=== PATIENT | female | born 1960 | race African-American/Black ===

== ENCOUNTER 2018-05-29 14:15 | Emergency (ER) | payer BC, OTHER ==
[2018-05-29 14:21] VITALS: BP 129/84; PULSE 80; TEMP 98.9; BMI 25.7
--- NOTE | 2018-05-29 20:14 | PDOC ---
History of Present Illness - General Chief Complaint: Alcohol intoxication Stated Complaint: Alcohol intoxication Time Seen by Provider: 05/29/18 20:07 History Source: Patient Exam Limitations: No Limitations Past History - Past Medical History Allergies/Adverse Reactions: Allergies Allergy/AdvReac Type Severity Reaction Status Date / Time No Known Allergies Allergy Verified 05/29/18 14:21 Cardiac Disorders: Yes (CHF) COPD: No Diabetes: Yes HTN: Yes - Surgical History Abdominal Surgery: (GASTRIC BYPASS,HYSTERECTOMY) - Suicide/Smoking/Psychosocial Hx Smoking History: Never smoked Information on smoking cessation initiated: Yes Hx Alcohol Use: Yes (vodka daily) Drug/Substance Use Hx: No Substance Use Type: Alcohol *Physical Exam - Vital Signs Last Vital Signs Temp Pulse Resp BP Pulse Ox 98.9 F 80 19 129/84 98 05/29/18 14:17 05/29/18 14:17 05/29/18 14:17 05/29/18 14:17 05/29/18 14:17 *DC/Admit/Observation/Transfer Diagnosis at time of Disposition: Alcohol intoxication Qualifiers: Complication of substance-induced condition: with unspecified complication Qualified Code(s): F10.929 - Alcohol use, unspecified with intoxication, unspecified - Discharge Dispostion Disposition: HOME Condition at time of disposition: Improved Decision to Admit order: No - Referrals Referrals: Daniel Gerardo MD [Staff Physician] - - Patient Instructions Printed Discharge Instructions: DI for Alcohol Abuse Additional Instructions: You have been diagnosed with alcohol intoxication. You are medically cleared for admission into [facility] alcohol detox facility. Please proceed to [place] at the following address: [address] [place] [address]. Phone number: [phone]. Please follow with your primary care physician to let them know of your emergency department discharge within 1-2 days. If your symptoms worsen, persist, or new concerning symptoms arise, please return to the emergency department. - Post Discharge Activity Forms/Work/School Notes: Back to Work
--- NOTE | 2018-05-29 20:21 | PDOC ---
Attending Attestation - Resident Resident Name: Jesus Bullard - ED Attending Attestation I have performed the following: I have examined & evaluated the patient, The case was reviewed & discussed with the resident, I agree w/resident's findings & plan, Exceptions are as noted - Medical Decision Making 05/29/18 20:42 Pt is medically stable to go to [address] [place] [address] in the moving. Currently accompanied by family. <Hadley Mejias - Last Filed: 05/29/18 20:42> - HPI HPI: 05/29/18 20:26 The patient is a 58 year old female, with significant past medical history of CHF, HTN, DM, and alcohol abuse, who presents to the emergency department with, alcohol abuse. As per patient, she drinks vodka everyday. Her last drink was 10: 30 AM. She would like detox. She denies recent fevers, chills, headache or dizziness. She denies recent nausea, vomit, diarrhea or constipation. She denies recent dysuria, frequency, urgency or hematuria. She denies recent chest pain or shortness of breath. Allergies: NKA Past surgical history: Gastric bypass and Hysterectomy. Social history: Alcohol abuse (daily vodka use). Nonsmoker. Denies recreational drug use. - Physicial Exam PE: 05/29/18 20:26 GENERAL: Well-appearing, well-nourished. No apparent distress. HEENT: Normocephalic, atraumatic. PERRL, EOM intact. CARDIOVASCULAR: Normal S1, S2. Regular rate and rhythm. PULMONARY: Clear to auscultation bilaterally. ABDOMEN: Soft, non-distended, non-tender. EXTREMITIES: Normal ROM in all four extremities. No gross deformities. SKIN: Warm, dry. No rash NEUROLOGICAL: No focal neurological deficits. <Brayden Gomez - Last Filed: 05/29/18 21:17> Attestations - Attestations 05/29/18 20:27 Documentation prepared by Brayden Gomez, acting as medical pathologist for Hadley Mejias DO. 05/29/18 21:17 <Brayden Gomez - Last Filed: 05/29/18 21:17>
== END 2018-05-29 21:05 | disposition home or self-care (01) ==
LOC: JER 14:15
DX: F10.129 Alcohol abuse with intoxication, unspecified (principal); I10 Essential (primary) hypertension; I50.9 Heart failure, unspecified; E11.9 Type 2 diabetes mellitus without complications; E78.5 Hyperlipidemia, unspecified; J44.9 Chronic obstructive pulmonary disease, unspecified; Z98.84 Bariatric surgery status; Z90.710 Acquired absence of both cervix and uterus
CPT/HCPCS: 99281-25

== ENCOUNTER 2019-08-16 10:14 | Emergency (ER) | payer BC ==
[2019-08-16 10:33] VITALS: BMI 26.6
--- NOTE | 2019-08-16 10:56 | PDOC ---
History of Present Illness - General Chief Complaint: Alcohol intoxication Stated Complaint: PALPITATIONS - History of Present Illness Initial Comments: 59 year old female with PMH of alcoholism (last detox 1 year prior), CHF, DM, HLD, and COPD presenting to the emergency department acutely intoxicated with alcohol. States that she last drank 45 mins -1 hour prior and was in her home at which point she called EMS because she wanted rehab. When EMS measured her HR , they noted that she was in sinus tachycardia and then she admitted that she had palpitations. She originally denied any chest pain but then later stated to the attending that she did have some mild central chest pain, SOB, nausea, vomiting, or other symptoms. 08/16/19 10:58 Past History - Past Medical History Allergies/Adverse Reactions: Allergies Allergy/AdvReac Type Severity Reaction Status Date / Time No Known Allergies Allergy Verified 06/03/18 10:51 Home Medications: Ambulatory Orders Metoprolol Succinate [Toprol Xl] 25 mg PO DAILY #30 tab.er.24h 06/06/18 Simvastatin [Zocor -] 10 mg PO HS #30 tablet 06/06/18 Anemia: Yes (not on meds) Asthma: No Cancer: No Cardiac Disorders: Yes (CHF - on Toprol) CVA: No COPD: Yes (COPD, states not on meds) CHF: Yes (On Toprol) Dementia: No Diabetes: Yes (diet controlled) GI Disorders: No Disorders: No HTN: No (Denies, Bp high at admission) Hypercholesterolemia: Yes (On Lipitor) Liver Disease: No Seizures: Yes (Alcohol induced - 2008) Thyroid Disease: No - Surgical History Abdominal Surgery: (GASTRIC BYPASS,HYSTERECTOMY) - Psycho Social/Smoking Cessation Hx Smoking History: Never smoked Have you smoked in the past 12 months: No 'Breaking Loose' booklet given: 06/03/18 Hx Alcohol Use: Yes Drug/Substance Use Hx: No Substance Use Type: Alcohol Hx Substance Use Treatment: Yes Review of Systems - Review of Systems Constitutional: No: See HPI, Chills, Diaphoresis HEENTM: No: Blurred Vision, Tearing Respiratory: No: Cough, Shortness of Breath Cardiac (ROS): No: Chest Pain, Irregular Heart Rate ABD/GI: No: Diarrhea, Nausea, Vomiting : No: Dysuria, Discharge Musculoskeletal: No: Back Pain, Joint Pain, Muscle Weakness, Neck Pain Integumentary: No: Flushing, Lesions, Lumps Neurological: No: Headache, Numbness, Paresthesia Psychiatric: Yes: Anxiety. No: Depression Hematologic/Lymphatic: No: Anemia, Blood Clots, Easy Bleeding *Physical Exam - Vital Signs Last Vital Signs Temp Pulse Resp BP Pulse Ox 98.0 F 110 H 20 127/88 97 08/16/19 10:15 08/16/19 10:15 08/16/19 10:15 08/16/19 10:15 08/16/19 10:15 - Physical Exam General Appearance: Yes: Nourished, Appropriately Dressed. No: Apparent Distress HEENT: positive: EOMI, RAFY, Normal ENT Inspection, Normal Voice Neck: positive: Trachea midline, Normal Thyroid, Supple. negative: Tender, Rigid Respiratory/Chest: positive: Lungs Clear, Normal Breath Sounds. negative: Chest Tender, Respiratory Distress, Accessory Muscle Use Cardiovascular: positive: Regular Rhythm, Regular Rate Gastrointestinal/Abdominal: positive: Normal Bowel Sounds, Flat, Soft. negative : Tender Musculoskeletal: positive: Normal Inspection. negative: Decreased Range of Motion Extremity: positive: Normal Inspection, Normal Range of Motion. negative: Tender Neurologic: positive: Fully Oriented, Alert, Normal Mood/Affect ED Treatment Course - LABORATORY CBC & Chemistry Diagram: 08/16/19 12:22 08/16/19 12:22 Discharge - Discharge Information Problems reviewed: Yes Clinical Impression/Diagnosis: Alcohol intoxication Qualifiers: Complication of substance-induced condition: uncomplicated Qualified Code(s): F10.920 - Alcohol use, unspecified with intoxication, uncomplicated Condition: Improved Disposition: HOME - Admission No - Follow up/Referral Referrals: Tara Plummer [Primary Care Provider] - - Patient Discharge Instructions Patient Printed Discharge Instructions: DI for Alcohol Abuse Additional Instructions: Please go to [facility] to help you stop drinking and detox. Please stop drinking alcohol when you leave [facility]. Please make a follow up appointment with your PCP or you can use our clinic if you wish. Please return to the Ed if you have new or worsening symptoms. - Post Discharge Activity
[2019-08-16 12:36] LABS: EOS % 0.7 % (0-4.5); HEMOGLOBIN 12.9 GM/dL (10.7-15.3); LYMPH % 35.7 % (8-40); MCH 33.3 pg (25.7-33.7); MEAN CELL VOLUME 97.8 fl (80-96); MEAN PLT VOLUME 7.1 fl (7.5-11.1); MONO % 8.4 % (3.8-10.2); NEUT % 54.2 % (42.8-82.8); PLATELET COUNT 265 K/MM3 (134-434); RBC 3.88 M/mm3 (3.60-5.2); RDW 15.4 % (11.6-15.6); WHITE BLOOD COUNT 6.4 K/mm3 (4.0-10.0)
[2019-08-16 13:08] LABS: ALBUMIN 3.3 g/dl (3.4-5.0); ALK PHOS 80 U/L (45-117); ANION GAP 13 MMOL/L (8-16); BILIRUBIN,TOTAL 0.2 mg/dL (0.2-1); BLOOD UREA NITROGEN 10.8 mg/dL (7-18); CALCIUM 7.5 mg/dL (8.5-10.1); CHLORIDE 102 mmol/L (98-107); CO2 23 mmol/L (21-32); CREATININE 0.8 mg/dL (0.55-1.3); GLUCOSE,RANDOM 323 mg/dL (74-106); POTASSIUM 4.1 mmol/L (3.5-5.1); SGOT/AST 56 U/L (15-37); SGPT/ALT 75 U/L (13-61); SODIUM 139 mmol/L (136-145); TOT PROT 6.6 g/dl (6.4-8.2)
--- NOTE | 2019-08-16 13:19 | EKG ---
Test Reason : Blood Pressure : / mmHG Vent. Rate : 098 BPM Atrial Rate : 098 BPM P-R Int : 180 ms QRS Dur : 088 ms QT Int : 370 ms P-R-T Axes : 055 065 060 degrees QTc Int : 472 ms NORMAL SINUS RHYTHM WHEN COMPARED WITH ECG OF 03-JUN-2018 14:13, NO SIGNIFICANT CHANGE WAS FOUND Confirmed by HOMAR ANTONY MD ([id number]) on 08/16/2019 1:19:27 PM Referred By: Confirmed By:HOMAR ANTONY MD
[2019-08-16 13:45] VITALS: BP 108/70; PULSE 102; TEMP 98.4
--- NOTE | 2019-08-16 14:05 | PDOC ---
Attending Attestation - Resident Resident Name: Tati Miranda - ED Attending Attestation I have performed the following: I have examined & evaluated the patient, The case was reviewed & discussed with the resident, I agree w/resident's findings & plan, Exceptions are as noted - HPI HPI: 08/16/19 13:33 59 year old female with PMH of alcoholism (last detox 1 year prior), CHF, DM, HLD, and COPD presenting to the emergency department acutely intoxicated with alcohol complaining of palpitations and chest discomfort - Physicial Exam PE: 08/16/19 15:52 Vitals: Triage Vital signs reviewed General Appearance: No acute distress, well nourished well developed, Head: Atraumatic, Chest Wall: Nontender Cardiac: Tachycardic Lungs: Clear to auscultation bilateral, good air movement bilaterally, Abdomen: Soft, non distended, normal bowel sounds, non tender to palpation Extremities: Full range of motion to all extremities, no cyanosis, clubbing, or edema Skin: Warm and dry, no rashes or lesions, no rash, no petechiaeTachycardic Psych: Normal mood, normal affect - Medical Decision Making 08/16/19 15:53 Well-appearing no apparent distress presents with alcohol intoxication slight withdrawal CIWA score 8 and palpitations and chest pressure Nonischemic EKG troponin negative patient stable for transfer to [facility] for detox Findings, need for follow-up and strict return instructions discussed with patient. Heart Score/ECG Review - ECG Impressions Comment:: 08/16/19 15:52 EKG performed at 1027 demonstrates normal sinus rhythm no ST elevations or T wave inversions. Interpreted by me.
== END 2019-08-16 14:17 | disposition home or self-care (01) ==
LOC: JER 10:14
DX: F10.120 Alcohol abuse with intoxication, uncomplicated (principal); Y90.9 Presence of alcohol in blood, level not specified; I25.10 Atherosclerotic heart disease of native coronary artery without angina pectoris; I11.0 Hypertensive heart disease with heart failure; I50.9 Heart failure, unspecified; E11.9 Type 2 diabetes mellitus without complications; E78.00 Pure hypercholesterolemia, unspecified; Z86.69 Personal history of other diseases of the nervous system and sense organs; J44.9 Chronic obstructive pulmonary disease, unspecified; D64.9 Anemia, unspecified; Z98.84 Bariatric surgery status; Z90.710 Acquired absence of both cervix and uterus
CPT/HCPCS: 36415; 80053; 84484; 85025; 93005; 93010; 99283-25

== ENCOUNTER 2019-08-16 15:21 | Inpatient (IN) | payer BC, OTHER ==
[2019-08-16 19:52] VITALS: BMI 25.9
--- NOTE | 2019-08-16 21:58 | HP ---
CIWA Score Nausea/Vomitin-Mild Nausea/No Vomiting Muscle Tremors: 4-Moderate,w/Arms Extend Anxiety: 3 Agitation: 3 Paroxysmal Sweats: 2 Orientation: 0-Oriented Tacttile Disturbances: 0-None Auditory Disturbances: 0-None Visual Disturbances: 0-None Headache: 2-Mild CIWA-Ar Total Score: 15 - Admission Criteria OASAS Guidelines: Admission for Medically Managed Detox: Requires at least one of the followin. CIWA greater than 12 2. Seizures within the past 24 hours 3. Delirium tremens within the past 24 hours 4. Hallucinations within the past 24 hours 5. Acute intervention needed for co occurring medical disorder 6. Acute intervention needed for co occurring psychiatric disorder 7. Severe withdrawal that cannot be handled at a lower level of care (continued vomiting, continued diarrhea, abnormal vital signs) requiring intravenous medication and/or fluids 8. Admitting History and Physical - Smoking History Smoking history: Never smoked Have you smoked in the past 12 months: No - Alcohol/Substance Use Hx Alcohol Use: Yes Admission ROS [facility] Chief Complaint: Seeking admission to detox from alcohol Allergies/Adverse Reactions: Allergies Allergy/AdvReac Type Severity Reaction Status Date / Time No Known Allergies Allergy Verified 08/16/19 19:42 History of Present Illness: 59 years old female with a long history of alcohol dependence is seeking admission to detox. Patient has been in previous multiple detox and reports insignificant period of sobriety. She mas medical history of Hypertension, Anemia, CHF, Diabetes Type 2, Seizures, Hyperlipidemia, and COPD. She denies suicidal ideation at this time Exam Limitations: Intoxication - Ebola screening Have you traveled outside of the country in the last 21 days: No (N) Have you had contact with anyone from an Ebola affected area: No Do you have a fever: No - Review of Systems Constitutional: Chills, Malaise, Changes in sleep EENT: reports: No Symptoms Reported Respiratory: reports: No Symptoms reported Cardiac: reports: No Symptoms Reported GI: reports: No Symptoms Reported : reports: No Symptoms Reported Musculoskeletal: reports: Back Pain, Muscle Pain Integumentary: reports: Dryness, Flushing Neuro: reports: Tremors Endocrine: reports: No Symptoms Reported Hematology: reports: No Symptoms Reported, Anemia Psychiatric: reports: Mood/Affect Appropiate, Anxious, Depressed Other Systems: Reviewed and Negative Patient History - Patient Medical History Hx Anemia: Yes (not on meds) Hx Asthma: No Hx Chronic Obstructive Pulmonary Disease (COPD): Yes (COPD, states not on meds) Hx Cancer: No Hx Cardiac Disorders: Yes (CHF - on Toprol) Hx Congestive Heart Failure: Yes (On Toprol) Hx Hypertension: No (Denies, Bp high at admission) Hx Hypercholesterolemia: Yes (On Lipitor) Hx Pacemaker: No HX Cerebrovascular Accident: No Hx Seizures: Yes (Alcohol induced - 2008) Hx Dementia: No Hx Diabetes: Yes (diet controlled) Hx Gastrointestinal Disorders: No Hx Liver Disease: No Hx Genitourinary Disorders: No Hx Sexually Transmitted Disorders: No (Chlamydia - 15 years ago) Hx Renal Disease (ESRD): No Hx Thyroid Disease: No Hx Human Immunodeficiency Virus (HIV): No (Negative) Hx Hepatitis C: No Hx Depression: No Hx Suicide Attempt: No (Denies suicidal ideation at this time) Hx Bipolar Disorder: No Hx Schizophrenia: No - Patient Surgical History Past Surgical History: Yes Hx Neurologic Surgery: No Hx Cataract Extraction: No Hx Cardiac Surgery: No Hx Lung Surgery: No Hx Breast Surgery: No Hx Breast Biopsy: No Hx Abdominal Surgery: Yes (GASTRIC BYPASS,HYSTERECTOMY) Hx Appendectomy: No Hx Hysterectomy: Yes - PPD History Previous Implant?: No (PPD POSITIVE. ) Implanted On Prior R Admission?: No PPD to be Administered?: No - Reproductive History Patient is a Female of Child Bearing Age (11 -55 yrs old): Yes LMP comment: S/P HYSTRECTOMY 2011 Patient : No - Smoking Cessation Smoking history: Never smoked Have you smoked in the past 12 months: No Hx Chewing Tobacco Use: No - Substance & Tx. History Hx Alcohol Use: Yes Hx Substance Use: No Substance Use Type: Alcohol Hx Substance Use Treatment: Yes (UNKNOWN) - Substances abused Alcohol Substance route: Oral Frequency: Daily Amount used: 2pints of vodka/day Age of first use: 8 Date of last use: 08/16/19 Admission Physical Exam BHS - Vital Signs Vital Signs: Vital Signs - 24 hr 08/16/19 19:44 Temperature 100.4 F H Pulse Rate 94 H Respiratory 18 Rate Blood Pressure 179/110 H - Physical General Appearance: Yes: Moderate Distress, Tremorous, Irritable, Sweating, Anxious HEENTM: Yes: EOMI, Normal ENT Inspection, Normocephalic, Normal Voice, RAFY Respiratory: Yes: Lungs Clear, Normal Breath Sounds, No Respiratory Distress Neck: Yes: Supple Breast: Yes: Breast Exam Deferred Cardiology: Yes: Tachycardia Abdominal: Yes: Normal Bowel Sounds Genitourinary: Yes: Within Normal Limits Back: Yes: Normal Inspection, CVA Tenderness (L) Musculoskeletal: Yes: Back pain, Muscle Pain Extremities: Yes: Tremors Neurological: Yes: Within Normal Limits Integumentary: Yes: Warm Lymphatic: Yes: Within Normal Limits - Diagnostic (1) Hyperlipidemia Current Visit: Yes Status: Acute (2) Anemia Current Visit: Yes Status: Chronic Qualifiers: Anemia type: iron deficiency (3) Seizures Current Visit: Yes Status: Chronic (4) Hypertension Current Visit: Yes Status: Chronic (5) Alcohol dependence with uncomplicated intoxication Current Visit: Yes Status: Acute (6) CHF (congestive heart failure) Current Visit: Yes Status: Chronic (7) COPD (chronic obstructive pulmonary disease) Current Visit: Yes Status: Chronic (8) DM2 (diabetes mellitus, type 2) Current Visit: Yes Status: Chronic Cleared for Admission S - Detox or Rehab [facility] Level of Care: Medically Managed Detox Regimen/Protocol: Librium Breathalyzer - Breathalyzer Breathalyzer: 0.094 Urine Drug Screen - Test Device Lot number: [id number] Expiration date: 03/22/21 - Control Is test valid?: Yes - Results Drug screen NEGATIVE: No Urine drug screen results: BZO-Benzodiazepines Inpatient Rehab Admission - Rehab Decision to Admit Inpatient rehab admission?: No
[2019-08-16] MEDS ORDERED: METHOCARBAMOL 500 MG TABLET PO PRN (22:12)
[2019-08-16] MEDS ORDERED: IBUPROFEN 400 MG TABLET (FP) PO PRN (22:12)
[2019-08-16] MEDS ORDERED: BISMUTH SUBSALICYLATE 524 MG/30 ML UD PO PRN (22:12)
[2019-08-16] MEDS ORDERED: MENTHOL/PHENOL 1 EACH UD MM PRN (22:12)
[2019-08-16] MEDS ORDERED: MAG HYDROX/AL HYDROX/SIMETH 30 ML UNIT-DOSE CUP PO PRN (22:12)
[2019-08-16] MEDS ORDERED: chlordiazePOXIDE HCL 25 MG CAPSULE PO PRN (22:12)
[2019-08-16] MEDS ORDERED: MAGNESIUM HYDROX 2400MG/30ML ORAL SUSPENSION 30 ML CUP PO PRN (22:12)
[2019-08-16] MEDS ORDERED: ACETAMINOPHEN 325 MG TABLET (FP) PO PRN ×2 (22:12)
[2019-08-16] MEDS ORDERED: MAGNESIUM CITRATE 300 ML BOTTLE PO PRN (22:12)
[2019-08-16] MEDS ORDERED: hydrOXYzine PAMOATE 25 MG CAPSULE (FP) PO PRN (22:12)
[2019-08-16] MEDS: chlordiazePOXIDE HCL 25 MG CAPSULE PO SCH (23:40)
[2019-08-17] MEDS: chlordiazePOXIDE HCL 25 MG CAPSULE PO SCH ×4 (06:20→22:29)
[2019-08-17] MEDS: metoPROLOL SUCCINATE 25 MG TAB.SR.24H (FP) PO SCH (10:42)
[2019-08-17] MEDS: PRENATAL VITAMINS W/ FOLIC ACID TABLET (FP) PO SCH (10:42)
[2019-08-17 12:34] LABS: ALBUMIN 3.7 g/dl (3.4-5.0); BLOOD UREA NITROGEN 7.6 mg/dL (7-18); CALCIUM 8.7 mg/dL (8.5-10.1); CREATININE 0.6 mg/dL (0.55-1.3); POTASSIUM 3.6 mmol/L (3.5-5.1); TOT PROT 6.8 g/dl (6.4-8.2)
[2019-08-17 12:35] LABS: HEMATOCRIT 38.3 % (32.4-45.2); HEMOGLOBIN 12.9 GM/dL (10.7-15.3); MCH 32.9 pg (25.7-33.7); MCHC 33.7 g/dl (32.0-36.0); MEAN CELL VOLUME 97.6 fl (80-96); MEAN PLT VOLUME 7.8 fl (7.5-11.1); PLATELET COUNT 242 K/MM3 (134-434); RBC 3.92 M/mm3 (3.60-5.2); RDW 15.2 % (11.6-15.6); WHITE BLOOD COUNT 5.5 K/mm3 (4.0-10.0)
--- NOTE | 2019-08-17 13:28 | PN ---
S CIWA - CIWA Score Nausea/Vomitin-No Nausea/No Vomiting Muscle Tremors: 2 Anxiety: 3 Agitation: 1-Slight > Activity Paroxysmal Sweats: 3 Orientation: 0-Oriented Tacttile Disturbances: 0-None Auditory Disturbances: 0-None Visual Disturbances: 0-None Headache: 2-Mild CIWA-Ar Total Score: 11 S Progress Note (SOAP) Subjective: c/o sweats, anxiety, headache, and shakes. Objective: 08/17/19 13:27 Vital Signs 08/17/19 08/17/19 06:47 08:00 Temperature 99 F 98.1 F Pulse Rate 72 89 Respiratory 18 18 Rate Blood Pressure 138/86 139/87 Lab Results WBC 5.5 K/mm3 (4.0-10.0) 08/17/19 07:55 RBC 3.92 M/mm3 (3.60-5.2) 08/17/19 07:55 Hgb 12.9 GM/dL (10.7-15.3) 08/17/19 07:55 Hct 38.3 % (32.4-45.2) 08/17/19 07:55 MCV 97.6 fl (80-96) H 08/17/19 07:55 MCHC 33.7 g/dl (32.0-36.0) 08/17/19 07:55 RDW 15.2 % (11.6-15.6) 08/17/19 07:55 Plt Count 242 K/MM3 (134-434) 08/17/19 07:55 Sodium 139 mmol/L (136-145) 08/17/19 07:55 Potassium 3.6 mmol/L (3.5-5.1) 08/17/19 07:55 Chloride 99 mmol/L (98-107) 08/17/19 07:55 Carbon Dioxide 31 mmol/L (21-32) 08/17/19 07:55 Anion Gap 9 MMOL/L (8-16) 08/17/19 07:55 BUN 7.6 mg/dL (7-18) 08/17/19 07:55 Creatinine 0.6 mg/dL (0.55-1.3) 08/17/19 07:55 Random Glucose 77 mg/dL (74-106) 08/17/19 07:55 Calcium 8.7 mg/dL (8.5-10.1) 08/17/19 07:55 Labs noted. Assessment: 08/17/19 13:27 AOX3, in no acute respiratory distress. Full ROM, ambulating in the unit. withdrawal symptoms. Plan: continue detox.
--- NOTE | 2019-08-17 14:09 | EKG ---
Test Reason : Blood Pressure : / mmHG Vent. Rate : 087 BPM Atrial Rate : 087 BPM P-R Int : 162 ms QRS Dur : 090 ms QT Int : 398 ms P-R-T Axes : 060 066 060 degrees QTc Int : 478 ms NORMAL SINUS RHYTHM NORMAL ECG WHEN COMPARED WITH ECG OF 16-AUG-2019 10:27, NO SIGNIFICANT CHANGE WAS FOUND Confirmed by ESTEBAN SINGH MD ([id number]) on 08/17/2019 2:08:47 PM Referred By: Confirmed By:ESTEBAN SINGH MD
[2019-08-17] MEDS: NYSTATIN POWDER 100,000 UNITS/GM - 15 GM TOPICAL POWDER TP SCH ×2 (15:31→22:33)
[2019-08-17] MEDS: THIAMINE HCL 100 MG TABLET (FP) PO SCH (22:29)
[2019-08-17] MEDS: ATORVASTATIN CA 10 MG TABLET (FP) PO SCH (22:29)
[2019-08-18] MEDS: chlordiazePOXIDE HCL 25 MG CAPSULE PO SCH ×4 (05:18→23:04)
[2019-08-18] MEDS: metoPROLOL SUCCINATE 25 MG TAB.SR.24H (FP) PO SCH (10:49)
[2019-08-18] MEDS: PRENATAL VITAMINS W/ FOLIC ACID TABLET (FP) PO SCH (10:49)
[2019-08-18] MEDS: NYSTATIN POWDER 100,000 UNITS/GM - 15 GM TOPICAL POWDER TP SCH ×2 (10:49→23:03)
--- NOTE | 2019-08-18 16:28 | PN ---
S CIWA - CIWA Score Nausea/Vomitin-Mild Nausea/No Vomiting Muscle Tremors: 2 Anxiety: 3 Agitation: 1-Slight > Activity Paroxysmal Sweats: 3 Orientation: 0-Oriented Tacttile Disturbances: 0-None Auditory Disturbances: 0-None Visual Disturbances: 0-None Headache: 0-None Present CIWA-Ar Total Score: 10 BHS Progress Note (SOAP) Subjective: Anxious, tremor. Patient c/o rash and showed it to marketing writer which is under her left breast. As per patient, she didn't receive anything for it since Monday. As per chart review, patient ordered for nystatin powder which might not have been available until today. Objective: 08/18/19 16:25 Last Vital Signs Temp Pulse Resp BP Pulse Ox 99.7 F H 83 16 138/97 08/18/19 14:00 08/18/19 14:00 08/18/19 14:00 08/18/19 14:00 Elevated b/p: has htn (on med) PE: Skin: moderate erythemic macular rash under left breast (itchy as per patient) Laboratory Tests 08/17/19 08/17/19 08/17/19 07:55 07:55 07:55 WBC 5.5 RBC 3.92 Hgb 12.9 Hct 38.3 MCV 97.6 H MCH 32.9 MCHC 33.7 RDW 15.2 Plt Count 242 MPV 7.8 Sodium 139 Potassium 3.6 Chloride 99 Carbon Dioxide 31 Anion Gap 9 BUN 7.6 Creatinine 0.6 Est GFR (CKD-EPI)AfAm 114.82 Est GFR (CKD-EPI)NonAf 99.07 Random Glucose 77 Calcium 8.7 Total Bilirubin 1.0 AST 59 H ALT 69 H Alkaline Phosphatase 76 Total Protein 6.8 Albumin 3.7 RPR Titer Nonreactive Labs reviewed Assessment: 08/18/19 16:26 Withdrawal sxs Plan: Continue detox Encouraged PO water intake Cutaneous candidiasis under left breast: already ordered for nystatin powder, continue as ordered
[2019-08-18] MEDS: THIAMINE HCL 100 MG TABLET (FP) PO SCH (23:04)
[2019-08-18] MEDS: ATORVASTATIN CA 10 MG TABLET (FP) PO SCH (23:04)
[2019-08-19] MEDS ORDERED: chlordiazePOXIDE HCL 10 MG CAPSULE PO PRN
[2019-08-19] MEDS: chlordiazePOXIDE HCL 10 MG CAPSULE PO SCH ×4 (05:50→22:32)
[2019-08-19] MEDS: PRENATAL VITAMINS W/ FOLIC ACID TABLET (FP) PO SCH (11:10)
[2019-08-19] MEDS: metoPROLOL SUCCINATE 25 MG TAB.SR.24H (FP) PO SCH (11:10)
[2019-08-19] MEDS: NYSTATIN POWDER 100,000 UNITS/GM - 15 GM TOPICAL POWDER TP SCH ×2 (11:10→22:32)
--- NOTE | 2019-08-19 12:50 | PN ---
S CIWA - CIWA Score Nausea/Vomitin-No Nausea/No Vomiting Muscle Tremors: 4-Moderate,w/Arms Extend Anxiety: 3 Agitation: 0-Normal Activity Paroxysmal Sweats: No Perspiration Orientation: 0-Oriented Tacttile Disturbances: 0-None Auditory Disturbances: 0-None Visual Disturbances: 0-None Headache: 0-None Present CIWA-Ar Total Score: 7 BHS Progress Note (SOAP) Subjective: PATIENT RECEIVING ETOH DETOX. PATIENT C/O SHAKES, ANXIETY AND FEELING WEAK WHICH SHE REPORTS HAPPENS WHEN SHE STOPS DRINKING. Objective: 08/19/19 12:48 Vital Signs Temperature 98.2 F 08/19/19 09:53 Pulse Rate 96 H 08/19/19 09:53 Respiratory Rate 16 08/19/19 09:53 Blood Pressure 117/69 08/19/19 09:53 O2 Sat by Pulse Oximetry (%) Laboratory Tests 08/17/19 08/17/19 08/17/19 07:55 07:55 07:55 WBC 5.5 RBC 3.92 Hgb 12.9 Hct 38.3 MCV 97.6 H MCH 32.9 MCHC 33.7 RDW 15.2 Plt Count 242 MPV 7.8 Sodium 139 Potassium 3.6 Chloride 99 Carbon Dioxide 31 Anion Gap 9 BUN 7.6 Creatinine 0.6 Est GFR (CKD-EPI)AfAm 114.82 Est GFR (CKD-EPI)NonAf 99.07 POC Glucometer Random Glucose 77 Calcium 8.7 Total Bilirubin 1.0 AST 59 H ALT 69 H Alkaline Phosphatase 76 Total Protein 6.8 Albumin 3.7 RPR Titer Nonreactive 08/18/19 16:27 WBC RBC Hgb Hct MCV MCH MCHC RDW Plt Count MPV Sodium Potassium Chloride Carbon Dioxide Anion Gap BUN Creatinine Est GFR (CKD-EPI)AfAm Est GFR (CKD-EPI)NonAf POC Glucometer 182 Random Glucose Calcium Total Bilirubin AST ALT Alkaline Phosphatase Total Protein Albumin RPR Titer PE ALERT AND ORIENTED X 3 SKIN WARM AND DRY +PERRLA, EOMS INTACT BL CAR S1S2, RRR RESP CTA BL EXT NO VISIBLE EDEMA, +TREMORS WEAK Assessment: 08/19/19 12:50 ETOH WITHDRAWAL SX Plan: CONTINUE DETOX ENCOURAGE ORAL FLUIDS MONITOR CLINICALLY
[2019-08-19] MEDS: ATORVASTATIN CA 10 MG TABLET (FP) PO SCH (22:32)
[2019-08-19] MEDS: THIAMINE HCL 100 MG TABLET (FP) PO SCH (22:32)
[2019-08-19] MEDS: MELATONIN 5 MG TABLETS PO PRN (22:32)
[2019-08-20] MEDS: chlordiazePOXIDE HCL 10 MG CAPSULE PO SCH ×2 (06:06→17:21)
[2019-08-20] MEDS: PRENATAL VITAMINS W/ FOLIC ACID TABLET (FP) PO SCH (10:56)
[2019-08-20] MEDS: metoPROLOL SUCCINATE 25 MG TAB.SR.24H (FP) PO SCH (10:56)
[2019-08-20] MEDS: NYSTATIN POWDER 100,000 UNITS/GM - 15 GM TOPICAL POWDER TP SCH (10:57)
--- NOTE | 2019-08-20 11:53 | PN ---
S CIWA - CIWA Score Nausea/Vomitin-No Nausea/No Vomiting Muscle Tremors: None Anxiety: 1-Mildly Anxious Agitation: 1-Slight > Activity Paroxysmal Sweats: No Perspiration Orientation: 0-Oriented Tacttile Disturbances: 0-None Auditory Disturbances: 0-None Visual Disturbances: 0-None Headache: 0-None Present CIWA-Ar Total Score: 2 BHS Progress Note (SOAP) Subjective: little sweats Objective: 08/20/19 11:52 Vital Signs Temperature 98.1 F 08/20/19 09:49 Pulse Rate 103 H 08/20/19 09:49 Respiratory Rate 18 08/20/19 09:49 Blood Pressure 135/73 08/20/19 09:49 O2 Sat by Pulse Oximetry (%) aaox3 ambulating no acute distress Assessment: 08/20/19 11:53 mild withdrawals Plan: continue detox increase fluids d/c in am
[2019-08-20] MEDS: ATORVASTATIN CA 10 MG TABLET (FP) PO SCH (22:26)
[2019-08-20] MEDS: THIAMINE HCL 100 MG TABLET (FP) PO SCH (22:26)
[2019-08-20] MEDS: MELATONIN 5 MG TABLETS PO PRN (22:27)
[2019-08-21] MEDS ORDERED: chlordiazePOXIDE HCL 10 MG CAPSULE PO ONE (05:00)
--- NOTE | 2019-08-21 09:05 | DS ---
[facility] Detox Discharge Summary Admission Date: 08/16/19 Discharge Date: 08/21/19 - History Present History: Alcohol Dependence - Physical Exam Results Vital Signs: Vital Signs Temperature 97.5 F L 08/21/19 05:56 Pulse Rate 64 08/21/19 05:56 Respiratory Rate 16 08/21/19 05:56 Blood Pressure 122/76 08/21/19 05:56 O2 Sat by Pulse Oximetry (%) Pertinent Admission Physical Exam Findings: pt arrived in withdrawals Vital Signs Temperature 97.5 F L 08/21/19 05:56 Pulse Rate 64 08/21/19 05:56 Respiratory Rate 16 08/21/19 05:56 Blood Pressure 122/76 08/21/19 05:56 O2 Sat by Pulse Oximetry (%) Laboratory Tests 08/17/19 08/17/19 08/17/19 07:55 07:55 07:55 WBC 5.5 RBC 3.92 Hgb 12.9 Hct 38.3 MCV 97.6 H MCH 32.9 MCHC 33.7 RDW 15.2 Plt Count 242 MPV 7.8 Sodium 139 Potassium 3.6 Chloride 99 Carbon Dioxide 31 Anion Gap 9 BUN 7.6 Creatinine 0.6 Est GFR (CKD-EPI)AfAm 114.82 Est GFR (CKD-EPI)NonAf 99.07 POC Glucometer Random Glucose 77 Calcium 8.7 Total Bilirubin 1.0 AST 59 H ALT 69 H Alkaline Phosphatase 76 Total Protein 6.8 Albumin 3.7 RPR Titer Nonreactive 08/18/19 08/20/19 08/21/19 16:27 06:04 05:40 WBC RBC Hgb Hct MCV MCH MCHC RDW Plt Count MPV Sodium Potassium Chloride Carbon Dioxide Anion Gap BUN Creatinine Est GFR (CKD-EPI)AfAm Est GFR (CKD-EPI)NonAf POC Glucometer 182 93 90 Random Glucose Calcium Total Bilirubin AST ALT Alkaline Phosphatase Total Protein Albumin RPR Titer today pt is aaox3 ambulating no acute distress no s/s of withdrawals - Treatment Hospital Course: Detox Protocol Followed, Detoxed Safely, Responded well, Discharged Condition Good, Rehab Referral Accepted Patient has Accepted a Rehab Referral to: pt referred to inpatient rehab [facility] - Medication Discharge Medications: Ambulatory Orders Metoprolol Succinate [Toprol Xl] 25 mg PO DAILY #30 tab.er.24h 06/06/18 Simvastatin [Zocor -] 10 mg PO HS #30 tablet 06/06/18 - Diagnosis (1) Alcohol dependence with uncomplicated intoxication Current Visit: Yes Status: Chronic (2) Hyperlipidemia Current Visit: Yes Status: Chronic Qualifiers: Hyperlipidemia type: unspecified Qualified Code(s): E78.5 - Hyperlipidemia , unspecified (3) CHF (congestive heart failure) Current Visit: Yes Status: Chronic (4) COPD (chronic obstructive pulmonary disease) Current Visit: Yes Status: Chronic (5) DM2 (diabetes mellitus, type 2) Current Visit: Yes Status: Chronic (6) Hypertension Current Visit: Yes Status: Chronic (7) Seizures Current Visit: No Status: Suspected (8) Diabetes Current Visit: No Status: Chronic Qualifiers: Diabetes mellitus type: type 2 (9) H/O: hysterectomy Current Visit: No Status: Chronic - AMA Did Patient Leave Against Medical Advice: No
[2019-08-21] MEDS: NYSTATIN POWDER 100,000 UNITS/GM - 15 GM TOPICAL POWDER TP SCH (10:22)
[2019-08-21] MEDS: metoPROLOL SUCCINATE 25 MG TAB.SR.24H (FP) PO SCH (10:22)
[2019-08-21] MEDS: PRENATAL VITAMINS W/ FOLIC ACID TABLET (FP) PO SCH (10:22)
[2019-08-21 13:09] VITALS: BP 130/82; PULSE 70; TEMP 99.9
== END 2019-08-21 13:08 | disposition other institution (70) | DRG 897 ==
LOC: YASAS 15:21 → Y6N 22:25
PROVIDERS: ADMIT Allergy & Immunology; ATTEND Allergy & Immunology
PROC: HZ2ZZZZ Detoxification Services for Substance Abuse Treatment (ICD-10-PCS; principal; 2019-08-16)
DX: F10.230 Alcohol dependence with withdrawal, uncomplicated (principal); I11.0 Hypertensive heart disease with heart failure; E78.5 Hyperlipidemia, unspecified; I50.9 Heart failure, unspecified; J44.9 Chronic obstructive pulmonary disease, unspecified; E11.9 Type 2 diabetes mellitus without complications; R00.0 Tachycardia, unspecified; Z87.42 Personal history of other diseases of the female genital tract; Z90.710 Acquired absence of both cervix and uterus; Z86.69 Personal history of other diseases of the nervous system and sense organs
CPT/HCPCS: 36415; 71046-TC-FY; 80053; 82962; 85027; 86593; 93005; 93010

== ENCOUNTER 2019-08-21 13:13 | Inpatient (IN) | payer OTHER ==
[2019-08-21] MEDS ORDERED: guaiFENesin 200 MG/10 ML 10 ML UNIT-DOSE CUPS PO PRN (14:13)
[2019-08-21] MEDS ORDERED: LOPERAMIDE HCL 2 MG CAPSULE PO PRN (14:13)
[2019-08-21] MEDS ORDERED: hydrOXYzine PAMOATE 50 MG CAPSULE (FP) PO PRN (14:13)
[2019-08-21] MEDS ORDERED: MENTHOL/PHENOL 1 EACH UD MM PRN (14:13)
[2019-08-21] MEDS ORDERED: MAGNESIUM CITRATE 300 ML BOTTLE PO PRN (14:13)
[2019-08-21] MEDS ORDERED: ACETAMINOPHEN 325 MG TABLET (FP) PO PRN (14:13)
[2019-08-21] MEDS ORDERED: MAGNESIUM HYDROX 2400MG/30ML ORAL SUSPENSION 30 ML CUP PO PRN (14:13)
[2019-08-21] MEDS ORDERED: MAG HYDROX/AL HYDROX/SIMETH 30 ML UNIT-DOSE CUP PO PRN (14:13)
[2019-08-21] MEDS ORDERED: IBUPROFEN 400 MG TABLET (FP) PO PRN (14:13)
[2019-08-21] MEDS ORDERED: P-EPHED 60MG/TRIPROLIDI 2.5MG TABLET PO PRN (14:13)
[2019-08-21] MEDS ORDERED: NICOTINE POLACRILEX 4 MG GUM BUC PRN (14:13)
--- NOTE | 2019-08-21 14:13 | HP ---
KAROL PLATA Rehab Assess/Revision - Admission History Admitted to Rehab from: [address] - Vital signs Vital Signs: Vital Signs Period Temp Pulse Resp BP Sys/Grossman Pulse Ox Last 24 Hr 98.8 F 83 18 112/72 - Findings Detox History & Physical reviewed: Yes Concur with findings: Yes Inpatient Rehab Admission - Rehab Decision to Admit Inpatient rehab admission?: Yes - Initial Determination Are CD services needed?: Yes Free of communicable disease: Yes Not in need of hospitalization: Yes - Rehab Admission Criteria Previous failed treatment: Yes Poor recovery environment: Yes Comorbidities: Yes Lacks judgement: Yes Patient is meeting Inpatient Rehab admission criteria:: Yes
[2019-08-21] MEDS: NYSTATIN 100,000 UNIT/GM TOPICAL CREAM 15 GM TUBE TP SCH (18:30)
[2019-08-21] MEDS: THIAMINE HCL 100 MG TABLET (FP) PO SCH (22:10)
[2019-08-21] MEDS: ATORVASTATIN CA 10 MG TABLET (FP) PO SCH (22:10)
[2019-08-21] MEDS: MELATONIN 5 MG TABLETS PO PRN (22:11)
[2019-08-22] MEDS: NYSTATIN 100,000 UNIT/GM TOPICAL CREAM 15 GM TUBE TP SCH ×5 (00:46→23:15)
[2019-08-22] MEDS: metoPROLOL SUCCINATE 25 MG TAB.SR.24H (FP) PO SCH (10:12)
[2019-08-22] MEDS: PRENATAL VITAMINS W/ FOLIC ACID TABLET (FP) PO SCH (10:12)
[2019-08-22] MEDS: NICOTINE 21 MG/24 HOURS TOPICAL PATCH TD SCH (10:13)
[2019-08-22] MEDS ORDERED: PT OWN MED DRAWER 7, Y5N ONE ×2 (12:02→16:09)
[2019-08-22] MEDS: ATORVASTATIN CA 10 MG TABLET (FP) PO SCH (21:24)
[2019-08-22] MEDS: THIAMINE HCL 100 MG TABLET (FP) PO SCH (21:24)
[2019-08-23] MEDS: NYSTATIN 100,000 UNIT/GM TOPICAL CREAM 15 GM TUBE TP SCH ×3 (06:12→19:27)
[2019-08-23] MEDS ORDERED: PT OWN MED DRAWER 7, Y5N ONE ×2 (06:12→12:51)
[2019-08-23] MEDS: PRENATAL VITAMINS W/ FOLIC ACID TABLET (FP) PO SCH (10:15)
[2019-08-23] MEDS: metoPROLOL SUCCINATE 25 MG TAB.SR.24H (FP) PO SCH (10:15)
[2019-08-23] MEDS: NICOTINE 21 MG/24 HOURS TOPICAL PATCH TD SCH (10:15)
[2019-08-23] MEDS: ATORVASTATIN CA 10 MG TABLET (FP) PO SCH (21:45)
[2019-08-23] MEDS: THIAMINE HCL 100 MG TABLET (FP) PO SCH (21:45)
[2019-08-24] MEDS: NYSTATIN 100,000 UNIT/GM TOPICAL CREAM 15 GM TUBE TP SCH ×4 (00:37→18:36)
[2019-08-24] MEDS: PRENATAL VITAMINS W/ FOLIC ACID TABLET (FP) PO SCH (09:59)
[2019-08-24] MEDS: NICOTINE 21 MG/24 HOURS TOPICAL PATCH TD SCH (09:59)
[2019-08-24] MEDS: metoPROLOL SUCCINATE 25 MG TAB.SR.24H (FP) PO SCH (09:59)
[2019-08-24] MEDS: MELATONIN 5 MG TABLETS PO PRN (21:12)
[2019-08-24] MEDS: ATORVASTATIN CA 10 MG TABLET (FP) PO SCH (21:12)
[2019-08-24] MEDS: THIAMINE HCL 100 MG TABLET (FP) PO SCH (21:12)
[2019-08-25] MEDS: NYSTATIN 100,000 UNIT/GM TOPICAL CREAM 15 GM TUBE TP SCH ×4 (00:14→18:53)
[2019-08-25] MEDS: PRENATAL VITAMINS W/ FOLIC ACID TABLET (FP) PO SCH (09:47)
[2019-08-25] MEDS: NICOTINE 21 MG/24 HOURS TOPICAL PATCH TD SCH (09:47)
[2019-08-25] MEDS: metoPROLOL SUCCINATE 25 MG TAB.SR.24H (FP) PO SCH (09:47)
[2019-08-25] MEDS: ATORVASTATIN CA 10 MG TABLET (FP) PO SCH (21:47)
[2019-08-25] MEDS: THIAMINE HCL 100 MG TABLET (FP) PO SCH (21:47)
[2019-08-26] MEDS: NYSTATIN 100,000 UNIT/GM TOPICAL CREAM 15 GM TUBE TP SCH ×3 (00:29→12:10)
[2019-08-26] MEDS: PRENATAL VITAMINS W/ FOLIC ACID TABLET (FP) PO SCH (09:59)
[2019-08-26] MEDS: metoPROLOL SUCCINATE 25 MG TAB.SR.24H (FP) PO SCH (10:00)
--- NOTE | 2019-08-26 12:45 | PN ---
S Progress Note Note: PATIENT PRESENTS WITH ONGOING RASH TO LEFT BREAST AND SWELLING OF B/L LEGS. PATIENT STATES CREAM FOR RASH IS NOT WORKING TO RELIEVE SYMPTOMS OF ITCHING AND REDNESS. SWELLING TO LEGS WORSENS ONCE SHE AMBULATES AND IS A NEW OCCURRENCE FOR PATIENT. SHE HAS PMH DM, HTN. PATIENT DENIES PAIN/INJURY TO LEGS/FEET. Vital Signs Temperature 98.1 F 08/26/19 07:13 Pulse Rate 85 08/26/19 09:43 Respiratory Rate 18 08/26/19 07:13 Blood Pressure 90/64 08/26/19 09:43 O2 Sat by Pulse Oximetry (%) Laboratory Tests 08/23/19 08/23/19 08/24/19 07:40 16:49 06:13 POC Glucometer 95 138 HIV 1&2 Ag/Ab, 4th Gen Non reactive 08/24/19 08/25/19 08/25/19 17:03 06:00 16:50 POC Glucometer 117 123 105 HIV 1&2 Ag/Ab, 4th Gen 08/26/19 06:35 POC Glucometer 94 HIV 1&2 Ag/Ab, 4th Gen PE: ALERT AND ORIENTED X 3 SKIN WARM AND DRY +MACULAR REDDISH BROWN RASH UNDERNEATH LEFT BREAST, NO OPEN AREAS CAR S1S2, RRR RESP CTA BL EXT FULL ROM, +1 BLE EDEMA, NON-PITTING AMB AD RACHAEL A/P: EDEMA FUNGAL RASH WILL D/C NYSTATIN CREAM START NYSTATIN POWDER BID MONITOR CLINICALLY FOR EDEMA, SELF LIMITING WILL TREAT WITH ELVIN STOCKINGS
[2019-08-26] MEDS: THIAMINE HCL 100 MG TABLET (FP) PO SCH (21:07)
[2019-08-26] MEDS: ATORVASTATIN CA 10 MG TABLET (FP) PO SCH (21:08)
[2019-08-26] MEDS ORDERED: PT OWN MED DRAWER 7, Y5N ONE (21:09)
[2019-08-26] MEDS: NYSTATIN POWDER 100,000 UNITS/GM - 15 GM TOPICAL POWDER TP SCH (21:09)
[2019-08-27] MEDS ORDERED: PT OWN MED DRAWER 7, Y5N ONE (08:53)
[2019-08-27] MEDS: NYSTATIN POWDER 100,000 UNITS/GM - 15 GM TOPICAL POWDER TP SCH ×2 (10:07→22:04)
[2019-08-27] MEDS: metoPROLOL SUCCINATE 25 MG TAB.SR.24H (FP) PO SCH (10:08)
[2019-08-27] MEDS: PRENATAL VITAMINS W/ FOLIC ACID TABLET (FP) PO SCH (10:08)
[2019-08-27] MEDS: ATORVASTATIN CA 10 MG TABLET (FP) PO SCH (21:54)
[2019-08-27] MEDS: THIAMINE HCL 100 MG TABLET (FP) PO SCH (21:54)
[2019-08-28] MEDS: PRENATAL VITAMINS W/ FOLIC ACID TABLET (FP) PO SCH (09:55)
[2019-08-28] MEDS: metoPROLOL SUCCINATE 25 MG TAB.SR.24H (FP) PO SCH (09:55)
[2019-08-28] MEDS: NYSTATIN POWDER 100,000 UNITS/GM - 15 GM TOPICAL POWDER TP SCH ×2 (09:56→21:20)
[2019-08-28] MEDS: THIAMINE HCL 100 MG TABLET (FP) PO SCH (21:19)
[2019-08-28] MEDS: ATORVASTATIN CA 10 MG TABLET (FP) PO SCH (21:19)
[2019-08-29] MEDS ORDERED: PT OWN MED DRAWER 7, Y5N ONE (08:46)
[2019-08-29] MEDS: PRENATAL VITAMINS W/ FOLIC ACID TABLET (FP) PO SCH (09:56)
[2019-08-29] MEDS: NYSTATIN POWDER 100,000 UNITS/GM - 15 GM TOPICAL POWDER TP SCH ×2 (09:56→21:29)
[2019-08-29] MEDS: metoPROLOL SUCCINATE 25 MG TAB.SR.24H (FP) PO SCH (09:57)
[2019-08-29] MEDS: MELATONIN 5 MG TABLETS PO PRN (21:28)
[2019-08-29] MEDS: THIAMINE HCL 100 MG TABLET (FP) PO SCH (21:28)
[2019-08-29] MEDS: ATORVASTATIN CA 10 MG TABLET (FP) PO SCH (21:28)
[2019-08-30] MEDS: PRENATAL VITAMINS W/ FOLIC ACID TABLET (FP) PO SCH (09:00)
[2019-08-30] MEDS: metoPROLOL SUCCINATE 25 MG TAB.SR.24H (FP) PO SCH (09:00)
[2019-08-30] MEDS: NYSTATIN POWDER 100,000 UNITS/GM - 15 GM TOPICAL POWDER TP SCH ×2 (09:01→21:42)
[2019-08-30] MEDS ORDERED: PT OWN MED DRAWER 7, Y5N ONE (20:29)
[2019-08-30] MEDS: THIAMINE HCL 100 MG TABLET (FP) PO SCH (21:42)
[2019-08-30] MEDS: MELATONIN 5 MG TABLETS PO PRN (21:42)
[2019-08-30] MEDS: ATORVASTATIN CA 10 MG TABLET (FP) PO SCH (21:42)
[2019-08-31] MEDS: NYSTATIN POWDER 100,000 UNITS/GM - 15 GM TOPICAL POWDER TP SCH ×2 (09:49→21:48)
[2019-08-31] MEDS: metoPROLOL SUCCINATE 25 MG TAB.SR.24H (FP) PO SCH (09:49)
[2019-08-31] MEDS: PRENATAL VITAMINS W/ FOLIC ACID TABLET (FP) PO SCH (09:49)
[2019-08-31] MEDS: ATORVASTATIN CA 10 MG TABLET (FP) PO SCH (21:47)
[2019-08-31] MEDS: THIAMINE HCL 100 MG TABLET (FP) PO SCH (21:47)
[2019-08-31] MEDS: MELATONIN 5 MG TABLETS PO PRN (21:47)
[2019-09-01] MEDS ORDERED: PT OWN MED DRAWER 7, Y5N ONE (08:49)
[2019-09-01] MEDS: metoPROLOL SUCCINATE 25 MG TAB.SR.24H (FP) PO SCH (09:53)
[2019-09-01] MEDS: PRENATAL VITAMINS W/ FOLIC ACID TABLET (FP) PO SCH (09:53)
[2019-09-01] MEDS: NYSTATIN POWDER 100,000 UNITS/GM - 15 GM TOPICAL POWDER TP SCH ×2 (09:54→21:34)
[2019-09-01] MEDS: MELATONIN 5 MG TABLETS PO PRN (21:33)
[2019-09-01] MEDS: ATORVASTATIN CA 10 MG TABLET (FP) PO SCH (21:33)
[2019-09-01] MEDS: THIAMINE HCL 100 MG TABLET (FP) PO SCH (21:33)
[2019-09-02] MEDS: PRENATAL VITAMINS W/ FOLIC ACID TABLET (FP) PO SCH (09:47)
[2019-09-02] MEDS: metoPROLOL SUCCINATE 25 MG TAB.SR.24H (FP) PO SCH (09:47)
[2019-09-02] MEDS: NYSTATIN POWDER 100,000 UNITS/GM - 15 GM TOPICAL POWDER TP SCH ×2 (09:47→21:30)
--- NOTE | 2019-09-02 14:08 | PN ---
[facility] Progress Note Note: PATIENT C/O DISCOLORATION TO LOWER ABDOMINAL FOLD. PATIENT DENIES ITCHING, REDNESS AND DRYNESS TO AREA. Vital Signs Temperature 98.6 F 09/02/19 07:18 Pulse Rate 72 09/02/19 09:32 Respiratory Rate 18 09/02/19 07:18 Blood Pressure 113/75 09/02/19 09:32 O2 Sat by Pulse Oximetry (%) PE: ALERT AND ORIENTED X 3 SKIN WARM AND DRY +PERRLA, EOMS INTACT BL GI SOFT, NT, ND +HYPERPIGMENTED, BROWN RASH TO ABDOMINAL FOLD NO OPEN AREAS A/P: FUNGAL RASH (CUTANEOUS) WILL ORDER NYSTATIN POWDER BID TO AREA X 2 WEEKS MONITOR CLINICALLY
[2019-09-02] MEDS: THIAMINE HCL 100 MG TABLET (FP) PO SCH (21:29)
[2019-09-02] MEDS: MELATONIN 5 MG TABLETS PO PRN (21:29)
[2019-09-02] MEDS: ATORVASTATIN CA 10 MG TABLET (FP) PO SCH (21:30)
[2019-09-03] MEDS: PRENATAL VITAMINS W/ FOLIC ACID TABLET (FP) PO SCH (09:50)
[2019-09-03] MEDS: metoPROLOL SUCCINATE 25 MG TAB.SR.24H (FP) PO SCH (09:50)
[2019-09-03] MEDS: NYSTATIN POWDER 100,000 UNITS/GM - 15 GM TOPICAL POWDER TP SCH ×2 (09:50→21:31)
[2019-09-03] MEDS: THIAMINE HCL 100 MG TABLET (FP) PO SCH (21:31)
[2019-09-03] MEDS: ATORVASTATIN CA 10 MG TABLET (FP) PO SCH (21:31)
[2019-09-03] MEDS ORDERED: PT OWN MED DRAWER 7, Y5N ONE (21:32)
[2019-09-04 07:13] VITALS: TEMP 98.4
--- NOTE | 2019-09-04 08:28 | DS ---
[facility] Rehab Discharge Summary - [facility] Rehab Discharge Summary Admission Date: 08/21/19 Discharge Date: 09/04/19 - History Present History: Alcohol dependence Pertinent Past History: 59 years old female with a long history of alcohol dependence . Patient has been in previous multiple detox and reports insignificant period of sobriety. She has medical history of Hypertension, Anemia, CHF, Diabetes Type 2, Seizures , Hyperlipidemia, and COPD. - Discharge Physical Exam Vital Signs: Vital Signs Temperature 98.4 F 09/04/19 07:12 Pulse Rate 79 09/04/19 07:12 Respiratory Rate 18 09/04/19 07:12 Blood Pressure 107/72 09/04/19 07:12 O2 Sat by Pulse Oximetry (%) Pertinent Admission Physical Exam Findings: Physical General Appearance: no apparent distress HEENTM: Normocephalic, RAFY Respiratory: Lungs Clear, Neck: Supple Cardiology: S1 S2 Abdominal: +Bowel Sounds Musculoskeletal: full weight bearing Neurological: no neurological deficits. CN 2-12 intact - Treatment Discharge Condition: Outpatient referral accepted (Will go to [facility] for aftercare. Medically stable for discharge.) - Medication Discharge Medications: Ambulatory Orders Metoprolol Succinate [Toprol Xl] 25 mg PO DAILY #30 tab.er.24h 06/06/18 Simvastatin [Zocor -] 10 mg PO HS #30 tablet 06/06/18 - Medication-Assisted Treatment (MAT) Medication-Assisted Treatment (MAT): No - Discharge Instructions Diet, activity, other medical instructions: Diet: as tolerated Activity: as tolerated Other medical instructions: Please follow up with aftercare - Diagnosis (1) Alcohol dependence with uncomplicated intoxication Status: Chronic - AMA Did Patient Leave Against Medical Advice: No
[2019-09-04] MEDS ORDERED: PT OWN MED DRAWER 7, Y5N ONE (08:48)
[2019-09-04] MEDS: NYSTATIN POWDER 100,000 UNITS/GM - 15 GM TOPICAL POWDER TP SCH (09:34)
[2019-09-04] MEDS: PRENATAL VITAMINS W/ FOLIC ACID TABLET (FP) PO SCH (09:34)
[2019-09-04] MEDS: metoPROLOL SUCCINATE 25 MG TAB.SR.24H (FP) PO SCH (09:34)
[2019-09-04 09:39] VITALS: BP 111/73; PULSE 80
== END 2019-09-04 10:02 | disposition home or self-care (01) | DRG 895 ==
LOC: YASAS 13:13 → Y3E 13:14
PROVIDERS: ADMIT Neuromusculoskeletal Medicine & OMM; ATTEND Neuromusculoskeletal Medicine & OMM
PROC: HZ42ZZZ Group Counseling for Substance Abuse Treatment, Cognitive-Behavioral (ICD-10-PCS; principal; 2019-08-21)
DX: F10.20 Alcohol dependence, uncomplicated (principal); I50.9 Heart failure, unspecified; E78.5 Hyperlipidemia, unspecified; D50.9 Iron deficiency anemia, unspecified; J44.9 Chronic obstructive pulmonary disease, unspecified; E11.9 Type 2 diabetes mellitus without complications; B36.8 Other specified superficial mycoses; R60.0 Localized edema; Z87.42 Personal history of other diseases of the female genital tract; Z86.69 Personal history of other diseases of the nervous system and sense organs
CPT/HCPCS: 36415; 82962; 87389

== ENCOUNTER 2019-10-01 14:49 | Emergency (ER) | payer BC, OTHER ==
[2019-10-01 15:21] VITALS: BP 118/71; PULSE 90; TEMP 98.9; BMI 23.3
--- NOTE | 2019-10-01 16:04 | PDOC ---
History of Present Illness - General Chief Complaint: Pain Stated Complaint: abd pain Time Seen by Provider: 10/01/19 15:24 - History of Present Illness Initial Comments: Nely eBll is a 59yo woman with a PMH of alcoholism (last detox 1 year prior), CHF, DM, HLD, and COPD who presents reporting chest discomfort yesterday as well as diffuse abdominal pain yesterday and today. She says that the chest pain felt like palpitations yesterday and resolved without any intervention. She had no associated shortness of breath, nausea, vomiting, lightheadedness, or sweating. She does note diffuse, constant, non-radiating 8/ 10 abdominal pain that started around the same time as the chest pain. She endorses associated watery diarrhea but is unable to clarify how many episodes she has had over the past day. Ms Bell does endorse drinking 1pt of alcohol today, most recently right before her arrival to the ED. She reports that she has a history of CHF but no other medical conditions and does not take any medications at home. Past History - Past Medical History Allergies/Adverse Reactions: Allergies Allergy/AdvReac Type Severity Reaction Status Date / Time No Known Allergies Allergy Verified 08/16/19 19:42 Home Medications: Ambulatory Orders Metoprolol Succinate [Toprol Xl] 25 mg PO DAILY #30 tab.er.24h 06/06/18 Simvastatin [Zocor -] 10 mg PO HS #30 tablet 06/06/18 Anemia: Yes (not on meds) Asthma: No Cancer: No Cardiac Disorders: No CVA: No COPD: Yes CHF: Yes (On Toprol) Dementia: No Diabetes: Yes GI Disorders: No Disorders: No HTN: Yes Hypercholesterolemia: Yes (On Lipitor) Kidney Stones: Yes (in 2013) Liver Disease: No Seizures: Yes (alcohol induced in 2008) Thyroid Disease: No - Surgical History Abdominal Surgery: Yes (GASTRIC BYPASS in 2004,HYSTERECTOMY in 2010) Appendectomy: No Cardiac Surgery: No Cholecystectomy: No Lung Surgery: No Neurologic Surgery: No Orthopedic Surgery: No - Reproductive History PID: No - Psycho Social/Smoking Cessation Hx Smoking History: Never smoked Have you smoked in the past 12 months: No Information on smoking cessation initiated: No 'Breaking Loose' booklet given: 06/03/18 Hx Alcohol Use: Yes Drug/Substance Use Hx: No Substance Use Type: Alcohol Hx Substance Use Treatment: Yes Review of Systems - Review of Systems Comments:: General: No fevers, no chills, no weight or appetite change, no malaise HEENT: No changes in vision, no changes in hearing, no congestion, no sore throat CV: + chest pain, no palpitations, no LE edema Pulm: No SOB, no cough, no wheezing GI: See HPI : No frequency, no urgency, no dysuria Musc: No back pain, no joint swelling, no recent injury Skin: No rash, no lesions, no erythema Endo: No excessive thirst, no heat/cold intolerance Heme: No unusual bruising or bleeding, no swollen glands Neuro: No syncope, no numbness/tingling, no focal weakness Vasc: No claudication Psych: No recent change in mood, no SI or HI *Physical Exam - Vital Signs Last Vital Signs Temp Pulse Resp BP Pulse Ox 98.9 F 90 18 118/71 94 L 10/01/19 15:16 10/01/19 15:16 10/01/19 15:16 10/01/19 15:16 10/01/19 15:16 - Physical Exam General: Comfortable, no acute distress HEENT: PERRL, EOMI, MMM, voice normal, normal neck ROM, no LAD Cards: RRR, no murmur appreciated Pulm: Comfortable on room air, clear to auscultation bilaterally Abd: Soft, nondistended. Diffuse Ext: Atraumatic. No LE edema. Moves all extremities. WWP Skin: Normal color, no rashes or lesions Neuro: A&Ox3, CN grossly intact, normal speech, motor/sensory grossly intact and symmetric Psych: Mood appropriate to situation Medical Decision Making - Medical Decision Making 10/01/19 16:03 Nely Bell is a 59yo woman with a PMH of alcoholism (last detox 1 year prior), CHF, DM, HLD, and COPD who presents reporting chest discomfort yesterday , diffuse abdominal pain yesterday and today, and frequent watery diarrhea. She denies any associated symptoms and currently denies any chest pain. - Broad differential as pt has multiple chronic medical conditions that may be untreated. Includes ACS, GERD, alcoholic gastritis, pancreatitis, cholecystitis , gastroenteritis, mesenteric ischemia, undisclosed substance use - CBC, CMP, EKG, CXR, trop, lipase, lactate 10/01/19 16:36 - Informed by nursing staff that pt was no longer in her room. She had taken out her own IV, which was on her bed. - Pt could not be located in the ED. Assumed to have eloped prior to completing her medical evaluation. Discussed with Dr Pricila Celestin PGY2 Discharge - Discharge Information Problems reviewed: Yes Clinical Impression/Diagnosis: Abdominal pain Qualifiers: Abdominal location: generalized Qualified Code(s): R10.84 - Generalized abdominal pain Chest pain Qualifiers: Chest pain type: unspecified Qualified Code(s): R07.9 - Chest pain, unspecified Condition: Unchanged/Unknown Disposition: ELOPED - Follow up/Referral Referrals: Tara Plummer [Primary Care Provider] - - Patient Discharge Instructions - Post Discharge Activity
--- NOTE | 2019-10-01 16:32 | PDOC ---
Documentation entered by Irene Reddy SCRIBE, acting as scribe for Dean Mcnulty MD. Dean Mcnulty MD: This documentation has been prepared by the Maureen ordoñze Adrianna, SCRIBE, under my direction and personally reviewed by me in its entirety. I confirm that the documentation accurately reflects all work, treatment, procedures, and medical decision making performed by me. Attending Attestation - Resident Resident Name: FawadGianna - ED Attending Attestation I have performed the following: I have examined & evaluated the patient, The case was reviewed & discussed with the resident, I agree w/resident's findings & plan, Exceptions are as noted - HPI HPI: 10/01/19 16:32 59 F with h/o ETOH abuse presenting to ED with abdominal and chest pain. Pt admits to drinking a pint of vodka prior to arrival to ED. However, upon my evaluation, pt is awake, alert, clinically sober. Endorses diffuse abdominal pain and diarrhea. No N/V. No F/C. - Physicial Exam PE: 10/01/19 16:33 GENERAL: Awake, alert, and fully oriented, in no acute distress. HEAD: No signs of trauma EYES: PERRLA, EOMI, sclera anicteric, conjunctiva clear ENT: Auricles normal inspection, hearing grossly normal, nares patent, oropharynx clear without exudates. Moist mucosa NECK: Nontender, no stepoffs, Normal ROM, supple, no lymphadenopathy, JVD, or masses LUNGS: Breath sounds equal, clear to auscultation bilaterally. No wheezes, and no crackles HEART: Regular rate and rhythm, normal S1 and S2, no murmurs, rubs or gallops ABDOMEN: + diffuse mild TTP, nondistended EXTREMITIES: Normal range of motion, no edema. No clubbing or cyanosis. No cords, erythema, or tenderness NEUROLOGICAL: Cranial nerves II through XII intact. 5/5 strength and sensation in all extremities, Normal speech, normal gait, normal cerebellar function SKIN: Warm, Dry, normal turgor, no rashes or lesions noted. - Medical Decision Making 10/01/19 16:33 59 F with abdominal pain and chest pain. Shortly after initial evaluation, pt eloped from ED. Pt was awake, alert, clinically sober. Did not endorse SI/HI/AVH. Pt was witnessed ambulating with steady gait.
--- NOTE | 2019-10-02 10:12 | EKG ---
Test Reason : Blood Pressure : / mmHG Vent. Rate : 093 BPM Atrial Rate : 093 BPM P-R Int : 174 ms QRS Dur : 092 ms QT Int : 380 ms P-R-T Axes : 053 060 039 degrees QTc Int : 472 ms NORMAL SINUS RHYTHM POSSIBLE LEFT ATRIAL ENLARGEMENT BORDERLINE ECG WHEN COMPARED WITH ECG OF 16-AUG-2019 22:23, NO SIGNIFICANT CHANGE WAS FOUND Confirmed by FRANCISCO PLATA, ESTEBAN ([id number]) on 10/02/2019 10:11:41 AM Referred By: Confirmed By:ESTEBAN SINGH MD
== END 2019-10-02 16:30 | disposition left against medical advice (07) ==
LOC: JER 14:49
DX: R10.84 Generalized abdominal pain (principal); R07.9 Chest pain, unspecified; I11.0 Hypertensive heart disease with heart failure; I50.9 Heart failure, unspecified; J44.9 Chronic obstructive pulmonary disease, unspecified; F10.10 Alcohol abuse, uncomplicated; E11.9 Type 2 diabetes mellitus without complications; Z86.69 Personal history of other diseases of the nervous system and sense organs; Z98.84 Bariatric surgery status; Z90.710 Acquired absence of both cervix and uterus
CPT/HCPCS: 82962; 93005; 93010; 99281-25

== ENCOUNTER 2019-10-02 05:35 | Emergency (ER) | payer BC ==
[2019-10-02 06:33] VITALS: BP 141/99; PULSE 96; TEMP 98.7; BMI 27.0
[2019-10-02 07:07] LABS: BASO % 1.1 % (0-2.0); HEMATOCRIT 39.7 % (32.4-45.2); HEMOGLOBIN 13.9 GM/dL (10.7-15.3); LYMPH % 40.5 % (8-40); MCH 33.6 pg (25.7-33.7); MEAN CELL VOLUME 96.1 fl (80-96); MEAN PLT VOLUME 6.9 fl (7.5-11.1); MONO % 4.9 % (3.8-10.2); NEUT % 52.5 % (42.8-82.8); PLATELET COUNT 236 K/MM3 (134-434); RBC 4.13 M/mm3 (3.60-5.2); RDW 13.7 % (11.6-15.6); WHITE BLOOD COUNT 5.8 K/mm3 (4.0-10.0)
[2019-10-02 07:33] LABS: ALBUMIN 3.6 g/dl (3.4-5.0); BILIRUBIN,TOTAL 0.6 mg/dL (0.2-1); CALCIUM 7.9 mg/dL (8.5-10.1); CREATININE 0.5 mg/dL (0.55-1.3); POTASSIUM 3.5 mmol/L (3.5-5.1); TOT PROT 6.8 g/dl (6.4-8.2)
--- NOTE | 2019-10-02 07:52 | PDOC ---
*Physical Exam - Vital Signs Last Vital Signs Temp Pulse Resp BP Pulse Ox 98.7 F 96 H 18 141/99 97 10/02/19 05:50 10/02/19 05:50 10/02/19 05:50 10/02/19 05:50 10/02/19 05:50 - Physical Exam 10/02/19 07:51 The patient was examined by [SHAYY Dong] under my direct supervision. I personally evaluated the patient. I concur with the above findings and the plan of care. ED Treatment Course - LABORATORY CBC & Chemistry Diagram: 10/02/19 06:54 10/02/19 06:26 - ADDITIONAL ORDERS Additional order review: Laboratory Results 10/02/19 10/02/19 06:54 06:26 Sodium 145 Potassium 3.5 Chloride 108 H Carbon Dioxide 28 Anion Gap 8 BUN 13.0 Creatinine 0.5 L Est GFR (CKD-EPI)AfAm 121.92 Est GFR (CKD-EPI)NonAf 105.20 Random Glucose 120 H Calcium 7.9 L Total Bilirubin 0.6 AST 28 ALT 28 Alkaline Phosphatase 78 Creatine Kinase 213 H Troponin I < 0.02 Total Protein 6.8 Albumin 3.6 10/02/19 06:54 RBC 4.13 MCV 96.1 H MCHC 35.0 RDW 13.7 MPV 6.9 L D Neutrophils % 52.5 Lymphocytes % 40.5 H Monocytes % 4.9 Eosinophils % 1.0 Basophils % 1.1 Discharge - Discharge Information Problems reviewed: Yes Clinical Impression/Diagnosis: Alcohol intoxication Qualifiers: Complication of substance-induced condition: uncomplicated Qualified Code(s): F10.920 - Alcohol use, unspecified with intoxication, uncomplicated Condition: Stable Disposition: ELOPED - Follow up/Referral Referrals: Darien Plummer MD [Primary Care Provider] - - Patient Discharge Instructions - Post Discharge Activity
--- NOTE | 2019-10-02 08:31 | PDOC ---
History of Present Illness - General Chief Complaint: Alcohol intoxication Stated Complaint: INTOXICATION Time Seen by Provider: 10/02/19 07:15 History Source: Patient Exam Limitations: No Limitations - History of Present Illness Initial Comments: 10/02/19 08:26 59-year-old female with history of alcohol abuse presents complaining of chest pain and midepigastric pain which lasted about 30 minutes and resolved prior to arrival. Admits to drinking 1 L of vodka approximately 3 hours ago. Evaluated at this ED yesterday afternoon and eloped before work-up was completed. Denies nausea, fever, chills, vomiting, diarrhea, injury, headache, urinary symptoms or any other complaints. Denies taking any medications. Interested in alcohol detox ROS: GENERAL/CONSTITUTIONAL: No fever, chills, weakness HEAD, EYES, EARS, NOSE AND THROAT: No changes in vision, No ear pain or discharge, No sore throat CARDIOVASCULAR: chest pain prior to ED arrival no chest pain at this time RESPIRATORY: No shortness of breath or cough GASTROINTESTINAL: Abdominal pain prior to ED arrival, denies nausea, vomiting, diarrhea or constipation GENITOURINARY: No dysuria MUSCULOSKELETAL: No neck or back pain SKIN: No rash NEUROLOGIC: No headache, vertigo, loss of consciousness, or loss of sensation PE: GENERAL: Alcohol on breath, NAD HEAD: NCAT EYES: Pupils equal, round and reactive to light, sclera anicteric, conjunctiva clear ENT: pharynx: no erythema, no exudate, uvula midline, no tongue fasciculations NECK: supple CHEST: nontender RESP: clear, no w/r/r CARDIO: rrr, no m/g/r ABD: +BS, soft, nontender, non distended BACK: no midline spinal ttp, no CVAT EXTREMITIES: Normal range of motion, no edema NEUROLOGICAL: No tremors, no asterixis, normal gait SKIN: Warm, Dry Past History - Past Medical History Allergies/Adverse Reactions: Allergies Allergy/AdvReac Type Severity Reaction Status Date / Time No Known Allergies Allergy Verified 08/16/19 19:42 Home Medications: Ambulatory Orders Metoprolol Succinate [Toprol Xl] 25 mg PO DAILY #30 tab.er.24h 06/06/18 Simvastatin [Zocor -] 10 mg PO HS #30 tablet 06/06/18 Anemia: Yes (not on meds) Asthma: No Cancer: No Cardiac Disorders: No CVA: No COPD: Yes CHF: Yes (On Toprol) Dementia: No Diabetes: Yes GI Disorders: No Disorders: No HTN: Yes Hypercholesterolemia: Yes (On Lipitor) Kidney Stones: Yes (in 2013) Liver Disease: No Seizures: Yes (alcohol induced in 2008) Thyroid Disease: No - Surgical History Abdominal Surgery: Yes (GASTRIC BYPASS in 2004,HYSTERECTOMY in 2010) Appendectomy: No Cardiac Surgery: No Cholecystectomy: No Lung Surgery: No Neurologic Surgery: No Orthopedic Surgery: No - Reproductive History PID: No - Psycho Social/Smoking Cessation Hx Smoking History: Never smoked Have you smoked in the past 12 months: No 'Breaking Loose' booklet given: 06/03/18 Hx Alcohol Use: Yes Drug/Substance Use Hx: No Substance Use Type: Alcohol Hx Substance Use Treatment: Yes *Physical Exam - Vital Signs Last Vital Signs Temp Pulse Resp BP Pulse Ox 98.7 F 96 H 18 141/99 97 10/02/19 05:50 10/02/19 05:50 10/02/19 05:50 10/02/19 05:50 10/02/19 05:50 ED Treatment Course - LABORATORY CBC & Chemistry Diagram: 10/02/19 06:54 10/02/19 06:26 - ADDITIONAL ORDERS Additional order review: Laboratory Results 10/02/19 10/02/19 10/02/19 06:54 06:54 06:26 Sodium 145 Potassium 3.5 Chloride 108 H Carbon Dioxide 28 Anion Gap 8 BUN 13.0 Creatinine 0.5 L Est GFR (CKD-EPI)AfAm 121.92 Est GFR (CKD-EPI)NonAf 105.20 Random Glucose 120 H Calcium 7.9 L Total Bilirubin 0.6 AST 28 ALT 28 Alkaline Phosphatase 78 Creatine Kinase 213 H Creatine Kinase Index No Result Required. CK-MB (CK-2) < 1.0 Troponin I < 0.02 Total Protein 6.8 Albumin 3.6 Alcohol, Quantitative 384.4 H 10/02/19 06:54 RBC 4.13 MCV 96.1 H MCHC 35.0 RDW 13.7 MPV 6.9 L D Neutrophils % 52.5 Lymphocytes % 40.5 H Monocytes % 4.9 Eosinophils % 1.0 Basophils % 1.1 Medical Decision Making - Medical Decision Making 10/02/19 10:04 59-year-old female history of alcohol abuse presents for chest pain and abdominal pain 30 minutes prior to arrival which resolved on its own. Admits to drinking a liter of vodka approximately 2 hours prior to ED arrival. Reports called EMS to bring her in for alcohol detox. Reviewed labs ECG: nsr, hr 86bpm, no st or tw changed cxr neg Nursing and I have been trying to locate patients over the past 60 minutes Patient likely eloped after PA eval Discharge - Discharge Information Problems reviewed: Yes Clinical Impression/Diagnosis: Alcohol intoxication Qualifiers: Complication of substance-induced condition: uncomplicated Qualified Code(s): F10.920 - Alcohol use, unspecified with intoxication, uncomplicated Disposition: ELOPED - Follow up/Referral Referrals: Darien Plummer MD [Primary Care Provider] - - Patient Discharge Instructions - Post Discharge Activity
--- NOTE | 2019-10-02 14:25 | EKG ---
Test Reason : Blood Pressure : / mmHG Vent. Rate : 086 BPM Atrial Rate : 086 BPM P-R Int : 178 ms QRS Dur : 096 ms QT Int : 396 ms P-R-T Axes : 062 067 042 degrees QTc Int : 473 ms NORMAL SINUS RHYTHM NORMAL ECG WHEN COMPARED WITH ECG OF 01-OCT-2019 15:31, NO SIGNIFICANT CHANGE WAS FOUND Confirmed by ESTEBAN SINGH MD ([id number]) on 10/02/2019 2:25:06 PM Referred By: Confirmed By:ESTEBAN SINGH MD
== END 2019-10-02 10:00 | disposition left against medical advice (07) ==
LOC: JER 05:35
DX: F10.920 Alcohol use, unspecified with intoxication, uncomplicated (principal)
CPT/HCPCS: 36415; 71046-TC-FY; 80053; 80307; 82550; 82553; 84484; 85025; 93005; 93010; 99283-25

== ENCOUNTER 2019-10-03 01:22 | Emergency (ER) | payer BC ==
--- NOTE | 2019-10-03 02:29 | PDOC ---
Attending Attestation - Resident Resident Name: Ami Núñez - ED Attending Attestation I have performed the following: I have examined & evaluated the patient, The case was reviewed & discussed with the resident, I agree w/resident's findings & plan - HPI HPI: 10/03/19 05:40 see resident hpi - Physicial Exam PE: 10/03/19 05:40 agree with resident exam - Medical Decision Making 10/03/19 05:40 59-year-old female requesting detox for alcohol She has had intermittent abdominal pain for "months ". CT scans were obtained of the head secondary to recent fall which showed no acute abnormality CT scans of the chest abdomen and pelvis showed no significant acute abnormality Patient does have a significantly elevated blood alcohol level Plan for discharge/transfer to detox facility for further evaluation
[2019-10-03 03:02] VITALS: TEMP 97.7; BMI 28.3
[2019-10-03 03:27] LABS: BASO % 0.7 % (0-2.0); EOS % 0.6 % (0-4.5); HEMATOCRIT 40.7 % (32.4-45.2); HEMOGLOBIN 14.2 GM/dL (10.7-15.3); LYMPH % 32.4 % (8-40); MCHC 34.8 g/dl (32.0-36.0); MEAN CELL VOLUME 97.6 fl (80-96); MONO % 3.5 % (3.8-10.2); NEUT % 62.8 % (42.8-82.8); PLATELET COUNT 226 K/MM3 (134-434); RBC 4.18 M/mm3 (3.60-5.2); RDW 13.9 % (11.6-15.6); WHITE BLOOD COUNT 8.9 K/mm3 (4.0-10.0)
[2019-10-03 04:00] LABS: ALBUMIN 3.6 g/dl (3.4-5.0); BILIRUBIN,TOTAL 0.7 mg/dL (0.2-1); BLOOD UREA NITROGEN 13.5 mg/dL (7-18); CALCIUM 8.1 mg/dL (8.5-10.1); CREATININE 0.6 mg/dL (0.55-1.3); POTASSIUM 3.6 mmol/L (3.5-5.1); TOT PROT 7.2 g/dl (6.4-8.2)
[2019-10-03] MEDS ORDERED: THIAMINE HCL 200 MG/2 ML VIAL IVPB ONE (04:03)
[2019-10-03] MEDS ORDERED: SODIUM CHLORIDE 1,000 ML IV STA (04:03)
--- NOTE | 2019-10-03 04:05 | PDOC ---
History of Present Illness - General Chief Complaint: Alcohol intoxication Stated Complaint: DETOX Time Seen by Provider: 10/03/19 01:47 History Source: Patient Exam Limitations: Intoxication (unreliable historian) - History of Present Illness Initial Comments: Pt is a 59 yo F, with PMH of chronic alcohol abuse, CHF, DM, HLD, and COPD, who is presenting with complaints of "I am drunk," chronic abdominal pain and chest pressure xmonths. Pt states she drinks 1-2 pints vodka/day, and her last drink was during the evening before she came to the ER. Pt states the abdominal pain is crampy, and the chest pain is pressure-like, and has no exacerbating or alleviating factors. Pt states these pains have been unchanged over the past few months, but she has not followed with her doctors or Pt states "I don't eat at all when I've been drinking" and does not provide a reliable ROS, as her story consistently changes. Pt does endorse recent falls in her home after drinking alcohol, but cannot tell the mechanism of what occurred. Allergies: NKDA PCP: Dr. Charlie Plummer Social: Pt smokes 1/2 ppd. Pt drinks alcohol as above. Pt denies any drug use. Pt denies any recent travel or sick contacts. Surgical: gastric bypass, hysterectomy Family: no relevant history. 10/03/19 06:11 10/03/19 06:31 Past History - Travel Traveled outside of the country in the last 30 days: No Close contact w/someone who was outside of country & ill: No - Past Medical History Allergies/Adverse Reactions: Allergies Allergy/AdvReac Type Severity Reaction Status Date / Time No Known Allergies Allergy Verified 08/16/19 19:42 Home Medications: Ambulatory Orders Metoprolol Succinate [Toprol Xl] 25 mg PO DAILY #30 tab.er.24h 06/06/18 Simvastatin [Zocor -] 10 mg PO HS #30 tablet 06/06/18 Anemia: Yes (not on meds) Asthma: No Cancer: No Cardiac Disorders: No CVA: No COPD: Yes CHF: Yes (On Toprol) Dementia: No Diabetes: Yes GI Disorders: No Disorders: No HTN: Yes Hypercholesterolemia: Yes (On Lipitor) Kidney Stones: Yes (in 2013) Liver Disease: No Seizures: Yes (alcohol induced in 2008) Thyroid Disease: No - Surgical History Abdominal Surgery: Yes (GASTRIC BYPASS in 2005,HYSTERECTOMY in 2011) Appendectomy: No Cardiac Surgery: No Cholecystectomy: No Lung Surgery: No Neurologic Surgery: No Orthopedic Surgery: No - Reproductive History PID: No - Immunization History Td Vaccination: Yes TDAP Vaccination: Yes Immunization Up to Date: Yes - Psycho Social/Smoking Cessation Hx Smoking History: Never smoked Have you smoked in the past 12 months: No Information on smoking cessation initiated: No 'Breaking Loose' booklet given: 06/03/18 Hx Alcohol Use: Yes Drug/Substance Use Hx: No Substance Use Type: Alcohol Hx Substance Use Treatment: Yes Review of Systems - Review of Systems Able to Perform ROS?: No (unreliable, see HPI) *Physical Exam - Vital Signs Last Vital Signs Temp Pulse Resp BP Pulse Ox 97.7 F 89 18 106/65 99 10/03/19 01:55 10/03/19 01:55 10/03/19 01:55 10/03/19 01:55 10/03/19 01:55 - Physical Exam Vitals stable, pt afebrile. Pt in NAD, normal body habitus. Pt alert and oriented to person only. Visibly intoxicated with slurring of speech and conjunctival redness. No tongue fasciculation or b/l hand tremors noted. certified paralegal generally intact, muscular strength and sensation intact. No midline spinal tenderness, step-offs, or crepitus. Head normocephalic, atraumatic. Eyes PERRLA, EOMI. No nystagmus noted. Oropharynx without erythema or exudates, no LAD b/l. No nasal congestion. Hearing intact. Clear heart sounds, S1/S2, no JVD, b/l pedal edema, or heart murmur. Clear lung sounds, no respiratory distress, wheezes, crackles, or accessory muscle use. No abdominal or CVA tenderness to palpation, no rebound, no guarding. Abdomen soft, non-distended, and with normoactive bowel sounds. Skin without jaundice or rash. 10/03/19 06:21 10/03/19 06:30 ED Treatment Course - LABORATORY CBC & Chemistry Diagram: 10/03/19 03:17 10/03/19 03:17 - ADDITIONAL ORDERS Additional order review: Laboratory Results 10/03/19 10/03/19 03:17 03:17 Sodium 146 H Potassium 3.6 Chloride 107 Carbon Dioxide 30 Anion Gap 8 BUN 13.5 Creatinine 0.6 Est GFR (CKD-EPI)AfAm 114.82 Est GFR (CKD-EPI)NonAf 99.07 Random Glucose 100 Calcium 8.1 L Total Bilirubin 0.7 AST 36 ALT 30 Alkaline Phosphatase 82 Creatine Kinase 518 H Troponin I < 0.02 Total Protein 7.2 Albumin 3.6 Lipase 167 10/03/19 03:17 RBC 4.18 MCV 97.6 H MCHC 34.8 RDW 13.9 MPV 7.0 L Neutrophils % 62.8 Lymphocytes % 32.4 Monocytes % 3.5 L Eosinophils % 0.6 Basophils % 0.7 - RADIOLOGY Radiology Studies Ordered: Category Date Time Status ABDOMEN & PELVIS CT WITH CONTR [CT] Stat CT Scan 10/03/19 02:[address] WITH CONTRAST [CT] Stat CT Scan 10/03/19 02:[address] WITHOUT CONTRAST [CT] Stat CT Scan 10/03/19 02:07 Ordered Medical Decision Making - Medical Decision Making Pt was seen at bedside, also will be seen by attending Dr. Whitley. Pt presenting with chronic alcohol abuse, current intoxication, recent falls, and chronic chest and abdominal pain. Pt was seen at [facility] yesterday with similar complaints, but eloped and removed her own IV before the work-up was completed. Pt wishes to go to [facility] detox today. Will evaluate for ACS, fracture/ bleeds from falls, pancreatitis and other abdominal pathology. Chest x-ray performed yesterday showed no acute pathology. Provided 1 L IV NS and IVPB thiamine for improvement of hydration and alcohol abuse (possible thiamine deficiency with elevated MCV). Will continue to reassess pt and monitor for symptomatic improvement. ECG: NSR, prolonged QT (Hr 90, Pr 174, QRS 90, QTc 501). No TWIs or significant ST segment changes. No significant changes from prior ECG (10/01/2019). 10/03/19 06:31 CBC and CMP generally WNL; elevated MCV, providing thiamine Elevated CK -- providing IV NS Pt actively intoxicated and not in withdrawal Alcohol level 360s. Pt signed out to day team for discharge to [facility] detox in the AM. Pt stable and comfortable. 10/03/19 06:36 Discharge - Discharge Information Problems reviewed: Yes Clinical Impression/Diagnosis: Alcohol intoxication Qualifiers: Complication of substance-induced condition: uncomplicated Qualified Code(s): F10.920 - Alcohol use, unspecified with intoxication, uncomplicated Condition: Improved Disposition: HOME - Admission No - Follow up/Referral - Patient Discharge Instructions Patient Printed Discharge Instructions: DI for Alcohol Abuse Additional Instructions: You were seen in the ER today for alcohol intoxication. The results of your labs and imaging today were normal. Please PRESENT TO [facility] DETOX IMMEDIATELY FOR TREATMENT. Please return to the ER if you have any worsening pain, development of fevers or chills, loss of consciousness, inability to tolerate food or fluids, or any other concerns. - Post Discharge Activity
[2019-10-03 06:43] VITALS: BP 138/67; PULSE 70
--- NOTE | 2019-10-03 07:18 | PDOC ---
*Physical Exam - Vital Signs Last Vital Signs Temp Pulse Resp BP Pulse Ox 97.7 F 70 18 138/67 98 10/03/19 01:55 10/03/19 06:30 10/03/19 06:30 10/03/19 06:30 10/03/19 06:30 - Physical Exam 10/03/19 07:27 received patient from sign out this morning, patient is stable for discharge to [facility] today. ED Treatment Course - LABORATORY CBC & Chemistry Diagram: 10/03/19 03:17 10/03/19 03:17 - ADDITIONAL ORDERS Additional order review: Laboratory Results 10/03/19 10/03/19 03:17 03:17 Sodium 146 H Potassium 3.6 Chloride 107 Carbon Dioxide 30 Anion Gap 8 BUN 13.5 Creatinine 0.6 Est GFR (CKD-EPI)AfAm 114.82 Est GFR (CKD-EPI)NonAf 99.07 Random Glucose 100 Calcium 8.1 L Total Bilirubin 0.7 AST 36 ALT 30 Alkaline Phosphatase 82 Creatine Kinase 518 H Creatine Kinase Index 0.5 CK-MB (CK-2) 2.7 Troponin I < 0.02 Total Protein 7.2 Albumin 3.6 Lipase 167 Alcohol, Quantitative 368.9 H 10/03/19 03:17 RBC 4.18 MCV 97.6 H MCHC 34.8 RDW 13.9 MPV 7.0 L Neutrophils % 62.8 Lymphocytes % 32.4 Monocytes % 3.5 L Eosinophils % 0.6 Basophils % 0.7 - Medications Given in the ED: ED Medications Discontinued Medications Generic Name Dose Route Start Last Admin Trade Name Freq PRN Reason Stop Dose Admin Sodium Chloride 1,000 mls @ 1,000 mls/hr 10/03/19 04:03 10/03/19 04:04 Normal Saline - IV 10/03/19 05:02 1,000 mls/hr ASDIR STA Administration Thiamine HCl 200 mg 10/03/19 04:03 10/03/19 05:11 Vitamin B1 Injection - IVPB 10/03/19 04:04 200 mg ONCE ONE Administration Discharge - Discharge Information Clinical Impression/Diagnosis: Alcohol intoxication Qualifiers: Complication of substance-induced condition: uncomplicated Qualified Code(s): F10.920 - Alcohol use, unspecified with intoxication, uncomplicated Condition: Improved Disposition: HOME - Admission No - Follow up/Referral - Patient Discharge Instructions Patient Printed Discharge Instructions: DI for Alcohol Abuse Additional Instructions: You were seen in the ER today for alcohol intoxication. The results of your labs and imaging today were normal. Please PRESENT TO [facility] DETOX IMMEDIATELY FOR TREATMENT. Please return to the ER if you have any worsening pain, development of fevers or chills, loss of consciousness, inability to tolerate food or fluids, or any other concerns. - Post Discharge Activity
--- NOTE | 2019-10-03 14:42 | EKG ---
Test Reason : Blood Pressure : / mmHG Vent. Rate : 090 BPM Atrial Rate : 090 BPM P-R Int : 174 ms QRS Dur : 090 ms QT Int : 410 ms P-R-T Axes : 059 057 061 degrees QTc Int : 501 ms NORMAL SINUS RHYTHM POSSIBLE LEFT ATRIAL ENLARGEMENT PROLONGED QT ABNORMAL ECG WHEN COMPARED WITH ECG OF 02-OCT-2019 06:50, NO SIGNIFICANT CHANGE WAS FOUND Confirmed by BENJAMIN PLATA, NELIA ([id number]) on 10/03/2019 2:42:03 PM Referred By: Confirmed By:NELIA ALEXANDER MD
== END 2019-10-03 08:10 | disposition home or self-care (01) ==
LOC: JER 01:22
PROC: 3E033GC Introduction of Other Therapeutic Substance into Peripheral Vein, Percutaneous Approach (ICD-10-PCS; principal; 2019-10-03)
PROC: 3E0337Z Introduction of Electrolytic and Water Balance Substance into Peripheral Vein, Percutaneous Approach (ICD-10-PCS; 2019-10-03)
DX: F10.920 Alcohol use, unspecified with intoxication, uncomplicated (principal); Z91.81 History of falling; G89.29 Other chronic pain
CPT/HCPCS: 36415; 70450-TC; 71260-TC; 74177-TC; 80053; 80307; 82550; 82553; 83690; 84484; 85025; 93005; 93010; 99283-25; J7030; Q9967

== ENCOUNTER 2019-10-03 08:50 | Inpatient (IN) | payer BC, OTHER ==
[2019-10-03 09:16] VITALS: BMI 28.3
--- NOTE | 2019-10-03 09:48 | HP ---
"CIWA Score Nausea/Vomitin-No Nausea/No Vomiting Muscle Tremors: 5 Anxiety: 0-No Anxiety, at Ease Agitation: 1-Slight > Activity Paroxysmal Sweats: No Perspiration Orientation: 0-Oriented Tacttile Disturbances: 0-None Auditory Disturbances: 0-None Visual Disturbances: 0-None Headache: 0-None Present CIWA-Ar Total Score: 6 - Admission Criteria [facility]ASAS Guidelines: Admission for Medically Managed Detox: Requires at least one of the followin. CIWA greater than 12 2. Seizures within the past 24 hours 3. Delirium tremens within the past 24 hours 4. Hallucinations within the past 24 hours 5. Acute intervention needed for co occurring medical disorder 6. Acute intervention needed for co occurring psychiatric disorder 7. Severe withdrawal that cannot be handled at a lower level of care (continued vomiting, continued diarrhea, abnormal vital signs) requiring intravenous medication and/or fluids 8. Admitting History and Physical - Smoking History Smoking history: Never smoked Have you smoked in the past 12 months: No - Alcohol/Substance Use Hx Alcohol Use: Yes Admission [facility] Allergies/Adverse Reactions: Allergies Allergy/AdvReac Type Severity Reaction Status Date / Time No Known Allergies Allergy Verified 10/03/19 11:34 History of Present Illness: ptr here for etoh use , reports 3 pints /day since several years ago , seizure 2008 , latest use yesterday , s/p ER visit 2/2 intoxication , studies done : CT HEAD , CXR , CT ABD / pelvis , EKG , CBC , CMP , UA . Pt reports fall down stairs yesterday with injury to the right ankle which is now painful and pt reports difficulty walking 2/2 pain . No XR done in ER - d/w Dr Owusu, pt will be sent for XR of the right ankle. PMHX : DM , HTN , COPD CHF, HLD Surgical: gastric bypass, hysterectomy Search Terms: radha grier, 1960 Search Date: 10/03/2019 09:48:57 AM The Drug Utilization Report below displays all of the controlled substance prescriptions, if any, that your patient has filled in the last twelve months. The information displayed on this report is compiled from pharmacy submissions to the Department, and accurately reflects the information as submitted by the pharmacies. This report was requested by: Charlee Amador | Reference #: [id number] There are no results for the search terms that you entered - Ebola screening Have you traveled outside of the country in the last 21 days: No Have you had contact with anyone from an Ebola affected area: No Do you have a fever: No Patient History - Patient Medical History Hx Anemia: Yes (not on meds) Hx Asthma: No Hx Chronic Obstructive Pulmonary Disease (COPD): Yes Hx Cancer: No Hx Cardiac Disorders: No Hx Congestive Heart Failure: Yes (On Toprol) Hx Hypertension: Yes Hx Hypercholesterolemia: Yes (On Lipitor) Hx Pacemaker: No HX Cerebrovascular Accident: No Hx Seizures: Yes (alcohol induced in 2008) Hx Dementia: No Hx Diabetes: Yes Hx Gastrointestinal Disorders: No Hx Liver Disease: No Hx Genitourinary Disorders: No Hx Sexually Transmitted Disorders: Yes (Gonorrhea in 1998) Hx Renal Disease (ESRD): No Hx Thyroid Disease: No Hx Human Immunodeficiency Virus (HIV): No (Negative) Hx Hepatitis C: No Hx Depression: No Hx Suicide Attempt: No Hx Bipolar Disorder: No Hx Schizophrenia: No - Patient Surgical History Past Surgical History: Yes Hx Neurologic Surgery: No Hx Cataract Extraction: No Hx Cardiac Surgery: No Hx Lung Surgery: No Hx Breast Surgery: No Hx Breast Biopsy: No Hx Abdominal Surgery: Yes (GASTRIC BYPASS in 2004,HYSTERECTOMY in 2010) Hx Appendectomy: No Hx Cholecystectomy: No Hx Genitourinary Surgery: No Hx Section: No Hx Orthopedic Surgery: No Hx Hysterectomy: Yes Anesthesia Reaction: No - Smoking Cessation Smoking history: Never smoked Have you smoked in the past 12 months: No Hx Chewing Tobacco Use: No - Substances abused Alcohol Substance route: Oral Frequency: Daily Amount used: 1-2 pints of vodka/day Age of first use: 8 Date of last use: 10/02/19 Admission Physical Exam [facility] - Vital Signs Vital Signs: Vital Signs - 24 hr 10/03/19 09:07 Temperature 98.8 F Pulse Rate 101 H Respiratory 18 Rate Blood Pressure 151/90 - Physical General Appearance: Yes: Moderate Distress, Intoxicated, Tremorous HEENTM: Yes: EOMI, Hearing grossly Normal, Normocephalic, Normal Voice Respiratory: Yes: Lungs Clear, Normal Breath Sounds, No Respiratory Distress, No Accessory Muscle Use Neck: Yes: No masses,lesions,Nodules, Trachea in good position Cardiology: Yes: Regular Rhythm, Regular Rate, S1, S2, Tachycardia Abdominal: Yes: Non Tender, Soft, Protuberent Back: Yes: Normal Inspection Musculoskeletal: Yes: Joint swelling (right ankle and foot w/ right lateral malleolus tenderness to palpation, antalgic gait and increased pain w/ weight - bearing .) Extremities: Yes: Tremors, Pedal Edema (bilateral RIGHT >> left), Swelling ( right foot and ankle , tendere right LATERAL malleolus to palpation) Neurological: Yes: Fully Oriented, Alert, Motor Strength 5/5, Depressed Affect Integumentary: Yes: Warm - Addiitonal Findings: sent to [facility] ED for RIGHT ankle XR pt returned from ER XR right ankle old healed frx R distal fibula - Diagnostic (1) Alcohol dependence with uncomplicated intoxication Current Visit: Yes Status: Acute Breathalyzer - Breathalyzer Breathalyzer: 0.133 Urine Drug Screen - Test Device Lot number: [id number] Expiration date: 05/22/21 - Control Is test valid?: Yes - Results Drug screen NEGATIVE: Yes Urine drug screen results: BZO-Benzodiazepines Inpatient Rehab Admission - Rehab Decision to Admit Inpatient rehab admission?: No"
[2019-10-03] MEDS ORDERED: BISMUTH SUBSALICYLATE 262 MG/15 ML BTL PO PRN (13:45)
[2019-10-03] MEDS ORDERED: MAGNESIUM HYDROX 2400MG/30ML ORAL SUSPENSION 30 ML CUP PO PRN (13:45)
[2019-10-03] MEDS ORDERED: MAGNESIUM CITRATE 300 ML BOTTLE PO PRN (13:45)
[2019-10-03] MEDS ORDERED: MAG HYDROX/AL HYDROX/SIMETH 30 ML UNIT-DOSE CUP PO PRN (13:45)
[2019-10-03] MEDS ORDERED: MENTHOL/PHENOL 1 EACH UD MM PRN (13:45)
[2019-10-03] MEDS ORDERED: ACETAMINOPHEN 325 MG TABLET (FP) PO PRN ×2 (13:45)
[2019-10-03] MEDS ORDERED: MELATONIN 5 MG TABLETS PO PRN (13:45)
[2019-10-03] MEDS ORDERED: IBUPROFEN 400 MG TABLET (FP) PO PRN (13:45)
[2019-10-03] MEDS ORDERED: hydrOXYzine PAMOATE 25 MG CAPSULE (FP) PO PRN (13:45)
[2019-10-03] MEDS ORDERED: diazePAM 5 MG TABLET PO PRN (13:46)
[2019-10-03] MEDS: diazePAM 5 MG TABLET PO SCH ×2 (15:03→22:15)
[2019-10-03] MEDS: INSULIN SLIDING SCALE (NOVOLOG) 1 VIAL SQ SCH (17:36)
[2019-10-03] MEDS: THIAMINE HCL 100 MG TABLET (FP) PO SCH (22:15)
[2019-10-04] MEDS: diazePAM 5 MG TABLET PO SCH ×3 (05:43→22:26)
[2019-10-04] MEDS: INSULIN SLIDING SCALE (NOVOLOG) 1 VIAL SQ SCH ×2 (08:22→16:37)
[2019-10-04] MEDS: PRENATAL VITAMINS W/ FOLIC ACID TABLET (FP) PO SCH (10:15)
[2019-10-04 12:40] LABS: BASO % 0.6 % (0-2.0); EOS % 1.5 % (0-4.5); HEMATOCRIT 42.1 % (32.4-45.2); HEMOGLOBIN 14.3 GM/dL (10.7-15.3); LYMPH % 31.5 % (8-40); MCH 33.7 pg (25.7-33.7); MEAN PLT VOLUME 8.4 fl (7.5-11.1); NEUT % 61.4 % (42.8-82.8); PLATELET COUNT 219 K/MM3 (134-434); RBC 4.25 M/mm3 (3.60-5.2); RDW 13.7 % (11.6-15.6); WHITE BLOOD COUNT 8.1 K/mm3 (4.0-10.0)
[2019-10-04 12:42] LABS: ALBUMIN 3.8 g/dl (3.4-5.0); BILIRUBIN,TOTAL 1.7 mg/dL (0.2-1); BLOOD UREA NITROGEN 6.1 mg/dL (7-18); CREATININE 0.8 mg/dL (0.55-1.3); POTASSIUM 3.2 mmol/L (3.5-5.1); TOT PROT 7.6 g/dl (6.4-8.2)
--- NOTE | 2019-10-04 13:33 | PN ---
S CIWA - CIWA Score Nausea/Vomitin-No Nausea/No Vomiting Muscle Tremors: 2 Anxiety: 1-Mildly Anxious Agitation: 1-Slight > Activity Paroxysmal Sweats: 1-Minimal Palms Moist Orientation: 0-Oriented Tacttile Disturbances: 0-None Auditory Disturbances: 0-None Visual Disturbances: 0-None Headache: 0-None Present CIWA-Ar Total Score: 5 BHS Progress Note (SOAP) Subjective: sweats mild shakes interrupted sleep Objective: 10/04/19 13:32 Vital Signs Temperature 98.8 F 10/04/19 13:13 Pulse Rate 110 H 10/04/19 13:13 Respiratory Rate 16 10/04/19 13:13 Blood Pressure 146/68 10/04/19 13:13 O2 Sat by Pulse Oximetry (%) Laboratory Tests 10/03/19 10/03/19 10/04/19 09:53 16:36 08:15 WBC RBC Hgb Hct MCV MCH MCHC RDW Plt Count MPV Absolute Neuts (auto) Neutrophils % Lymphocytes % Monocytes % Eosinophils % Basophils % Nucleated RBC % Sodium Potassium Chloride Carbon Dioxide Anion Gap BUN Creatinine Est GFR (CKD-EPI)AfAm Est GFR (CKD-EPI)NonAf POC Glucometer 157 243 Random Glucose Calcium Total Bilirubin AST ALT Alkaline Phosphatase Total Protein Albumin RPR Titer HIV 1&2 Antibody Screen Negative HIV P24 Antigen Negative 10/04/19 10/04/19 10/04/19 08:15 08:15 08:15 WBC 8.1 RBC 4.25 Hgb 14.3 Hct 42.1 MCV 99.0 H MCH 33.7 MCHC 34.0 RDW 13.7 Plt Count 219 MPV 8.4 D Absolute Neuts (auto) 5.0 Neutrophils % 61.4 Lymphocytes % 31.5 Monocytes % 5.0 Eosinophils % 1.5 D Basophils % 0.6 Nucleated RBC % 0 Sodium 138 Potassium 3.2 L Chloride 98 Carbon Dioxide 32 Anion Gap 9 BUN 6.1 L Creatinine 0.8 Est GFR (CKD-EPI)AfAm 92.87 Est GFR (CKD-EPI)NonAf 80.13 POC Glucometer Random Glucose 207 H Calcium 9.0 Total Bilirubin 1.7 H AST 40 H ALT 30 Alkaline Phosphatase 87 Total Protein 7.6 Albumin 3.8 RPR Titer Nonreactive HIV 1&2 Antibody Screen HIV P24 Antigen labs noted low potassium 3.2 aaox3 ambulating no acute distress Assessment: 10/04/19 13:33 withdrawals Plan: continue detox [id number] x 2 days ordered repeat potassium lab
[2019-10-04] MEDS: POTASSIUM CHLORIDE TABS 20 MEQ TABLET.ER (FP) PO SCH (14:30)
[2019-10-04] MEDS: THIAMINE HCL 100 MG TABLET (FP) PO SCH (22:27)
[2019-10-05] MEDS: diazePAM 5 MG TABLET PO SCH ×2 (05:40→17:29)
[2019-10-05] MEDS: INSULIN SLIDING SCALE (NOVOLOG) 1 VIAL SQ SCH ×2 (06:30→17:26)
[2019-10-05] MEDS: POTASSIUM CHLORIDE TABS 20 MEQ TABLET.ER (FP) PO SCH (10:45)
[2019-10-05] MEDS: PRENATAL VITAMINS W/ FOLIC ACID TABLET (FP) PO SCH (10:45)
--- NOTE | 2019-10-05 11:49 | PN ---
S CIWA - CIWA Score Nausea/Vomitin-No Nausea/No Vomiting Muscle Tremors: 1-None Visible, but [place] Anxiety: 1-Mildly Anxious Agitation: 1-Slight > Activity Paroxysmal Sweats: No Perspiration Orientation: 3-Disoriented Date>2 days Tacttile Disturbances: 0-None Auditory Disturbances: 0-None Visual Disturbances: 0-None Headache: 1-Very Mild CIWA-Ar Total Score: 7 [facility] Progress Note (SOAP) Subjective: pt states she is feeling fine. Going home tomorrow- will f/u with new focus as outpt. O: Vital Signs - 24 hr 10/04/19 10/04/19 10/04/19 13:13 17:29 22:00 Temperature 98.8 F 99.1 F 97.0 F L Pulse Rate 110 H 85 79 Respiratory 16 18 17 Rate Blood Pressure 146/68 152/85 145/88 10/05/19 10/05/19 10/05/19 01:25 03:30 06:00 Temperature 98.6 F Pulse Rate 92 H Respiratory 16 18 18 Rate Blood Pressure 143/99 10/05/19 10/05/19 06:05 09:43 Temperature 97.7 F Pulse Rate 88 97 H Respiratory 18 18 Rate Blood Pressure 149/106 H 155/88 Laboratory Tests 10/03/19 10/03/19 10/04/19 09:53 16:36 05:41 WBC RBC Hgb Hct MCV MCH MCHC RDW Plt Count MPV Absolute Neuts (auto) Neutrophils % Lymphocytes % Monocytes % Eosinophils % Basophils % Nucleated RBC % Sodium Potassium Chloride Carbon Dioxide Anion Gap BUN Creatinine Est GFR (CKD-EPI)AfAm Est GFR (CKD-EPI)NonAf POC Glucometer 157 243 130 Random Glucose Calcium Total Bilirubin AST ALT Alkaline Phosphatase Total Protein Albumin RPR Titer HIV 1&2 Antibody Screen HIV P24 Antigen 10/04/19 10/04/19 10/04/19 08:15 08:15 08:15 WBC 8.1 RBC 4.25 Hgb 14.3 Hct 42.1 MCV 99.0 H MCH 33.7 MCHC 34.0 RDW 13.7 Plt Count 219 MPV 8.4 D Absolute Neuts (auto) 5.0 Neutrophils % 61.4 Lymphocytes % 31.5 Monocytes % 5.0 Eosinophils % 1.5 D Basophils % 0.6 Nucleated RBC % 0 Sodium 138 Potassium 3.2 L Chloride 98 Carbon Dioxide 32 Anion Gap 9 BUN 6.1 L Creatinine 0.8 Est GFR (CKD-EPI)AfAm 92.87 Est GFR (CKD-EPI)NonAf 80.13 POC Glucometer Random Glucose 207 H Calcium 9.0 Total Bilirubin 1.7 H AST 40 H ALT 30 Alkaline Phosphatase 87 Total Protein 7.6 Albumin 3.8 RPR Titer HIV 1&2 Antibody Screen Negative HIV P24 Antigen Negative 10/04/19 10/04/19 10/05/19 08:15 16:30 05:39 WBC RBC Hgb Hct MCV MCH MCHC RDW Plt Count MPV Absolute Neuts (auto) Neutrophils % Lymphocytes % Monocytes % Eosinophils % Basophils % Nucleated RBC % Sodium Potassium Chloride Carbon Dioxide Anion Gap BUN Creatinine Est GFR (CKD-EPI)AfAm Est GFR (CKD-EPI)NonAf POC Glucometer 138 146 Random Glucose Calcium Total Bilirubin AST ALT Alkaline Phosphatase Total Protein Albumin RPR Titer Nonreactive HIV 1&2 Antibody Screen HIV P24 Antigen 10/05/19 08:10 WBC RBC Hgb Hct MCV MCH MCHC RDW Plt Count MPV Absolute Neuts (auto) Neutrophils % Lymphocytes % Monocytes % Eosinophils % Basophils % Nucleated RBC % Sodium Potassium 3.5 Chloride Carbon Dioxide Anion Gap BUN Creatinine Est GFR (CKD-EPI)AfAm Est GFR (CKD-EPI)NonAf POC Glucometer Random Glucose Calcium Total Bilirubin AST ALT Alkaline Phosphatase Total Protein Albumin RPR Titer HIV 1&2 Antibody Screen HIV P24 Antigen a.p: continue alcohol detox protocol- d/c tomorrow, has PCP and outpt alcohol Rx program
[2019-10-05] MEDS: THIAMINE HCL 100 MG TABLET (FP) PO SCH (22:34)
[2019-10-06] MEDS ORDERED: diazePAM 5 MG TABLET PO ONE (06:00)
[2019-10-06] MEDS: INSULIN SLIDING SCALE (NOVOLOG) 1 VIAL SQ SCH (06:32)
[2019-10-06 06:43] VITALS: TEMP 98.4
[2019-10-06 09:29] VITALS: BP 142/95; PULSE 97
--- NOTE | 2019-10-06 17:42 | DS ---
[facility] Detox Discharge Summary Admission Date: 10/03/19 Discharge Date: 10/06/19 - History Present History: Alcohol Dependence Additional Comments: Patient completed detox successfully and discharged safely in stable condition. Patient stated that she doesn't need rehab and that she will go home. Patient instructed to follow up with her PCP within one week for management of all medical problems and all abnormal lab results. Pertinent Past History: Alcohol dependence DM HTN COPD CHF HLD Anemia (takes iron supplement at home as per patient) Alcohol r/t seizure disorder - Physical Exam Results Vital Signs: Vital Signs Temperature 98.4 F 10/06/19 09:28 Pulse Rate 97 H 10/06/19 09:28 Respiratory Rate 18 10/06/19 09:28 Blood Pressure 142/95 10/06/19 09:28 O2 Sat by Pulse Oximetry (%) Pertinent Admission Physical Exam Findings: Withdrawal sxs Laboratory Tests 10/03/19 10/03/19 10/04/19 09:53 16:36 05:41 WBC RBC Hgb Hct MCV MCH MCHC RDW Plt Count MPV Absolute Neuts (auto) Neutrophils % Lymphocytes % Monocytes % Eosinophils % Basophils % Nucleated RBC % Sodium Potassium Chloride Carbon Dioxide Anion Gap BUN Creatinine Est GFR (CKD-EPI)AfAm Est GFR (CKD-EPI)NonAf POC Glucometer 157 243 130 Random Glucose Calcium Total Bilirubin AST ALT Alkaline Phosphatase Total Protein Albumin RPR Titer HIV 1&2 Antibody Screen HIV P24 Antigen 10/04/19 10/04/19 10/04/19 08:15 08:15 08:15 WBC 8.1 RBC 4.25 Hgb 14.3 Hct 42.1 MCV 99.0 H MCH 33.7 MCHC 34.0 RDW 13.7 Plt Count 219 MPV 8.4 D Absolute Neuts (auto) 5.0 Neutrophils % 61.4 Lymphocytes % 31.5 Monocytes % 5.0 Eosinophils % 1.5 D Basophils % 0.6 Nucleated RBC % 0 Sodium 138 Potassium 3.2 L Chloride 98 Carbon Dioxide 32 Anion Gap 9 BUN 6.1 L Creatinine 0.8 Est GFR (CKD-EPI)AfAm 92.87 Est GFR (CKD-EPI)NonAf 80.13 POC Glucometer Random Glucose 207 H Calcium 9.0 Total Bilirubin 1.7 H AST 40 H ALT 30 Alkaline Phosphatase 87 Total Protein 7.6 Albumin 3.8 RPR Titer HIV 1&2 Antibody Screen Negative HIV P24 Antigen Negative 10/04/19 10/04/19 10/05/19 08:15 16:30 05:39 WBC RBC Hgb Hct MCV MCH MCHC RDW Plt Count MPV Absolute Neuts (auto) Neutrophils % Lymphocytes % Monocytes % Eosinophils % Basophils % Nucleated RBC % Sodium Potassium Chloride Carbon Dioxide Anion Gap BUN Creatinine Est GFR (CKD-EPI)AfAm Est GFR (CKD-EPI)NonAf POC Glucometer 138 146 Random Glucose Calcium Total Bilirubin AST ALT Alkaline Phosphatase Total Protein Albumin RPR Titer Nonreactive HIV 1&2 Antibody Screen HIV P24 Antigen 10/05/19 10/05/19 10/06/19 08:10 16:51 05:35 WBC RBC Hgb Hct MCV MCH MCHC RDW Plt Count MPV Absolute Neuts (auto) Neutrophils % Lymphocytes % Monocytes % Eosinophils % Basophils % Nucleated RBC % Sodium Potassium 3.5 Chloride Carbon Dioxide Anion Gap BUN Creatinine Est GFR (CKD-EPI)AfAm Est GFR (CKD-EPI)NonAf POC Glucometer 106 155 Random Glucose Calcium Total Bilirubin AST ALT Alkaline Phosphatase Total Protein Albumin RPR Titer HIV 1&2 Antibody Screen HIV P24 Antigen Labs reviewed: hyperglycemia, total bilirubin 1.7 (H) - Treatment Hospital Course: Detox Protocol Followed, Detoxed Safely, Responded well, Discharged Condition Good - Medication Discharge Medications: Ambulatory Orders Ibuprofen 400 mg PO DAILY 10/06/19 Melatonin 5 mg PO DAILY 10/06/19 Naltrexone HCl 50 mg PO DAILY 10/06/19 Propranolol HCl 40 mg PO DAILY 10/06/19 - Diagnosis (1) Total bilirubin, elevated Status: Acute (2) Type 2 diabetes mellitus with hyperglycemia Status: Chronic (3) Alcohol related seizure Status: Chronic (4) Anemia Status: Chronic (5) Alcohol dependence with uncomplicated intoxication Status: Acute (6) CHF (congestive heart failure) Status: Chronic (7) COPD (chronic obstructive pulmonary disease) Status: Chronic (8) Hyperlipidemia Status: Chronic Qualifiers: Hyperlipidemia type: unspecified Qualified Code(s): E78.5 - Hyperlipidemia , unspecified (9) Hypertension Status: Chronic - AMA Did Patient Leave Against Medical Advice: No (Follow up with PCP within one week )
== END 2019-10-06 09:37 | disposition home or self-care (01) | DRG 897 ==
LOC: YASAS 08:50 → Y6N 14:18
PROVIDERS: ADMIT Allergy & Immunology; ATTEND Allergy & Immunology
PROC: HZ2ZZZZ Detoxification Services for Substance Abuse Treatment (ICD-10-PCS; principal; 2019-10-03)
DX: F10.230 Alcohol dependence with withdrawal, uncomplicated (principal); F10.220 Alcohol dependence with intoxication, uncomplicated; I11.0 Hypertensive heart disease with heart failure; E11.65 Type 2 diabetes mellitus with hyperglycemia; J44.9 Chronic obstructive pulmonary disease, unspecified; I50.9 Heart failure, unspecified; E78.5 Hyperlipidemia, unspecified; D64.9 Anemia, unspecified; E80.6 Other disorders of bilirubin metabolism; R00.0 Tachycardia, unspecified; Z87.42 Personal history of other diseases of the female genital tract; Z98.84 Bariatric surgery status; Z79.84 Long term (current) use of oral hypoglycemic drugs; Z86.69 Personal history of other diseases of the nervous system and sense organs; Z90.710 Acquired absence of both cervix and uterus
CPT/HCPCS: 36415; 80053; 82962; 84132; 85025; 86593; 87389

== ENCOUNTER 2019-10-03 11:05 | Emergency (ER) | payer BC ==
[2019-10-03 11:33] VITALS: BP 157/76; PULSE 90; TEMP 98; BMI 28.3
--- NOTE | 2019-10-03 13:13 | PDOC ---
History of Present Illness - General Chief Complaint: Pain Stated Complaint: RT FOOT PAIN Time Seen by Provider: 10/03/19 11:39 History Source: Patient Exam Limitations: No Limitations - History of Present Illness Initial Comments: 10/03/19 13:09 59-year-old female with history of alcohol abuse sent from alcohol detox for right ankle and foot pain. Patient reports she fell yesterday unclear of mechanism. Denies head injury, LOC, neck pain, headache, nausea, vomiting, chest pain, abdominal pain or any other symptoms. Patient was seen by me in this ED yesterday for complaint of chest pain. However patient eloped after my evaluation. ROS: GENERAL/CONSTITUTIONAL: No fever, chills, weakness, dizziness HEAD, EYES, EARS, NOSE AND THROAT: No changes in vision, No ear pain or discharge, No sore throat CARDIOVASCULAR: No chest pain RESPIRATORY: No shortness of breath or cough GASTROINTESTINAL: No pain, nausea, vomiting, diarrhea or constipation GENITOURINARY: No dysuria MUSCULOSKELETAL: Right ankle and foot pain, no neck or back pain SKIN: No rash NEUROLOGIC: No headache, vertigo, loss of consciousness, or loss of sensation PE: GENERAL: well-appearing, NAD HEAD: NCAT EYES: Pupils equal, round and reactive to light, sclera anicteric, conjunctiva clear ENT: pharynx: no erythema, no exudate, uvula midline NECK: supple CHEST: nontender RESP: clear, no w/r/r CARDIO: rrr, no m/g/r ABD: +BS, soft, nontender, non distended BACK: no midline spinal ttp, no CVAT EXTREMITIES: Normal right ankle and foot swelling, no ecchymosis, no bony tenderness to palpation, positive pedal pulses, normal range of motion NEUROLOGICAL: Normal speech, normal gait SKIN: Warm, Dry Is this a multiple visit Asthma Patient?: No Past History - Past Medical History Allergies/Adverse Reactions: Allergies Allergy/AdvReac Type Severity Reaction Status Date / Time No Known Allergies Allergy Verified 10/03/19 11:34 Home Medications: Ambulatory Orders NK [No Known Home Medication] 10/03/19 Anemia: Yes (not on meds) Asthma: No Cancer: No Cardiac Disorders: No CVA: No COPD: Yes CHF: Yes (On Toprol) Dementia: No Diabetes: Yes GI Disorders: No Disorders: No HTN: Yes Hypercholesterolemia: Yes (On Lipitor) Kidney Stones: Yes (in 2013) Liver Disease: No Seizures: Yes (alcohol induced in 2008) Thyroid Disease: No - Surgical History Abdominal Surgery: Yes (GASTRIC BYPASS in 2004,HYSTERECTOMY in 2010) Appendectomy: No Cardiac Surgery: No Cholecystectomy: No Lung Surgery: No Neurologic Surgery: No Orthopedic Surgery: No - Reproductive History PID: No - Immunization History Td Vaccination: Yes TDAP Vaccination: Yes Immunization Up to Date: Yes - Psycho Social/Smoking Cessation Hx Smoking History: Never smoked Have you smoked in the past 12 months: No 'Breaking Loose' booklet given: 06/03/18 Hx Alcohol Use: Yes Drug/Substance Use Hx: No Substance Use Type: Alcohol Hx Substance Use Treatment: Yes *Physical Exam - Vital Signs Last Vital Signs Temp Pulse Resp BP Pulse Ox 98 F 90 18 157/76 98 10/03/19 11:30 10/03/19 11:30 10/03/19 11:30 10/03/19 11:30 10/03/19 11:30 ED Treatment Course - RADIOLOGY Radiology Studies Ordered: Category Date Time Status ANKLE-RIGHT [RAD] Stat Radiology 10/03/19 11:55 Completed FOOT-RIGHT [RAD] Stat Radiology 10/03/19 11:55 Completed Medical Decision Making - Medical Decision Making 10/03/19 13:11 59-year-old female sent from alcohol detox unit for complaint of right foot and ankle pain. Right foot and ankle x-rays negative for bony injuries Tito wrap applied Rest, ice Stable for discharge to alcohol detox unit Discharge - Discharge Information Problems reviewed: Yes Clinical Impression/Diagnosis: Pain in right ankle and joints of right foot Condition: Stable Disposition: HOME - Admission No - Follow up/Referral Referrals: Tara Plummer [Primary Care Provider] - - Patient Discharge Instructions Additional Instructions: Alternate between acetaminophen 650 every 6 hours and ibuprofen 600 mg every 6 hours as needed for pain Wear Tito bandage for comfort Return to ED if worsening symptoms - Post Discharge Activity
== END 2019-10-03 13:16 | disposition short-term general hospital (02) ==
LOC: JERFT 11:05
DX: M25.571 Pain in right ankle and joints of right foot (principal); M79.671 Pain in right foot; F10.20 Alcohol dependence, uncomplicated; Z98.84 Bariatric surgery status; I10 Essential (primary) hypertension; E78.00 Pure hypercholesterolemia, unspecified; N20.0 Calculus of kidney; R56.9 Unspecified convulsions; I50.9 Heart failure, unspecified; E11.9 Type 2 diabetes mellitus without complications
CPT/HCPCS: 73610-TC-RT-FY; 73630-TC-RT-FY; 99282-25

== ENCOUNTER 2019-10-06 14:52 | Emergency (ER) | payer BC ==
[2019-10-06 15:15] VITALS: BMI 26.6
--- NOTE | 2019-10-06 15:40 | PDOC ---
History of Present Illness - General Chief Complaint: Chest Pain Stated Complaint: CHEST PAIN Time Seen by Provider: 10/06/19 15:36 History Source: Patient Exam Limitations: No Limitations - History of Present Illness Initial Comments: 10/06/19 15:39 59yF w PMHx of chronic alcohol abuse, CHF, DM, HTN, HLD, and COPD presenting w palpitations, chest pain, and SOB. 2pm sudden onset heart palpitations, midsternal and epigastric pain, SOB while drinking vodka, which self resolved at 330p. Drinks 2L of vodka everyday. DC from rehab yesterday for alcohol tx. Pt does not take any medication d/t prescriptions running out and not contacting Dr for refill. Denies fever, vision change, cough, nausea/vomiting, AB pain. Dr Charlie Plummer, PCP no r d manager Past History - Past Medical History Allergies/Adverse Reactions: Allergies Allergy/AdvReac Type Severity Reaction Status Date / Time No Known Allergies Allergy Verified 10/03/19 11:34 Home Medications: Ambulatory Orders Ibuprofen 400 mg PO DAILY 10/06/19 Melatonin 5 mg PO DAILY 10/06/19 Naltrexone HCl 50 mg PO DAILY 10/06/19 Propranolol HCl 40 mg PO DAILY 10/06/19 Anemia: Yes (not on meds) Asthma: No Cancer: No Cardiac Disorders: No CVA: No COPD: Yes CHF: Yes (On Toprol) Dementia: No Diabetes: Yes GI Disorders: No Disorders: No HTN: Yes Hypercholesterolemia: Yes (On Lipitor) Kidney Stones: No Liver Disease: No Seizures: Yes (alcohol induced in 2008) Thyroid Disease: No - Surgical History Abdominal Surgery: Yes (GASTRIC BYPASS in 2004,HYSTERECTOMY in 2010) Appendectomy: No Cardiac Surgery: No Cholecystectomy: No Lung Surgery: No Neurologic Surgery: No Orthopedic Surgery: No - Reproductive History PID: No - Immunization History Td Vaccination: Yes TDAP Vaccination: Yes Immunization Up to Date: Yes - Psycho Social/Smoking Cessation Hx Smoking History: Never smoked Have you smoked in the past 12 months: No Information on smoking cessation initiated: No 'Breaking Loose' booklet given: 06/03/18 Hx Alcohol Use: Yes Drug/Substance Use Hx: No Substance Use Type: Alcohol Hx Substance Use Treatment: Yes Cardiac Specific PMH - Complaint Specific PMHX Pacemaker: No Review of Systems - Review of Systems Constitutional: No: Chills, Fever HEENTM: No: Eye Pain, Nose Pain, Throat Pain, Mouth Pain Respiratory: Yes: Shortness of Breath. No: Cough, Wheezing Cardiac (ROS): Yes: Chest Pain, Palpitations. No: Syncope ABD/GI: No: Abdominal Distended, Constipated, Diarrhea, Nausea, Vomiting : No: Burning, Dysuria, Discharge, Flank Pain Musculoskeletal: No: Back Pain, Neck Pain Integumentary: No: Bruising, Flushing, Lesions Neurological: No: Headache, Seizure, Tingling, Tremors Psychiatric: No: Anxiety, Depression, Stressors Endocrine: No: Excessive Sweating, Flushing, Intolerance to Cold, Intolerance to Heat Hematologic/Lymphatic: No: Anemia, Blood Clots *Physical Exam - Vital Signs Last Vital Signs Temp Pulse Resp BP Pulse Ox 98.2 F 87 14 108/66 99 10/06/19 17:35 10/06/19 17:35 10/06/19 17:35 10/06/19 17:35 10/06/19 17:49 - Physical Exam General Appearance: Yes: Nourished, Appropriately Dressed. No: Apparent Distress HEENT: positive: EOMI, RAFY, Normal Voice, Hearing Grossly Normal. negative: Scleral Icterus (R), Scleral Icterus (L), Nasal Congestion, Rhinorrhea Respiratory/Chest: positive: Lungs Clear, Normal Breath Sounds. negative: Chest Tender, Respiratory Distress, Accessory Muscle Use, Crackles, Rales, Rhonchi, Stridor, Wheezing Cardiovascular: positive: Regular Rhythm, Regular Rate, S1, S2. negative: Edema , Murmur Gastrointestinal/Abdominal: positive: Normal Bowel Sounds, Flat, Soft. negative : Tender, Organomegaly, Distended, Guarding, Rebound, Tenderness, Hernia, Mass Musculoskeletal: negative: CVA Tenderness (R), CVA Tenderness (L) Extremity: positive: Normal Capillary Refill Integumentary: positive: Normal Color Neurologic: positive: pre parole counseling aide II-XII NML intact, Fully Oriented, Alert, Normal Response, Responsive. negative: Sensory Deficit, Confused, Disoriented ED Treatment Course - LABORATORY CBC & Chemistry Diagram: 10/06/19 15:35 10/06/19 15:35 - ADDITIONAL ORDERS Additional order review: Laboratory Results 12/15/19 12/15/19 12/15/19 17:15 15:35 15:35 WBC RBC Hgb Hct MCV MCH MCHC RDW Plt Count MPV Absolute Neuts (auto) Neutrophils % Lymphocytes % Monocytes % Eosinophils % Basophils % Nucleated RBC % Sodium 142 Potassium 3.7 Chloride 104 Carbon Dioxide 30 Anion Gap 8 BUN 11.9 Creatinine 0.5 L Est GFR (CKD-EPI)AfAm 121.92 Est GFR (CKD-EPI)NonAf 105.20 Random Glucose 115 H Calcium 9.3 Magnesium 2.2 Total Bilirubin 0.3 AST 36 ALT 37 Alkaline Phosphatase 86 Troponin I < 0.02 < 0.02 B-Natriuretic Peptide 63.0 Total Protein 7.3 Albumin 3.9 Lipase 254 10/06/19 15:35 WBC 9.3 RBC 4.18 Hgb 13.8 Hct 40.9 MCV 98.0 H MCH 33.0 MCHC 33.7 RDW 13.3 Plt Count 176 MPV 8.2 Absolute Neuts (auto) 4.9 Neutrophils % 52.3 Lymphocytes % 41.1 H D Monocytes % 5.0 Eosinophils % 1.1 Basophils % 0.5 Nucleated RBC % 0 Sodium Potassium Chloride Carbon Dioxide Anion Gap BUN Creatinine Est GFR (CKD-EPI)AfAm Est GFR (CKD-EPI)NonAf Random Glucose Calcium Magnesium Total Bilirubin AST ALT Alkaline Phosphatase Troponin I B-Natriuretic Peptide Total Protein Albumin Lipase 10/06/19 15:35 RBC 4.18 MCV 98.0 H MCHC 33.7 RDW 13.3 MPV 8.2 Neutrophils % 52.3 Lymphocytes % 41.1 H D Monocytes % 5.0 Eosinophils % 1.1 Basophils % 0.5 - Medications Given in the ED: ED Medications Discontinued Medications Generic Name Dose Route Start Last Admin Trade Name Freq PRN Reason Stop Dose Admin Aspirin 324 mg 10/06/19 16:03 10/06/19 16:38 Asa - PO 10/06/19 16:04 324 mg ONCE ONE Administration Medical Decision Making - Medical Decision Making 10/06/19 16:08 CBC CMP trop BNP CXR showed cheryl infiltrates EKG shows NSR, HR 98, QTc 482, q waves inferior leads, no ST changes aspirin --- 59yF w PMHx of chronic alcohol abuse, CHF, DM, HTN, HLD, and COPD presenting w palpitations, chest pain, and SOB likely d/t alcoholic gastritis. Low concern for ACS (unchanged EKG, 1st trop neg) vs COPD (no wheezing) vs CHF exacerbation (no BLE swelling) vs pancreatitis (normal lipase). Given aspirin. Pt left AMA before 2nd trop. Discharge - Discharge Information Problems reviewed: Yes Clinical Impression/Diagnosis: Palpitations, SOB (shortness of breath) Condition: Good Disposition: AGAINST MEDICAL ADVICE - Follow up/Referral Referrals: ON STAFF,NOT [Primary Care Provider] - - Patient Discharge Instructions - Post Discharge Activity
[2019-10-06 15:50] LABS: BASO % 0.5 % (0-2.0); EOS % 1.1 % (0-4.5); HEMATOCRIT 40.9 % (32.4-45.2); HEMOGLOBIN 13.8 GM/dL (10.7-15.3); LYMPH % 41.1 % (8-40); MCHC 33.7 g/dl (32.0-36.0); MEAN PLT VOLUME 8.2 fl (7.5-11.1); NEUT % 52.3 % (42.8-82.8); PLATELET COUNT 176 K/MM3 (134-434); RBC 4.18 M/mm3 (3.60-5.2); RDW 13.3 % (11.6-15.6); WHITE BLOOD COUNT 9.3 K/mm3 (4.0-10.0)
[2019-10-06] MEDS ORDERED: ASPIRIN 81 MG CHEWABLE TABLETS PO ONE (16:03)
[2019-10-06 16:21] LABS: ALBUMIN 3.9 g/dl (3.4-5.0); ALK PHOS 86 U/L (45-117); ANION GAP 8 MMOL/L (8-16); BILIRUBIN,TOTAL 0.3 mg/dL (0.2-1); BLOOD UREA NITROGEN 11.9 mg/dL (7-18); CALCIUM 9.3 mg/dL (8.5-10.1); CHLORIDE 104 mmol/L (98-107); CO2 30 mmol/L (21-32); CREATININE 0.5 mg/dL (0.55-1.3); GLUCOSE,RANDOM 115 mg/dL (74-106); MAGNESIUM 2.2 mg/dL (1.8-2.4); POTASSIUM 3.7 mmol/L (3.5-5.1); SGOT/AST 36 U/L (15-37); SGPT/ALT 37 U/L (13-61); SODIUM 142 mmol/L (136-145); TOT PROT 7.3 g/dl (6.4-8.2)
[2019-10-06] MEDS ORDERED: ASPIRIN COATED 81 MG TABLET.EC ONE (16:29)
[2019-10-06 17:38] VITALS: BP 108/66; PULSE 87; TEMP 98.2
--- NOTE | 2019-10-06 18:09 | PDOC ---
Documentation entered by Erick Abel SCRIBE, acting as scribe for Hanh Sorensen MD. Hanh Sorensen MD: This documentation has been prepared by the glenneColten Daniel, SCRIBE, under my direction and personally reviewed by me in its entirety. I confirm that the documentation accurately reflects all work, treatment, procedures, and medical decision making performed by me. Attending Attestation - Resident Resident Name: RichSav - ED Attending Attestation I have performed the following: I have examined & evaluated the patient, The case was reviewed & discussed with the resident, I agree w/resident's findings & plan, Exceptions are as noted - HPI HPI: 10/06/19 17:29 The patient is a 59 year old female with a past medical history of chronic alcohol abuse, CHF, diabetes, HTN, HLD, and COPD here today for evaluation of chest pain. The patient reports that she was discharged from [facility] yesterday after begin there for 4 days for alcohol detox and is hoping to start rehab soon. She states that today she had 3 hours of substernal non radiating chest pain with associated shortness of breath. Currently the patient states that she has no pain. Patient denies headache, lightheadedness. Denies fever, chills. Denies nausea, vomiting, diarrhea, abdominal pain. Allergies: NKA Social history: Confirms alcohol use. Denies tobacco use, states quit 16 years ago. PCP: Charlie Plummer - Physicial Exam PE: 10/06/19 17:29 GENERAL: Well developed, well nourished. Awake and alert. No acute distress. HEENT: Normocephalic, atraumatic. PERRLA, EOMI. No conjunctival pallor. Sclera are non- icteric. Moist mucous membranes. Oropharynx is clear. NECK: Supple. Full ROM. No JVD. Carotid pulses 2+ and symmetric, without bruits. No thyromegaly. No lymphadenopathy. CARDIOVASCULAR: Regular rate and rhythm. No murmurs, rubs, or gallops. Distal pulses are 2+ and symmetric. PULMONARY: No evidence of respiratory distress. Lungs clear to auscultation bilaterally. No wheezing, rales or rhonchi. ABDOMINAL: Soft. Non-tender. Non-distended. No rebound or guarding. No organomegaly. Normoactive bowel sounds. MUSCULOSKELETAL Normal range of motion at all joints. No bony deformities or tenderness. No CVA tenderness. EXTREMITIES: +pedal edema No cyanosis. No clubbing. No calf tenderness. SKIN: Warm and dry. Normal capillary refill. No rashes. No jaundice. NEUROLOGICAL: Alert, awake, appropriate. Cranial nerves 2-12 intact. No deficits to light touch and temperature in face, upper extremities and lower extremities. No motor deficits in the in face, upper extremities and lower extremities. Normoreflexic in the upper and lower extremities. Normal speech. Toes are down- going bilaterally. Gait is normal without ataxia. PSYCHIATRIC: Cooperative. Good eye contact. Appropriate mood and affect. - Medical Decision Making 10/06/19 18:07 59-year-old female with past medical history of diabetes, hypertension, hyperlipidemia,COPD, CHF, chronic alcoholism had chest pain substernal chest pain from noon to 3 that resolved She denies associated symptoms of nausea vomiting or diaphoresis but said she felt little short of breath She had 2- troponins but does not want to be admitted to complete her cardiac work-up Risks and consequences of leaving prior to the completion of her work-up were explained and she still wanted to sign AMA and left
--- NOTE | 2019-10-07 14:46 | EKG ---
Test Reason : Blood Pressure : / mmHG Vent. Rate : 093 BPM Atrial Rate : 093 BPM P-R Int : 174 ms QRS Dur : 084 ms QT Int : 380 ms P-R-T Axes : 062 069 064 degrees QTc Int : 472 ms NORMAL SINUS RHYTHM POSSIBLE LEFT ATRIAL ENLARGEMENT BORDERLINE ECG WHEN COMPARED WITH ECG OF 03-OCT-2019 03:28, NO SIGNIFICANT CHANGE WAS FOUND Confirmed by KATIE TORRES MD ([id number]) on 10/07/2019 2:46:28 PM Referred By: Confirmed By:KATIE TORRES MD
== END 2019-10-06 18:09 | disposition left against medical advice (07) ==
LOC: JER 14:52
DX: R00.2 Palpitations (principal); R06.02 Shortness of breath; I25.10 Atherosclerotic heart disease of native coronary artery without angina pectoris; E11.9 Type 2 diabetes mellitus without complications; I10 Essential (primary) hypertension; E78.5 Hyperlipidemia, unspecified; J44.9 Chronic obstructive pulmonary disease, unspecified
CPT/HCPCS: 36415; 71045-TC-FY; 80053; 83690; 83735; 83880; 84484; 85025; 93005; 93010; 99284-25

== ENCOUNTER 2019-10-06 22:08 | Emergency (ER) | payer BC, OTHER ==
--- NOTE | 2019-10-06 23:16 | PDOC ---
History of Present Illness - General Chief Complaint: Chest Pain Stated Complaint: CHEST PAIN Time Seen by Provider: 10/06/19 23:01 History Source: Patient Exam Limitations: No Limitations - History of Present Illness Initial Comments: 10/06/19 23:16 59 yo F w PMHx of chronic alcohol abuse, CHF, DM, HTN, HLD, and COPD presenting w palpitations, chest pain, and SOB that occurred today at 10 pm. The patient presented to our emergency department earlier today with the same chief complaint. Per the patient, she was having chest pain at approximately 2 pm while drinking vodka that resolved at 3:30 pm. At baseline, she drinks 2 L of vodka per day with her last drink earlier in the day (she denies drinking alcohol between her presentations to our emergency department). She was DC'd from alcohol detox yesterday. Per the patient, she does not take her medications because she ran out and does not ask for refills. At 10 pm today, the patient had sudden onset of chest pain while at rest with associative palpitations and SOB. Per the patient, it was located in the left chest wall, without radiation, no worsening or relieving factors, and lasted for 1 hour. Currently, the patient has no chest pain. Denies the following: fever, chills, vision changes, nausea, vomiting, coughs, headaches, ears/nose/throat pain, abdominal pain, dysuria, heamturia, diarrhea, and leg pain/swelling. Allergies: NDKA Past History - Past Medical History Allergies/Adverse Reactions: Allergies Allergy/AdvReac Type Severity Reaction Status Date / Time No Known Allergies Allergy Verified 10/03/19 11:34 Home Medications: Ambulatory Orders Ibuprofen 400 mg PO DAILY 10/06/19 Melatonin 5 mg PO DAILY 10/06/19 Naltrexone HCl 50 mg PO DAILY 10/06/19 Propranolol HCl 40 mg PO DAILY 10/06/19 Anemia: Yes (not on meds) Asthma: No Cancer: No Cardiac Disorders: No CVA: No COPD: Yes CHF: Yes (On Toprol) Dementia: No Diabetes: Yes GI Disorders: No Disorders: No HTN: Yes Hypercholesterolemia: Yes (On Lipitor) Kidney Stones: No Liver Disease: No Seizures: Yes (alcohol induced in 2008) Thyroid Disease: No - Surgical History Abdominal Surgery: Yes (GASTRIC BYPASS in 2004,HYSTERECTOMY in 2010) Appendectomy: No Cardiac Surgery: No Cholecystectomy: No Lung Surgery: No Neurologic Surgery: No Orthopedic Surgery: No - Reproductive History PID: No - Immunization History Td Vaccination: Yes TDAP Vaccination: Yes Immunization Up to Date: Yes - Psycho Social/Smoking Cessation Hx Smoking History: Never smoked Have you smoked in the past 12 months: No 'Breaking Loose' booklet given: 06/03/18 Hx Alcohol Use: Yes Drug/Substance Use Hx: No Substance Use Type: Alcohol Hx Substance Use Treatment: Yes Review of Systems - Review of Systems Able to Perform ROS?: Yes Is the patient limited Malay proficient: No Constitutional: No: Chills, Diaphoresis, Fever HEENTM: No: Eye Pain, Ear Pain, Nose Pain, Throat Pain, Mouth Pain Respiratory: Yes: Shortness of Breath. No: Cough, Hemoptysis Cardiac (ROS): No: Chest Pain, Lightheadedness, Palpitations, Chest Tightness ABD/GI: No: Constipated, Diarrhea, Nausea, Rectal Bleeding, Vomiting, Tarry Stools : No: Burning, Dysuria, Hematuria Musculoskeletal: No: Back Pain, Joint Pain, Neck Pain Integumentary: No: Bruising, Erythema, Lesions Neurological: No: Headache, Tingling Psychiatric: No: Change in Appetite Endocrine: No: Unexplained Weight Loss Hematologic/Lymphatic: No: Anemia *Physical Exam - Physical Exam General Appearance: Yes: Nourished, Appropriately Dressed. No: Apparent Distress, Alcohol on Breath HEENT: positive: EOMI, RAFY, Normal Voice, Symmetrical, Pharynx Normal, Hearing Grossly Normal. negative: Pale Conjunctivae, Scleral Icterus (R), Scleral Icterus (L), Muffled/Hoarse voice, Pharyngeal Erythema, Tonsillar Exudate, Tonsillar Erythema, Nasal Congestion, Excessive drooling Neck: positive: Trachea midline, Supple. negative: Tender, Lymphadenopathy (R) , Lymphadenopathy (L), Tender lateral, Tender midline Respiratory/Chest: positive: Chest Tender (left chest wall tenderness with palpation), Lungs Clear, Normal Breath Sounds. negative: Respiratory Distress, Accessory Muscle Use, Crackles, Rales, Rhonchi, Stridor Cardiovascular: positive: Regular Rhythm, Regular Rate, S1, S2. negative: Systolic Murmur Gastrointestinal/Abdominal: positive: Normal Bowel Sounds, Flat, Soft. negative : Tender Lymphatic: negative: Adenopathy Musculoskeletal: positive: Normal Inspection. negative: CVA Tenderness, Vertebral Tenderness Extremity: positive: Normal Capillary Refill, Normal Inspection, Normal Range of Motion. negative: Tender, Swelling, Calf Tenderness Integumentary: positive: Normal Color, Dry, Warm. negative: Swelling, Ecchymosis Neurologic: positive: speech language specialist II-XII NML intact, Fully Oriented, Alert, Normal Mood/ Affect Heart Score/ECG Review - History History: Moderately suspicious - Electrocardiogram EKG: Non specific repolarization disturbance - Age Age: 45-65 - Risk Factors Risk Factors Heart Score: Yes Hx Hypercholesterolemia, Yes Hx Hypertension, Yes Hx Diabetes Based on the list above the patient has:: >/=3 risk factors or Hx atherosclerotic disease - Troponin Troponin: </= normal limit - Score Heart Score - Total: 5 ED Treatment Course - LABORATORY CBC & Chemistry Diagram: 10/06/19 23:30 Medical Decision Making - Medical Decision Making 59 yo F w PMHx of chronic alcohol abuse, CHF, DM, HTN, HLD, and COPD presenting w palpitations, chest pain, and SOB that occurred today at 10 pm. Initial vitals: Initial Vital Signs Temp Pulse Resp BP Pulse Ox 97.9 F 99 H 18 91/67 100 10/06/19 22:25 10/06/19 22:25 10/06/19 22:25 10/06/19 22:25 10/06/19 22:25 Work up: ddx: ACS rule out The patients EKGs: 10/06/2019 14:57 ventricular rate is 98 bpm. Prolonged QT (QTc is 482 ms). QRS duration is [address] elevation or depression. 10/06/2019 22:56 ventricular rate is 93 bpm. QTc is 472 ms. QRS duration is [address] elevation or depression. New TW change on V2. Biphasic T wave noted. trop negative x2 today. Will obtain a third troponin. Patient pending third trop. Patient signed out to Dr. Celestin Discharge - Discharge Information Problems reviewed: Yes Clinical Impression/Diagnosis: ACS (acute coronary syndrome) - Follow up/Referral Referrals: ON STAFF,NOT [Primary Care Provider] - - Patient Discharge Instructions - Post Discharge Activity
[2019-10-06 23:36] VITALS: TEMP 97.9; BMI 23.3
--- NOTE | 2019-10-06 23:53 | PDOC ---
Attending Attestation - Resident Resident Name: Juan MiguelJesus - ED Attending Attestation I have performed the following: I have examined & evaluated the patient, The case was reviewed & discussed with the resident, I agree w/resident's findings & plan - HPI HPI: 10/06/19 23:51 Pt returns for her chest pain. She states that she had to go home to take care of her kids. When I asked her how old her kids are, she said her grandkids... Pt admits to drinking alcohol when she went home. Pt is back for admission to telemetry unit to eval her CP. Her first 2 sets of labs and cardiac enzmes are normal. - Physicial Exam PE: 10/06/19 23:54 Agree with resident exam Pt is alert and awake. Alcohol on breath Pt is afebrile in NAD Abd soft NT ND Pt is overweight No flank pain. Pt has no edema of her legs. - Medical Decision Making 10/07/19 04:01 labs normal; 3rd troponin is negateve Pt has alcohol level of 200 and she will be discharged in the AM
[2019-10-07 00:17] LABS: ALBUMIN 3.3 g/dl (3.4-5.0); ALK PHOS 70 U/L (45-117); ANION GAP 10 MMOL/L (8-16); BILIRUBIN,TOTAL 0.3 mg/dL (0.2-1); BLOOD UREA NITROGEN 15.1 mg/dL (7-18); CALCIUM 8.5 mg/dL (8.5-10.1); CHLORIDE 108 mmol/L (98-107); CO2 27 mmol/L (21-32); CREATININE 0.7 mg/dL (0.55-1.3); GLUCOSE,RANDOM 127 mg/dL (74-106); POTASSIUM 3.9 mmol/L (3.5-5.1); SGOT/AST 28 U/L (15-37); SGPT/ALT 32 U/L (13-61); SODIUM 145 mmol/L (136-145); TOT PROT 6.6 g/dl (6.4-8.2)
--- NOTE | 2019-10-07 00:42 | PDOC ---
*Physical Exam - Vital Signs Last Vital Signs Temp Pulse Resp BP Pulse Ox 97.9 F 97 H 19 130/86 100 10/06/19 22:25 10/07/19 04:17 10/07/19 04:17 10/07/19 04:17 10/07/19 04:17 <Genet Rivas - Last Filed: 10/07/19 04:31> - Vital Signs Last Vital Signs Temp Pulse Resp BP Pulse Ox 97.9 F 99 H 18 91/67 100 10/06/19 22:25 10/06/19 22:25 10/06/19 22:25 10/06/19 22:25 10/06/19 22:25 <Gianna Celestin - Last Filed: 10/07/19 06:25> ED Treatment Course - LABORATORY CBC & Chemistry Diagram: 10/06/19 23:30 - ADDITIONAL ORDERS Additional order review: Laboratory Results 10/06/19 23:30 Sodium 145 Potassium 3.9 Chloride 108 H Carbon Dioxide 27 Anion Gap 10 BUN 15.1 Creatinine 0.7 Est GFR (CKD-EPI)AfAm 109.15 Est GFR (CKD-EPI)NonAf 94.17 Random Glucose 127 H Calcium 8.5 Total Bilirubin 0.3 AST 28 ALT 32 Alkaline Phosphatase 70 Creatine Kinase 242 H Creatine Kinase Index No Result Required. CK-MB (CK-2) < 1.0 Troponin I < 0.02 Total Protein 6.6 Albumin 3.3 L Alcohol, Quantitative 195.4 H <Genet Rivas - Last Filed: 10/07/19 04:31> - LABORATORY CBC & Chemistry Diagram: 10/06/19 23:30 - ADDITIONAL ORDERS Additional order review: Laboratory Results 10/06/19 23:30 Sodium 145 Potassium 3.9 Chloride 108 H Carbon Dioxide 27 Anion Gap 10 BUN 15.1 Creatinine 0.7 Est GFR (CKD-EPI)AfAm 109.15 Est GFR (CKD-EPI)NonAf 94.17 Random Glucose 127 H Calcium 8.5 Total Bilirubin 0.3 AST 28 ALT 32 Alkaline Phosphatase 70 Creatine Kinase 242 H Troponin I < 0.02 Total Protein 6.6 Albumin 3.3 L <Gianna Celestin - Last Filed: 10/07/19 06:25> Medical Decision Making - Medical Decision Making 10/07/19 00:37 Sign out received from Dr Bullard. Maria G Bell is a 59yo woman with a PMH of chronic alcohol abuse, CHF, DM, HTN, HLD, COPD, chronic chest pain that has been evaluated multiple times this month in the ED who presents reporting chest pain. She was seen in the ED with the same complaint this afternoon but left AMA at that time. ED course so far notable for: - Negative tropx3 today, split between 2 visits, at 15:35, 17:15, 23:30 - EKG w/ possible t-wave change in V2 only but no other acute changes. Admission discussed with med/surg team by Dr Bullard, and the decision was made to not admit given multiple negative trops, numerous workups for the same symptoms. - Alcohol level sent as pt endorses drinking today and is likely to be discharged - D/c to follow up with alcohol treatment program and PMD pending alcohol level 10/07/19 01:02 - Alcohol 200 - Will allow to remain in ED until sober, plan to d/c home in the morning 10/07/19 05:22 - Pt appears clinically sober, will d/c home. - Advised to follow up with her rehab program at [address] [place] [address] Evelyn Celestin PGY2 <Gianna Celestin - Last Filed: 10/07/19 06:25> Discharge - Discharge Information Problems reviewed: Yes - Admission No <Genet Rivas - Last Filed: 10/07/19 04:31> - Discharge Information Problems reviewed: Yes <Gianna Celestin - Last Filed: 10/07/19 06:25> - Discharge Information Clinical Impression/Diagnosis: Alcohol abuse Condition: Stable Disposition: HOME - Follow up/Referral Referrals: ON STAFF,NOT [Primary Care Provider] - - Patient Discharge Instructions Patient Printed Discharge Instructions: DI for Alcohol Abuse Additional Instructions: Discharge Instructions: You were seen in the emergency department for chest pain, and you were also found to be intoxicated. Your EKG and blood tests did not show a cardiac (heart) cause of your chest pain. It may be due to your alcohol use. Please continue to take all of your regular home medications. Consider going back to detox for additional treatment. Go to any scheduled appointments with your alcohol abuse treatment program at [address] [place] [address]. Seek immediate care for any worsening symptoms or for any medical emergency. - Post Discharge Activity
[2019-10-07 04:17] VITALS: PULSE 97
[2019-10-07 04:18] VITALS: BP 130/86
== END 2019-10-07 04:36 | disposition home or self-care (01) ==
LOC: JER 22:08
DX: I24.9 Acute ischemic heart disease, unspecified (principal); I25.10 Atherosclerotic heart disease of native coronary artery without angina pectoris; F10.10 Alcohol abuse, uncomplicated; E11.9 Type 2 diabetes mellitus without complications; I10 Essential (primary) hypertension; E78.5 Hyperlipidemia, unspecified; J44.9 Chronic obstructive pulmonary disease, unspecified
CPT/HCPCS: 36415; 71045-TC-FY; 80053; 80307; 82550; 82553; 84484; 99285-25

== ENCOUNTER 2019-10-09 09:24 | Observation (INO) | payer BC, OTHER ==
--- NOTE | 2019-10-09 10:00 | PDOC ---
Documentation entered by Amada Reddy SCRIBE, acting as scribe for Dean Mcnulty MD. Dean Mcnulty MD: This documentation has been prepared by the Maureen ordoñez Brenda, SCRIBE, under my direction and personally reviewed by me in its entirety. I confirm that the documentation accurately reflects all work, treatment, procedures, and medical decision making performed by me. History of Present Illness - General Chief Complaint: Chest Pain Stated Complaint: CHEST PAIN Time Seen by Provider: 10/09/19 09:40 History Source: Patient Exam Limitations: No Limitations - History of Present Illness Initial Comments: 10/09/19 09:52 The patient is a 59 year old female, with a significant PMH of alcohol abuse, CHF, DM, HTN, HLD, and COPD who presents to the emergency department with progressively worsening chest pain since yesterday. Patient reports last alcoholic drink being yesterday. Since then, pt has had midsternal chest pain that is constant, non-radiating. Denies abdominal pain/N/V. Denies any other drug use. The patient denies shortness of breath, headache and dizziness. Denies fever, chills, nausea, vomiting, diarrhea and constipation. Denies any urinary symptoms. Allergies: NKA Past surgical history: Gastric bypass (2004). Hysterectomy (2010) Social history: chronic alcohol abuse PCP: Not on staff 10/09/19 10:00 Past History - Past Medical History Allergies/Adverse Reactions: Allergies Allergy/AdvReac Type Severity Reaction Status Date / Time No Known Allergies Allergy Verified 10/09/19 09:32 Home Medications: Ambulatory Orders NK [No Known Home Medication] 10/09/19 Anemia: Yes (not on meds) Asthma: No Cancer: No Cardiac Disorders: No CVA: No COPD: Yes CHF: Yes (On Toprol) Dementia: No Diabetes: Yes GI Disorders: No Disorders: No HTN: Yes Hypercholesterolemia: Yes Kidney Stones: No Liver Disease: No Seizures: Yes (alcohol induced in 2008) Thyroid Disease: No - Surgical History Abdominal Surgery: Yes (GASTRIC BYPASS in 2004,HYSTERECTOMY in 2010) Appendectomy: No Cardiac Surgery: No Cholecystectomy: No Lung Surgery: No Neurologic Surgery: No Orthopedic Surgery: No - Reproductive History PID: No - Immunization History Td Vaccination: Yes TDAP Vaccination: Yes Immunization Up to Date: Yes - Psycho Social/Smoking Cessation Hx Smoking History: Never smoked Have you smoked in the past 12 months: No Information on smoking cessation initiated: No 'Breaking Loose' booklet given: 06/03/18 Hx Alcohol Use: Yes Drug/Substance Use Hx: No Substance Use Type: Alcohol Hx Substance Use Treatment: Yes Review of Systems - Review of Systems Able to Perform ROS?: Yes Comments:: 10/09/19 09:52 GENERAL/CONSTITUTIONAL: No fever or chills. No weakness. HEAD, EYES, EARS, NOSE AND THROAT: No change in vision. No ear pain or discharge. No sore throat. CARDIOVASCULAR: (+)Chest pain. No shortness of breath, no loss of consciousness RESPIRATORY: No cough, wheezing, or hemoptysis. GASTROINTESTINAL: No nausea, vomiting, diarrhea or constipation. GENITOURINARY: No dysuria, frequency, or change in urination. MUSCULOSKELETAL: No joint or muscle swelling or pain. No neck or back pain. SKIN: No rash NEUROLOGIC: No vertigo, no change in strength/sensation. ENDOCRINE: No increased thirst. No abnormal weight change. HEMATOLOGIC/LYMPHATIC: No anemia, easy bleeding, or history of blood clots. ALLERGIC/IMMUNOLOGIC: No hives or skin allergy. *Physical Exam - Vital Signs Last Vital Signs Temp Pulse Resp BP Pulse Ox 98.7 F 94 H 18 102/63 100 10/09/19 09:30 10/09/19 09:30 10/09/19 09:30 10/09/19 09:30 10/09/19 09:30 - Physical Exam 10/09/19 09:53 GENERAL: Awake, alert, and fully oriented, in no acute distress. HEAD: No signs of trauma EYES: PERRLA, EOMI, sclera anicteric, conjunctiva clear ENT: Auricles normal inspection, hearing grossly normal, nares patent, oropharynx clear without exudates. Moist mucosa NECK: Nontender, no stepoffs, Normal ROM, supple, no lymphadenopathy, JVD, or masses LUNGS: Breath sounds equal, clear to auscultation bilaterally. No wheezes, and no crackles HEART: Regular rate and rhythm, normal S1 and S2, no murmurs, rubs or gallops ABDOMEN: Soft, nontender, normoactive bowel sounds. No guarding, no rebound. No masses EXTREMITIES: Normal range of motion, no edema. No clubbing or cyanosis. No cords, erythema, or tenderness NEUROLOGICAL: Cranial nerves II through XII intact. 5/5 strength and sensation in all extremities, Normal speech, normal gait, normal cerebellar function SKIN: Warm, Dry, normal turgor, no rashes or lesions noted. Heart Score/ECG Review - History History: Slightly suspicious - Electrocardiogram EKG: Non specific repolarization disturbance - Age Age: 45-65 - Risk Factors Risk Factors Heart Score: Yes Hx Hypercholesterolemia, Yes Hx Hypertension, Yes Hx Diabetes Based on the list above the patient has:: >/=3 risk factors or Hx atherosclerotic disease - Troponin Troponin: </= normal limit - Score Heart Score - Total: 4 - ECG Impressions Comment:: 10/09/19 10:01 NSR, no MARGAUX/STDs, TWI in lead III, intervals wnl, rate 93 ED Treatment Course - LABORATORY CBC & Chemistry Diagram: 10/09/19 10:40 10/09/19 10:40 Medical Decision Making - Medical Decision Making 10/09/19 10:02 59 F with chest pain. Has had multiple ED visits for same, with negative troponins. - Labs, lipase, trop - CXR Discharge - Discharge Information Problems reviewed: Yes Clinical Impression/Diagnosis: Chest pain Qualifiers: Chest pain type: unspecified Qualified Code(s): R07.9 - Chest pain, unspecified - Admission Yes - Follow up/Referral - Patient Discharge Instructions - Post Discharge Activity
[2019-10-09 10:54] LABS: BASO % 0.7 % (0-2.0); EOS % 1.2 % (0-4.5); HEMATOCRIT 42.1 % (32.4-45.2); HEMOGLOBIN 14.2 GM/dL (10.7-15.3); MCH 33.1 pg (25.7-33.7); MCHC 33.6 g/dl (32.0-36.0); MEAN CELL VOLUME 98.3 fl (80-96); MEAN PLT VOLUME 7.8 fl (7.5-11.1); MONO % 5.1 % (3.8-10.2); PLATELET COUNT 190 K/MM3 (134-434); RBC 4.28 M/mm3 (3.60-5.2); RDW 13.6 % (11.6-15.6); WHITE BLOOD COUNT 6.5 K/mm3 (4.0-10.0)
[2019-10-09 12:15] LABS: ALBUMIN 3.4 g/dl (3.4-5.0); ALK PHOS 66 U/L (45-117); ANION GAP 7 MMOL/L (8-16); BILIRUBIN,TOTAL 0.1 mg/dL (0.2-1); BLOOD UREA NITROGEN 16.6 mg/dL (7-18); CALCIUM 7.7 mg/dL (8.5-10.1); CHLORIDE 107 mmol/L (98-107); CO2 31 mmol/L (21-32); CREATININE 0.7 mg/dL (0.55-1.3); GLUCOSE,RANDOM 145 mg/dL (74-106); LIPASE 119 U/L (73-393); POTASSIUM 3.8 mmol/L (3.5-5.1); SGOT/AST 26 U/L (15-37); SGPT/ALT 28 U/L (13-61); SODIUM 145 mmol/L (136-145); TOT PROT 6.6 g/dl (6.4-8.2)
--- NOTE | 2019-10-09 12:42 | HP ---
CHIEF COMPLAINT: chest pain PCP: Currently not followed by primary care physician HISTORY OF PRESENT ILLNESS: Patient is a 59 year old female with history of alcohol use disorder (drinks approx. three pints Vodka daily, last drink endorses yesterday), diabetes mellitus (currently not taking any oral hypoglycemics or insulin), hypertension , hyperlipidemia, COPD (not on home oxygen), ?CHF presents with complaint of chest pain. She has had several prior presentations to the ED for similar complaint. Endorses chest pain as mid-sternal radiating up her sternum in throbbing sensation. she endorses the symptoms are fairly constant, daily, and have been ongoing for the past several months. Patient endorses vomiting with streak of blood that has also been ongoing for past several months; last episode was this morning. Denies relation of pain with meals, or the vomiting episodes. She is not able to describe palliative or provocative features. Patient does endorse a stress test approx 5 years ago; she does not recall the [employer] Merch[employer]ise [employer], or the result. Denies subjective fevers, chills, shortness of breath, palpitations. ER course was notable for: (1) EKG: normal sinus rhythm. 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 Lives in apartment with boyfriend and son. Smoking: Endorses 15 pack year history, quit smoking 16 years ago Alcohol: drinks 1-3 pints of vodka daily. Numerous visits for alcohol rehab, and detox (last detox earlier this month at [facility]). Drugs: Denies illicit drug use Allergies No Known Allergies Allergy (Verified 10/09/19 09:32) HOME MEDICATIONS: Home Medications Medication Instructions Recorded NK [No Known Home Medication] 10/09/19 REVIEW OF SYSTEMS CONSTITUTIONAL: Absent: fever, chills, diaphoresis, generalized weakness, malaise, loss of appetite, weight change HEENT: Absent: rhinorrhea, nasal congestion, throat pain, throat swelling, difficulty swallowing, mouth swelling, ear pain, eye pain, visual changes CARDIOVASCULAR: Admits: chest pain. Absent: syncope, palpitations, irregular heart rate, lightheadedness, peripheral edema RESPIRATORY: Absent: cough, shortness of breath, dyspnea with exertion, orthopnea, wheezing, stridor, hemoptysis GASTROINTESTINAL: Admits: vomiting, hematemesis. Absent: abdominal pain, abdominal distension, diarrhea, constipation, melena, hematochezia GENITOURINARY: Absent: dysuria, frequency, urgency, hesitancy, hematuria, flank pain, genital pain MUSCULOSKELETAL: Absent: myalgia, arthralgia, joint swelling, back pain, neck pain SKIN: Absent: rash, itching, pallor HEMATOLOGIC/IMMUNOLOGIC: Absent: easy bleeding, easy bruising, lymphadenopathy, frequent infections ENDOCRINE: Absent: unexplained weight gain, unexplained weight loss, heat intolerance, cold intolerance NEUROLOGIC: Absent: headache, focal weakness or paresthesias, dizziness, unsteady gait, seizure, mental status changes, bladder or bowel incontinence PSYCHIATRIC: Absent: anxiety, depression, suicidal or homicidal ideation, hallucinations. PHYSICAL EXAMINATION Vital Signs - 24 hr 10/09/19 09:30 Temperature 98.7 F Pulse Rate 94 H Respiratory 18 Rate Blood Pressure 102/63 O2 Sat by Pulse 100 Oximetry (%) GENERAL: The patient is awake, alert, and fully oriented, in no acute distress. HEAD: Normocephalic, atraumatic. EYES: PERRL, extraocular movements intact, sclera anicteric, conjunctiva clear. ENT: Oropharynx clear, without erythema or exudates. Moist mucous membranes. NECK: Trachea midline, full range of motion. Supple without lymphadenopathy. LUNGS: Breath sounds equal, clear to auscultation bilaterally, no wheezes, no crackles. No accessory muscle use. HEART: Regular rate and rhythm, S1, S2 without murmur, rub or gallop. ABDOMEN: Soft, nondistended. Tender to deep palpation at epigastrum. No guarding , no rebound tenderness. Normoactive bowel sounds x4 quadrants. no hepatosplenomegaly appreciated. RECTAL: Good anal sphincter tone. Negative internal, external hemorrhoids appreciated. Light brown stool upon gloved finger without kareem blood. Sample sent for occult testing. EXTREMITIES: 2+ radial, dorsalis pedis pulses bilaterally. Warm, well-perfused. No lower extremity edema bilaterally. NEUROLOGICAL: Cranial nerves II through XII grossly intact. Normal speech. No gross focal deficits. PSYCH: Normal mood, normal affect upon my encounter. SKIN: Warm, dry. Laboratory Results - last 24 hr 10/09/19 10/09/19 10:40 10:40 WBC 6.5 RBC 4.28 Hgb 14.2 Hct 42.1 MCV 98.3 H MCH 33.1 MCHC 33.6 RDW 13.6 Plt Count 190 MPV 7.8 Absolute Neuts (auto) 3.6 Neutrophils % 55.0 Lymphocytes % 38.0 Monocytes % 5.1 Eosinophils % 1.2 Basophils % 0.7 Nucleated RBC % 0 Sodium 145 Potassium 3.8 Chloride 107 Carbon Dioxide 31 Anion Gap 7 L BUN 16.6 Creatinine 0.7 Est GFR (CKD-EPI)AfAm 109.15 Est GFR (CKD-EPI)NonAf 94.17 Random Glucose 145 H Calcium 7.7 L Total Bilirubin 0.1 L AST 26 ALT 28 Alkaline Phosphatase 66 Creatine Kinase 158 Creatine Kinase Index No Result Required. CK-MB (CK-2) < 1.0 Troponin I < 0.02 Total Protein 6.6 Albumin 3.4 Lipase 119 Alcohol, Quantitative 300.69254 H ASSESSMENT/PLAN: Patient is a 59 year old female with history of alcohol use disorder (drinks approx. three pints Vodka daily, last drink endorses yesterday), diabetes mellitus (currently not taking any oral hypoglycemics or insulin), hypertension , hyperlipidemia, COPD (not on home oxygen), ?CHF presents with complaint of chest pain. Atypical chest pain -Likely secondary to gastritis vs. gastric ulcer. Patient does have history of gastric banding surgery in 2004. -EKG reveals normal sinus rhythm with initial troponin 0.02. Will trend troponins -Gastroenterology evaluation for possible endoscopy. -Protonix 40mg IV daily -Reinstate home Pepcid 20mg PO daily -Cardiac monitoring -Cardiac ECHO Alcohol use disorder -Currently CIWA 1 (mild headache) -Follow CIWA. Ativan 2mg IV ordered as one time dose in event patient begins withdrawal. Will initiate Librium protocal if CIWA > 6 -Thiamine, Folate -Fall precautions -Counselled regarding abstinence Diabetes mellitus type II -Patient denies using any oral hypoglycemics, or insulin -Follow HbA1c -Insulin sliding scale ACHS -Fingerstick BGM ACHS Hypertension -Medication reconciled with patient's pharmacy; will reinstate home Inderal 10mg PO BID (patient has not picked up medication in several months). Hyperlipidemia -Reinstate home Atorvastatin 10mg PO HS COPD -Not on home oxygen. Currently stable; not in exacerbation -Maintain O2 saturation greater than 90% FEN -No IV fluids indicated -Follow BMP, replete as necessary -Clear liquid diet Prophylaxis -SCDs bilateral lower extremities. Holding chemical anticoagulation pending GI evaluation Disposition -Telemetry observation Visit type - Emergency Visit Emergency Visit: Yes ED Registration Date: 10/09/19 Care time: The patient presented to the Emergency Department on the above date and was hospitalized for further evaluation of their emergent condition. - New Patient This patient is new to me today: Yes Date on this admission: 10/09/19 - Critical Care Critical Care patient: No ATTENDING PHYSICIAN STATEMENT I saw and evaluated the patient. I reviewed the resident's note and discussed the case with the resident. I agree with the resident's findings and plan as documented. SUBJECTIVE: OBJECTIVE: ASSESSMENT AND PLAN:
--- NOTE | 2019-10-09 12:42 | CONSULT ---
Consultation: REQUESTING PROVIDER: CONSULT REQUEST: We have been asked to medically evaluate this patient for ( specify). HISTORY OF PRESENT ILLNESS: REVIEW OF SYSTEMS: CONSTITUTIONAL: Absent: fever, chills, diaphoresis, generalized weakness, malaise, loss of appetite, weight change HEENT: Absent: rhinorrhea, nasal congestion, throat pain, throat swelling, difficulty swallowing, mouth swelling, ear pain, eye pain, visual changes CARDIOVASCULAR: Absent: chest pain, syncope, palpitations, irregular heart rate, lightheadedness , peripheral edema RESPIRATORY: Absent: cough, shortness of breath, dyspnea with exertion, orthopnea, wheezing, stridor, hemoptysis GASTROINTESTINAL: Absent: abdominal pain, abdominal distension, nausea, vomiting, diarrhea, constipation, melena, hematochezia GENITOURINARY: Absent: dysuria, frequency, urgency, hesitancy, hematuria, flank pain, genital pain MUSCULOSKELETAL: Absent: myalgia, arthralgia, joint swelling, back pain, neck pain SKIN: Absent: rash, itching, pallor HEMATOLOGIC/IMMUNOLOGIC: Absent: easy bleeding, easy bruising, lymphadenopathy, frequent infections ENDOCRINE: Absent: unexplained weight gain, unexplained weight loss, heat intolerance, cold intolerance NEUROLOGIC: Absent: headache, focal weakness or paresthesias, dizziness, unsteady gait, seizure, mental status changes, bladder or bowel incontinence PSYCHIATRIC: Absent: anxiety, depression, suicidal or homicidal ideation, hallucinations. PHYSICAL EXAMINATION Vital Signs - 24 hr 10/09/19 09:30 Temperature 98.7 F Pulse Rate 94 H Respiratory 18 Rate Blood Pressure 102/63 O2 Sat by Pulse 100 Oximetry (%) GENERAL: Awake, alert, and fully oriented, in no acute distress. HEAD: Normal with no signs of trauma. EYES: Pupils equal, round and reactive to light, extraocular movements intact, sclera anicteric, conjunctiva clear. No lid lag. EARS, NOSE, THROAT: Ears normal, nares patent, oropharynx clear without exudates. Moist mucous membranes. NECK: Normal range of motion, supple without lymphadenopathy, JVD, or masses. LUNGS: Breath sounds equal, clear to auscultation bilaterally. No wheezes, and no crackles. No accessory muscle use. HEART: Regular rate and rhythm, normal S1 and S2 without murmur, rub or gallop. ABDOMEN: Soft, nontender, not distended, normoactive bowel sounds, no guarding, no rebound, no masses. No hepatomegaly or splenomegaly. MUSCULOSKELETAL: Normal range of motion at all joints. No bony deformities or tenderness. No CVA tenderness. UPPER EXTREMITIES: 2+ pulses, warm, well-perfused. No cyanosis. No clubbing. Cap refill <2 seconds. No peripheral edema. LOWER EXTREMITIES: 2+ pulses, warm, well-perfused. No calf tenderness. No peripheral edema. NEUROLOGICAL: Cranial nerves II-XII intact. Normal speech. Normal gait. PSYCHIATRIC: Cooperative. Good eye contact. Appropriate mood and affect. SKIN: Warm, dry, normal turgor, no rashes or lesions noted. Laboratory Results - last 24 hr 10/09/19 10/09/19 10:40 10:40 WBC 6.5 RBC 4.28 Hgb 14.2 Hct 42.1 MCV 98.3 H MCH 33.1 MCHC 33.6 RDW 13.6 Plt Count 190 MPV 7.8 Absolute Neuts (auto) 3.6 Neutrophils % 55.0 Lymphocytes % 38.0 Monocytes % 5.1 Eosinophils % 1.2 Basophils % 0.7 Nucleated RBC % 0 Sodium 145 Potassium 3.8 Chloride 107 Carbon Dioxide 31 Anion Gap 7 L BUN 16.6 Creatinine 0.7 Est GFR (CKD-EPI)AfAm 109.15 Est GFR (CKD-EPI)NonAf 94.17 Random Glucose 145 H Calcium 7.7 L Total Bilirubin 0.1 L AST 26 ALT 28 Alkaline Phosphatase 66 Creatine Kinase 158 Creatine Kinase Index No Result Required. CK-MB (CK-2) < 1.0 Troponin I < 0.02 Total Protein 6.6 Albumin 3.4 Lipase 119 Alcohol, Quantitative 300.39301 H ASSESSMENT/PLAN: Dispo: We will continue to follow the patient. Thank you for this consultative opportunity. ATTENDING PHYSICIAN STATEMENT I saw and evaluated the patient. I reviewed the resident's note and discussed the case with the resident. I agree with the resident's findings and plan as documented. SUBJECTIVE: OBJECTIVE: ASSESSMENT AND PLAN:
--- NOTE | 2019-10-09 15:14 | EKG ---
Test Reason : Blood Pressure : / mmHG Vent. Rate : 093 BPM Atrial Rate : 093 BPM P-R Int : 190 ms QRS Dur : 096 ms QT Int : 362 ms P-R-T Axes : 057 079 046 degrees QTc Int : 450 ms NORMAL SINUS RHYTHM NORMAL ECG WHEN COMPARED WITH ECG OF 06-OCT-2019 22:56, NO SIGNIFICANT CHANGE WAS FOUND Confirmed by ESTEBAN SINGH MD ([id number]) on 10/09/2019 3:13:56 PM Referred By: Confirmed By:ESTEBAN SINGH MD
[2019-10-09] MEDS ORDERED: FOLIC ACID INJECTION - 1 MG, THIAMINE HCL 100 MG, MULTIVIT INJECTION ADULT 10 ML in SOD... IVPB ONE (16:41)
[2019-10-09] MEDS ORDERED: LORazepam 2 MG/ML SDV VIAL IVPUSH ONE (17:00)
--- NOTE | 2019-10-09 17:25 | PN ---
Teaching Attending Note Name of Resident: Emilio Minor ATTENDING PHYSICIAN STATEMENT I saw and evaluated the patient. I reviewed the resident's note and discussed the case with the resident. I agree with the resident's findings and plan as documented. SUBJECTIVE: This is a 59 year old woman with a history of alcohol abuse, obesity , gastric bypass, CHF, type 2 DM, HTN, hyperlipidemia, COPD who comes to the ED complaining of chest pain since yesterday. The pain is located in the mid- sternal area, has been constant, does not radiate, is not associated with activity, might be related to meals. She has nausea, vomiting and she denies palpitations. Symptoms have been worsening over the past few months. She has had multiple ED visits for the same complaints. Her last drink was yesterday. OBJECTIVE: Vital Signs Period Temp Pulse Resp BP Sys/Grossman Pulse Ox Last 24 Hr 98.7 F 94 18 102/63 100 HEART: S1S2, RRR LUNGS: Clear ABDOMEN: Soft, non-distended, (+) epigastric tenderness, normal BS EXTREMITIES: No edema Laboratory Tests 10/09/19 10/09/19 10/09/19 10:40 10:40 13:05 WBC 6.5 RBC 4.28 Hgb 14.2 Hct 42.1 MCV 98.3 H MCH 33.1 MCHC 33.6 RDW 13.6 Plt Count 190 MPV 7.8 Absolute Neuts (auto) 3.6 Neutrophils % 55.0 Lymphocytes % 38.0 Monocytes % 5.1 Eosinophils % 1.2 Basophils % 0.7 Nucleated RBC % 0 Sodium 145 Potassium 3.8 Chloride 107 Carbon Dioxide 31 Anion Gap 7 L BUN 16.6 Creatinine 0.7 Est GFR (CKD-EPI)AfAm 109.15 Est GFR (CKD-EPI)NonAf 94.17 Random Glucose 145 H Calcium 7.7 L Total Bilirubin 0.1 L AST 26 ALT 28 Alkaline Phosphatase 66 Creatine Kinase 158 Creatine Kinase Index No Result Required. CK-MB (CK-2) < 1.0 Troponin I < 0.02 Total Protein 6.6 Albumin 3.4 Lipase 119 Stool Occult Blood Negative Alcohol, Quantitative 300.18455 H Home Medications Medication Instructions Recorded NK [No Known Home Medication] 10/09/19 ASSESSMENT AND PLAN: This is a 59 year old woman with a history of alcohol abuse, obesity, gastric bypass, type 2 DM, HTN, hyperlipidemia, COPD who presented to the ED with chest pain. 1. Chest pain/epigastric abdominal pain - Doubt cardiac - Observe on telemetry - Repeat troponin - Abstain from alcohol use - Avoid NSAIDs - Start Protonix - Clear liquid diet - GI consult for possible EGD to evaluate for gastritis, ulcer 2. Continuous alcohol dependence with alcohol intoxication - Thiamine, folic acid, multivitamin - Watch for withdrawal 3. Obesity, history of gastric bypass 4. HTN - Patient is not sure of her medications 5. Hyperlipidemia - Patient is not sure of her medications 6. Type 2 DM - Patient is not sure of her medications - Check HbA1c - Fingersticks with Novolog sliding scale 7. COPD - Stable
[2019-10-09] MEDS ORDERED: THIAMINE HCL 100 MG TABLET (FP) ONE (19:44)
[2019-10-09] MEDS ORDERED: PANTOPRAZOLE SODIUM 40 MG/100 ML BAG IVPB ONE (19:44)
[2019-10-09] MEDS ORDERED: FOLIC ACID 1 MG TABLET (FP) ONE (19:44)
[2019-10-09] MEDS: FOLIC ACID 1 MG TABLET (FP) PO SCH (19:54)
[2019-10-09] MEDS: PANTOPRAZOLE SODIUM 40 MG VIAL IVPUSH SCH (19:55)
[2019-10-09] MEDS: THIAMINE HCL 100 MG TABLET (FP) PO SCH (19:55)
[2019-10-09] MEDS ORDERED: ATORVASTATIN CA 10 MG TABLET (FP) ONE (22:08)
[2019-10-09] MEDS ORDERED: INSULIN (NOVOLOG) ASPART 100 UNITS/ML 10ML VIAL ONE (22:09)
[2019-10-09] MEDS: ATORVASTATIN CA 10 MG TABLET (FP) PO SCH (22:23)
[2019-10-09] MEDS: INSULIN SLIDING SCALE (NOVOLOG) 1 VIAL SQ SCH (22:23)
[2019-10-09] MEDS ORDERED: DEXTROSE 50%-WATER - 25 GM/50 ML VIAL IVPUSH ONE (22:49)
[2019-10-09] MEDS ORDERED: DEXTROSE 50%-WATER 25 GM/50 ML DISP.SYRIN ONE (23:01)
[2019-10-10 03:21] VITALS: BMI 27.6
[2019-10-10] MEDS: INSULIN SLIDING SCALE (NOVOLOG) 1 VIAL SQ SCH ×4 (06:13→21:36)
[2019-10-10 06:59] LABS: HEMATOCRIT 36.4 % (32.4-45.2); HEMOGLOBIN 12.6 GM/dL (10.7-15.3); MCH 33.5 pg (25.7-33.7); MCHC 34.6 g/dl (32.0-36.0); MEAN PLT VOLUME 8.2 fl (7.5-11.1); PLATELET COUNT 173 K/MM3 (134-434); RBC 3.75 M/mm3 (3.60-5.2); RDW 13.1 % (11.6-15.6); WHITE BLOOD COUNT 6.1 K/mm3 (4.0-10.0)
[2019-10-10 07:35] LABS: ALBUMIN 3.3 g/dl (3.4-5.0); BILIRUBIN,TOTAL 0.7 mg/dL (0.2-1); BLOOD UREA NITROGEN 9.2 mg/dL (7-18); CREATININE 0.5 mg/dL (0.55-1.3); MAGNESIUM 1.9 mg/dL (1.8-2.4); PHOSPHOROUS 3.1 mg/dL (2.5-4.9); POTASSIUM 3.6 mmol/L (3.5-5.1); TOT PROT 6.4 g/dl (6.4-8.2)
[2019-10-10] MEDS: FOLIC ACID 1 MG TABLET (FP) PO SCH (09:40)
[2019-10-10] MEDS: PANTOPRAZOLE SODIUM 40 MG VIAL IVPUSH SCH (09:40)
[2019-10-10] MEDS: MULTIVITAMINS THER W-MINERALS COMBO TABLET (FP) PO SCH (09:40)
[2019-10-10] MEDS: THIAMINE HCL 100 MG TABLET (FP) PO SCH (09:41)
[2019-10-10] MEDS ORDERED: FAMOTIDINE 20 MG TABLET PO SCH (10:00)
--- NOTE | 2019-10-10 11:02 | PN ---
Progress Note (short form) - Note Progress Note: Seen and examined; please refer to tesident note for further historical information Echo negative for wmas, no further chest pain. Noted GI input; appreciates expert opinion. Will elucidate need for further followup with GI and advance diet as cleared, continue with protonix. Scope here vs. OP; poor clinical followup. On PO protonix. Han with .3% intraoperative risk 10 sys ROS done and negative aside from HPI Vs, labs, imaging reviewed NAD, AAO, resting in bed NC AT EOMI PERRLA HR wnl, no fnd Lungs CTAB, w/ sym exp Mild vague tenderness, ND, +BS Normal mood, appropriate behavior A/P: Discussing if inpatient vs. outpatient scope with GI; CP not cardiac likely secondary to gastritis. COPD -DC home with FU pulm, PFTs. -Albuterol on DC along with symbicort. Consider spiriva as OP. Suspected CHF -Echo wnl with no wmas, trace TR -Monitor EtOH Abuse -Declined XF to [facility] -DC on thiamine and folate supplementation <Jesus Casper - Last Filed: 10/10/19 14:37> - Note Progress Note: Hospitalist Medicine Pt without complaint this AM. States she is feeling better; no withdrawal sx . Was inebriated on admission, per level. Lives at home with her child and boyfriend in [place]. Ambulates independently. Vitals 10/10/19 03:04 Temperature 98.8 F Pulse Rate 86 Respiratory 18 Rate Blood Pressure 147/86 Physical Exam general: resting comfortably heent: NCAT, +injected conjunctiva in AM neck:supple cardio: S1, S2, RRR. no r/m/g pulm: CTA b/l abdomen: nontender, nondistended LE: 2+ pulses, no edema neuro: Machine Washer 2-12 grossly intact. no tongue fasciculations or tremors Laboratory Tests 10/09/19 10/09/19 10/10/19 10:40 22:26 05:30 WBC 6.1 Hgb 12.6 Hct 36.4 Plt Count 173 Calcium Troponin I < 0.02 < 0.02 Total Protein Albumin Alcohol, Quantitative 300.30132 H 10/10/19 05:30 Hgb Plt Count Sodium 139 Potassium 3.6 Chloride 103 Carbon Dioxide 28 Anion Gap 7 L BUN 9.2 Creatinine 0.5 L Est GFR (CKD-EPI)AfAm 121.92 Calcium 8.0 L Troponin I Total Protein 6.4 Albumin 3.3 L Imaging 10/09/19 CXR: without acute abnormality 10/09/19: EKG: NSR, rate 93bpm, qtc 450ms 10/10 ECHO: EF 60-65%, trace TR Assessment/Plan 59 year old female with history of alcohol use disorder (drinks approx. three pints Vodka daily, last drink endorses yesterday), diabetes mellitus (currently not taking any oral hypoglycemics or insulin), HTN, HLD, COPD (not on home oxygen), ?CHF, who presented with complaint of chest pain. #Atypical chest pain - resolved -likely 2/2 gastritis vs. gastric ulcer. has past hx of gastric banding (2004) -EKG WNL, w trops (-) x 2 -ECHO noted above -c/w protonix PO -Per GI, EGD for tomorrow -tele monitoring -alc level 300 on admission -f/u T+S, PT, PTT, hep serologies -GI consult: Dr. Abbey Carmona #Alcohol use disorder -CIWA is 0. not in withdrawal -c/w thiamine, folate -fall precautions -has had past admissions at [facility] #hx DM2 -a1c 6.1 -not on oral hypoglycemics at home #COPD -not on home 02, w/o increased o2 reqs -not in exacerbation -started on duoneb, nebs PRN -on d/c, will send on symbicort and ventolin, Pulm f/u -maintain 02 sat 88-92% #HTN -c/w inderal #HLD -c/w lipitor #F/E/N no need for IVF at this time continue to follow lytes clear/ full liq diet, NPO after MN for EGD #PPX DVT: SCD's; holding chem a/c in case of procedure ASA also held for above GI: protonix #Dispo tele-obs for EGD tomorrow <Latrice Macias - Last Filed: 10/10/19 16:16>
[2019-10-10 11:26] LABS: INR 1.08 (0.83-1.09); PROTHROMBIN TIME (PATIENT) 12.7 SEC (9.7-13.0)
--- NOTE | 2019-10-10 12:40 | ECHO ---
Name: ROBBINSAMMISHWETA XAVIER Exam:Adult Echocardiogram Study Date: 10/10/2019 09:55 AM Age: 59 yrs Reason For Study: History CHF, Evaluate Cardiac Function Height: 65 in Weight: 170 lb BSA: 1.8 m2 MMode/2D Measurements & Calculations IVSd: 1.0 cm Ao root diam: 2.5 cm LVIDd: 3.6 cm LA dimension: 3.5 cm LVIDs: 2.3 cm ACS: 1.9 cm LVPWd: 1.2 cm EDV(Teich): 55.7 ml LVOT diam: 1.9 cm ESV(Teich): 17.2 ml RV S Arthur: 15.6 cm/sec Doppler Measurements & Calculations MV E max arthur: 70.2 cm/sec Ao V2 max: 152.0 cm/sec MV A max arthur: 94.3 cm/sec Ao max P.2 mmHg MV E/A: 0.74 Ao V2 mean: 110.7 cm/sec MV dec time: 0.18 sec Ao mean P.6 mmHg Ao V2 VTI: 32.4 cm EDILIA(I,D): 1.6 cm2 EDILIA(V,D): 1.5 cm2 LV V1 max P.5 mmHg MR max arthur: 317.3 cm/sec LV V1 mean P.8 mmHg MR max P.3 mmHg LV V1 max: 79.5 cm/sec LV V1 mean: 65.1 cm/sec LV V1 VTI: 19.0 cm SV(LVOT): 53.3 ml TR max arthur: 216.4 cm/sec TR max P.8 mmHg PA V2 max: 96.0 cm/sec Med Peak E' Arthur: 6.0 cm/sec PA max P.7 mmHg Med E/e': 11.7 Lat Peak E' Arthur: 5.7 cm/sec Lat E/e': 12.3 Procedure A complete two-dimensional transthoracic echocardiogram was performed (2D, M-mode, Doppler and color flow Doppler). Left Ventricle The left ventricular size, thickness and function are normal. The left ventricular ejection fraction is normal. Ejection Fraction = 60-65%. No regional wall motion abnormalities noted. Right Ventricle The right ventricle is normal in size and function. Atria Normal left and right atrial size and function. Mitral Valve There is no mitral regurgitation noted. Tricuspid Valve There is trace tricuspid regurgitation. Right ventricular systolic pressure is normal. Aortic Valve The aortic valve is trileaflet. There is mild aortic valve thickening. No hemodynamically significant valvular aortic stenosis. No aortic regurgitation is present. Pulmonic Valve There is no pulmonic valvular regurgitation. Great Vessels The aortic root is normal size. Pericardium/Pleura There is no pericardial effusion. Interpretation Summary The left ventricular size, thickness and function are normal The right ventricle is normal in size and function. There is trace tricuspid regurgitation. MD Arben Carrera 10/10/2019 12:40 PM
--- NOTE | 2019-10-10 13:56 | CON.GI ---
Consult Consult Specialty:: GI Referred by:: Hospitalist Service Reason for Consultation:: alcohol abuse, blood steaked vomitus - History of Present Illness Chief Complaint: Chest pain History of Present Illness: 59F admitted for evaluation of chest pain. She has a history of CHF but does not follow with a mechanical inspector. She is uncertain regarding the extent of her heart disease. She describes drinking alcohol since age 8 and drinks 2 pints of vodka per week. She states that whenever she drinks alcohol, she vomits. After a few episodes of vomiting there can be blood streaks. She denies dysphagia, odynophagia, early satiety. She has attempted alcohol rehab 3 times unsuccessfuly. She believes that she had an EGD/Colonoscopy about 5 years ago in [place] but does not remember much about this. She was noted guaiac negative on specimen sent to lab. There has been no vomiting since admission. Blood alcohol level was 300 and she does state that she "gets the shakes" when she does not drink alcohol. There is no family history of liver disease, colorectal cancer or other GI malignancy. - History Source History Provided By: Patient, Medical Record - Past Medical History Cardio/Vascular: Yes: CHF Pulmonary: Yes: COPD Psych: Yes: Addictions (Alcoholism) Endocrine: Yes: Diabetes Mellitus (DM II) - Past Surgical History Past Surgical History: Yes: Bypass (Gastric bypass), Hysterectomy (BRAIN/BSO) - Alcohol/Substance Use Hx Alcohol Use: Yes - Smoking History Smoking history: Former smoker Have you smoked in the past 12 months: No - Social History Usual Living Arrangement: Alone ADL: Independent Place of : Other ([place]) History of Recent Travel: No Home Medications - Allergies Allergies/Adverse Reactions: Allergies Allergy/AdvReac Type Severity Reaction Status Date / Time No Known Allergies Allergy Verified 10/09/19 09:32 - Home Medications Home Medications: Ambulatory Orders Aspirin [ASA -] 81 mg PO DAILY 10/09/19 Famotidine [Pepcid] 20 mg PO DAILY 10/09/19 Simvastatin 5 mg PO DAILY 10/09/19 propRANOLol HCL [Inderal -] 10 mg PO BID 10/09/19 Family Medical History Other Family History: Mother: : diabetic complications. Father: : MVA in 50's. 2 brothers: 1 : rneal failure 1 : diabetic complications. 1 sister: DM II. 1 son, 2 daughters: healthy. No family history of colorectal cancer or other GI malignancy Review of Systems - Review of Systems Cardiovascular: reports: Chest Pain Respiratory: denies: Cough Gastrointestinal: reports: Vomiting, Vomiting Blood. denies: Abdominal Pain, Constipation, Diarrhea, Melena, Rectal Bleeding Physical Exam-GI Vital Signs: Vital Signs Temperature 98.8 F 10/10/19 03:04 Pulse Rate 86 10/10/19 03:04 Respiratory Rate 18 10/10/19 03:04 Blood Pressure 147/86 10/10/19 03:04 O2 Sat by Pulse Oximetry (%) 98 10/10/19 06:00 Constitutional: Yes: Calm Eyes: No: Sclera Icterus Cardiovascular: Yes: Regular Rate and Rhythm. No: Murmur Respiratory: Yes: CTA Bilaterally Gastrointestinal Inspection: Yes: Scars. No: Distention ...Auscultate: Yes: Normoactive Bowel Sounds ...Palpate: Yes: Soft, Tenderness. No: Hepatomegaly, Splenomegaly ...Percussion: No: Tympanitic Edema: No (No LE edema) Neurological: Yes: Alert Labs: CBC, BMP 10/10/19 05:30 10/10/19 05:30 INR, PTT INR 1.08 (0.83-1.09) 10/10/19 10:57 Problem List - Problems (1) Vomiting Assessment/Plan: Intermittent episodes of vomiting that become blood tinged. Chronic pattern. Normal BUN and Hgb not suggestive of significant UGIB. Normal PT/INR. This occurs whenever she drinks alcohol. I suspect that she likely has reflux esophagitis induced from her alcohol consumption. To exclude alternate etiologies, upper endoscopy can be performed in elective setting once cleared from medical standpoint (given poorly followed cardiac history and admission complaint of chest pain). Will need screening colonoscopy as an outpatient as well. Discuseed with patient. Advised: Alcohol cessation Protonix 40mg once daily Monitor for alcohol withdrawal Detox evaluation Evaluation of chest pain per primary team EGD when cleared from medical standpoint Check Screening hepatitis A/B serologies. HCV antibody Code(s): R11.10 - VOMITING, UNSPECIFIED
[2019-10-10] MEDS: ALBUTEROL SO4 2.5/IPRATROPIUM 0.5 INH SOL 3 ML VIAL.NEB. NEB SCH ×2 (16:05→20:46)
[2019-10-10] MEDS: ALBUTEROL SO4 0.083% IH SOL 2.5 MG/3 ML VIAL.NEB. NEB SCH (20:46)
[2019-10-10] MEDS ORDERED: PT OWN MED DRAWER 7, Y5N ONE (21:19)
[2019-10-10] MEDS: ATORVASTATIN CA 10 MG TABLET (FP) PO SCH (21:38)
[2019-10-11] MEDS: ALBUTEROL SO4 0.083% IH SOL 2.5 MG/3 ML VIAL.NEB. NEB SCH ×3 (00:48→07:49)
[2019-10-11] MEDS: INSULIN SLIDING SCALE (NOVOLOG) 1 VIAL SQ SCH ×2 (06:20→11:37)
[2019-10-11 06:40] LABS: BASO % 0.7 % (0-2.0); EOS % 3.1 % (0-4.5); HEMOGLOBIN 14.8 GM/dL (10.7-15.3); LYMPH % 42.7 % (8-40); MCH 33.1 pg (25.7-33.7); MCHC 34.5 g/dl (32.0-36.0); MEAN CELL VOLUME 95.9 fl (80-96); MEAN PLT VOLUME 8.2 fl (7.5-11.1); MONO % 8.7 % (3.8-10.2); NEUT % 44.8 % (42.8-82.8); PLATELET COUNT 239 K/MM3 (134-434); RBC 4.48 M/mm3 (3.60-5.2); RDW 13.1 % (11.6-15.6); WHITE BLOOD COUNT 5.6 K/mm3 (4.0-10.0)
[2019-10-11 07:09] LABS: BLOOD UREA NITROGEN 4.9 mg/dL (7-18); CALCIUM 9.5 mg/dL (8.5-10.1); CREATININE 0.7 mg/dL (0.55-1.3); MAGNESIUM 2.1 mg/dL (1.8-2.4); POTASSIUM 4.2 mmol/L (3.5-5.1)
[2019-10-11] MEDS: ALBUTEROL SO4 2.5/IPRATROPIUM 0.5 INH SOL 3 ML VIAL.NEB. NEB SCH ×2 (07:48→12:10)
[2019-10-11] MEDS: MULTIVITAMINS THER W-MINERALS COMBO TABLET (FP) PO SCH (09:04)
[2019-10-11] MEDS: THIAMINE HCL 100 MG TABLET (FP) PO SCH (09:04)
[2019-10-11] MEDS: FOLIC ACID 1 MG TABLET (FP) PO SCH (09:04)
[2019-10-11] MEDS ORDERED: PANTOPRAZOLE 40 MG TABLET (FP) PO SCH (10:00)
[2019-10-11 10:10] VITALS: BP 131/98; PULSE 85; TEMP 98.7
--- NOTE | 2019-10-11 19:20 | DS ---
Physical Exam: SUBJECTIVE: Patient seen and examined at bedside. In no acute distress, happy to go home. OBJECTIVE: Vital Signs Period Temp Pulse Resp BP Sys/Grossman Pulse Ox Last 24 Hr 98.1 F-98.7 F 60-85 20-20 123-139/88-98 96-96 PHYSICAL EXAM GENERAL: The patient is resting comfortably. HEAD: Normal with no signs of trauma. EYES: PERRL, extraocular movements intact, sclera anicteric, conjunctiva clear. ENT: Ears normal, nares patent, oropharynx clear without exudates, moist mucous membranes. NECK: Trachea midline, supple LUNGS: Breath sounds equal, clear to auscultation bilaterally, no wheezes, no crackles, no accessory muscle use. HEART: Regular rate and rhythm, S1, S2 without murmur, rub or gallop. ABDOMEN: Soft, nontender, nondistended, normoactive bowel sounds NEUROLOGICAL: Cranial nerves II through XII grossly intact. Normal speech PSYCH: Normal mood, normal affect. SKIN: Warm, dry, normal turgor LABS Laboratory Results - last 24 hr 10/10/19 10/11/19 10/11/19 21:35 05:34 05:35 WBC 5.6 RBC 4.48 Hgb 14.8 Hct 43.0 D MCV 95.9 MCH 33.1 MCHC 34.5 RDW 13.1 Plt Count 239 D MPV 8.2 Absolute Neuts (auto) 2.5 Neutrophils % 44.8 Lymphocytes % 42.7 H Monocytes % 8.7 Eosinophils % 3.1 D Basophils % 0.7 Nucleated RBC % 0 Sodium Potassium Chloride Carbon Dioxide Anion Gap BUN Creatinine Est GFR (CKD-EPI)AfAm Est GFR (CKD-EPI)NonAf POC Glucometer 117 161 Random Glucose Calcium Phosphorus Magnesium 10/11/19 10/11/19 05:35 11:35 WBC RBC Hgb Hct MCV MCH MCHC RDW Plt Count MPV Absolute Neuts (auto) Neutrophils % Lymphocytes % Monocytes % Eosinophils % Basophils % Nucleated RBC % Sodium 134 L Potassium 4.2 Chloride 100 Carbon Dioxide 29 Anion Gap 6 L BUN 4.9 L Creatinine 0.7 Est GFR (CKD-EPI)AfAm 109.15 Est GFR (CKD-EPI)NonAf 94.17 POC Glucometer 234 Random Glucose 163 H Calcium 9.5 Phosphorus 4.0 Magnesium 2.1 10/09/19 10/10/19 10/11/19 10:40 05:30 05:35 WBC 6.5 6.1 5.6 Hgb 14.2 12.6 14.8 Hct 42.1 36.4 43.0 D Plt Count 190 173 239 D 10/09/19 10/10/19 10/11/19 10:40 05:30 05:35 Sodium 145 139 134 L Potassium 3.8 3.6 4.2 Chloride 107 103 100 Carbon Dioxide 31 28 29 BUN 16.6 9.2 4.9 L Creatinine 0.7 0.5 L 0.7 Random Glucose 163 H Imaging 10/09/19 CXR: no active pulmonary dz 10/10/19 ECHO: EF 60-65%, LVSF normal, RV normal in size and function, trace TR HOSPITAL COURSE: Date of Admission:10/09/19 Date of Discharge: 10/11/19 59 year old female with history of alcohol use disorder (drinks approx. three pints Vodka daily, last drink endorses yesterday), diabetes mellitus (currently not taking any oral hypoglycemics or insulin), HTN, HLD, COPD (not on home oxygen), ?CHF, who presented with complaint of chest pain. #Atypical chest pain - resolved -likely 2/2 gastritis vs. gastric ulcer. has past hx of gastric banding (2004) -EKG WNL, w trops (-) x 2 -ECHO noted above -c/w protonix PO -for EGD and colonoscopy as outpatient. given GI referral -tele monitoring -alc level 300 on admission -hep serologies will need to be followed by PMD, GI -GI consult: Dr. Abbey Carmona #Alcohol use disorder -CIWA 0 on d/c -c/w thiamine, folate -fall precautions -to continue 12-step AA meetings and meet with sponsor recommended daily journal #hx DM2 -a1c 6.1 -not on oral hypoglycemics at home #COPD -not on home 02, w/o increased o2 reqs -not in exacerbation -on d/c, will send on symbicort and ventolin, Pulm f/u -maintain 02 sat 88-92% #HTN -c/w inderal #HLD -c/w lipitor Minutes to complete discharge: 52 Discharge Summary Problems reviewed: Yes Reason For Visit: CHEST PAIN Condition: Good - Instructions Diet, Activity, Other Instructions: You were in the hospital because you had chest pain. Your troponins (heart enzymes) were trended and were normal. You also had a normal EKG and ECHO ( picture of your heart). You were also managed an alcohol withdrawal. You improved and are being sent home. Medications 1. Please take protonix 40mg by mouth daily (1 pill) to prevent recurrence of your stomach pain. Take this INSTEAD of your pepcid. It has replaced it. 2. Please take Thiamine and folate (1 pill each) daily for nutrition. 3. We are sending you home on two inhalers for your COPD : symbicort ( maintenance) please take 1-2 puffs twice a day, scheduled. Please take ventolin (albuterol) 1 puff every 4 hours only as needed when you are short of breath. 4. You may continue your other home medications. Care It is important to continue on the path to cutting back on alcohol use. We are giving you a referral to St[facility] Guzman, Dr. Trevino if you choose to follow with him. It is also important to continue to attend your 12-step AA meetings as you have been . Continue to follow with your sponsor to discuss your progress, and continue to write in a journal. This is important for your recovery. Testing You will need an upper endoscopy (EGD) and colonoscopy done by the bakery supervisor (GI). He will need to make sure you do not have any ulcers in your stomach. Follow-up appointments Please see your primary care provider, Dr. Charlie Plummer- within 1 week to discuss your visit. You must also see the GI (bakery supervisor), Dr. Brent Carmona - within 1 week to discuss and schedule your upper endoscopy (EGD) and colonoscopy. He will have access to your files from the hospital, including the hepatitis testing you had done in the hospital (blood work). Please see Dr. Trevino, from [facility] if you choose to return there for rehab. In the meanwhile, continue your 12-step AA meetings. Referrals: Chuck Carmona DO [Staff Physician] - 1 Week Tara Plummer [Primary Care Provider] - 1 Week Chris Trevino DO [Staff Physician] - 1 Week Disposition: HOME - Home Medications Comprehensive Discharge Medication List: Ambulatory Orders Aspirin [ASA -] 81 mg PO DAILY 10/09/19 Simvastatin 5 mg PO DAILY 10/09/19 propRANOLol HCL [Inderal -] 10 mg PO BID 10/09/19 Albuterol Sulfate Inhaler - [Ventolin Hfa Inhaler -] 1 puff IH Q4H PRN #2 inhaler 10/11/19 Budesonide/Formeterol Fumarate [SYMBICORT 80/4.5mcg -] 1 - 2 inh PO BID #1 cannister 10/11/19 Folic Acid 1 mg PO DAILY #30 tablet 10/11/19 Pantoprazole Sodium [Protonix -] 40 mg PO DAILY #30 tablet.ec 10/11/19 Thiamine HCl [Vitamin B1 -] 100 mg PO DAILY #30 tablet 10/11/19 This patient is new to me today: No Emergency Visit: No Critical Care patient: No - Discharge Referral Referred to [facility] No
[2019-10-12 20:09] LABS: HEP B CORE AB, TOT Negative (Negative)
== END 2019-10-11 13:04 | disposition home or self-care (01) ==
LOC: JER 09:24 → JERBED 13:01 → J4W 23:16
PROVIDERS: ADMIT Internal Medicine; ATTEND Internal Medicine
PROC: 3E033GC Introduction of Other Therapeutic Substance into Peripheral Vein, Percutaneous Approach (ICD-10-PCS; principal; 2019-10-09)
PROC: 3E0337Z Introduction of Electrolytic and Water Balance Substance into Peripheral Vein, Percutaneous Approach (ICD-10-PCS; 2019-10-09)
PROC: 3E013VG Introduction of Insulin into Subcutaneous Tissue, Percutaneous Approach (ICD-10-PCS; 2019-10-09)
PROC: 3E0F7GC Introduction of Other Therapeutic Substance into Respiratory Tract, Via Natural or Artificial Opening (ICD-10-PCS; 2019-10-09)
DX: R07.89 Other chest pain (principal); I11.0 Hypertensive heart disease with heart failure; I50.9 Heart failure, unspecified; E78.5 Hyperlipidemia, unspecified; E11.9 Type 2 diabetes mellitus without complications; J44.9 Chronic obstructive pulmonary disease, unspecified; F10.20 Alcohol dependence, uncomplicated; R11.10 Vomiting, unspecified; E66.9 Obesity, unspecified; Z68.26 Body mass index [BMI] 26.0-26.9, adult; Z98.84 Bariatric surgery status; Z86.69 Personal history of other diseases of the nervous system and sense organs; Z90.710 Acquired absence of both cervix and uterus
CPT/HCPCS: 36415; 71045-TC-FY; 80048; 80053; 80307; 82272; 82550; 82553; 82962; 83036; 83690; 83735; 84100; 84484; 85025; 85027; 85610; 85730; 86704; 86706; 86707; 86708; 86709; 86850; 86900; 86901; 87340; 87522; 93005; 93010; 93306-TC; 94640; 99285-25; G0378; J7030

== ENCOUNTER 2019-10-13 14:31 | Emergency (ER) | payer BC, OTHER ==
[2019-10-13 14:45] VITALS: BMI 26.4
--- NOTE | 2019-10-13 15:15 | PDOC ---
History of Present Illness - General Chief Complaint: Tachycardia Stated Complaint: TACHYCARDIA Time Seen by Provider: 10/13/19 15:05 History Source: Patient Exam Limitations: No Limitations - History of Present Illness Initial Comments: 10/13/19 15:11 59 yo F w/ a h/o heart failure,HTN, DM, herniated disc in the back comes in c/o palpitations which started at 11am today, it has been intermittent since. No chest pain, no SOB, no back pain, no fever/chills, no abdominal pain, no NVD, no dizziness, no diaphoresis, no extremity pain/numbness/tingling. No recent travel, no leg swelling, no calf pain, no hemoptysis, no recent prolonged period of immobilization, no hormone use, no cough, no URI symptoms. No other complaints today. Pt has had palpitations in the past, came to the ED and was admitted. Past History - Past Medical History Allergies/Adverse Reactions: Allergies Allergy/AdvReac Type Severity Reaction Status Date / Time No Known Allergies Allergy Verified 10/13/19 14:41 Home Medications: Ambulatory Orders Aspirin [ASA -] 81 mg PO DAILY 10/09/19 Simvastatin 5 mg PO DAILY 10/09/19 propRANOLol HCL [Inderal -] 10 mg PO BID 10/09/19 Albuterol Sulfate Inhaler - [Ventolin Hfa Inhaler -] 1 puff IH Q4H PRN #2 inhaler 10/11/19 Budesonide/Formeterol Fumarate [SYMBICORT 80/4.5mcg -] 1 - 2 inh PO BID #1 cannister 10/11/19 Folic Acid 1 mg PO DAILY #30 tablet 10/11/19 Pantoprazole Sodium [Protonix -] 40 mg PO DAILY #30 tablet.ec 10/11/19 Thiamine HCl [Vitamin B1 -] 100 mg PO DAILY #30 tablet 10/11/19 Anemia: Yes (not on meds) Asthma: No Cancer: No Cardiac Disorders: No CVA: No COPD: Yes CHF: Yes (On Toprol) Dementia: No Diabetes: Yes GI Disorders: No Disorders: No HTN: Yes Hypercholesterolemia: Yes Kidney Stones: No Liver Disease: No Seizures: Yes (alcohol induced in 2008) Thyroid Disease: No - Surgical History Abdominal Surgery: Yes (GASTRIC BYPASS in 2004,HYSTERECTOMY in 2010) Appendectomy: No Cardiac Surgery: No Cholecystectomy: No Lung Surgery: No Neurologic Surgery: No Orthopedic Surgery: No - Reproductive History PID: No - Immunization History Td Vaccination: Yes TDAP Vaccination: Yes Immunization Up to Date: Yes - Psycho Social/Smoking Cessation Hx Smoking History: Never smoked Have you smoked in the past 12 months: No 'Breaking Loose' booklet given: 06/03/18 Hx Alcohol Use: Yes (2 X A WEEK) Drug/Substance Use Hx: No Substance Use Type: Alcohol Hx Substance Use Treatment: Yes Review of Systems - Review of Systems Able to Perform ROS?: Yes Constitutional: No: Chills, Fever, Malaise, Night Sweats HEENTM: No: Eye Pain, Recent change in vision, Throat Pain Respiratory: No: Cough, Shortness of Breath Cardiac (ROS): Yes: Irregular Heart Rate, Palpitations. No: Chest Pain, Syncope , Chest Tightness ABD/GI: No: Diarrhea, Nausea, Vomiting, Abdominal cramping : No: Dysuria, Hematuria Musculoskeletal: No: Back Pain Integumentary: No: Rash Neurological: No: Headache, Numbness, Dizziness Psychiatric: No: Change in Appetite Endocrine: No: Unexplained Weight Loss *Physical Exam - Vital Signs Last Vital Signs Temp Pulse Resp BP Pulse Ox 97.8 F 110 H 20 121/70 97 10/13/19 14:41 10/13/19 14:41 10/13/19 14:41 10/13/19 14:41 10/13/19 14:41 - Physical Exam General Appearance: Yes: Nourished. No: Apparent Distress HEENT: positive: RAFY, Normal ENT Inspection, Normal Voice. negative: Pale Conjunctivae, Scleral Icterus (R), Scleral Icterus (L) Neck: positive: Supple. negative: Decreased range of motion, Tender midline Respiratory/Chest: positive: Lungs Clear, Normal Breath Sounds. negative: Respiratory Distress, Accessory Muscle Use Cardiovascular: positive: Regular Rhythm, Regular Rate Gastrointestinal/Abdominal: positive: Normal Bowel Sounds, Soft. negative: Tender Musculoskeletal: positive: Normal Inspection. negative: CVA Tenderness, Decreased Range of Motion Extremity: positive: Normal Capillary Refill, Normal Inspection, Normal Range of Motion. negative: Tender, Pedal Edema Integumentary: positive: Normal Color, Dry. negative: Jaundice, Rash Neurologic: positive: Fully Oriented, Alert, Normal Mood/Affect ED Treatment Course - LABORATORY CBC & Chemistry Diagram: 10/13/19 15:43 10/13/19 15:43 Medical Decision Making - Medical Decision Making 10/13/19 15:14 59 yo F w/ HTN, DM, heart failure p/w palpitations since 11am today, no SOB/CP. Now denies palpitations. Will do an EKG, will line and lab, chest xray and admit to telemetry due to comorbidities R/O ACS 10/13/19 16:06 Change of shift, care of patient signed over to Provider Sterling who will admit patient after labs result, heck xray results, reassess Discharge - Discharge Information Problems reviewed: Yes Clinical Impression/Diagnosis: Palpitations - Follow up/Referral Referrals: Tara Plummer [Primary Care Provider] - - Patient Discharge Instructions - Post Discharge Activity
[2019-10-13 16:26] LABS: BASO % 0.8 % (0-2.0); EOS % 1.3 % (0-4.5); HEMATOCRIT 39.7 % (32.4-45.2); HEMOGLOBIN 13.4 GM/dL (10.7-15.3); LYMPH % 42.3 % (8-40); MCH 33.2 pg (25.7-33.7); MCHC 33.6 g/dl (32.0-36.0); MEAN CELL VOLUME 98.7 fl (80-96); MEAN PLT VOLUME 8.2 fl (7.5-11.1); MONO % 8.2 % (3.8-10.2); NEUT % 47.4 % (42.8-82.8); PLATELET COUNT 257 K/MM3 (134-434); RBC 4.02 M/mm3 (3.60-5.2); RDW 13.3 % (11.6-15.6); WHITE BLOOD COUNT 6.3 K/mm3 (4.0-10.0)
[2019-10-13 16:50] LABS: ALBUMIN 3.5 g/dl (3.4-5.0); BILIRUBIN,TOTAL 0.3 mg/dL (0.2-1); CREATININE 0.6 mg/dL (0.55-1.3); PHOSPHOROUS 3.2 mg/dL (2.5-4.9); POTASSIUM 5.5 mmol/L (3.5-5.1); TOT PROT 7.4 g/dl (6.4-8.2)
[2019-10-13 16:50] LABS: URINE APPEARANCE CLEAR; URINE BILIRUBIN NEGATIVE (NEGATIVE); URINE COLOR YELLOW; URINE GLUCOSE (UA) 2+ (NEGATIVE); URINE KETONE TRACE (NEGATIVE); URINE LEUK ESTERASE NEGATIVE (NEGATIVE); URINE NITRITE NEGATIVE (NEGATIVE); URINE PROTEIN NEGATIVE (NEGATIVE); URINE UROBILINOGEN 0.2 mg/dL (0.2-1.0)
--- NOTE | 2019-10-13 17:50 | EKG ---
Test Reason : Blood Pressure : / mmHG Vent. Rate : 101 BPM Atrial Rate : 101 BPM P-R Int : 172 ms QRS Dur : 094 ms QT Int : 360 ms P-R-T Axes : 074 079 052 degrees QTc Int : 466 ms SINUS TACHYCARDIA POSSIBLE LEFT ATRIAL ENLARGEMENT BORDERLINE ECG WHEN COMPARED WITH ECG OF 09-OCT-2019 09:33, NO SIGNIFICANT CHANGE WAS FOUND Confirmed by ROBYN GARRIDO MD ([id number]) on 10/13/2019 5:49:55 PM Referred By: Confirmed By:ROBYN GARRIDO MD
--- NOTE | 2019-10-13 18:18 | PDOC ---
*Physical Exam - Vital Signs Last Vital Signs Temp Pulse Resp BP Pulse Ox 97.8 F 110 H 20 121/70 97 10/13/19 14:41 10/13/19 14:41 10/13/19 14:41 10/13/19 14:41 10/13/19 14:41 ED Treatment Course - LABORATORY CBC & Chemistry Diagram: 10/13/19 15:43 10/13/19 15:43 - ADDITIONAL ORDERS Additional order review: Laboratory Results 10/13/19 10/13/19 10/13/19 16:40 15:43 15:43 Sodium 142 Potassium 5.5 H Chloride 111 H Carbon Dioxide 22 Anion Gap 9 BUN 16.0 Creatinine 0.6 Est GFR (CKD-EPI)AfAm 114.82 Est GFR (CKD-EPI)NonAf 99.07 Random Glucose 119 H Calcium 9.0 Phosphorus 3.2 Magnesium 2.0 Total Bilirubin 0.3 AST 53 H ALT 31 Alkaline Phosphatase 87 Creatine Kinase Creatine Kinase Index CK-MB (CK-2) Troponin I Total Protein 7.4 Albumin 3.5 Lipase 302 TSH 0.56 Urine Color Yellow Urine Appearance Clear Urine pH 5.0 Ur Specific [place] 1.029 Urine Protein Negative Urine Glucose (UA) 2+ H Urine Ketones Trace H Urine Blood Negative Urine Nitrite Negative Urine Bilirubin Negative Urine Urobilinogen 0.2 Ur Leukocyte Esterase Negative 10/13/19 15:43 Sodium Potassium Chloride Carbon Dioxide Anion Gap BUN Creatinine Est GFR (CKD-EPI)AfAm Est GFR (CKD-EPI)NonAf Random Glucose Calcium Phosphorus Magnesium Total Bilirubin AST ALT Alkaline Phosphatase Creatine Kinase 167 Creatine Kinase Index No Result Required. CK-MB (CK-2) < 1.0 Troponin I < 0.02 Total Protein Albumin Lipase TSH Urine Color Urine Appearance Urine pH Ur Specific [place] Urine Protein Urine Glucose (UA) Urine Ketones Urine Blood Urine Nitrite Urine Bilirubin Urine Urobilinogen Ur Leukocyte Esterase 10/13/19 15:43 RBC 4.02 MCV 98.7 H MCHC 33.6 RDW 13.3 MPV 8.2 Neutrophils % 47.4 Lymphocytes % 42.3 H Monocytes % 8.2 Eosinophils % 1.3 Basophils % 0.8 Medical Decision Making - Medical Decision Making 10/13/19 18:17 Patient endorsed to me to follow labs and disposition. Patient seen and evaluated she has no complaints. States that the last time she had palpitations was 11:00 today. She has no chest pain, SOB, dizziness. First set of enzymes negative Patient written for repeat troponin and EKG. Initial EKG showed SR rate 101, normal axis deviation, no ST-T wave changes. Repeat EKG shows SR at rate 86, normal axis deviation, no ST-T wave changes unchanged from prior Repeat troponin was negative I discussed the physical exam findings, ancillary test results and final diagnoses with the patient. I answered all of the patient's questions. The patient was satisfied with the care received and felt comfortable with the discharge plan and treatment plan. The Patient agrees to follow up with the primary care physician within 24-72 hours. Discharge - Discharge Information Problems reviewed: Yes Clinical Impression/Diagnosis: Palpitations Condition: Stable Disposition: HOME - Follow up/Referral Referrals: Tara Plummer [Primary Care Provider] - Jonh Davis MD [Staff Physician] - - Patient Discharge Instructions Patient Printed Discharge Instructions: DI for Palpitations Additional Instructions: Your Discharge Instructions: You must call primary care physician within 24 hours to arrange follow-up. Return to the Emergency Department with any new, persistent or worsening symptoms, for fever, chills, SOB, dizziness or any other concerning changes that may occur. You must follow-up with a truck driver instructor if there further concerns. Call for an appointment. - Post Discharge Activity
[2019-10-13 20:29] VITALS: BP 116/78; PULSE 107; TEMP 98.6
--- NOTE | 2019-10-14 13:33 | EKG ---
Test Reason : Blood Pressure : / mmHG Vent. Rate : 086 BPM Atrial Rate : 086 BPM P-R Int : 178 ms QRS Dur : 088 ms QT Int : 392 ms P-R-T Axes : 063 066 061 degrees QTc Int : 469 ms NORMAL SINUS RHYTHM NORMAL ECG WHEN COMPARED WITH ECG OF 13-OCT-2019 14:47, NO SIGNIFICANT CHANGE WAS FOUND Confirmed by KATIE TORRES MD ([id number]) on 10/14/2019 1:32:58 PM Referred By: Confirmed By:KATIE TORRES MD
== END 2019-10-13 19:25 | disposition home or self-care (01) ==
LOC: JER 14:31
DX: R00.2 Palpitations (principal); I11.0 Hypertensive heart disease with heart failure; I50.9 Heart failure, unspecified; E11.9 Type 2 diabetes mellitus without complications; E78.5 Hyperlipidemia, unspecified; J44.9 Chronic obstructive pulmonary disease, unspecified; D64.9 Anemia, unspecified; Z86.69 Personal history of other diseases of the nervous system and sense organs; Z98.84 Bariatric surgery status; Z90.710 Acquired absence of both cervix and uterus
CPT/HCPCS: 36415; 71046-TC-FY; 80053; 81003; 82550; 82553; 83690; 83735; 84100; 84439; 84443; 84484; 85025; 87086; 93005; 93010; 99285-25

== ENCOUNTER 2019-10-24 11:40 | Emergency (ER) | payer BC, OTHER ==
[2019-10-24 11:56] VITALS: TEMP 98.2; BMI 21.1
--- NOTE | 2019-10-24 12:14 | PDOC ---
History of Present Illness - General Chief Complaint: Alcohol intoxication Stated Complaint: Alcohol intoxication Time Seen by Provider: 10/24/19 12:13 History Source: Patient Exam Limitations: No Limitations, Intoxication - History of Present Illness Initial Comments: 10/24/19 13:05 Source: Pt, intoxicated HPI: 59yo F PMH of alcohol abuse, CHF, DM, HTN, HLD, and COPD presenting with palpitations s/p 2 pints vodka. Patient reports drinking several pints of vodka multiple times per weeks. Reports that about 2 hours [employer]ICATION [employer]INE[employer] admission she imbibed with 2 pints, subsequently had several episodes of emesis, the last one with streaks of blood - denies any liver problems / prior GIB. Patient presents saying her heart is thumping in her chest, she denies chest pain, tightness, SOB , diaphoresis. Denies any fevers, chills, MEYER, abdominal pain, urinary symptoms. States that she is too drunk to remember her medical problems. Pt denies having a chief ultrasound technologist, has a PCP in [place], denies taking any medications or having any prescriptions despite her multiple medial comorbidities. All: NKDA Meds: Pt reports noncompliance PMH: As above PSH: Per chart, Gastric bypass (2004), Hysterectomy (2010) SHx: 2 pints vodka multiple days per week Past History - Travel Traveled outside of the country in the last 30 days: No Close contact w/someone who was outside of country & ill: No - Past Medical History Allergies/Adverse Reactions: Allergies Allergy/AdvReac Type Severity Reaction Status Date / Time No Known Allergies Allergy Verified 10/24/19 11:57 Home Medications: Ambulatory Orders Aspirin [ASA -] 81 mg PO DAILY 10/09/19 Simvastatin 5 mg PO DAILY 10/09/19 propRANOLol HCL [Inderal -] 10 mg PO BID 10/09/19 Albuterol Sulfate Inhaler - [Ventolin Hfa Inhaler -] 1 puff IH Q4H PRN #2 inhaler 10/11/19 Budesonide/Formeterol Fumarate [SYMBICORT 80/4.5mcg -] 1 - 2 inh PO BID #1 cannister 10/11/19 Folic Acid 1 mg PO DAILY #30 tablet 10/11/19 Pantoprazole Sodium [Protonix -] 40 mg PO DAILY #30 tablet.ec 10/11/19 Thiamine HCl [Vitamin B1 -] 100 mg PO DAILY #30 tablet 10/11/19 Anemia: Yes (not on meds) Asthma: No Cancer: No Cardiac Disorders: No CVA: No COPD: Yes CHF: Yes (On Toprol) Dementia: No Diabetes: Yes GI Disorders: No Disorders: No HTN: Yes Hypercholesterolemia: Yes Kidney Stones: No Liver Disease: No Seizures: Yes (alcohol induced in 2008) Thyroid Disease: No - Surgical History Abdominal Surgery: Yes (GASTRIC BYPASS in 2004,HYSTERECTOMY in 2010) Appendectomy: No Cardiac Surgery: No Cholecystectomy: No Lung Surgery: No Neurologic Surgery: No Orthopedic Surgery: No - Reproductive History PID: No - Immunization History Td Vaccination: Yes TDAP Vaccination: Yes Immunization Up to Date: Yes - Psycho Social/Smoking Cessation Hx Smoking History: Unknown if ever smoked Have you smoked in the past 12 months: No Information on smoking cessation initiated: No 'Breaking Loose' booklet given: 06/03/18 Hx Alcohol Use: No Drug/Substance Use Hx: No Substance Use Type: Alcohol Hx Substance Use Treatment: Yes Review of Systems - Review of Systems Able to Perform ROS?: Yes Is the patient limited Danish proficient: Yes Constitutional: No: Chills, Fever, Weakness HEENTM: No: Recent change in vision, Nose Pain, Nose Congestion, Throat Pain Respiratory: No: Cough, Shortness of Breath, Wheezing Cardiac (ROS): Yes: Palpitations. No: Chest Pain, Edema, Irregular Heart Rate, Lightheadedness, Syncope, Chest Tightness ABD/GI: Yes: Nausea, Vomiting. No: Blood Streaked Bowels, Constipated, Diarrhea , Poor Appetite, Poor Fluid Intake, Rectal Bleeding, Abdominal cramping, Tarry Stools : No: Burning, Dysuria, Discharge, Incontinence, Pain Musculoskeletal: No: Back Pain, Muscle Pain, Muscle Weakness Integumentary: No: Dryness, Erythema, Pruritus, Rash Neurological: No: Headache, Numbness, Tingling, Weakness Hematologic/Lymphatic: No: Anemia, Blood Clots, Easy Bleeding All Other Systems: Reviewed and Negative *Physical Exam - Vital Signs Last Vital Signs Temp Pulse Resp BP Pulse Ox 98.2 F 86 16 127/87 100 10/24/19 11:45 10/24/19 11:45 10/24/19 11:45 10/24/19 11:45 10/24/19 11:45 - Physical Exam 10/24/19 13:14 Vitals reviewed, AFVSS, normal HR WDWN, appears stated age, smells of alcohol, intoxicated MMM, EOMI, NCAT, PERRL CTABL, nl s1s2, no murmur appreciated Soft, non-tender, non-distended WWP, no clubbing / cyanosis / edema 2+ radial and PT pulses CN grossly intact, patient speech slow but not slurred, walked to the bathroom with stable, unassisted gait Heart Score/ECG Review - History History: Slightly suspicious - Electrocardiogram EKG: Non specific repolarization disturbance - Age Age: 45-65 - Risk Factors Risk Factors Heart Score: Yes Hx Hypercholesterolemia, Yes Hx Hypertension, Yes Hx Diabetes Based on the list above the patient has:: >/=3 risk factors or Hx atherosclerotic disease - Troponin Troponin: </= normal limit - Score Heart Score - Total: 4 ED Treatment Course - LABORATORY CBC & Chemistry Diagram: 10/24/19 12:57 10/24/19 12:57 Medical Decision Making - Medical Decision Making 10/24/19 13:22 59yo F PMH of alcohol abuse, CHF, DM, HTN, HLD, and COPD presenting with palpitations s/p 2 pints vodka. History notable for self-reported medication noncompliance, isolated palpitations without other symptoms, blood streaked emesis after multiple episodes. Physical notable for normal vitals and exam. DDX : intoxication, palpitations, r/o ACS, concerning for Annie Waters tear in setting of streaked emesis. HEART Score 3. - Cardiac Profile, TSH, CBC, CMP - EKG, CXR 10/24/19 14:00 CXR: No infiltrates, PTX, bony fractures, normal contours EKG: NSR, normal rate, normal axis and intervals, no acute ischemic changes 10/24/19 14:35 Patient able to ambulate with ease Discharge: home Discharge - Discharge Information Problems reviewed: Yes Clinical Impression/Diagnosis: Palpitations Condition: Improved Disposition: HOME - Admission No - Follow up/Referral Referrals: Tara Plummer [Primary Care Provider] - Marisol Freeman MD [Staff Physician] - - Patient Discharge Instructions Patient Printed Discharge Instructions: DI for Alcohol Abuse, DI for Palpitations Additional Instructions: You were evaluated in the ED for palpations. Your workup was negative for emergent findings. Please call the referred chief ultrasound technologist to establish care for your cardiac problems (heart failure, high blood pressure, high cholesterol). Return to the ED with any new or concerning problems, these can include but are not limited to: chest pain, symptoms of withdrawals, the desire to start detox / rehab, difficulty breathing. - Post Discharge Activity
--- NOTE | 2019-10-24 12:54 | PDOC ---
Documentation entered by Amada Reddy SCRIBE, acting as scribe for Dean Mcnulty MD. Dean Mcnulty MD: This documentation has been prepared by the Maureen ordoñez Brenda, SCRIBE, under my direction and personally reviewed by me in its entirety. I confirm that the documentation accurately reflects all work, treatment, procedures, and medical decision making performed by me. Attending Attestation - Resident Resident Name: RigobertoArthur - ED Attending Attestation I have performed the following: I have examined & evaluated the patient, The case was reviewed & discussed with the resident, I agree w/resident's findings & plan, Exceptions are as noted - HPI HPI: 10/24/19 12:37 The patient is a 59 year old female, with a significant PMH of heart failure, HTN, HLD, DM, herniated disc, COPD and anemia who presents to the emergency department with palpitations s/p drinking 2 pints of vodka this morning. Pt is intoxicated in ED, denying any complaints at this time. The patient denies chest pain, shortness of breath, headache and dizziness. Denies fever, chills, diarrhea and constipation. Denies dysuria, frequency, urgency and hematuria. Allergies: NKA Past surgical history: Gastric bypass (2004), hysterectomy (2010) Social history: Alcohol abuse PCP: Tara Plummer - Physicial Exam PE: 10/24/19 12:37 GENERAL: intoxicated, in no acute distress. HEAD: No signs of trauma EYES: PERRLA, EOMI, sclera anicteric, conjunctiva clear ENT: Auricles normal inspection, hearing grossly normal, nares patent, oropharynx clear without exudates. Moist mucosa NECK: Nontender, no stepoffs, Normal ROM, supple, no lymphadenopathy, JVD, or masses LUNGS: Breath sounds equal, clear to auscultation bilaterally. No wheezes, and no crackles HEART: Regular rate and rhythm, normal S1 and S2, no murmurs, rubs or gallops ABDOMEN: Soft, nontender, normoactive bowel sounds. No guarding, no rebound. No masses EXTREMITIES: Normal range of motion, no edema. No clubbing or cyanosis. No cords, erythema, or tenderness NEUROLOGICAL: Cranial nerves II through XII intact. 5/5 strength and sensation in all extremities SKIN: Warm, Dry, normal turgor, no rashes or lesions noted. - Medical Decision Making 10/24/19 12:55 59 F with palpitations after drinking this morning. Currently intoxicated. - Labs - EKG - Reassess when sober 10/24/19 14:32 Labs, EKG wnl Pt reassessed - now completely sober. Ambulating in ED with steady gait. Pt denies any complaints at this time. Denies SI/HI/AVH. Pt is well appearing, with normal vitals. Clinically stable for DC at this time. I discussed the physical exam findings, ancillary test results and final diagnoses with the patient. I answered all of the patient's questions. The patient was satisfied with the care received and felt comfortable with the discharge plan and treatment plan. The patient agrees to follow up with the primary care physician within 24-72 hours.
[2019-10-24 13:05] LABS: BASO % 2.1 % (0-2.0); HEMATOCRIT 41.3 % (32.4-45.2); HEMOGLOBIN 13.9 GM/dL (10.7-15.3); LYMPH % 35.5 % (8-40); MCHC 33.7 g/dl (32.0-36.0); MEAN PLT VOLUME 6.8 fl (7.5-11.1); MONO % 3.3 % (3.8-10.2); NEUT % 58.1 % (42.8-82.8); PLATELET COUNT 320 K/MM3 (134-434); RBC 4.21 M/mm3 (3.60-5.2); RDW 13.8 % (11.6-15.6); WHITE BLOOD COUNT 6.8 K/mm3 (4.0-10.0)
[2019-10-24 13:36] LABS: ALBUMIN 3.6 g/dl (3.4-5.0); BILIRUBIN,TOTAL 0.2 mg/dL (0.2-1); BLOOD UREA NITROGEN 8.7 mg/dL (7-18); CALCIUM 8.2 mg/dL (8.5-10.1); CREATININE 0.5 mg/dL (0.55-1.3); POTASSIUM 3.9 mmol/L (3.5-5.1)
[2019-10-24 15:52] VITALS: BP 118/79; PULSE 85
--- NOTE | 2019-10-25 13:25 | EKG ---
Test Reason : Blood Pressure : / mmHG Vent. Rate : 080 BPM Atrial Rate : 080 BPM P-R Int : 170 ms QRS Dur : 090 ms QT Int : 392 ms P-R-T Axes : 062 051 057 degrees QTc Int : 452 ms NORMAL SINUS RHYTHM NORMAL ECG WHEN COMPARED WITH ECG OF 13-OCT-2019 18:19, NO SIGNIFICANT CHANGE WAS FOUND Confirmed by NELIA ALEXANDER MD ([id number]) on 10/25/2019 1:25:09 PM Referred By: Confirmed By:NELIA ALEXANDER MD
== END 2019-10-24 15:52 | disposition home or self-care (01) ==
LOC: JER 11:40
DX: R00.2 Palpitations (principal); I11.0 Hypertensive heart disease with heart failure; F10.10 Alcohol abuse, uncomplicated; I50.9 Heart failure, unspecified; E11.9 Type 2 diabetes mellitus without complications; E78.5 Hyperlipidemia, unspecified; J44.9 Chronic obstructive pulmonary disease, unspecified; Z98.84 Bariatric surgery status; Z90.710 Acquired absence of both cervix and uterus
CPT/HCPCS: 36415; 71046-TC-FY; 80053; 82550; 82553; 84443; 84484; 85025; 93005; 93010; 99284-25

== ENCOUNTER 2019-11-07 13:31 | Emergency (ER) | payer BC, OTHER ==
[2019-11-07 13:39] VITALS: BP 125/80; PULSE 107; TEMP 98.4; BMI 27.4
--- NOTE | 2019-11-07 14:09 | PDOC ---
History of Present Illness - General Chief Complaint: Alcohol intoxication Stated Complaint: PALPITATION Time Seen by Provider: 11/07/19 14:08 History Source: Patient Exam Limitations: No Limitations - History of Present Illness Initial Comments: 11/07/19 14:08 HPI: 59 yo F PMH of alcohol abuse, CHF, DM, HTN, HLD, and COPD presenting with palpitations s/p 2 pints vodka. Patient reports drinking several pints of vodka yesterday and today. Reports that earlier this morning she drank 2 pints and subsequently felt her heart thumping in her chest, she denies chest pain, tightness, SOB, diaphoresis, fevers, chills, MEYER, abdominal pain, urinary symptoms. Reports that she cannot remember all her medical problems, and only occasionally takes her prescribed medications. Says she has tried rehab in [place] and it didn't work for her. All: NKDA Meds: Pt reports noncompliance PMH: As above PSH: Per chart, Gastric bypass (2004), Hysterectomy (2010) SHx: 2 pints vodka multiple days per week Past History - Travel Traveled outside of the country in the last 30 days: No Close contact w/someone who was outside of country & ill: No - Past Medical History Allergies/Adverse Reactions: Allergies Allergy/AdvReac Type Severity Reaction Status Date / Time No Known Allergies Allergy Verified 10/24/19 11:57 Home Medications: Ambulatory Orders Aspirin [ASA -] 81 mg PO DAILY 10/09/19 Simvastatin 5 mg PO DAILY 10/09/19 propRANOLol HCL [Inderal -] 10 mg PO BID 10/09/19 Albuterol Sulfate Inhaler - [Ventolin Hfa Inhaler -] 1 puff IH Q4H PRN #2 inhaler 10/11/19 Budesonide/Formeterol Fumarate [SYMBICORT 80/4.5mcg -] 1 - 2 inh PO BID #1 cannister 10/11/19 Folic Acid 1 mg PO DAILY #30 tablet 10/11/19 Pantoprazole Sodium [Protonix -] 40 mg PO DAILY #30 tablet.ec 10/11/19 Thiamine HCl [Vitamin B1 -] 100 mg PO DAILY #30 tablet 10/11/19 Anemia: Yes (not on meds) Asthma: No Cancer: No Cardiac Disorders: No CVA: No COPD: Yes CHF: Yes (On Toprol) Dementia: No Diabetes: Yes GI Disorders: No Disorders: No HTN: Yes Hypercholesterolemia: Yes Kidney Stones: No Liver Disease: No Seizures: Yes (alcohol induced in 2008) Thyroid Disease: No - Surgical History Abdominal Surgery: Yes (GASTRIC BYPASS in 2004,HYSTERECTOMY in 2010) Appendectomy: No Cardiac Surgery: No Cholecystectomy: No Lung Surgery: No Neurologic Surgery: No Orthopedic Surgery: No - Reproductive History PID: No - Immunization History Td Vaccination: Yes TDAP Vaccination: Yes Immunization Up to Date: Yes - Psycho Social/Smoking Cessation Hx Smoking History: Never smoked Have you smoked in the past 12 months: No Information on smoking cessation initiated: No 'Breaking Loose' booklet given: 06/03/18 Hx Alcohol Use: No Drug/Substance Use Hx: No Substance Use Type: Alcohol Hx Substance Use Treatment: Yes Review of Systems - Review of Systems Able to Perform ROS?: Yes Is the patient limited Hebrew proficient: Yes *Physical Exam - Vital Signs Last Vital Signs Temp Pulse Resp BP Pulse Ox 98.4 F 107 H 16 125/80 96 11/07/19 13:36 11/07/19 13:36 11/07/19 13:36 11/07/19 13:36 11/07/19 13:36 ED Treatment Course - LABORATORY CBC & Chemistry Diagram: 11/07/19 15:00 11/07/19 15:00 Medical Decision Making - Medical Decision Making 11/07/19 14:33 59 yo F PMH of alcohol abuse, CHF, DM, HTN, HLD, and COPD presenting with palpitations s/p 2 pints vodka. Patient intoxicated, requesting work up for palpitations that occur with drinking. Denies any other symptoms. Requesting detox / rehab. - CBC, CMP, EKG - 500cc IVF BP 125, CHF, gentle hydration - Case Management for rehab resources 11/07/19 16:12 EKbpm, NSR, normal axis, QTc 482, no ischemic changes 11/07/19 16:41 - Patient developed chest pain shortly after initial evaluation, will send second troponin - Per case management - [facility] has a female bed available - CXR: unchanged since prior, no acute chest findings Dispo: [facility] via Security 11/07/19 18:50 - Patient endorsed to night team - F/u EKG, Troponin - Send to [facility] via security - bed held Discharge - Discharge Information Problems reviewed: Yes Clinical Impression/Diagnosis: Alcohol intoxication Qualifiers: Complication of substance-induced condition: uncomplicated Qualified Code(s): F10.920 - Alcohol use, unspecified with intoxication, uncomplicated Condition: Stable Disposition: HOME - Admission No - Follow up/Referral Referrals: Tara Plummer [Primary Care Provider] - - Patient Discharge Instructions Patient Printed Discharge Instructions: DI for Alcohol Abuse Additional Instructions: You were seen at the [place] ED. Thank you for coming in. Please follow the instructions of the [facility] staff as they assist you on your road to recovery. Return to the ED with any new or concerning symptoms. - Post Discharge Activity
--- NOTE | 2019-11-07 14:14 | EKG ---
Test Reason : Blood Pressure : / mmHG Vent. Rate : 103 BPM Atrial Rate : 103 BPM P-R Int : 164 ms QRS Dur : 098 ms QT Int : 370 ms P-R-T Axes : 054 068 052 degrees QTc Int : 484 ms SINUS TACHYCARDIA POSSIBLE LEFT ATRIAL ENLARGEMENT BORDERLINE ECG WHEN COMPARED WITH ECG OF 24-OCT-2019 13:21, NONSPECIFIC T WAVE ABNORMALITY NO LONGER EVIDENT IN ANTERIOR LEADS Confirmed by NELIA ALEXANDER MD ([id number]) on 11/07/2019 2:14:30 PM Referred By: Confirmed By:NELIA ALEXANDER MD
[2019-11-07] MEDS ORDERED: SODIUM CHLORIDE 0.9% 500 ML INFUS.BAG IV ONE (14:30)
[2019-11-07 15:45] LABS: BASO % 0.7 % (0-2.0); EOS % 0.2 % (0-4.5); HEMATOCRIT 42.3 % (32.4-45.2); HEMOGLOBIN 14.3 GM/dL (10.7-15.3); MCHC 33.8 g/dl (32.0-36.0); MEAN CELL VOLUME 97.6 fl (80-96); MEAN PLT VOLUME 7.3 fl (7.5-11.1); MONO % 5.4 % (3.8-10.2); NEUT % 70.7 % (42.8-82.8); PLATELET COUNT 327 K/MM3 (134-434); RBC 4.33 M/mm3 (3.60-5.2); WHITE BLOOD COUNT 9.7 K/mm3 (4.0-10.0)
--- NOTE | 2019-11-07 15:59 | PDOC ---
Attending Attestation - Resident Resident Name: Arthur Franklin - ED Attending Attestation I have performed the following: I have examined & evaluated the patient, The case was reviewed & discussed with the resident, I agree w/resident's findings & plan, Exceptions are as noted - HPI HPI: 59 yo F history EtOH abuse, CHF, DM, HTN, HL, COPD presents with palpitations. She has had similar symptoms many times in the past. She states she had chest pain associated with the palpitations, but is unclear on when they occurred. She has history of heavy alcohol use and is requesting detox, stating she does not want to keep drinking but cannot stop. - Physicial Exam PE: GENERAL: Awake, alert, and fully oriented. Speech slightly slurred HEAD: No signs of trauma EYES: PERRLA, EOMI, sclera anicteric, conjunctiva clear ENT: Auricles normal inspection, hearing grossly normal, nares patent, oropharynx clear without exudates. Moist mucosa NECK: Normal ROM, supple, no lymphadenopathy, JVD, or masses LUNGS: Breath sounds equal, clear to auscultation bilaterally. No wheezes, and no crackles HEART: Regular rate and rhythm, normal S1 and S2, no murmurs, rubs or gallops ABDOMEN: Soft, nontender, normoactive bowel sounds. No guarding, no rebound. No masses EXTREMITIES: Normal range of motion, no edema. No clubbing or cyanosis. No cords, erythema, or tenderness NEUROLOGICAL: Cranial nerves II through XII grossly intact. Motor and sensation intact SKIN: Warm, dry, normal turgor, no rashes or lesions noted. - Medical Decision Making Pt with history of alcohol abuse, presenting intoxicated and requesting detox. Given the chest pain and unclear timing, will send two sets of troponins. If negative, will DC to detox.
[2019-11-07 16:08] LABS: ALBUMIN 3.9 g/dl (3.4-5.0); ALK PHOS 82 U/L (45-117); ANION GAP 13 MMOL/L (8-16); BILIRUBIN,TOTAL 0.2 mg/dL (0.2-1); BLOOD UREA NITROGEN 17.9 mg/dL (7-18); CALCIUM 8.7 mg/dL (8.5-10.1); CHLORIDE 105 mmol/L (98-107); CO2 25 mmol/L (21-32); CREATININE 0.6 mg/dL (0.55-1.3); GLUCOSE,RANDOM 70 mg/dL (74-106); POTASSIUM 4.1 mmol/L (3.5-5.1); SGOT/AST 42 U/L (15-37); SGPT/ALT 33 U/L (13-61); SODIUM 143 mmol/L (136-145); TOT PROT 7.5 g/dl (6.4-8.2)
[2019-11-07] MEDS ORDERED: chlordiazePOXIDE HCL 25 MG CAPSULE PO ONE (20:23)
[2019-11-07] MEDS ORDERED: chlordiazePOXIDE HCL 25 MG CAPSULE ONE (20:35)
--- NOTE | 2019-11-07 20:41 | PDOC ---
*Physical Exam - Vital Signs Last Vital Signs Temp Pulse Resp BP Pulse Ox 98.4 F 107 H 16 125/80 99 11/07/19 13:36 11/07/19 13:36 11/07/19 13:36 11/07/19 13:36 11/07/19 15:42 ED Treatment Course - LABORATORY CBC & Chemistry Diagram: 11/07/19 15:00 11/07/19 15:00 - ADDITIONAL ORDERS Additional order review: Laboratory Results 11/07/19 11/07/19 18:15 15:00 Sodium 143 Potassium 4.1 Chloride 105 Carbon Dioxide 25 Anion Gap 13 BUN 17.9 Creatinine 0.6 Est GFR (CKD-EPI)AfAm 114.82 Est GFR (CKD-EPI)NonAf 99.07 Random Glucose 70 L Calcium 8.7 Total Bilirubin 0.2 AST 42 H ALT 33 Alkaline Phosphatase 82 Creatine Kinase 158 Creatine Kinase Index No Result Required. CK-MB (CK-2) < 1.0 Troponin I < 0.02 < 0.02 Total Protein 7.5 Albumin 3.9 11/07/19 15:00 RBC 4.33 MCV 97.6 H MCHC 33.8 RDW 14.0 MPV 7.3 L Neutrophils % 70.7 D Lymphocytes % 23.0 D Monocytes % 5.4 Eosinophils % 0.2 Basophils % 0.7 - Medications Given in the ED: ED Medications Discontinued Medications Generic Name Dose Route Start Last Admin Trade Name Freq PRN Reason Stop Dose Admin Sodium Chloride 500 ml 11/07/19 14:30 11/07/19 15:00 Normal Saline - IV 11/07/19 14:31 500 ml ONCE ONE Administration Medical Decision Making - Medical Decision Making 11/07/19 20:38 59yo female signed out pending repeat trop and ekg pt requesting detox had cp earlier today resolved cp and none now pt tremulous without tongue fasciculations will give librium repeat trop neg repeat ekg: sinus tach without acute st/t wave findings pt agrees to go to [facility] resident discussed the case with [facility] who accepts pt to [facility] for detox Discharge - Discharge Information Problems reviewed: Yes Clinical Impression/Diagnosis: Chest pain Alcohol intoxication Qualifiers: Complication of substance-induced condition: uncomplicated Qualified Code(s): F10.920 - Alcohol use, unspecified with intoxication, uncomplicated Condition: Stable Disposition: HOME - Admission No - Follow up/Referral Referrals: Tara Plummer [Primary Care Provider] - - Patient Discharge Instructions Patient Printed Discharge Instructions: DI for Alcohol Abuse Additional Instructions: You were seen at the [facility] ED. Thank you for coming in. Please follow the instructions of the [facility] staff as they assist you on your road to recovery. Return to the ED with any new or concerning symptoms. - Post Discharge Activity
--- NOTE | 2019-11-07 20:44 | PDOC ---
*Physical Exam - Vital Signs Last Vital Signs Temp Pulse Resp BP Pulse Ox 98.4 F 107 H 16 125/80 99 11/07/19 13:36 11/07/19 13:36 11/07/19 13:36 11/07/19 13:36 11/07/19 15:42 ED Treatment Course - LABORATORY CBC & Chemistry Diagram: 11/07/19 15:00 11/07/19 15:00 - ADDITIONAL ORDERS Additional order review: Laboratory Results 11/07/19 11/07/19 18:15 15:00 Sodium 143 Potassium 4.1 Chloride 105 Carbon Dioxide 25 Anion Gap 13 BUN 17.9 Creatinine 0.6 Est GFR (CKD-EPI)AfAm 114.82 Est GFR (CKD-EPI)NonAf 99.07 Random Glucose 70 L Calcium 8.7 Total Bilirubin 0.2 AST 42 H ALT 33 Alkaline Phosphatase 82 Creatine Kinase 158 Creatine Kinase Index No Result Required. CK-MB (CK-2) < 1.0 Troponin I < 0.02 < 0.02 Total Protein 7.5 Albumin 3.9 11/07/19 15:00 RBC 4.33 MCV 97.6 H MCHC 33.8 RDW 14.0 MPV 7.3 L Neutrophils % 70.7 D Lymphocytes % 23.0 D Monocytes % 5.4 Eosinophils % 0.2 Basophils % 0.7 - Medications Given in the ED: ED Medications Discontinued Medications Generic Name Dose Route Start Last Admin Trade Name Freq PRN Reason Stop Dose Admin Chlordiazepoxide HCl 25 mg 11/07/19 20:23 11/07/19 20:41 Librium - PO 11/07/19 20:24 25 mg ONCE ONE Administration Sodium Chloride 500 ml 11/07/19 14:30 11/07/19 15:00 Normal Saline - IV 11/07/19 14:31 500 ml ONCE ONE Administration Medical Decision Making - Medical Decision Making 11/07/19 20:[address] Franklin from AM team 59 yo F PMH of alcohol abuse, CHF, DM, HTN, HLD, and COPD presenting with palpitations s/p 2 pints vodka. Patient intoxicated, requesting work up for palpitations that occur with drinking. Denies any other symptoms. Requesting detox / rehab. signed out to followup 2nd trop and EKG 11/07/19 20:42 2nd trop negative 2nd ekg with sinus tach patient with tongue fasiculations will administer 25 librium security to transport patient with female escort Discharge - Discharge Information Problems reviewed: Yes Clinical Impression/Diagnosis: Alcohol intoxication Qualifiers: Complication of substance-induced condition: uncomplicated Qualified Code(s): F10.920 - Alcohol use, unspecified with intoxication, uncomplicated Chest pain Qualifiers: Chest pain type: unspecified Qualified Code(s): R07.9 - Chest pain, unspecified Condition: Stable Disposition: HOME - Follow up/Referral Referrals: Tara Plummer [Primary Care Provider] - - Patient Discharge Instructions Patient Printed Discharge Instructions: DI for Alcohol Abuse Additional Instructions: You were seen at the [facility] ED. Thank you for coming in. Please follow the instructions of the [facility] staff as they assist you on your road to recovery. Return to the ED with any new or concerning symptoms. - Post Discharge Activity
--- NOTE | 2019-11-08 13:48 | EKG ---
Test Reason : Blood Pressure : / mmHG Vent. Rate : 100 BPM Atrial Rate : 100 BPM P-R Int : 172 ms QRS Dur : 090 ms QT Int : 374 ms P-R-T Axes : 059 066 057 degrees QTc Int : 482 ms NORMAL SINUS RHYTHM PROLONGED QT ABNORMAL ECG WHEN COMPARED WITH ECG OF 07-NOV-2019 13:43, NO SIGNIFICANT CHANGE WAS FOUND Confirmed by HOMAR ANTONY MD ([id number]) on 11/08/2019 1:47:51 PM Referred By: Confirmed By:HOMAR ANTONY MD
--- NOTE | 2019-11-11 12:51 | EKG ---
Test Reason : Blood Pressure : / mmHG Vent. Rate : 103 BPM Atrial Rate : 103 BPM P-R Int : 162 ms QRS Dur : 082 ms QT Int : 366 ms P-R-T Axes : 055 049 047 degrees QTc Int : 479 ms SINUS TACHYCARDIA OTHERWISE NORMAL ECG WHEN COMPARED WITH ECG OF 07-NOV-2019 15:43, NO SIGNIFICANT CHANGE WAS FOUND Confirmed by KATIE TORRES MD ([id number]) on 11/11/2019 12:51:14 PM Referred By: Confirmed By:KATIE TORRES MD
== END 2019-11-07 21:00 | disposition home or self-care (01) ==
LOC: JER 13:31
DX: F10.120 Alcohol abuse with intoxication, uncomplicated (principal); R07.9 Chest pain, unspecified; R00.2 Palpitations; I11.0 Hypertensive heart disease with heart failure; I50.9 Heart failure, unspecified; E11.9 Type 2 diabetes mellitus without complications; E78.5 Hyperlipidemia, unspecified; D64.9 Anemia, unspecified; Z79.82 Long term (current) use of aspirin; Z98.84 Bariatric surgery status; Z90.710 Acquired absence of both cervix and uterus; Z86.69 Personal history of other diseases of the nervous system and sense organs
CPT/HCPCS: 36415; 71045-TC-FY; 80053; 82550; 82553; 84484; 85025; 93005; 93010; 99283-25

== ENCOUNTER 2019-11-07 22:14 | Inpatient (IN) | payer BC, OTHER ==
--- NOTE | 2019-11-07 22:18 | HP ---
CIWA Score Nausea/Vomitin Muscle Tremors: 6 Anxiety: 1-Mildly Anxious Agitation: 1-Slight > Activity Paroxysmal Sweats: 3 Orientation: 0-Oriented Tacttile Disturbances: 0-None Auditory Disturbances: 0-None Visual Disturbances: 0-None Headache: 3-Moderate CIWA-Ar Total Score: 19 - Admission Criteria OASAS Guidelines: Admission for Medically Managed Detox: Requires at least one of the followin. CIWA greater than 12 2. Seizures within the past 24 hours 3. Delirium tremens within the past 24 hours 4. Hallucinations within the past 24 hours 5. Acute intervention needed for co occurring medical disorder 6. Acute intervention needed for co occurring psychiatric disorder 7. Severe withdrawal that cannot be handled at a lower level of care (continued vomiting, continued diarrhea, abnormal vital signs) requiring intravenous medication and/or fluids 8. Patient presents the following: Acute intervention needed for co-occurring med or psych disorder (REFERRED FROM [facility] AFTER BEING MEDICALLY CLEARED FOR C.P./ C/O PALPITATION WHILE INTOXICATED) Admission Criteria Met: Admission criteria met Admitting History and Physical - Past Medical History Cardiovascular: Yes: CHF Pulmonary: Yes: COPD Psych: Yes: Addictions (Alcoholism) Endocrine: Yes: Diabetes Mellitus (DM II) - Past Surgical History Past Surgical History: Yes: Bypass (Gastric bypass), Hysterectomy (BRAIN/BSO) - Smoking History Smoking history: Never smoked Have you smoked in the past 12 months: No - Alcohol/Substance Use Hx Alcohol Use: No - Social History ADL: Independent History of Recent Travel: No Admission ROS [facility] - HPI Chief Complaint: ALCOHOL DETOX Allergies/Adverse Reactions: Allergies Allergy/AdvReac Type Severity Reaction Status Date / Time No Known Allergies Allergy Verified 10/24/19 11:57 History of Present Illness: HERE FOR ALCOHOL DETOX. CLIENT IS REFERRED BY [facility] AFTER PRESENTING THERE FOR C/O CARDIAC ISSUES. Patient reports drinking several pints of vodka yesterday and today. Reports that earlier this morning she drank 2 pints and subsequently felt her heart thumping in her chest,SHE HAS SINCE BEEN STABILIZED AND CLEARED FOR DETOX. SHE IS KNOWN TO THIS PROGRAM. LAST HERE 09/2019. Laboratory Results 11/07/19 11/07/19 18:15 15:00 Sodium 143 Potassium 4.1 Chloride 105 Carbon Dioxide 25 Anion Gap 13 BUN 17.9 Creatinine 0.6 Est GFR (CKD-EPI)AfAm 114.82 Est GFR (CKD-EPI)NonAf 99.07 Random Glucose 70 L Calcium 8.7 Total Bilirubin 0.2 AST 42 H ALT 33 Alkaline Phosphatase 82 Creatine Kinase 158 Creatine Kinase Index No Result Required. CK-MB (CK-2) < 1.0 Troponin I < 0.02 < 0.02 Total Protein 7.5 Albumin 3.9 11/07/19 15:00 RBC 4.33 MCV 97.6 H MCHC 33.8 RDW 14.0 MPV 7.3 L Neutrophils % 70.7 D Lymphocytes % 23.0 D Monocytes % 5.4 Eosinophils % 0.2 Basophils % 0.7 Medical Decision Making - Medical Decision Making 11/07/19 20:[address] Franklin from AM team 59 yo F PMH of alcohol abuse, CHF, DM, HTN, HLD, and COPD presenting with palpitations s/p 2 pints vodka. Patient intoxicated, requesting work up for palpitations that occur with drinking. Denies any other symptoms. Requesting detox / rehab. signed out to followup 2nd trop and EKG 11/07/19 20:42 2nd trop negative 2nd ekg with sinus tach patient with tongue fasiculations will administer 25 librium security to transport patient with female escort Exam Limitations: Intoxication - Ebola screening Have you traveled outside of the country in the last 21 days: No Have you had contact with anyone from an Ebola affected area: No Have you been sick,other than usual withdrawal symptoms: No Do you have a fever: No - Review of Systems Constitutional: Chills, Night Sweats, Changes in sleep, Unintentional Wgt. Loss Respiratory: reports: Shortness of Breath, Other (HX/O COPD) Cardiac: reports: No Symptoms Reported GI: reports: Nausea, Poor Fluid Intake, Vomiting : reports: No Symptoms Reported Musculoskeletal: reports: No Symptoms Reported Integumentary: reports: Dryness Neuro: reports: Tremors, Other (TONGUE FASICULATIONS) Endocrine: reports: Other (HX/O DM) Hematology: reports: No Symptoms Reported Psychiatric: reports: Orientated x3 Other Systems: Reviewed and Negative Patient History - Patient Medical History Hx Anemia: Yes Hx Asthma: No Hx Chronic Obstructive Pulmonary Disease (COPD): Yes Hx Cancer: No Hx Cardiac Disorders: No Hx Congestive Heart Failure: Yes (On Toprol) Hx Hypertension: Yes Hx Hypercholesterolemia: Yes Hx Pacemaker: No HX Cerebrovascular Accident: No Hx Seizures: Yes Hx Dementia: No Hx Diabetes: Yes Hx Gastrointestinal Disorders: No Hx Liver Disease: No Hx Genitourinary Disorders: No Hx Sexually Transmitted Disorders: Yes (Gonorrhea in 1998) Hx Renal Disease (ESRD): No Hx Thyroid Disease: No Hx Human Immunodeficiency Virus (HIV): No (Negative) Hx Hepatitis C: No Hx Depression: No Hx Suicide Attempt: No Hx Bipolar Disorder: No Hx Schizophrenia: No - Patient Surgical History Past Surgical History: Yes Hx Neurologic Surgery: No Hx Cataract Extraction: No Hx Cardiac Surgery: No Hx Lung Surgery: No Hx Breast Surgery: No Hx Breast Biopsy: No Hx Abdominal Surgery: Yes (GASTRIC BYPASS in 2004,HYSTERECTOMY in 2010) Hx Appendectomy: No Hx Cholecystectomy: No Hx Genitourinary Surgery: No Hx Section: No Hx Orthopedic Surgery: No Hx Hysterectomy: Yes Anesthesia Reaction: No - PPD History Previous Implant?: Yes Date: 11/07/19 Results: NEG CXR PPD to be Administered?: No - Reproductive History Patient is a Female of Child Bearing Age (11 -55 yrs old): No - Smoking Cessation Smoking history: Never smoked Have you smoked in the past 12 months: No Hx Chewing Tobacco Use: No Initiated information on smoking cessation: No - Substance & Tx. History Hx Alcohol Use: Yes Hx Substance Use: No Substance Use Type: Alcohol Hx Substance Use Treatment: Yes ([facility]) - Substances abused Alcohol Substance route: Oral Frequency: 3-6 times per week Amount used: 2 pints of vodka Age of first use: 8 Date of last use: 11/06/19 Admission Physical Exam [facility] - Physical General Appearance: Yes: Moderate Distress, Alcohol on Breath, Tremorous HEENTM: Yes: EOMI, Normocephalic, Normal Voice, RAFY (GLASSES), Other (DENUTURES ) Respiratory: Yes: Chest Non-Tender, Lungs Clear, Normal Breath Sounds, No Respiratory Distress, No Accessory Muscle Use Neck: Yes: No masses,lesions,Nodules, Supple, Trachea in good position Breast: Yes: Breasts Symetrical Cardiology: Yes: Regular Rate, S1, S2, Tachycardia Abdominal: Yes: Non Tender, Soft, Protuberent Genitourinary: Yes: Within Normal Limits Back: Yes: Normal Inspection Musculoskeletal: Yes: Gait Steady Extremities: Yes: Normal Capillary Refill, Normal Range of Motion, Non-Tender, Tremors Neurological: Yes: Fully Oriented, Alert, Motor Strength 5/5, Depressed Affect ( DENIES SI) Integumentary: Yes: Dry, Warm Lymphatic: Yes: Within Normal Limits - Diagnostic (1) Alcohol dependence with withdrawal, uncomplicated Current Visit: No Status: Acute (2) Type 2 diabetes mellitus Current Visit: No Status: Chronic (3) Non compliance w medication regimen Current Visit: No Status: Suspected Comment: REPORTED BY CLIENT (4) COPD (chronic obstructive pulmonary disease) Current Visit: No Status: Chronic (5) Diabetes Current Visit: No Status: Chronic Qualifiers: Diabetes mellitus type: type 2 (6) Hyperlipidemia Current Visit: No Status: Chronic Qualifiers: Hyperlipidemia type: unspecified Qualified Code(s): E78.5 - Hyperlipidemia , unspecified (7) Hypertension Current Visit: No Status: Chronic Qualifiers: Hypertension type: unspecified Qualified Code(s): I10 - Essential (primary ) hypertension (8) Depressed affect Current Visit: Yes Status: Acute Cleared for Admission S - Detox or Rehab [facility] Level of Care: Medically Managed Detox Regimen/Protocol: Librium Claeared for Rehab Admission: No Breathalyzer - Breathalyzer Breathalyzer: 0.133 Urine Drug Screen - Test Device Lot number: [id number] Expiration date: 05/22/21 - Control Is test valid?: Yes - Results Drug screen NEGATIVE: Yes Urine drug screen results: BZO-Benzodiazepines Inpatient Rehab Admission - Rehab Decision to Admit Inpatient rehab admission?: No
[2019-11-07] MEDS ORDERED: ALBUTEROL SO4 HFA INHALER IH PRN (22:20)
[2019-11-07] MEDS ORDERED: MAG HYDROX/AL HYDROX/SIMETH 30 ML UNIT-DOSE CUP PO PRN (22:21)
[2019-11-07] MEDS ORDERED: MAGNESIUM CITRATE 300 ML BOTTLE PO PRN (22:21)
[2019-11-07] MEDS ORDERED: MAGNESIUM HYDROX 2400MG/30ML ORAL SUSPENSION 30 ML CUP PO PRN (22:21)
[2019-11-07] MEDS ORDERED: IBUPROFEN 400 MG TABLET (FP) PO PRN (22:21)
[2019-11-07] MEDS ORDERED: METHOCARBAMOL 500 MG TABLET PO PRN (22:21)
[2019-11-07] MEDS ORDERED: MELATONIN 5 MG TABLETS PO PRN (22:21)
[2019-11-07] MEDS ORDERED: guaiFENesin 200 MG/10 ML 10 ML UNIT-DOSE CUPS PO PRN (22:21)
[2019-11-07] MEDS ORDERED: ONDANSETRON *ODT* 4 MG TABLET SL PRN (22:21)
[2019-11-07] MEDS ORDERED: chlordiazePOXIDE HCL 10 MG CAPSULE PO PRN (22:21)
[2019-11-07] MEDS ORDERED: MENTHOL/PHENOL 1 EACH UD MM PRN (22:21)
[2019-11-07] MEDS ORDERED: ACETAMINOPHEN 325 MG TABLET (FP) PO PRN ×2 (22:21)
[2019-11-07] MEDS ORDERED: DICYCLOMINE HCL 10 MG CAPSULE PO PRN (22:21)
[2019-11-07] MEDS ORDERED: P-EPHED 60MG/TRIPROLIDI 2.5MG TABLET PO PRN (22:21)
[2019-11-07] MEDS ORDERED: BISMUTH SUBSALICYLATE 524 MG/30 ML UD PO PRN (22:21)
[2019-11-07 22:49] VITALS: BMI 27.3
[2019-11-07] MEDS: chlordiazePOXIDE HCL 25 MG CAPSULE PO SCH (23:47)
[2019-11-08] MEDS: chlordiazePOXIDE HCL 25 MG CAPSULE PO SCH ×3 (05:42→22:13)
[2019-11-08 09:51] LABS: HYALINE CASTS 2 /lpf (0-8); PH,URINE 8.5 (5.0-8.0); URINE APPEARANCE CLEAR; URINE BACTERIA 56.3 /hpf (NEGATIVE); URINE BILIRUBIN NEGATIVE (NEGATIVE); URINE COLOR YELLOW; URINE GLUCOSE (UA) TRACE (NEGATIVE); URINE KETONE 2+ (NEGATIVE); URINE LEUK ESTERASE NEGATIVE (NEGATIVE); URINE NITRITE NEGATIVE (NEGATIVE); URINE PROTEIN 1+ (NEGATIVE); URINE RBC 3 /hpf (0-4); URINE WBC 4 /hpf (0-5)
[2019-11-08] MEDS: PANTOPRAZOLE 40 MG TABLET PO SCH (10:38)
[2019-11-08] MEDS: ASPIRIN 81 MG CHEWABLE TABLETS PO SCH (10:38)
[2019-11-08] MEDS: PRENATAL VITAMINS W/ FOLIC ACID TABLET (FP) PO SCH (10:38)
[2019-11-08] MEDS: BUDESONIDE/FORMETEROL FUMARATE 80/4.5 mcg INHALER IH SCH ×2 (10:39→22:13)
--- NOTE | 2019-11-08 14:00 | PN ---
S CIWA - CIWA Score Nausea/Vomitin-Mild Nausea/No Vomiting Muscle Tremors: 3 Anxiety: 1-Mildly Anxious Agitation: 1-Slight > Activity Paroxysmal Sweats: 2 Orientation: 0-Oriented Tacttile Disturbances: 1-Very Mild Itch/Numbness Auditory Disturbances: 0-None Visual Disturbances: 0-None Headache: 0-None Present CIWA-Ar Total Score: 9 BHS Progress Note (SOAP) Subjective: interrupted sleep, sweats, shaky, Objective: 11/08/19 13:58 Vital Signs Temperature 98.6 F 11/08/19 13:43 Pulse Rate 82 11/08/19 13:43 Respiratory Rate 18 11/08/19 13:43 Blood Pressure 144/86 11/08/19 13:43 O2 Sat by Pulse Oximetry (%) Laboratory Tests 11/08/19 08:20 Urine Color Yellow Urine Appearance Clear Urine pH 8.5 H D Ur Specific [place] 1.025 Urine Protein 1+ H Urine Glucose (UA) Trace Urine Ketones 2+ H Urine Blood Negative Urine Nitrite Negative Urine Bilirubin Negative Urine Urobilinogen 1.0 Ur Leukocyte Esterase Negative Urine WBC (Auto) 4 Urine RBC (Auto) 3 Urine Casts (Auto) 2 U Epithel Cells (Auto) 4.0 Urine Bacteria (Auto) 56.3 pt aox3 in nad ambulating + tremors Assessment: 11/08/19 13:58 withdrawal sx's Plan: cont detox increase fluids
[2019-11-08] MEDS: ATORVASTATIN CA 10 MG TABLET (FP) PO SCH (22:13)
[2019-11-08] MEDS: THIAMINE HCL 100 MG TABLET (FP) PO SCH (22:13)
[2019-11-09] MEDS: chlordiazePOXIDE 5 MG CAPSULE PO SCH ×3 (05:31→22:38)
[2019-11-09] MEDS: ASPIRIN 81 MG CHEWABLE TABLETS PO SCH (10:22)
[2019-11-09] MEDS: PANTOPRAZOLE 40 MG TABLET PO SCH (10:22)
[2019-11-09] MEDS: PRENATAL VITAMINS W/ FOLIC ACID TABLET (FP) PO SCH (10:22)
[2019-11-09] MEDS: BUDESONIDE/FORMETEROL FUMARATE 80/4.5 mcg INHALER IH SCH ×2 (10:23→22:37)
--- NOTE | 2019-11-09 11:47 | PN ---
S CIWA - CIWA Score Nausea/Vomitin-No Nausea/No Vomiting Muscle Tremors: 2 Anxiety: 3 Agitation: 0-Normal Activity Paroxysmal Sweats: 3 Orientation: 0-Oriented Tacttile Disturbances: 0-None Auditory Disturbances: 0-None Visual Disturbances: 0-None Headache: 0-None Present CIWA-Ar Total Score: 8 BHS Progress Note (SOAP) Subjective: c/o anxiety, sweats, and shakes. Objective: 11/09/19 11:45 Vital Signs 11/09/19 11/09/19 06:36 09:14 Temperature 97.9 F 97.9 F Pulse Rate 60 72 Respiratory 16 18 Rate Blood Pressure 137/88 148/99 Assessment: 11/09/19 11:46 AOX3, in no acute respiratory distress. Full ROM, ambulating in the unit. Withdrawal symptoms. Plan: continue detox.
[2019-11-09] MEDS: ATORVASTATIN CA 10 MG TABLET (FP) PO SCH (22:37)
[2019-11-09] MEDS: THIAMINE HCL 100 MG TABLET (FP) PO SCH (22:37)
[2019-11-10] MEDS ORDERED: chlordiazePOXIDE HCL 10 MG CAPSULE PO PRN
[2019-11-10] MEDS: chlordiazePOXIDE HCL 10 MG CAPSULE PO SCH ×3 (05:40→22:17)
[2019-11-10] MEDS: BUDESONIDE/FORMETEROL FUMARATE 80/4.5 mcg INHALER IH SCH ×2 (10:00→22:16)
[2019-11-10] MEDS: PRENATAL VITAMINS W/ FOLIC ACID TABLET (FP) PO SCH (10:00)
[2019-11-10] MEDS: PANTOPRAZOLE 40 MG TABLET PO SCH (10:00)
[2019-11-10] MEDS: ASPIRIN 81 MG CHEWABLE TABLETS PO SCH (10:00)
[2019-11-10] MEDS ORDERED: LOPERAMIDE HCL 2 MG CAPSULE PO ONE ×2 (10:56→15:30)
--- NOTE | 2019-11-10 11:33 | PN ---
[facility] CIWA - CIWA Score Nausea/Vomitin-No Nausea/No Vomiting Muscle Tremors: 1-None Visible, but [place] Anxiety: 1-Mildly Anxious Agitation: 1-Slight > Activity Paroxysmal Sweats: 1-Minimal Palms Moist Orientation: 0-Oriented Tacttile Disturbances: 0-None Auditory Disturbances: 0-None Visual Disturbances: 0-None Headache: 0-None Present CIWA-Ar Total Score: 4 BHS Progress Note (SOAP) Subjective: 59 years old female admitted on 11/07/19 for alcohol withdrawal sx management treating with librium detox regimen feeling better today has loose stool after breakfast imodium 4 mg po x 1 now and one more dose around 330pm today denies dizziness denies abdominal pain moist oral membrane good skin turgor Objective: 11/10/19 11:38 Vital Signs Temperature 98.5 F 11/10/19 09:07 Pulse Rate 84 11/10/19 09:07 Respiratory Rate 18 11/10/19 09:07 Blood Pressure 144/84 11/10/19 09:07 O2 Sat by Pulse Oximetry (%) Laboratory Last Values Urine Color Yellow 11/08/19 08:20 Urine Appearance Clear 11/08/19 08:20 Urine pH 8.5 (5.0-8.0) H D 11/08/19 08:20 Ur Specific [place] 1.025 (1.010-1.035) 11/08/19 08:20 Urine Protein 1+ (NEGATIVE) H 11/08/19 08:20 Urine Glucose (UA) Trace (NEGATIVE) 11/08/19 08:20 Urine Ketones 2+ (NEGATIVE) H 11/08/19 08:20 Urine Blood Negative (NEGATIVE) 11/08/19 08:20 Urine Nitrite Negative (NEGATIVE) 11/08/19 08:20 Urine Bilirubin Negative (NEGATIVE) 11/08/19 08:20 Urine Urobilinogen 1.0 mg/dL (0.2-1.0) 11/08/19 08:20 Ur Leukocyte Esterase Negative (NEGATIVE) 11/08/19 08:20 Urine WBC (Auto) 4 /hpf (0-5) 11/08/19 08:20 Urine RBC (Auto) 3 /hpf (0-4) 11/08/19 08:20 Urine Casts (Auto) 2 /lpf (0-8) 11/08/19 08:20 U Epithel Cells (Auto) 4.0 /HPF (0-5/HPF) 11/08/19 08:20 Urine Bacteria (Auto) 56.3 /hpf (NEGATIVE) 11/08/19 08:20 lab noted 11/10/19 11:44 Laboratory Last Values Assessment: 11/10/19 11:43 alcohol withdrawal Plan: librium regimen
[2019-11-10] MEDS: THIAMINE HCL 100 MG TABLET (FP) PO SCH (22:16)
[2019-11-10] MEDS: ATORVASTATIN CA 10 MG TABLET (FP) PO SCH (22:17)
[2019-11-11] MEDS ORDERED: chlordiazePOXIDE HCL 10 MG CAPSULE PO ONE (05:00)
[2019-11-11 09:17] VITALS: BP 140/84; PULSE 89; TEMP 97.9
--- NOTE | 2019-11-11 10:04 | DS ---
[facility] Detox Discharge Summary Admission Date: 11/07/19 Discharge Date: 11/11/19 - History Present History: Alcohol Dependence Additional Comments: 59 years old female admitted on 11/07/19 for alcohol withdrawal sx management treated with librium detox regimen patient has completed librium regimen and tolerated well alert oriented x 3 Vital Signs Temperature 97.9 F 11/11/19 09:16 Pulse Rate 89 11/11/19 09:16 Respiratory Rate 18 11/11/19 09:16 Blood Pressure 140/84 11/11/19 09:16 O2 Sat by Pulse Oximetry (%) respiratory clear lungs bilaterally on auscultation skin warm and dry abdomen soft round no rebound tenderness - Physical Exam Results Vital Signs: Vital Signs Temperature 97.9 F 11/11/19 09:16 Pulse Rate 89 11/11/19 09:16 Respiratory Rate 18 11/11/19 09:16 Blood Pressure 140/84 11/11/19 09:16 O2 Sat by Pulse Oximetry (%) Pertinent Admission Physical Exam Findings: alcohol withdrawal Laboratory Last Values Urine Color Yellow 11/08/19 08:20 Urine Appearance Clear 11/08/19 08:20 Urine pH 8.5 (5.0-8.0) H D 11/08/19 08:20 Ur Specific [place] 1.025 (1.010-1.035) 11/08/19 08:20 Urine Protein 1+ (NEGATIVE) H 11/08/19 08:20 Urine Glucose (UA) Trace (NEGATIVE) 11/08/19 08:20 Urine Ketones 2+ (NEGATIVE) H 11/08/19 08:20 Urine Blood Negative (NEGATIVE) 11/08/19 08:20 Urine Nitrite Negative (NEGATIVE) 11/08/19 08:20 Urine Bilirubin Negative (NEGATIVE) 11/08/19 08:20 Urine Urobilinogen 1.0 mg/dL (0.2-1.0) 11/08/19 08:20 Ur Leukocyte Esterase Negative (NEGATIVE) 11/08/19 08:20 Urine WBC (Auto) 4 /hpf (0-5) 11/08/19 08:20 Urine RBC (Auto) 3 /hpf (0-4) 11/08/19 08:20 Urine Casts (Auto) 2 /lpf (0-8) 11/08/19 08:20 U Epithel Cells (Auto) 4.0 /HPF (0-5/HPF) 11/08/19 08:20 Urine Bacteria (Auto) 56.3 /hpf (NEGATIVE) 11/08/19 08:20 lab noted - Treatment Hospital Course: Detox Protocol Followed, Detoxed Safely, Responded well, Discharged Condition Good, Rehab Referral Accepted Patient has Accepted a Rehab Referral to: new focus - Medication Discharge Medications: Ambulatory Orders Aspirin [ASA -] 81 mg PO DAILY 10/09/19 Simvastatin 5 mg PO DAILY 10/09/19 propRANOLol HCL [Inderal -] 10 mg PO BID 10/09/19 Albuterol Sulfate Inhaler - [Ventolin HFA Inhaler -] 1 puff IH Q4H PRN #2 inhaler 10/11/19 Budesonide/Formeterol Fumarate [SYMBICORT 80/4.5mcg -] 1 - 2 inh PO BID #1 cannister 10/11/19 Folic Acid 1 mg PO DAILY #30 tablet 10/11/19 Pantoprazole Sodium [Protonix -] 40 mg PO DAILY #30 tablet.ec 10/11/19 Thiamine HCl [Vitamin B1 -] 100 mg PO DAILY #30 tablet 10/11/19 - Diagnosis (1) Alcohol dependence with withdrawal, uncomplicated Status: Acute (2) COPD (chronic obstructive pulmonary disease) Status: Chronic Qualifiers: COPD type: emphysema Emphysema type: unilateral Qualified Code(s): J43.0 - Unilateral pulmonary emphysema [MacLeod's syndrome] (3) Diabetes Status: Chronic Qualifiers: Diabetes mellitus type: type 2 Diabetes mellitus exterminator helper termite insulin use: without exterminator helper termite use Diabetes mellitus complication status: without complication Qualified Code(s): E11.9 - Type 2 diabetes mellitus without complications (4) Hyperlipidemia Status: Chronic Qualifiers: Hyperlipidemia type: pure hypercholesterolemia Qualified Code(s): E78.00 - Pure hypercholesterolemia, unspecified; E78.0 - Pure hypercholesterolemia (5) Hypertension Status: Chronic Qualifiers: Hypertension type: essential hypertension Qualified Code(s): I10 - Essential (primary) hypertension (6) Type 2 diabetes mellitus Status: Chronic Qualifiers: Diabetes mellitus exterminator helper termite insulin use: without exterminator helper termite use Diabetes mellitus complication status: without complication Qualified Code(s): E11.9 - Type 2 diabetes mellitus without complications (7) Type 2 diabetes mellitus with hyperglycemia Status: Chronic Qualifiers: Diabetes mellitus fpc insulin use: without fpc use Qualified Code(s): E11.65 - Type 2 diabetes mellitus with hyperglycemia - AMA Did Patient Leave Against Medical Advice: No CIWA Score - CIWA Score Nausea/Vomitin-No Nausea/No Vomiting Muscle Tremors: 1-None Visible, but [place] Anxiety: 1-Mildly Anxious Agitation: 0-Normal Activity Paroxysmal Sweats: No Perspiration Orientation: 0-Oriented Tacttile Disturbances: 0-None Auditory Disturbances: 0-None Visual Disturbances: 0-None Headache: 0-None Present CIWA-Ar Total Score: 2
== END 2019-11-11 11:39 | disposition home or self-care (01) | DRG 897 ==
LOC: YASAS 22:14 → Y3N 23:00
PROVIDERS: ADMIT Allergy & Immunology; ATTEND Allergy & Immunology
PROC: HZ2ZZZZ Detoxification Services for Substance Abuse Treatment (ICD-10-PCS; principal; 2019-11-07)
DX: F10.230 Alcohol dependence with withdrawal, uncomplicated (principal); F10.220 Alcohol dependence with intoxication, uncomplicated; F32.9 Major depressive disorder, single episode, unspecified; I11.0 Hypertensive heart disease with heart failure; E11.65 Type 2 diabetes mellitus with hyperglycemia; E78.00 Pure hypercholesterolemia, unspecified; I50.9 Heart failure, unspecified; J44.9 Chronic obstructive pulmonary disease, unspecified; R00.0 Tachycardia, unspecified; R25.3 Fasciculation; Z86.69 Personal history of other diseases of the nervous system and sense organs; Z98.84 Bariatric surgery status; Z90.710 Acquired absence of both cervix and uterus; Z91.14 Patient's other noncompliance with medication regimen
CPT/HCPCS: 81003

== ENCOUNTER 2019-11-23 12:48 | Emergency (ER) | payer BC, OTHER ==
[2019-11-23 13:00] VITALS: BP 104/70; PULSE 66; TEMP 98; BMI 25.7
--- NOTE | 2019-11-23 13:12 | PDOC ---
History of Present Illness - General Chief Complaint: Alcohol intoxication Stated Complaint: Alcohol intoxication Time Seen by Provider: 11/23/19 13:11 History Source: Patient Exam Limitations: No Limitations - History of Present Illness Initial Comments: 11/23/19 13:13 59 yo F PMH of alcohol abuse, CHF, DM, HTN, HLD, and COPD BIBEMS with alcohol intoxication s/p 1 pint vodka this morning. Pt denies fall, LOC, chest pain, head trauma, hallucinations, ABD pain, SOB, nausea/vomiting, vision change. Recently discharged from detox 10d ago. Doesn't remember who called EMS on her, wants to go home Past History - Past Medical History Allergies/Adverse Reactions: Allergies Allergy/AdvReac Type Severity Reaction Status Date / Time No Known Allergies Allergy Verified 10/24/19 11:57 Home Medications: Ambulatory Orders Aspirin [ASA -] 81 mg PO DAILY 10/09/19 Simvastatin 5 mg PO DAILY 10/09/19 propRANOLol HCL [Inderal -] 10 mg PO BID 10/09/19 Albuterol Sulfate Inhaler - [Ventolin HFA Inhaler -] 1 puff IH Q4H PRN #2 inhaler 10/11/19 Budesonide/Formeterol Fumarate [SYMBICORT 80/4.5mcg -] 1 - 2 inh PO BID #1 cannister 10/11/19 Folic Acid 1 mg PO DAILY #30 tablet 10/11/19 Pantoprazole Sodium [Protonix -] 40 mg PO DAILY #30 tablet.ec 10/11/19 Thiamine HCl [Vitamin B1 -] 100 mg PO DAILY #30 tablet 10/11/19 Anemia: Yes Asthma: Yes Cancer: No Cardiac Disorders: Yes CVA: No COPD: Yes CHF: Yes (On Toprol) Dementia: No Diabetes: Yes GI Disorders: No Disorders: No HTN: Yes Hypercholesterolemia: Yes Kidney Stones: No Liver Disease: No Seizures: No Thyroid Disease: No - Surgical History Abdominal Surgery: Yes (GASTRIC BYPASS in 2004,HYSTERECTOMY in 2010) Appendectomy: No Cardiac Surgery: No Cholecystectomy: No Lung Surgery: No Neurologic Surgery: No Orthopedic Surgery: No - Reproductive History PID: No - Immunization History Td Vaccination: Yes TDAP Vaccination: Yes Immunization Up to Date: Yes - Psycho Social/Smoking Cessation Hx Smoking History: Never smoked Have you smoked in the past 12 months: No 'Breaking Loose' booklet given: 06/03/18 Hx Alcohol Use: Yes (twice a week) Drug/Substance Use Hx: No Substance Use Type: Alcohol Hx Substance Use Treatment: No Review of Systems - Review of Systems Constitutional: No: Chills, Fever HEENTM: No: Eye Pain, Nose Pain, Throat Pain Respiratory: No: Cough, Shortness of Breath Cardiac (ROS): No: Chest Pain, Palpitations, Syncope ABD/GI: No: Abdominal Distended, Constipated, Diarrhea, Nausea, Vomiting : No: Burning, Dysuria Musculoskeletal: No: Back Pain, Joint Pain Integumentary: No: Bruising, Flushing Neurological: No: Headache, Seizure Psychiatric: No: Anxiety, Depression Endocrine: No: Excessive Sweating, Intolerance to Cold, Intolerance to Heat Hematologic/Lymphatic: No: Anemia, Blood Clots *Physical Exam - Vital Signs Last Vital Signs Temp Pulse Resp BP Pulse Ox 98.0 F 66 19 104/70 99 11/23/19 12:55 11/23/19 12:55 11/23/19 12:55 11/23/19 12:55 11/23/19 12:55 - Physical Exam General Appearance: Yes: Nourished, Appropriately Dressed. No: Apparent Distress HEENT: positive: EOMI, RAFY, Hearing Grossly Normal. negative: Scleral Icterus (R), Scleral Icterus (L) Neck: positive: Supple. negative: Tender, Rigid Respiratory/Chest: positive: Lungs Clear, Normal Breath Sounds. negative: Chest Tender, Respiratory Distress, Crackles, Rales, Rhonchi, Stridor, Wheezing Cardiovascular: positive: Regular Rhythm, Regular Rate, S1, S2. negative: Edema , Murmur Extremity: positive: Normal Capillary Refill Integumentary: positive: Normal Color. negative: Dry Neurologic: positive: clinic manager II-XII NML intact, Fully Oriented, Alert, Normal Mood/ Affect, Normal Response, Motor Strength 5/5, Respond to painful stimul, Responsive. negative: Facial Droop, Numbness, Sensory Deficit, Confused, Disoriented Medical Decision Making - Medical Decision Making 11/23/19 13:28 59 yo F PMHx of alcohol abuse, CHF, DM, HTN, HLD, and COPD BIBEMS with alcohol intoxication s/p 1 pint vodka this morning. AOx3, neuro intact, no signs of alcohol withdrawal vs ACS (no chest pain/SOB) vs CVA (no neuro deficits) or COPD exacerbation (clear lungs). DC home Discharge - Discharge Information Problems reviewed: Yes Clinical Impression/Diagnosis: Alcohol intoxication Qualifiers: Complication of substance-induced condition: uncomplicated Qualified Code(s): F10.920 - Alcohol use, unspecified with intoxication, uncomplicated Condition: Good Disposition: HOME - Admission No - Follow up/Referral - Patient Discharge Instructions Additional Instructions: Stop drinking Come back if you hit your head, chest pain, trouble breathing - Post Discharge Activity
--- NOTE | 2019-11-23 13:58 | PDOC ---
Attending Attestation - Resident Resident Name: Sav Villanueva - HPI HPI: 11/23/19 19:39 pt presents to the ED intoxicated without signs or history of trauma. Denies complaints. Ambulatory in the ED with steady gait. - Physicial Exam PE: 11/23/19 19:39 Agree with resident exam. Patient is alert and oriented and in no acute distress. HEENT: normocephalic atraumatic. NEuro: oriented x 3, speech fluent and clear, ambulatory with a steady gait. - Medical Decision Making 11/23/19 19:40 Pt presents to the ED intoxicated without signs or history of trauma. Plan was to discharge when family arrived, but patient eloped from the ED when arrived.
== END 2019-11-23 13:59 | disposition home or self-care (01) ==
LOC: JER 12:48
DX: F10.120 Alcohol abuse with intoxication, uncomplicated (principal); I11.0 Hypertensive heart disease with heart failure; I50.9 Heart failure, unspecified; E78.5 Hyperlipidemia, unspecified; E11.9 Type 2 diabetes mellitus without complications; J44.9 Chronic obstructive pulmonary disease, unspecified; Z98.84 Bariatric surgery status; Z90.79 Acquired absence of other genital organ(s)
CPT/HCPCS: 99282-25

== ENCOUNTER 2020-01-01 11:15 | Observation (INO) | payer BC, OTHER ==
--- NOTE | 2020-01-01 12:39 | EKG ---
Test Reason : Blood Pressure : / mmHG Vent. Rate : 095 BPM Atrial Rate : 095 BPM P-R Int : 172 ms QRS Dur : 094 ms QT Int : 382 ms P-R-T Axes : 046 060 056 degrees QTc Int : 480 ms NORMAL SINUS RHYTHM PROLONGED QT ABNORMAL ECG WHEN COMPARED WITH ECG OF 07-NOV-2019 20:14, NO SIGNIFICANT CHANGE WAS FOUND Confirmed by MD Solis Edward ([id number]) on 01/01/2020 12:39:04 PM Referred By: Confirmed By:Masoud Solis MD
--- NOTE | 2020-01-01 12:58 | PDOC ---
History of Present Illness - General Chief Complaint: Chest Pain Stated Complaint: R/F PAIN Time Seen by Provider: 01/01/20 12:19 - History of Present Illness Initial Comments: 01/01/20 13:09 59 y.o. F PMH CHF, alcohol abuse, DM, HTN, HLD, GERD, COPD, anemia presenting for chest pain. The patient was seen here in ED 11/2019 with similar complaints. Patient appears intoxicated during my interview. On this visit the chest pain is dull, midepigastric and substernal, nonradiating, nonpleuritic, non- reproducible. She says that she has had this chest pain for months with no resolution of symptoms. No recent worsening of the chest pain. Denies SOB. Has not been taking any home meds as she is "using her lifestyle to control her m edical issues". Endorses drinking vodka daily, last drink 1130 AM, 30 mins prior to coming to ED. Denies sick contacts. No recent travel. Past History - Past Medical History Allergies/Adverse Reactions: Allergies Allergy/AdvReac Type Severity Reaction Status Date / Time No Known Allergies Allergy Verified 01/01/20 11:47 Home Medications: Ambulatory Orders Aspirin [ASA -] 81 mg PO DAILY 10/09/19 Simvastatin 5 mg PO DAILY 10/09/19 propRANOLol HCL [Inderal -] 10 mg PO BID 10/09/19 Albuterol Sulfate Inhaler - [Ventolin HFA Inhaler -] 1 puff IH Q4H PRN #2 inhaler 10/11/19 Budesonide/Formeterol Fumarate [SYMBICORT 80/4.5mcg -] 1 - 2 inh PO BID #1 cannister 10/11/19 Folic Acid 1 mg PO DAILY #30 tablet 10/11/19 Pantoprazole Sodium [Protonix -] 40 mg PO DAILY #30 tablet.ec 10/11/19 Thiamine HCl [Vitamin B1 -] 100 mg PO DAILY #30 tablet 10/11/19 Anemia: Yes Asthma: Yes Cancer: No Cardiac Disorders: Yes CVA: No COPD: Yes CHF: Yes (On Toprol) Dementia: No Diabetes: Yes GI Disorders: Yes (gerd) Disorders: No HTN: Yes Hypercholesterolemia: Yes Kidney Stones: No Liver Disease: No Seizures: No Thyroid Disease: No - Surgical History Abdominal Surgery: Yes (GASTRIC BYPASS in 2004,HYSTERECTOMY in 2010) Appendectomy: No Cardiac Surgery: No Cholecystectomy: No Lung Surgery: No Neurologic Surgery: No Orthopedic Surgery: No Other Surgical History: 01/01/20 13:19 hysterectomy - Reproductive History PID: No - Immunization History Td Vaccination: Yes TDAP Vaccination: Yes Immunization Up to Date: Yes - Psycho Social/Smoking Cessation Hx Smoking History: Never smoked Have you smoked in the past 12 months: No 'Breaking Loose' booklet given: 06/03/18 Hx Alcohol Use: (last drink p.t.a.) Drug/Substance Use Hx: No Substance Use Type: Alcohol Hx Substance Use Treatment: No Review of Systems - Review of Systems Comments:: 01/01/20 12:59 GENERAL/CONSTITUTIONAL: No fever or chills. No weakness. HEAD, EYES, EARS, NOSE AND THROAT: No change in vision. No change in hearing. No sore throat. CARDIOVASCULAR: + chest pain. No shortness of breath. RESPIRATORY: Denies cough, hemoptysis GASTROINTESTINAL: No nausea, vomiting, constipation. + diarrhea today. GENITOURINARY: No dysuria, frequency, or change in urination. MUSCULOSKELETAL: RLE pain ventral surfave of R foot & R calf. No joint pain. No neck or back pain. SKIN: No rash. NEUROLOGIC: No headache, vertigo, loss of consciousness, or change in strength/sensation. ENDOCRINE: No increased thirst. No abnormal weight change HEMATOLOGIC/LYMPHATIC: No anemia, easy bleeding, or history of blood clots. ALLERGIC/IMMUNOLOGIC: No hives or skin allergy. *Physical Exam - Vital Signs Last Vital Signs Temp Pulse Resp BP Pulse Ox 98.4 F 114 H 20 127/85 96 01/01/20 11:47 01/01/20 11:47 01/01/20 11:47 01/01/20 11:47 01/01/20 11:47 - Physical Exam 01/01/20 13:10 General: AOx3. Appears intoxicated. HEENT: NCAT. PERRLA. MMM. Sclera anicteric. Cardio: S1S2 normal. Tachycardic. No murmurs appreciated. Pulm: CTABL. No incr work of breathing. Abd: Soft NTND. + BS Extr: normal ROM. No LE edema. Tenderness to palpation of R calf and ventral R foot. Skin: No rashes/ lesions noted. ED Treatment Course - LABORATORY CBC & Chemistry Diagram: 01/01/20 12:50 01/01/20 12:50 - RADIOLOGY Radiology Studies Ordered: Category Date Time Status CHEST CTA [CT] Stat CT Scan 01/01/20 12:42 Ordered CXRPORT [CHEST X-RAY PORTABLE*] [RAD] Stat Radiology 01/01/20 12:49 Ordered DUPLEX VASCUL US-1 LEG [US] Stat Ultrasound 01/01/20 12:42 Ordered Medical Decision Making - Medical Decision Making 01/01/20 13:14 DDX for chest pain: PE, ACS, CHF exac, GERD Well's score for PE 4.5, moderate risk Ordering: -CBC, CMP, troponin, ekg -CXR -RLE U/S to r/o DVT -CTA chest to r/o PE 01/01/20 13:17 -pepcid 20mg PO -banana bag -1L NS -EKG: NSR. No ST-T changes. qtc 480. 01/01/20 15:54 -troponin negative x1 -CTA chest: HEART score 4 01/01/20 16:06 Discharge - Follow up/Referral Referrals: Tara Plummer [Primary Care Provider] - - Patient Discharge Instructions - Post Discharge Activity
[2020-01-01] MEDS ORDERED: SODIUM CHLORIDE 1,000 ML IV STA (13:14)
[2020-01-01] MEDS ORDERED: FAMOTIDINE 20 MG TABLET PO ONE (13:14)
[2020-01-01] MEDS ORDERED: FAMOTIDINE 20 MG TABLET ONE (13:22)
[2020-01-01 13:24] LABS: BASO % 0.8 % (0-2.0); EOS % 0.5 % (0-4.5); HEMATOCRIT 43.5 % (32.4-45.2); HEMOGLOBIN 14.6 GM/dL (10.7-15.3); LYMPH % 48.6 % (8-40); MCH 32.7 pg (25.7-33.7); MCHC 33.6 g/dl (32.0-36.0); MEAN CELL VOLUME 97.3 fl (80-96); MEAN PLT VOLUME 7.8 fl (7.5-11.1); MONO % 6.8 % (3.8-10.2); NEUT % 43.3 % (42.8-82.8); PLATELET COUNT 248 K/MM3 (134-434); RBC 4.47 M/mm3 (3.60-5.2); RDW 14.3 % (11.6-15.6); WHITE BLOOD COUNT 7.8 K/mm3 (4.0-10.0)
[2020-01-01] MEDS ORDERED: FOLIC ACID INJECTION - 1 MG, THIAMINE HCL 100 MG, MULTIVIT INJECTION ADULT 10 ML in SOD... IVPB ONE (13:31)
[2020-01-01] MEDS: SODIUM CHLORIDE 1,000 ML IV SCH ×2 (13:34→23:09)
[2020-01-01 13:38] LABS: INR 1.02 (0.83-1.09)
[2020-01-01 14:00] LABS: ALBUMIN 3.8 g/dl (3.4-5.0); ALK PHOS 71 U/L (45-117); ANION GAP 9 MMOL/L (8-16); BILIRUBIN,TOTAL 0.3 mg/dL (0.2-1); CALCIUM 8.8 mg/dL (8.5-10.1); CHLORIDE 101 mmol/L (98-107); CO2 30 mmol/L (21-32); CREATININE 0.5 mg/dL (0.55-1.3); GLUCOSE,RANDOM 96 mg/dL (74-106); POTASSIUM 5.1 mmol/L (3.5-5.1); SGOT/AST 64 U/L (15-37); SGPT/ALT 33 U/L (13-61); SODIUM 140 mmol/L (136-145); TOT PROT 7.9 g/dl (6.4-8.2)
--- NOTE | 2020-01-01 14:11 | PDOC ---
Documentation entered by Johnnie Fox SCRIBE, acting as scribe for Fernando Gonzalez MD. Fernando Gonzalez MD: This documentation has been prepared by the Dominique ordoñez Xhesika, SCRIBE, under my direction and personally reviewed by me in its entirety. I confirm that the documentation accurately reflects all work, treatment, procedures, and medical decision making performed by me. Attending Attestation - Resident Resident Name: Sahra Murdock - ED Attending Attestation I have performed the following: I have examined & evaluated the patient, The case was reviewed & discussed with the resident, I agree w/resident's findings & plan, Exceptions are as noted - HPI HPI: 01/01/20 12:35 The patient is a 59 year old female, with a significant PMH of etoh abuse, heart failure, HTN, HLD, DM, herniated disc, COPD and anemia who presents to the emergency department with sharp, constant, chest pain. Pt states she drank alcohol a half hour prior to coming to the ED. The patient denies shortness of breath, headache and dizziness. Denies fever, chills, diarrhea and constipation. Denies dysuria, frequency, urgency and hematuria. Allergies: NKDA Past surgical history: Gastric bypass (2004), hysterectomy (2010) Social history: Alcohol abuse PCP: Tara Plummer - Physicial Exam PE: 01/01/20 14:09 EXAMINATION CONSTITUTIONAL: Awake and alert, alcohol on breath noted; in no apparent distress HEAD: Normocephalic; atraumatic EYES: PERRL; EOM intact; No scleral icterus ENMT: External appears normal; normal oropharynx NECK: Supple; non-tender; no cervical lymphadenopathy; No JVD CARD: Normal S1, S2; no murmurs, rubs, or gallops RESP: Normal chest excursion with respiration; breath sounds clear and equal bilaterally; no wheezes, rhonchi, or rales ABD: Soft, non-distended; non-tender; no palpable organomegaly, no palpable hernias EXT: Normal ROM in all four extremities; +Right calf edema/tenderness to palpation; right foot tenderness along the ventral aspect; distal pulses intact SKIN: Warm, dry, no rash NEURO: No focal neurological deficiencies. - Medical Decision Making 01/01/20 14:10 Patient is 59-year-old female with history of alcohol abuse, hypertension, hyperlipidemia presents with substernal chest burning/discomfort. Patient endorses active alcohol use; patient also endorses right calf pain. Initial laquita luation, patient is noted to be awake and alert, in no significant distress; patient is noted to be mildly tachycardic. EKG reveals no evidence of acute ischemia, Differential diagnosis includes ACS versus PE versus pancreatitis versus esophagitis. Will administer H2 blockers. Will obtain CBC/CMP/cardiac profile. Will obtain CTA of chest to rule out PE. Will reassess. 01/01/20 14:16
[2020-01-01] MEDS ORDERED: ASPIRIN 325 MG TABLET PO ONE (14:30)
[2020-01-01] MEDS ORDERED: ASPIRIN 81 MG CHEWABLE TABLETS ONE (16:23)
--- NOTE | 2020-01-01 16:54 | HP ---
CHIEF COMPLAINT: palpitations PCP: HISTORY OF PRESENT ILLNESS: 59 y.o female with PMH of HTN HLD DM CHF (last EF 55-60) COPD alcohol abuse presents to the ED with complaints of palpitations in regards to her palpitations she states they have been intermittent she has been experiencing them for months-years; she was here back in october with similar presentation however left AMA before a full workup was complete- she does not take any of her medications as she does not believe in them; she denies any recent travel/sick contacts/ she does not follow uyp with any physicians she states she drank 30mins before coming to e ED (1 pint of vodka) ER course was notable for: (1) initial HR 112 normotensive (2)trop negative x1 LE doppler negative DV CTA negative for gross PE; EKG qtc 481 (no change from oct 2018) (3) given ASA and pepcid Recent Travel: denies PAST MEDICAL HISTORY: see above PAST SURGICAL HISTORY: hysterectomy; gastric bypass Social History: Smoking: smoked 1/2 ppd Alcohol:drinks 3 pints of vodka mutiple days a week' Drugs: denies Allergies No Known Allergies Allergy (Verified 01/01/20 11:47) HOME MEDICATIONS: Home Medications Medication Instructions Recorded Aspirin [ASA -] 81 mg PO DAILY 10/09/19 Simvastatin 5 mg PO DAILY 10/09/19 propRANOLol HCL [Inderal -] 10 mg PO BID 10/09/19 Albuterol Sulfate Inhaler - 1 puff IH Q4H PRN #2 inhaler 10/11/19 [Ventolin HFA Inhaler -] Budesonide/Formeterol Fumarate 1 - 2 inh PO BID #1 cannister 10/11/19 [SYMBICORT 80/4.5mcg -] Folic Acid 1 mg PO DAILY #30 tablet 10/11/19 Pantoprazole Sodium [Protonix -] 40 mg PO DAILY #30 tablet.ec 10/11/19 Thiamine HCl [Vitamin B1 -] 100 mg PO DAILY #30 tablet 10/11/19 REVIEW OF SYSTEMS CONSTITUTIONAL: Absent: fever, chills, diaphoresis, generalized weakness, malaise, loss of appetite, weight change HEENT: Absent: rhinorrhea, nasal congestion, throat pain, throat swelling, difficulty swallowing, mouth swelling, ear pain, eye pain, visual changes CARDIOVASCULAR: Present: palpitations Absent: chest pain, syncope, irregular heart rate, lightheadedness, peripheral edema RESPIRATORY: Absent: cough, shortness of breath, dyspnea with exertion, orthopnea, wheezing, stridor, hemoptysis GASTROINTESTINAL: Absent: abdominal pain, abdominal distension, nausea, vomiting, diarrhea, constipation, melena, hematochezia GENITOURINARY: Absent: dysuria, frequency, urgency, hesitancy, hematuria, flank pain, genital pain MUSCULOSKELETAL: Absent: myalgia, arthralgia, joint swelling, back pain, neck pain SKIN: Absent: rash, itching, pallor HEMATOLOGIC/IMMUNOLOGIC: Absent: easy bleeding, easy bruising, lymphadenopathy, frequent infections ENDOCRINE: Absent: unexplained weight gain, unexplained weight loss, heat intolerance, cold intolerance NEUROLOGIC: Absent: headache, focal weakness or paresthesias, dizziness, unsteady gait, seizure, mental status changes, bladder or bowel incontinence PSYCHIATRIC: Absent: anxiety, depression, suicidal or homicidal ideation, hallucinations. PHYSICAL EXAMINATION Vital Signs - 24 hr 01/01/20 11:47 Temperature 98.4 F Pulse Rate 114 H Respiratory 20 Rate Blood Pressure 127/85 O2 Sat by Pulse 96 Oximetry (%) GENERAL: Awake, alert, and fully oriented, in no acute distress. EYES: PEERLA; EOMI: no scleral icterus . NECK:no JVD; no lymphadenopathy LUNGS: CTA B/L no rales, rhonchi or wheezing HEART: tachycardic normal S1 and S2 without murmur, rub or gallop. ABDOMEN: Soft, NT/ND + BS in all 4 quadrants MUSCULOSKELETAL: Normal range of motion at all joints. No bony deformities or tenderness. No CVA tenderness. EXTREMITIES: warm; well-perfused no clubbing/cyanosis or edema NEUROLOGICAL: Cranial nerves II-XII intact. Normal speech. Normal gait. PSYCHIATRIC: Cooperative. Good eye contact. Appropriate mood and affect. SKIN: Warm, dry, normal turgor, no rashes or lesions noted, normal capillary refill. Laboratory Results - last 24 hr 01/01/20 01/01/20 01/01/20 12:50 12:50 12:50 WBC 7.8 RBC 4.47 Hgb 14.6 Hct 43.5 MCV 97.3 H MCH 32.7 MCHC 33.6 RDW 14.3 Plt Count 248 D MPV 7.8 Absolute Neuts (auto) 3.4 Neutrophils % 43.3 D Lymphocytes % 48.6 H D Monocytes % 6.8 Eosinophils % 0.5 D Basophils % 0.8 Nucleated RBC % 0 PT with INR 12.00 INR 1.02 Sodium 140 Potassium 5.1 Chloride 101 Carbon Dioxide 30 Anion Gap 9 BUN 10.0 Creatinine 0.5 L Est GFR (CKD-EPI)AfAm 121.92 Est GFR (CKD-EPI)NonAf 105.20 Random Glucose 96 Calcium 8.8 Total Bilirubin 0.3 AST 64 H ALT 33 Alkaline Phosphatase 71 Troponin I < 0.02 Total Protein 7.9 Albumin 3.8 ASSESSMENT/PLAN: 59 y.o female with PMH of HTN HLD DM CHF (last EF 55-60) COPD alcohol abuse presents to the ED with complaints of palpitations #Palpitations r/o ACS -given ASA 324 x1 -trop negative x1 -no EKG changes from previous -trend troponins -stress test ordered -will restart patients ASA and statin and inderall #DM not on meds currently -ISS ACHS -BGMS ACHS #COPD not in exacerbation -will c/w symbicort #HTN doesnt currently taking any meds -normotensive currently will monitor Family Medical History Family History: Denies Problem List - Problem (1) Chest pain Code(s): R07.9 - CHEST PAIN, UNSPECIFIED Qualifiers: Chest pain type: unspecified Qualified Code(s): R07.9 - Chest pain, unspecified (2) Palpitations Code(s): R00.2 - PALPITATIONS Visit type - Emergency Visit Emergency Visit: Yes ED Registration Date: 01/01/20 Care time: The patient presented to the Emergency Department on the above date and was hospitalized for further evaluation of their emergent condition. - New Patient This patient is new to me today: Yes Date on this admission: 01/01/20 - Critical Care Critical Care patient: No ATTENDING PHYSICIAN STATEMENT I saw and evaluated the patient. I reviewed the resident's note and discussed the case with the resident. I agree with the resident's findings and plan as documented. SUBJECTIVE: OBJECTIVE: ASSESSMENT AND PLAN:
--- NOTE | 2020-01-01 17:11 | PN ---
Teaching Attending Note Name of Resident: Miranda Dawson ATTENDING PHYSICIAN STATEMENT I saw and evaluated the patient. I reviewed the resident's note and discussed the case with the resident. I agree with the resident's findings and plan as documented. SUBJECTIVE: This is a 59 year old woman with a history of alcohol abuse, obesity, gastric bypass, type 2 DM, HTN, hyperlipidemia, COPD who comes to the ED complaining of palpitations on and off for years. She is non-compliant with medications. She denies SOB, dizziness, fever, chills. Prior to coming to the ED, she drank 1 pint of vodka. OBJECTIVE: Vital Signs Period Temp Pulse Resp BP Sys/Grossman Pulse Ox Last 24 Hr 98.4 F 114 20 127/85 96 HEART: S1S2, tachycardic LUNGS: Clear ABDOMEN: Soft, non-tender, non-distended, normal BS EXTREMITIES: No edema Laboratory Tests 01/01/20 01/01/20 01/01/20 12:50 12:50 12:50 WBC 7.8 RBC 4.47 Hgb 14.6 Hct 43.5 MCV 97.3 H MCH 32.7 MCHC 33.6 RDW 14.3 Plt Count 248 D MPV 7.8 Absolute Neuts (auto) 3.4 Neutrophils % 43.3 D Lymphocytes % 48.6 H D Monocytes % 6.8 Eosinophils % 0.5 D Basophils % 0.8 Nucleated RBC % 0 PT with INR 12.00 INR 1.02 Sodium 140 Potassium 5.1 Chloride 101 Carbon Dioxide 30 Anion Gap 9 BUN 10.0 Creatinine 0.5 L Est GFR (CKD-EPI)AfAm 121.92 Est GFR (CKD-EPI)NonAf 105.20 Random Glucose 96 Calcium 8.8 Total Bilirubin 0.3 AST 64 H ALT 33 Alkaline Phosphatase 71 Troponin I < 0.02 Total Protein 7.9 Albumin 3.8 Home Medications Medication Instructions Recorded Aspirin [ASA -] 81 mg PO DAILY 10/09/19 Simvastatin 5 mg PO DAILY 10/09/19 propRANOLol HCL [Inderal -] 10 mg PO BID 10/09/19 Albuterol Sulfate Inhaler - 1 puff IH Q4H PRN #2 inhaler 10/11/19 [Ventolin HFA Inhaler -] Budesonide/Formeterol Fumarate 1 - 2 inh PO BID #1 cannister 10/11/19 [SYMBICORT 80/4.5mcg -] Folic Acid 1 mg PO DAILY #30 tablet 10/11/19 Pantoprazole Sodium [Protonix -] 40 mg PO DAILY #30 tablet.ec 10/11/19 Thiamine HCl [Vitamin B1 -] 100 mg PO DAILY #30 tablet 10/11/19 ASSESSMENT AND PLAN: This is a 59 year old woman with a history of alcohol abuse, obesity, gastric bypass, type 2 DM, HTN, hyperlipidemia, COPD who presented to the ED with palpitations. 1. Palpitations, sinus tachycardia - Observe on telemetry - Serial troponins - Continue Inderal - Discussed compliance with treatment - TSH was normal 10/24/19 - Chest CTA shows no evidence of PE; bilateral calcified granulomas 2. Continuous alcohol dependence with alcohol intoxication - Thiamine, folic acid, multivitamin - Watch for withdrawal 3. History of gastric bypass 4. HTN - Continue Inderal 5. Hyperlipidemia - Continue Zocor 6. Type 2 DM - On no medications - HbA1c 6.1 on 10/10/19 - Fingersticks with Novolog sliding scale 7. COPD - Stable - Continue Symbicort
[2020-01-01] MEDS ORDERED: ALBUTEROL SO4 8 GM HFA INHALER IH PRN (18:06)
[2020-01-01] MEDS: INSULIN SLIDING SCALE (NOVOLOG) 1 VIAL SQ SCH (23:00)
[2020-01-02 01:42] VITALS: BMI 26.5
[2020-01-02] MEDS: INSULIN SLIDING SCALE (NOVOLOG) 1 VIAL SQ SCH ×3 (06:01→17:15)
[2020-01-02 06:40] LABS: BASO % 0.8 % (0-2.0); EOS % 1.8 % (0-4.5); HEMATOCRIT 38.5 % (32.4-45.2); HEMOGLOBIN 13.3 GM/dL (10.7-15.3); LYMPH % 26.1 % (8-40); MCH 33.1 pg (25.7-33.7); MCHC 34.5 g/dl (32.0-36.0); MEAN PLT VOLUME 8.2 fl (7.5-11.1); MONO % 9.1 % (3.8-10.2); NEUT % 62.2 % (42.8-82.8); PLATELET COUNT 216 K/MM3 (134-434); RBC 4.01 M/mm3 (3.60-5.2); RDW 14.7 % (11.6-15.6); WHITE BLOOD COUNT 7.2 K/mm3 (4.0-10.0)
[2020-01-02 07:12] LABS: PROTHROMBIN TIME (PATIENT) 11.8 SEC (9.7-13.0)
[2020-01-02 07:14] LABS: ACTIVATED PTT 30.2 SECONDS (25.2-36.5)
[2020-01-02 07:17] LABS: ALBUMIN 3.7 g/dl (3.4-5.0); BLOOD UREA NITROGEN 5.5 mg/dL (7-18); CALCIUM 8.3 mg/dL (8.5-10.1); CREATININE 0.5 mg/dL (0.55-1.3); MAGNESIUM 1.5 mg/dL (1.8-2.4); PHOSPHOROUS 2.8 mg/dL (2.5-4.9); POTASSIUM 3.5 mmol/L (3.5-5.1); TOT PROT 7.2 g/dl (6.4-8.2)
[2020-01-02] MEDS ORDERED: MAGNESIUM SULF 50% (8.12 MEQ/2 ML-1 GM VIAL) IVPB ONE (08:30)
[2020-01-02] MEDS ORDERED: REGADENOSON 0.4 MG/5 ML PRE-FILLED SYRINGE IVPUSH ONE ×2 (09:00→10:29)
--- NOTE | 2020-01-02 09:18 | PN ---
Teaching Attending Note Name of Resident: Joseline Apodaca ATTENDING PHYSICIAN STATEMENT I saw and evaluated the patient. I reviewed the resident's note and discussed the case with the resident. I agree with the resident's findings and plan as documented. SUBJECTIVE: Patient is comfortable with no acute distress. c/o having weakness of lower ex tremities. OBJECTIVE: Vital Signs Temperature 99.3 F 01/02/20 13:59 Pulse Rate 89 01/02/20 13:59 Respiratory Rate 18 01/02/20 13:59 Blood Pressure repeat is 156/101 01/02/20 13:59 O2 Sat by Pulse Oximetry (%) 99 01/02/20 17:00 GENERAL: The patient is awake, alert, and fully oriented, in no acute distress. HEAD: Normal with no signs of trauma. EYES: PERRL, extraocular movements intact, sclera anicteric, conjunctiva clear. ENT: Ears normal,oropharynx clear without exudates, moist mucous membranes. NECK: Trachea midline, full range of motion, supple. LUNGS: Breath sounds equal, clear to auscultation bilaterally, no wheezes, no crackles, no accessory muscle use. HEART: Regular rate and rhythm, S1, S2 without murmur, rub or gallop. ABDOMEN: Soft, NT,ND, normoactive bowel sounds, no guarding, no rebound, no hepatosplenomegaly, no masses. EXTREMITIES: 2+ pulses, warm, well-perfused, no edema. NEUROLOGICAL: Cranial nerves II through XII grossly intact. Normal speech, gait not observed. PSYCH: Normal mood, normal affect. SKIN: Warm, dry, normal turgor, no rashes or lesions noted CBCD WBC 7.2 K/mm3 (4.0-10.0) 01/02/20 05:20 RBC 4.01 M/mm3 (3.60-5.2) 01/02/20 05:20 Hgb 13.3 GM/dL (10.7-15.3) 01/02/20 05:20 Hct 38.5 % (32.4-45.2) 01/02/20 05:20 MCV 96.0 fl (80-96) 01/02/20 05:20 MCHC 34.5 g/dl (32.0-36.0) 01/02/20 05:20 RDW 14.7 % (11.6-15.6) 01/02/20 05:20 Plt Count 216 K/MM3 (134-434) 01/02/20 05:20 MPV 8.2 fl (7.5-11.1) 01/02/20 05:20 CMP Sodium 137 mmol/L (136-145) 01/02/20 05:20 Potassium 3.5 mmol/L (3.5-5.1) 01/02/20 05:20 Chloride 97 mmol/L (98-107) L 01/02/20 05:20 Carbon Dioxide 31 mmol/L (21-32) 01/02/20 05:20 Anion Gap 9 MMOL/L (8-16) 01/02/20 05:20 BUN 5.5 mg/dL (7-18) L 01/02/20 05:20 Creatinine 0.5 mg/dL (0.55-1.3) L 01/02/20 05:20 Random Glucose 113 mg/dL (74-106) H 01/02/20 05:20 Calcium 8.3 mg/dL (8.5-10.1) L 01/02/20 05:20 Total Bilirubin 1.0 mg/dL (0.2-1) 01/02/20 05:20 AST 33 U/L (15-37) 01/02/20 05:20 ALT 24 U/L (13-61) 01/02/20 05:20 Alkaline Phosphatase 74 U/L (45-117) 01/02/20 05:20 Total Protein 7.2 g/dl (6.4-8.2) 01/02/20 05:20 Albumin 3.7 g/dl (3.4-5.0) 01/02/20 05:20 CARDIAC ENZYMES Troponin I < 0.02 ng/ml (0.00-0.05) 01/01/20 17:00 Current Medications Generic Name Dose Route Start Last Admin Trade Name Freq PRN Reason Stop Dose Admin Albuterol Sulfate 1 puff 01/01/20 18:06 Ventolin Hfa Inhaler - IH Q4H PRN SHORTNESS OF BREATH Aspirin 81 mg 01/02/20 10:00 Asa - PO DAILY [facility] Atorvastatin Calcium 10 mg 01/02/20 22:00 Lipitor - PO HS [facility] Enoxaparin Sodium 40 mg 01/02/20 10:00 Lovenox - SQ DAILY [facility] Sodium Chloride 1,000 mls @ 100 mls/hr 01/01/20 13:30 01/01/20 23:09 Normal Saline - IV 100 mls/hr ASDIR MARLA Administration Insulin Aspart 1 vial 01/01/20 22:00 01/02/20 06:01 Novolog Vial Sliding Scale - SQ Not Given ACHS [facility] Protocol Pantoprazole Sodium 40 mg 01/02/20 10:00 Protonix - PO DAILY [facility] Propranolol HCl 20 mg 01/02/20 10:00 Inderal - PO BID MARLA Thiamine HCl 100 mg 01/02/20 10:00 Vitamin B1 - PO DAILY [facility] Home Medications Medication Instructions Recorded Aspirin [ASA -] 81 mg PO DAILY 10/09/19 Simvastatin 5 mg PO DAILY 10/09/19 propRANOLol HCL [Inderal -] 10 mg PO BID 10/09/19 Albuterol Sulfate Inhaler - 1 puff IH Q4H PRN #2 inhaler 10/11/19 [Ventolin HFA Inhaler -] Budesonide/Formeterol Fumarate 1 - 2 inh PO BID #1 cannister 10/11/19 [SYMBICORT 80/4.5mcg -] Folic Acid 1 mg PO DAILY #30 tablet 10/11/19 Pantoprazole Sodium [Protonix -] 40 mg PO DAILY #30 tablet.ec 10/11/19 Thiamine HCl [Vitamin B1 -] 100 mg PO DAILY #30 tablet 10/11/19 Chest CTA shows no evidence of PE; bilateral calcified granulomas stress test is negative ASSESSMENT AND PLAN: This is a 59 year old woman with a history of alcohol abuse, obesity, gastric bypass, type 2 DM, HTN, HLD, COPD who comes to the ED complaining of p alpitations on and off for years. She is non-compliant with medications. she drank 1 pint of vodka prior to coming to ED. # Acute chest with Palpitations, sinus tachycardia; stress test is negative # alcohol dependence Thiamine, folic acid, multivitamin, no withdrawels #HTN Uncontrolled: patient is noncompliant with her meds. patient will continue will increase the dose of inderal to 20mg and also added losartan 50mg po bid, pATIENT will f/u with the resident's clininc with dr Manrique. # History of gastric bypass # Hyperlipidemia continue Zocor #Type 2 DM continue home meds # COPD Continue Symbicort
[2020-01-02] MEDS ORDERED: LOSARTAN POTASSIUM 50 MG TABLET (FP) ONE (09:58)
[2020-01-02] MEDS ORDERED: LOSARTAN POTASSIUM 50 MG TABLET (FP) PO SCH (10:00)
[2020-01-02] MEDS ORDERED: ASPIRIN 81 MG CHEWABLE TABLETS PO SCH (10:00)
[2020-01-02] MEDS ORDERED: THIAMINE HCL 100 MG TABLET (FP) PO SCH (10:00)
[2020-01-02] MEDS ORDERED: PANTOPRAZOLE 40 MG TABLET PO SCH (10:00)
[2020-01-02] MEDS ORDERED: ENOXAPARIN NA (PORCINE) 40 MG/0.4 ML DISP.SYRIN SQ SCH (10:00)
[2020-01-02 14:00] VITALS: TEMP 99.3
--- NOTE | 2020-01-02 14:24 | PN ---
Physical Exam: SUBJECTIVE: Patient seen and examined in the morning. No acute events overnight. No complaints of chest pain, shortness of breath, abdominal pain, nausea, vomiting, fevers, OBJECTIVE: Vital Signs Period Temp Pulse Resp BP Sys/Grossman Pulse Ox Last 24 Hr 97.7 F-99.3 F 66-119 18-20 139-174/91-103 96-100 GENERAL: The patient is awake, alert, and fully oriented, in no acute distress. HEAD: Normal with no signs of trauma. EYES: PERRL, extraocular movements intact, sclera anicteric, conjunctiva clear. No ptosis. NECK: Trachea midline, full range of motion, supple. LUNGS: CTAB HEART: Regular rate rhythm, s1 s2 without murmurs rubs or gallops ABDOMEN: Soft nontender, non distended. normoactive bowel sounds. EXTREMITIES: 2+ pulses, warm, well-perfused, no edema. NEUROLOGICAL: Cranial nerves II through XII grossly intact. PSYCH: Normal mood, normal affect. SKIN: Warm, dry, normal turgor, no rashes or lesions noted Laboratory Results - last 24 hr 01/01/20 01/01/20 01/01/20 05:20 17:00 22:56 WBC RBC Hgb Hct MCV MCH MCHC RDW Plt Count MPV Absolute Neuts (auto) Neutrophils % Lymphocytes % Monocytes % Eosinophils % Basophils % Nucleated RBC % PT with INR INR PTT (Actin FS) Sodium Potassium Chloride Carbon Dioxide Anion Gap BUN Creatinine Est GFR (CKD-EPI)AfAm Est GFR (CKD-EPI)NonAf POC Glucometer 126 Random Glucose Hemoglobin A1c % Calcium Phosphorus Magnesium Total Bilirubin AST ALT Alkaline Phosphatase Troponin I < 0.02 < 0.02 Total Protein Albumin 01/02/20 01/02/20 01/02/20 05:20 05:20 05:20 WBC 7.2 RBC 4.01 Hgb 13.3 Hct 38.5 MCV 96.0 MCH 33.1 MCHC 34.5 RDW 14.7 Plt Count 216 MPV 8.2 Absolute Neuts (auto) 4.5 Neutrophils % 62.2 D Lymphocytes % 26.1 D Monocytes % 9.1 Eosinophils % 1.8 D Basophils % 0.8 Nucleated RBC % 0 PT with INR 11.80 INR 1.00 PTT (Actin FS) 30.2 Sodium 137 Potassium 3.5 Chloride 97 L Carbon Dioxide 31 Anion Gap 9 BUN 5.5 L Creatinine 0.5 L Est GFR (CKD-EPI)AfAm 121.92 Est GFR (CKD-EPI)NonAf 105.20 POC Glucometer Random Glucose 113 H Hemoglobin A1c % Calcium 8.3 L Phosphorus 2.8 Magnesium 1.5 L Total Bilirubin 1.0 AST 33 ALT 24 Alkaline Phosphatase 74 Troponin I Total Protein 7.2 Albumin 3.7 01/02/20 01/02/20 01/02/20 05:26 08:00 13:09 WBC RBC Hgb Hct MCV MCH MCHC RDW Plt Count MPV Absolute Neuts (auto) Neutrophils % Lymphocytes % Monocytes % Eosinophils % Basophils % Nucleated RBC % PT with INR INR PTT (Actin FS) Sodium Potassium Chloride Carbon Dioxide Anion Gap BUN Creatinine Est GFR (CKD-EPI)AfAm Est GFR (CKD-EPI)NonAf POC Glucometer 131 142 Random Glucose Hemoglobin A1c % 6.3 Calcium Phosphorus Magnesium Total Bilirubin AST ALT Alkaline Phosphatase Troponin I Total Protein Albumin Active Medications Generic Name Dose Route Start Last Admin Trade Name Freq PRN Reason Stop Dose Admin Albuterol Sulfate 1 puff 01/01/20 18:06 Ventolin Hfa Inhaler - IH Q4H PRN SHORTNESS OF BREATH Aspirin 81 mg 01/02/20 10:00 01/02/20 09:22 Asa - PO 81 mg DAILY MARLA Administration Atorvastatin Calcium 10 mg 01/02/20 22:00 Lipitor - PO HS MARLA Enoxaparin Sodium 40 mg 01/02/20 10:00 01/02/20 09:22 Lovenox - SQ 40 mg DAILY MARLA Administration Sodium Chloride 1,000 mls @ 100 mls/hr 01/01/20 13:30 01/01/20 23:09 Normal Saline - IV 100 mls/hr ASDIR MARLA Administration Insulin Aspart 1 vial 01/01/20 22:00 01/02/20 13:10 Novolog Vial Sliding Scale - SQ Not Given ACHS MARLA Protocol Losartan Potassium 50 mg 01/02/20 10:00 01/02/20 10:03 Cozaar - PO 50 mg DAILY MARLA Administration Pantoprazole Sodium 40 mg 01/02/20 10:00 01/02/20 09:22 Protonix - PO 40 mg DAILY MARLA Administration Thiamine HCl 100 mg 01/02/20 10:00 01/02/20 09:22 Vitamin B1 - PO 100 mg DAILY MARLA Administration ASSESSMENT/PLAN: 59 y.o female with PMH of HTN HLD DM CHF (last EF 55-60) COPD alcohol abuse presents to the ED with complaints of palpitations 1) Palpitations - ASA 81 mg PO daily - Troponin negative < 0.02 - CTA negative, Chest X-Ray negative. Vascular study negative. - No acute EKG changes - Stress test shows normal lexiscan results and normal myocardial perfusion. - Continue Atorvastatin 10 mg PO HS - Continue Losartan 50 mg PO Daily 2) DM - Not on meds currently - ISS ACHS - BGM ACHS 3) COPD - Continue symbicort 4) Hx of CHF - Last echo showed EF of 55-60% DVT: Lovenox Dispo: Monitor on tele Visit type - Emergency Visit Emergency Visit: Yes ED Registration Date: 01/01/20 Care time: The patient presented to the Emergency Department on the above date and was hospitalized for further evaluation of their emergent condition. - New Patient This patient is new to me today: No - Critical Care Critical Care patient: No ATTENDING PHYSICIAN STATEMENT I saw and evaluated the patient. I reviewed the resident's note and discussed the case with the resident. I agree with the resident's findings and plan as documented. SUBJECTIVE: OBJECTIVE: ASSESSMENT AND PLAN:
[2020-01-02] MEDS ORDERED: LOSARTAN POTASSIUM 50 MG TABLET (FP) PO ONE (15:23)
[2020-01-02 18:35] VITALS: BP 156/101; PULSE 82
--- NOTE | 2020-01-02 18:53 | DS ---
Physical Exam: SUBJECTIVE:Patient seen and examined in the morning. No acute events overnight. No complaints of chest pain, shortness of breath, abdominal pain, nausea, vomiting, fevers, OBJECTIVE: Vital Signs Period Temp Pulse Resp BP Sys/Grossman Pulse Ox Last 24 Hr 97.7 F-99.3 F 66-119 16-20 139-174/91-103 96-100 PHYSICAL EXAM GENERAL: The patient is awake, alert, and fully oriented, in no acute distress. HEAD: Normal with no signs of trauma. EYES: PERRL, extraocular movements intact, sclera anicteric, conjunctiva clear. No ptosis. NECK: Trachea midline, full range of motion, supple. LUNGS: CTAB HEART: Regular rate rhythm, s1 s2 without murmurs rubs or gallops ABDOMEN: Soft nontender, non distended. normoactive bowel sounds. EXTREMITIES: 2+ pulses, warm, well-perfused, no edema. NEUROLOGICAL: Cranial nerves II through XII grossly intact. PSYCH: Normal mood, normal affect. SKIN: Warm, dry, normal turgor, no rashes or lesions noted . LABS Laboratory Results - last 24 hr 01/01/20 01/01/20 01/02/20 05:20 22:56 05:20 WBC 7.2 RBC 4.01 Hgb 13.3 Hct 38.5 MCV 96.0 MCH 33.1 MCHC 34.5 RDW 14.7 Plt Count 216 MPV 8.2 Absolute Neuts (auto) 4.5 Neutrophils % 62.2 D Lymphocytes % 26.1 D Monocytes % 9.1 Eosinophils % 1.8 D Basophils % 0.8 Nucleated RBC % 0 PT with INR INR PTT (Actin FS) Sodium Potassium Chloride Carbon Dioxide Anion Gap BUN Creatinine Est GFR (CKD-EPI)AfAm Est GFR (CKD-EPI)NonAf POC Glucometer 126 Random Glucose Hemoglobin A1c % Calcium Phosphorus Magnesium Total Bilirubin AST ALT Alkaline Phosphatase Troponin I < 0.02 Total Protein Albumin 01/02/20 01/02/20 01/02/20 05:20 05:20 05:26 WBC RBC Hgb Hct MCV MCH MCHC RDW Plt Count MPV Absolute Neuts (auto) Neutrophils % Lymphocytes % Monocytes % Eosinophils % Basophils % Nucleated RBC % PT with INR 11.80 INR 1.00 PTT (Actin FS) 30.2 Sodium 137 Potassium 3.5 Chloride 97 L Carbon Dioxide 31 Anion Gap 9 BUN 5.5 L Creatinine 0.5 L Est GFR (CKD-EPI)AfAm 121.92 Est GFR (CKD-EPI)NonAf 105.20 POC Glucometer 131 Random Glucose 113 H Hemoglobin A1c % Calcium 8.3 L Phosphorus 2.8 Magnesium 1.5 L Total Bilirubin 1.0 AST 33 ALT 24 Alkaline Phosphatase 74 Troponin I Total Protein 7.2 Albumin 3.7 01/02/20 01/02/20 01/02/20 08:00 13:09 16:36 WBC RBC Hgb Hct MCV MCH MCHC RDW Plt Count MPV Absolute Neuts (auto) Neutrophils % Lymphocytes % Monocytes % Eosinophils % Basophils % Nucleated RBC % PT with INR INR PTT (Actin FS) Sodium Potassium Chloride Carbon Dioxide Anion Gap BUN Creatinine Est GFR (CKD-EPI)AfAm Est GFR (CKD-EPI)NonAf POC Glucometer 142 255 Random Glucose Hemoglobin A1c % 6.3 Calcium Phosphorus Magnesium Total Bilirubin AST ALT Alkaline Phosphatase Troponin I Total Protein Albumin HOSPITAL COURSE: Date of Admission:01/01/20 Date of Discharge: 01/02/20 59 y.o female with PMH of HTN HLD DM CHF (last EF 55-60) COPD alcohol abuse presented to the ED with complaints of palpitations. EKG negative, vascular study negative, CTA negative. Stress test shows normal lexiscan results and normal myocardial perfusion. Patient had elevated blood pressures was continued on Propranolol 10 BID PO and started on Losartan 50mg PO BID. Patient will follow up with [facility] on 01/06/20. IMAGING: Limited examination, as described above. There is suboptimal enhancement of the pulmonary arteries. However, there is no gross evidence of a pulmonary embolus within the main pulmonary artery and its proximal branches. Correlate clinically to determine further evaluation and follow-up. Bilateral calcified pulmonary nodules with the largest in the right middle lobe measuring 6.5 mm compatible with calcified granulomas. CHEST X-RAY: No acute chest pathology. Right granulomata. Minutes to complete discharge: 30 Discharge Summary Problems reviewed: Yes Reason For Visit: CHEST PAIN Condition: Stable - Instructions Diet, Activity, Other Instructions: You were admitted to the hospital because you were having palpitations. While you were here we started you on your blood pressure medication and evaluated your heart with a stress test. Your exam was negative and you are fit for discharge. We started you on a new blood pressure medication: Losartan 50 mg, by mouth, twice a day Propranolol 10 mg, by mouth, twice a day. You should follow up with a machine design checker to have holter monitoring completed to have a longer observation of your heart rhythm. You are strongly encouraged to decrease and quit drinking alcohol. We are including a referral to a detox/rehab facility to help you in quitting drinking. Please follow up with our primary care clinic this 01/06/20 to establish care and have custodial follow up of your conditions. Please follow up with Dr. Solo, a machine design checker, to have further care of your palpitations and heart failure. Please follow up with [facility] for further detox and rehab options. Referrals: Kirk Solo MD [Staff Physician] - 1 Week Chris Trevino DO [Staff Physician] - 1 Week [facility] [place], [place] [facility] [place] [Provider Group] - 01/06/20 Disposition: HOME - Home Medications Comprehensive Discharge Medication List: Ambulatory Orders Aspirin [ASA -] 81 mg PO DAILY 10/09/19 Simvastatin 5 mg PO DAILY 10/09/19 Albuterol Sulfate Inhaler - [Ventolin HFA Inhaler -] 1 puff IH Q4H PRN #2 inhaler 10/11/19 Budesonide/Formeterol Fumarate [SYMBICORT 80/4.5mcg -] 1 - 2 inh PO BID #1 cannister 10/11/19 Folic Acid 1 mg PO DAILY #30 tablet 10/11/19 Pantoprazole Sodium [Protonix -] 40 mg PO DAILY #30 tablet.ec 10/11/19 Thiamine HCl [Vitamin B1 -] 100 mg PO DAILY #30 tablet 10/11/19 Losartan Potassium [Cozaar -] 50 mg PO BID #60 tablet 01/02/20 propRANOLol HCL [Inderal -] 10 mg PO BID #60 tablet 01/02/20 This patient is new to me today: Yes Date on this admission: 01/02/20 Emergency Visit: No Critical Care patient: No - Discharge Referral Referred to [facility] No ATTENDING PHYSICIAN STATEMENT I saw and evaluated the patient. I reviewed the resident's note and discussed the case with the resident. I agree with the resident's findings and plan as documented. SUBJECTIVE: OBJECTIVE: ASSESSMENT AND PLAN:
[2020-01-02] MEDS ORDERED: ATORVASTATIN CA 10 MG TABLET (FP) PO SCH (22:00)
== END 2020-01-02 19:21 | disposition home or self-care (01) ==
LOC: JER 11:15 → JERBED 16:33 → J2W 22:42 → J4S 01-02 13:43
PROVIDERS: ADMIT Internal Medicine; ATTEND Internal Medicine
PROC: 3E0337Z Introduction of Electrolytic and Water Balance Substance into Peripheral Vein, Percutaneous Approach (ICD-10-PCS; principal; 2020-01-01)
PROC: 3E033GC Introduction of Other Therapeutic Substance into Peripheral Vein, Percutaneous Approach (ICD-10-PCS; 2020-01-01)
PROC: 3E033VG Introduction of Insulin into Peripheral Vein, Percutaneous Approach (ICD-10-PCS; 2020-01-01)
DX: R07.89 Other chest pain (principal); R00.2 Palpitations; R00.0 Tachycardia, unspecified; F10.220 Alcohol dependence with intoxication, uncomplicated; I11.0 Hypertensive heart disease with heart failure; I50.9 Heart failure, unspecified; E78.5 Hyperlipidemia, unspecified; E11.9 Type 2 diabetes mellitus without complications; J44.9 Chronic obstructive pulmonary disease, unspecified; D64.9 Anemia, unspecified; K21.9 Gastro-esophageal reflux disease without esophagitis; Z79.82 Long term (current) use of aspirin; Z98.84 Bariatric surgery status
CPT/HCPCS: 36415; 71045-TC-FY; 71275-TC; 78452-TC; 80053; 82962; 83036; 83735; 84100; 84484; 85025; 85610; 85730; 93005; 93010; 93017; 93971-TC; 97116-GP; 97161-GP; 99285-25; A9502; G0378; J2785; J7030

== ENCOUNTER 2020-01-17 08:59 | Emergency (ER) | payer BC ==
[2020-01-17 09:10] VITALS: BP 137/86; PULSE 83; TEMP 98.2; BMI 28.3
[2020-01-17] MEDS ORDERED: ACETAMINOPHEN 500 MG TABLET (FP) PO ONE (09:45)
--- NOTE | 2020-01-17 09:45 | PDOC ---
History of Present Illness - General Chief Complaint: Chest Pain Stated Complaint: INTOXIC Time Seen by Provider: 01/17/20 09:29 History Source: Patient Exam Limitations: Clinical Condition - History of Present Illness Initial Comments: 01/17/20 09:54 Patient with a history of alcohol abuse, hypertension, hyperlipidemia and diabetes presented with complaint of 3 hours history of throbbing midsternal chest pain similar to her symptoms 3 days ago. Patient reported drinking a pint of vodka between yesterday and today. Patient was seen in the ED 3 days ago for same symptoms and all work-up was negative including cardiac work-up. Patient denies shortness of breath, vomiting, fever, dizziness, palpitation, numbness or tingling sensation or weakness. Patient reported increased pain when she pressed on the middle of her chest. Patient did not take anything for pain Is this a multiple visit Asthma Patient?: No Timing/Duration: 1-3 hours Past History - Past Medical History Allergies/Adverse Reactions: Allergies Allergy/AdvReac Type Severity Reaction Status Date / Time No Known Allergies Allergy Verified 01/17/20 09:10 Home Medications: Ambulatory Orders Aspirin [ASA -] 81 mg PO DAILY 10/09/19 Simvastatin 5 mg PO DAILY 10/09/19 Albuterol Sulfate Inhaler - [Ventolin HFA Inhaler -] 1 puff IH Q4H PRN #2 inhaler 10/11/19 Budesonide/Formeterol Fumarate [SYMBICORT 80/4.5mcg -] 1 - 2 inh PO BID #1 cannister 10/11/19 Folic Acid 1 mg PO DAILY #30 tablet 10/11/19 Pantoprazole Sodium [Protonix -] 40 mg PO DAILY #30 tablet.ec 10/11/19 Thiamine HCl [Vitamin B1 -] 100 mg PO DAILY #30 tablet 10/11/19 Losartan Potassium [Cozaar -] 50 mg PO BID #60 tablet 01/02/20 propRANOLol HCL [Inderal -] 20 mg PO BID #60 tablet 01/02/20 Anemia: Yes Asthma: Yes Cancer: No Cardiac Disorders: Yes CVA: No COPD: Yes CHF: Yes (On Toprol) Dementia: No Diabetes: Yes GI Disorders: Yes (gerd) Disorders: No HTN: Yes Hypercholesterolemia: Yes Kidney Stones: No Liver Disease: No Seizures: No Thyroid Disease: No - Surgical History Abdominal Surgery: Yes (GASTRIC BYPASS in 2005,HYSTERECTOMY in 2011) Appendectomy: No Cardiac Surgery: No Cholecystectomy: No Lung Surgery: No Neurologic Surgery: No Orthopedic Surgery: No - Reproductive History PID: No - Immunization History Td Vaccination: Yes TDAP Vaccination: Yes Immunization Up to Date: Yes - Psycho Social/Smoking Cessation Hx Smoking History: Never smoked Have you smoked in the past 12 months: No 'Breaking Loose' booklet given: 06/03/18 Hx Alcohol Use: Yes Drug/Substance Use Hx: No Substance Use Type: Alcohol Hx Substance Use Treatment: No Review of Systems - Review of Systems Able to Perform ROS?: Yes Is the patient limited Latvian proficient: No Constitutional: No: Chills, Fever, Malaise HEENTM: No: Symptoms Reported, See HPI, Eye Pain, Blurred Vision, Tearing, Recent change in vision, Double Vision, Cataracts, Ear Pain, Ocular Prothesis, Ear Discharge, Nose Pain, Nose Congestion, Tinnitus, Nose Bleeding, Hearing Loss, Throat Pain, Throat Swelling, Mouth Pain, Dental Problems, Difficulty Swallowing, Mouth Swelling, Other Respiratory: No: Symptoms reported, See HPI, Cough, Orthopnea, Shortness of Breath, SOB with Exertion, SOB at Rest, Stridor, Wheezing, Productive cough, Hemoptysis, Other Cardiac (ROS): Yes: Symptoms Reported, See HPI, Chest Pain (midsternum pain). No: Edema, Irregular Heart Rate, Lightheadedness, Palpitations, Syncope, Chest Tightness, Other ABD/GI: No: Symptoms Reported, Constipated, Diarrhea, Nausea, Vomiting, Abdominal cramping : No: Symptoms Reported Integumentary: No: Symptoms Reported, Change in Hair/Nails, Sweating Neurological: No: Symptoms reported, Headache, Weakness, Dizziness All Other Systems: Reviewed and Negative *Physical Exam - Vital Signs Last Vital Signs Temp Pulse Resp BP Pulse Ox 98.2 F 83 16 137/86 98 01/17/20 09:07 01/17/20 09:07 01/17/20 09:07 01/17/20 09:07 01/17/20 09:07 - Physical Exam General Appearance: Yes: Nourished, Appropriately Dressed. No: Apparent Distress HEENT: positive: Normal ENT Inspection, Pharynx Normal Neck: positive: Supple Respiratory/Chest: positive: Chest Tender (moderate reproduceable low midsternum tenderness), Lungs Clear, Normal Breath Sounds. negative: Respiratory Distress, Accessory Muscle Use Cardiovascular: positive: Regular Rhythm, Regular Rate Musculoskeletal: positive: Normal Inspection Extremity: positive: Normal Inspection Integumentary: positive: Normal Color Neurologic: positive: Fully Oriented, Alert, Normal Mood/Affect, Normal Response Medical Decision Making - Medical Decision Making 01/17/20 09:55 Patient with a history of alcohol abuse, hypertension, hyperlipidemia and diabetes presented with complaint of 3 hours history of throbbing midsternal chest pain similar to her symptoms 3 days ago. Patient reported drinking a pint of vodka between yesterday and today. Patient was seen in the ED 3 days ago for same symptoms and all work-up was negative including cardiac work-up. Patient denies shortness of breath, vomiting, fever, dizziness, palpitation, numbness or tingling sensation or weakness. Patient reported increased pain when she pressed on the middle of her chest. Patient did not take anything for pain Clinical exam unremarkable except moderate reproducible lower midsternal chest tenderness. Normal cardio exam. Patient in no acute distress. EKG done shows normal sinus rhythm and unchanged from EKG 3 days ago. Patient symptoms likely costochondritis and stable for discharge with advised to decrease alcohol intake and strict follow-up instructions. Tylenol 500 mg p.o. given for pain prior to discharge Discharge - Discharge Information Problems reviewed: Yes Clinical Impression/Diagnosis: Costochondral chest pain Alcohol intoxication Qualifiers: Complication of substance-induced condition: uncomplicated Qualified Code(s): F10.920 - Alcohol use, unspecified with intoxication, uncomplicated Condition: Stable Disposition: HOME - Admission No - Follow up/Referral Referrals: Tara Plummer [Primary Care Provider] - - Patient Discharge Instructions Patient Printed Discharge Instructions: DI for Costochondritis, DI for Alcohol Poisoning Additional Instructions: Your chest pain is caused by muscle pain. Your EKG looks normal from EKG 3 days ago. You can take Tylenol as needed for pain. Rest and decrease alcohol intake. Follow-up with your primary care - Post Discharge Activity
[2020-01-17] MEDS ORDERED: ACETAMINOPHEN 500 MG TABLET (FP) ONE (09:48)
--- NOTE | 2020-01-17 10:26 | EKG ---
Test Reason : Blood Pressure : / mmHG Vent. Rate : 079 BPM Atrial Rate : 079 BPM P-R Int : 180 ms QRS Dur : 092 ms QT Int : 410 ms P-R-T Axes : 053 052 049 degrees QTc Int : 470 ms NORMAL SINUS RHYTHM POSSIBLE LEFT ATRIAL ENLARGEMENT WHEN COMPARED WITH ECG OF 16-JAN-2020 14:45, NO SIGNIFICANT CHANGE WAS FOUND Confirmed by HOMAR ANTONY MD ([id number]) on 01/17/2020 10:25:40 AM Referred By: Confirmed By:HOMAR ANTONY MD
== END 2020-01-17 09:50 | disposition home or self-care (01) ==
LOC: JER 08:59
DX: R07.89 Other chest pain (principal); F10.129 Alcohol abuse with intoxication, unspecified
CPT/HCPCS: 93005; 93010; 99283-25; T1023-GT

== ENCOUNTER 2020-05-11 04:11 | Emergency (ER) | payer BC, OTHER ==
--- NOTE | 2020-05-11 04:16 | PDOC ---
History of Present Illness - General Chief Complaint: Palpitations Stated Complaint: PALPATATIONS Time Seen by Provider: 05/11/20 04:15 History Source: Patient - History of Present Illness Initial Comments: 05/11/20 04:41 HPI: This is a 60 y/o female with a PMH of DM, HTN, HLD presenting to the ED because of palpitations and pain in her chest that she has had "for the past three years." She reports that she was home drinking before the pain got worse and she wanted to come in. She states that the pain has improved now that she is here. She said that she drinks 1 pint every other week. Nothing aggravates or improves the pain. She states that she has accompanying shortness of breath. She say that she always has shortness of breath. She denies radiation, nausea, vomiting, lightheadedness, diaphoresis, or abdominal pain. ROS: GENERAL/CONSTITUTIONAL: No fever/chills. No weakness. HEAD, EYES, EARS, NOSE AND THROAT: No change in vision. No sore throat. CARDIOVASCULAR: Yes chest pain and shortness of breath. RESPIRATORY: No cough or hemoptysis. GASTROINTESTINAL: No nausea, vomiting. GENITOURINARY: No dysuria, frequency MUSCULOSKELETAL: No joint or muscle swelling or pain. No neck or back pain. NEUROLOGIC: No headache, loss of consciousness, or change in strength/sensation. ENDOCRINE: No increased thirst. No abnormal weight change. HEMATOLOGIC/LYMPHATIC: No anemia, or history of blood clots. PMH: HTN, HLD, DM Social Hx: Former tobacco smoker, quit 17 yrs ago. Hx of Etoh abuse Meds: See nurses note Allergies: KNDA PE: GENERAL: Awake, alert, and fully oriented, in no acute distress HEAD: No signs of trauma EYES: PERRL, EOMI ENT: Hearing grossly normal. Moist mucosa NECK: Normal ROM, supple, no JVD, or masses LUNGS: Breath sounds equal, clear to auscultation bilaterally. No wheezes, and no crackles HEART: Regular rate and rhythm, normal S1 and S2 ABDOMEN: Soft, nontender. No guarding, no rebound. EXTREMITIES: Normal range of motion, no edema. Peripheral pulses palpable bilaterally in lower extremities. NEUROLOGICAL: Cranial nerves II through XII grossly intact. Normal speech. SKIN: Warm, Dry, normal turgor, no rashes or lesions noted. 05/11/20 04:47 This is a 60 y/o female with a PMH of DM, HTN, HLD presenting to the ED because of palpitations and pain in her chest that she has had "for the past three years." Patient frequently presents to the Ed with similar symptoms. She had a stress test this year which showed no regional wall abnormalities and an EF of 65%. Ddx: ACS, AL, ischemia, GERD, gastritis - CBC - CMP - Cardiac profile - CXR 05/11/20 04:58 CBC WBC 5.5 K/mm3 (4.0-10.0) 05/11/20 04:51 RBC 4.53 M/mm3 (3.60-5.2) 05/11/20 04:51 Hgb 14.4 GM/dL (10.7-15.3) 05/11/20 04:51 Hct 42.9 % (32.4-45.2) 05/11/20 04:51 MCV 94.7 fl (80-96) 05/11/20 04:51 MCH 31.8 pg (25.7-33.7) 05/11/20 04:51 MCHC 33.6 g/dl (32.0-36.0) 05/11/20 04:51 RDW 14.5 % (11.6-15.6) 05/11/20 04:51 Plt Count 155 K/MM3 (134-434) D 05/11/20 04:51 MPV 7.3 fl (7.5-11.1) L 05/11/20 04:51 Absolute Neuts (auto) 2.3 K/mm3 (1.5-8.0) 05/11/20 04:51 Neutrophils % 41.2 % (42.8-82.8) L D 05/11/20 04:51 Lymphocytes % 49.6 % (8-40) H D 05/11/20 04:51 Monocytes % 6.2 % (3.8-10.2) 05/11/20 04:51 Eosinophils % 2.2 % (0-4.5) D 05/11/20 04:51 Basophils % 0.8 % (0-2.0) 05/11/20 04:51 Nucleated RBC % 0 % (0-0) 05/11/20 04:51 No leukocytosis, no anemia CMP Sodium 141 mmol/L (136-145) 05/11/20 04:51 Potassium 3.8 mmol/L (3.5-5.1) 05/11/20 04:51 Chloride 103 mmol/L (98-107) 05/11/20 04:51 Carbon Dioxide 31 mmol/L (21-32) 05/11/20 04:51 Anion Gap 8 MMOL/L (8-16) 05/11/20 04:51 BUN 11.7 mg/dL (7-18) 05/11/20 04:51 Creatinine 0.7 mg/dL (0.55-1.3) 05/11/20 04:51 Est GFR (CKD-EPI)AfAm 108.38 05/11/20 04:51 Est GFR (CKD-EPI)NonAf 93.51 05/11/20 04:51 Random Glucose 107 mg/dL (74-106) H 05/11/20 04:51 Calcium 8.2 mg/dL (8.5-10.1) L 05/11/20 04:51 Total Bilirubin 0.4 mg/dL (0.2-1) 05/11/20 04:51 AST 39 U/L (15-37) H 05/11/20 04:51 ALT 26 U/L (13-61) 05/11/20 04:51 Alkaline Phosphatase 78 U/L (45-117) 05/11/20 04:51 Creatine Kinase 202 U/L (26-192) H 05/11/20 04:51 Creatine Kinase Index No Result Required. 05/11/20 04:51 CK-MB (CK-2) < 1.0 ng/mL (0.5-3.6) 05/11/20 04:51 Troponin I < 0.02 ng/ml (0.00-0.05) 05/11/20 04:51 Total Protein 7.3 g/dl (6.4-8.2) 05/11/20 04:51 Albumin 3.7 g/dl (3.4-5.0) 05/11/20 04:51 Electrolytes WNL Troponin negative Patients chest pain resolved prior to arrival Labs WNL Troponin negative EKG unchaged from prior EKG Doubt cardiac cause due to patient complaining of same pain for past 3 years. Stress test earlier this year with no ischemic changes. Negative troponin and EKG unchanged. Will d/c with follow-up 05/11/20 06:16 Past History - Medical History Allergies/Adverse Reactions: Allergies Allergy/AdvReac Type Severity Reaction Status Date / Time No Known Allergies Allergy Verified 05/11/20 04:17 Home Medications: Ambulatory Orders Aspirin [ASA -] 81 mg PO DAILY 10/09/19 Simvastatin 5 mg PO DAILY 10/09/19 Albuterol Sulfate Inhaler - [Ventolin HFA Inhaler -] 1 puff IH Q4H PRN #2 inhaler 10/11/19 Budesonide/Formeterol Fumarate [SYMBICORT 80/4.5mcg -] 1 - 2 inh PO BID #1 page ister 10/11/19 Folic Acid 1 mg PO DAILY #30 tablet 10/11/19 Pantoprazole Sodium [Protonix -] 40 mg PO DAILY #30 tablet.ec 10/11/19 Thiamine HCl [Vitamin B1 -] 100 mg PO DAILY #30 tablet 10/11/19 Losartan Potassium [Cozaar -] 50 mg PO BID #60 tablet 01/02/20 propRANOLol HCL [Inderal -] 20 mg PO BID #60 tablet 01/02/20 Anemia: Yes Asthma: Yes Cancer: No Cardiac Disorders: Yes CVA: No COPD: Yes CHF: Yes (On Toprol) Dementia: No Diabetes: Yes GI Disorders: Yes (gerd) Disorders: No HTN: Yes Hypercholesterolemia: Yes Kidney Stones: No Liver Disease: No Seizures: No Thyroid Disease: No - Surgical History Abdominal Surgery: Yes (GASTRIC BYPASS in 2004,HYSTERECTOMY in 2010) Appendectomy: No Cardiac Surgery: No Cholecystectomy: No Lung Surgery: No Neurologic Surgery: No Orthopedic Surgery: No - Reproductive History PID: No - Immunization History Td Vaccination: Yes TDAP Vaccination: Yes Immunization Up to Date: Yes - Psycho-Social/Smoking History Smoking History: Never smoked Have you smoked in the past 12 months: No 'Breaking Loose' booklet given: 06/03/18 Heart Score/ECG Review - History History: Slightly suspicious - Electrocardiogram EKG: Non specific repolarization disturbance - Age Age: 45-65 - Risk Factors Risk Factors Heart Score: Yes Hx Hypertension, Yes Hx Diabetes Based on the list above the patient has:: 1-2 risk factors - Troponin Troponin: </= normal limit - Score Heart Score - Total: 3 - ECG Intrepretation Comment:: EKG with normal sinus rhythm. Vent rate 85bpm, VA interval 183ms, QRS duration 88ms, QT/QTc 408/485ms. 05/11/20 06:18 ED Treatment Course - LABORATORY CBC & Chemistry Diagram: 05/11/20 04:51 05/11/20 04:51 Discharge - Discharge Information Problems reviewed: Yes Clinical Impression/Diagnosis: Palpitations Condition: Good Disposition: HOME - Admission No - Follow up/Referral Referrals: [facility] [Provider Group] Ben Zheng MD [Staff Physician] - - Patient Discharge Instructions Patient Printed Discharge Instructions: DI for Palpitations Additional Instructions: You were evaluated in the emergency department for a complaint of palpitations. You were given an physical exam, blood work, and an EKG. There was nothing concerning during the physical exam, on the blood work, and the EKG was unchanged from your last one. You reported that your symptoms improved by the time you got to the ED. 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 Please follow-up within the next week. Return to the ED with any new or concerning symptoms. Return if you experience chest pain, worsening shortness of breath, nausea/vomiting, or loss of consciousness. - Post Discharge Activity
[2020-05-11 04:18] VITALS: BMI 26.8
--- NOTE | 2020-05-11 04:44 | PDOC ---
Attending Attestation - Resident Resident Name: Nga Wylie - ED Attending Attestation I have performed the following: I have examined & evaluated the patient, The case was reviewed & discussed with the resident, I agree w/resident's findings & plan - HPI HPI: 05/11/20 04:44 60 y.o female with PMH of HTN HLD DM CHF (last EF 55-60) COPD alcohol abuse presented to the ED with complaints of palpitations which has been there for "years" and "a long time." last admission in December 2019 for her chest palpitations where workup unremarkable - vascular study negative, CTA negative. Stress test shows normal lexiscan results and normal myocardial perfusion. Patient had elevated blood pressures was continued on Propranolol 10 BID PO and started on Losartan 50mg PO BID. Patient will follow [facility] with [facility]20. 05/11/20 05:00 - Physicial Exam PE: 05/11/20 04:59 Agree with the resident's HPI and PE as documented in the electronic medical record. NAD, well appearing, EOMI, PERRL, nl conjunctiva, anicteric; neck supple. lungs clear, RRR, abdomen soft nontender. no rebound, guarding. Back nontender. OVGT x4, no focal neuro deficits. No peripheral edema. normal color for ethnicity, WWP. No calf tenderness, no tremors, speech clear - Medical Decision Making 05/11/20 04:44 Vital Signs Temp Pulse Resp BP Pulse Ox 97.1 F L 96 H 16 133/86 100 05/11/20 04:15 05/11/20 04:15 05/11/20 04:15 05/11/20 04:15 05/11/20 04:15 vitals reviewed, wnl, reassuring no cp or sob now. no chest palpitations. DDx: ACS, coronary vasospasm, NSTEMI, arrhythmia, unstable angina, PE, dissection, PUD, esophageal spasm, GERD, gastritis, costochondritis, pneumonia, pleurisy, pericarditis/myocarditis. dehydration, electrolyte/metabolic derangements. Considered but clinically doubt based on HPI and PE: Low suspicion for pulmonary embolism or dissection. Prior notes reviewed, patient was last admitted in December for similar symptoms with negative stress test, CT angios also negative for PE and unremarkable work- up. EKG normal sinus rhythm, no interval abnormalities, narrow QRS, ST and T wave segments and morphology normal. Nonspecific T wave abnormalities, unchanged from prior labs and lytes wnl, reassuring neg trop, unlikely cardiac asymptomatic here. sober, no e/o intoxication 05/11/20 05:56 Pt to be discharged in stable condition. Patient made aware of clinical impression, treatment recommendations and disposition plan, return precautions discussed (including but not limited to new or persistent/worsening symptoms, pain, fevers, or signs of infection, chest pain, respiratory distress, inability to tolerate oral intake, dehydration, syncope, or neurologic changes). Follow up with PMD and/or specialist as recommended, follow up information provided, take medications as instructed for duration of time. continue with supportive care, avoid triggers and precipitants. All questions answered to patient's satisfaction and expressed understanding and comfort with this. At the time of discharge, the patient is alert, clinically improved, tolerating po and verbalizes understanding of instructions, satisfied with the care received and felt comfortable with the plan. Patient does not suffer from an acute life- threatening medical condition at this time and is safe for outpatient follow-up. Heart Score/ECG Review #2 ECG reviewed & interpreted by me at: 04:45 General ECG Interpretation: Sinus Rhythm, Normal Rate, Normal Intervals Compared to previous ECG there are: No significant change 05/11/20 04:58 EKG normal sinus rhythm 85 bpm, no interval abnormalities, narrow QRS, ST and T wave segments and morphology normal. Nonspecific T wave abnormalities Discharge - Discharge Information Problems reviewed: Yes Clinical Impression/Diagnosis: Palpitations Condition: Good Disposition: HOME - Admission No - Follow up/Referral - Patient Discharge Instructions - Post Discharge Activity
[2020-05-11 05:07] LABS: BASO % 0.8 % (0-2.0); EOS % 2.2 % (0-4.5); HEMATOCRIT 42.9 % (32.4-45.2); HEMOGLOBIN 14.4 GM/dL (10.7-15.3); LYMPH % 49.6 % (8-40); MCH 31.8 pg (25.7-33.7); MCHC 33.6 g/dl (32.0-36.0); MEAN CELL VOLUME 94.7 fl (80-96); MEAN PLT VOLUME 7.3 fl (7.5-11.1); MONO % 6.2 % (3.8-10.2); NEUT % 41.2 % (42.8-82.8); PLATELET COUNT 155 K/MM3 (134-434); RBC 4.53 M/mm3 (3.60-5.2); RDW 14.5 % (11.6-15.6); WHITE BLOOD COUNT 5.5 K/mm3 (4.0-10.0)
[2020-05-11 05:30] LABS: ALBUMIN 3.7 g/dl (3.4-5.0); ALK PHOS 78 U/L (45-117); ANION GAP 8 MMOL/L (8-16); BILIRUBIN,TOTAL 0.4 mg/dL (0.2-1); BLOOD UREA NITROGEN 11.7 mg/dL (7-18); CALCIUM 8.2 mg/dL (8.5-10.1); CHLORIDE 103 mmol/L (98-107); CO2 31 mmol/L (21-32); CREATININE 0.7 mg/dL (0.55-1.3); GLUCOSE,RANDOM 107 mg/dL (74-106); POTASSIUM 3.8 mmol/L (3.5-5.1); SGOT/AST 39 U/L (15-37); SGPT/ALT 26 U/L (13-61); SODIUM 141 mmol/L (136-145); TOT PROT 7.3 g/dl (6.4-8.2)
[2020-05-11 05:50] VITALS: BP 114/88; PULSE 95; TEMP 97.2
--- NOTE | 2020-05-11 09:08 | EKG ---
Test Reason : Blood Pressure : / mmHG Vent. Rate : 085 BPM Atrial Rate : 085 BPM P-R Int : 184 ms QRS Dur : 088 ms QT Int : 408 ms P-R-T Axes : 061 065 074 degrees QTc Int : 485 ms NORMAL SINUS RHYTHM NORMAL ECG WHEN COMPARED WITH ECG OF 17-JAN-2020 09:25, NO SIGNIFICANT CHANGE WAS FOUND Confirmed by Olivier Perez ([id number]) on 05/11/2020 9:08:09 AM Referred By: Confirmed By:Olivier Perez
== END 2020-05-11 06:45 | disposition home or self-care (01) ==
LOC: JER 04:11
DX: R00.2 Palpitations (principal)
CPT/HCPCS: 36415; 80053; 82550; 82553; 84484; 85025; 93005; 93010; 99285-25

== ENCOUNTER 2020-06-02 08:11 | Emergency (ER) | payer BC, OTHER ==
[2020-06-02 08:24] VITALS: TEMP 98.8; BMI 26.6
--- NOTE | 2020-06-02 08:26 | PDOC ---
History of Present Illness - General Chief Complaint: Substance Abuse Stated Complaint: INTOX Time Seen by Provider: 06/02/20 08:26 - History of Present Illness Initial Comments: 60 YOF h/o CHF, diabetes, and alcohol abuse presents for alcohol intoxication. Patient reports that she drank a large portion of vodka in the 6 hours prior to presenting to the emergency department and upon her husbands urging chose to present to the ED for alcohol intoxication. She also mentions some palpitation however denies CP, SOB, N/V/D, fever or chills. Constitutional: No Weight Change, No Fever, No Chills, No Night Sweats, No Fatigue, No Malaise ENT/Mouth: No Hearing Changes, No Ear Pain, No Nasal Congestion, No Sinus Pain, No Hoarseness, No sore throat, No Rhinorrhea, No Swallowing Difficulty Eyes: No Eye Pain, No Swelling, No Redness, No Foreign Body, No Discharge, No Vision Changes Cardiovascular: No Chest Pain, No SOB, No PND, No Dyspnea on Exertion, No Orthopnea, No Claudication, No Edema Respiratory: No Cough, No Sputum, No Wheezing, No Smoke Exposure, No Dyspnea Gastrointestinal: No Nausea, No Vomiting, No Diarrhea, No Constipation, No Pain, No Heartburn, No Anorexia, No Dysphagia, No Hematochezia, No Melena, No F latulence, No Jaundice Genitourinary: No Dysmenorrhea, No DUB, No Dyspareunia, No Dysuria, No Urinary Frequency, No Hematuria, No Urinary Incontinence, No Urgency, No Flank Pain, No Urinary Flow Changes, No Hesitancy Musculoskeletal: No Arthralgias, No Myalgias, No Joint Swelling, No Joint Stiffness, No Back Pain, No Neck Pain, No Injury History Skin: No Skin Lesions, No Pruritis, No Hair Changes, No Breast/Skin Changes, No Nipple Discharge Neuro: No Weakness, No Numbness, No Paresthesias, No Loss of Consciousness, No Syncope, No Dizziness, No Headache, No Coordination Changes, No Recent Falls Psych: No Anxiety/Panic, No Depression, No Insomnia, No Personality Changes, No Delusions, No Rumination, No SI/HI/AH/VH, No Social Issues, No Memory Changes, No Violence/Abuse Hx., No Eating Concerns Heme/Lymph: No Bruising, No Bleeding, No Transfusions History, No Lymphadenopathy Endocrine: No Polyuria, No Polydipsia, No Temperature Intolerance 06/02/20 18:24 Past History - Medical History Allergies/Adverse Reactions: Allergies Allergy/AdvReac Type Severity Reaction Status Date / Time No Known Allergies Allergy Verified 06/02/20 08:24 Home Medications: Ambulatory Orders Aspirin [ASA -] 81 mg PO DAILY 10/09/19 Simvastatin 5 mg PO DAILY 10/09/19 Albuterol Sulfate Inhaler - [Ventolin HFA Inhaler -] 1 puff IH Q4H PRN #2 inhaler 10/11/19 Budesonide/Formeterol Fumarate [SYMBICORT 80/4.5mcg -] 1 - 2 inh PO BID #1 cannister 10/11/19 Folic Acid 1 mg PO DAILY #30 tablet 10/11/19 Pantoprazole Sodium [Protonix -] 40 mg PO DAILY #30 tablet.ec 10/11/19 Thiamine HCl [Vitamin B1 -] 100 mg PO DAILY #30 tablet 10/11/19 Losartan Potassium [Cozaar -] 50 mg PO BID #60 tablet 01/02/20 propRANOLol HCL [Inderal -] 20 mg PO BID #60 tablet 01/02/20 Anemia: Yes Asthma: Yes Cancer: No Cardiac Disorders: Yes CVA: No COPD: Yes CHF: Yes (On Toprol) Dementia: No Diabetes: Yes GI Disorders: Yes (gerd) Disorders: No HTN: Yes Hypercholesterolemia: Yes Kidney Stones: No Liver Disease: No Psychiatric Problems: Yes (drinks etoh everyday.) Seizures: No Thyroid Disease: No - Surgical History Abdominal Surgery: Yes (GASTRIC BYPASS in 2004,HYSTERECTOMY in 2010) Appendectomy: No Cardiac Surgery: No Cholecystectomy: No Lung Surgery: No Neurologic Surgery: No Orthopedic Surgery: No - Reproductive History Is Patient Now?: No PID: No - Immunization History Td Vaccination: Yes TDAP Vaccination: Yes Immunization Up to Date: Yes - Psycho-Social/Smoking History Smoking History: Never smoked Have you smoked in the past 12 months: No 'Breaking Loose' booklet given: 06/03/18 - Substance Abuse Hx (Audit-C & DAST Scrn) How often the patient has a drink containing alcohol: 4 0r more times/wk Number of drinks the patient has on a typical day: 1 or 2 Score: In Men: 4 or > Positive; In Women: 3 or > Positive: 4 Screen Result (Pos requires Nsg. Audit-10AR): Positive In the last yr the pt used illegal drug/Rx for NonMed reason: No Score: Yes response is considered Positive: 0 Screen Result (Positive result requires Nsg. DAST-10): Negative *Physical Exam - Vital Signs Last Vital Signs Temp Pulse Resp BP Pulse Ox 98.8 F 82 16 117/75 98 06/02/20 08:11 06/02/20 08:11 06/02/20 08:11 06/02/20 08:11 06/02/20 08:11 - Physical Exam General Appearance: Yes: Nourished, Appropriately Dressed, Intoxicated HEENT: positive: EOMI, RAFY, Normal ENT Inspection, Normal Voice Neck: positive: Trachea midline, Normal Thyroid Respiratory/Chest: positive: Chest Tender, Lungs Clear, Normal Breath Sounds Cardiovascular: positive: Regular Rhythm, Regular Rate, S1, S2 Gastrointestinal/Abdominal: positive: Normal Bowel Sounds, Tender, Flat, Soft Extremity: positive: Normal Capillary Refill, Normal Inspection, Normal Range of Motion Integumentary: positive: Normal Color, Dry, Warm Neurologic: positive: hair dresser II-XII NML intact, Fully Oriented, Alert, Normal Mood/Affect, Normal Response, Motor Strength / ED Treatment Course - LABORATORY CBC & Chemistry Diagram: 06/02/20 09:25 06/02/20 09:25 Medical Decision Making - Medical Decision Making 60 YOF h/o CHF, diabetes, and alcohol abuse presents for alcohol intoxication. Patient reports that she drank a large portion of vodka in the 6 hours prior to presenting to the emergency department and upon her husbands urging chose to present to the ED for alcohol intoxication. She also mentions some palpitation however denies CP, SOB, N/V/D, fever or chills. Vitals wnl. Physical exam unremarkable. ddx: intoxication plan: EKG, labs, will give patient food and fluids and dc to home. reassess: EKG wnl, labs wnl. d/c patient to home dispo: home 06/02/20 18:26 Discharge - Discharge Information Problems reviewed: Yes Clinical Impression/Diagnosis: Alcohol abuse Disposition: HOME - Follow up/Referral Referrals: Chris Trevino DO [Staff Physician] - - Patient Discharge Instructions Patient Printed Discharge Instructions: Alcohol Use Disorder - Post Discharge Activity
--- NOTE | 2020-06-02 08:57 | PDOC ---
Attending Attestation - Resident Resident Name: Bertin Naylor - ED Attending Attestation I have performed the following: I have examined & evaluated the patient, The case was reviewed & discussed with the resident, I agree w/resident's findings & plan, Exceptions are as noted - HPI HPI: 06/02/20 10:25 60y F hx of etoh abuse presents with complaint of palpitations. pt states she drinks vodka daily, but hasnt had a drink since yesterday. she endorses feeling some palpitations. denie sany othe rocmplaints including headache, back pain, ches tpain, abd pain, n/v, lightheadeness. - Physicial Exam PE: 06/02/20 10:27 GENERAL: The patient is awake, alert, and fully oriented, Nontoxic - in no acute distress. HEAD: Normocephalic, atraumatic. EYES: extraocular movements intact, sclera anicteric, conjunctiva clear. ENT: Normal voice, Moist mucous membranes. NECK: Normal range of motion, supple LUNGS: Breath sounds equal, clear to auscultation bilaterally. No wheezes, no rhonchi, no rales. HEART: Regular rate and rhythm, normal S1 and S2 without murmur, rub or gallop. ABDOMEN: Soft, nontender, No guarding, no rebound. No CVA tenderness EXTREMITIES: Normal range of motion, no edema. NEUROLOGICAL: No facial assymetry, Normal speech, atremulous PSYCH: Normal mood, normal affect. SKIN: Warm, Dry, normal turgor, - Medical Decision Making 06/02/20 10:31 will ck labs to r/o anemia, metabolic derangement ekg to screen for arrythmia will reasesss no signs of acute withdrawal 06/02/20 11:00 pts labs reviewed noted for slightly elevated will HAIDER flores pt anticip[ate dc with outpatient fu Heart Score/ECG Review - ECG Impressions Comment:: 06/02/20 10:31 Twelve-lead EKG was performed and reviewed by me. There is normal sinus rhythm with a normal rate. rate of 86 The axis is normal. The intervals are normal. There is normal R wave progression There are no ST or T wave abnormalities. Impression: Normal twelve-lead EKG Discharge - Discharge Information Problems reviewed: Yes Clinical Impression/Diagnosis: Alcohol abuse Condition: Improved Disposition: HOME - Admission No - Follow up/Referral Referrals: Chris Trevino DO [Staff Physician] - - Patient Discharge Instructions Patient Printed Discharge Instructions: Alcohol Use Disorder - Post Discharge Activity
[2020-06-02 10:06] LABS: BASO % 1.3 % (0-2.0); EOS % 1.4 % (0-4.5); HEMATOCRIT 41.8 % (32.4-45.2); LYMPH % 46.8 % (8-40); MCH 32.4 pg (25.7-33.7); MCHC 33.5 g/dl (32.0-36.0); MEAN CELL VOLUME 96.5 fl (80-96); MEAN PLT VOLUME 7.5 fl (7.5-11.1); MONO % 3.9 % (3.8-10.2); NEUT % 46.6 % (42.8-82.8); PLATELET COUNT 245 K/MM3 (134-434); RBC 4.33 M/mm3 (3.60-5.2); RDW 14.6 % (11.6-15.6); WHITE BLOOD COUNT 5.9 K/mm3 (4.0-10.0)
[2020-06-02 10:22] LABS: ALBUMIN 3.6 g/dl (3.4-5.0); ALK PHOS 69 U/L (45-117); ANION GAP 8 MMOL/L (8-16); BILIRUBIN,TOTAL 0.2 mg/dL (0.2-1); BLOOD UREA NITROGEN 10.1 mg/dL (7-18); CALCIUM 8.2 mg/dL (8.5-10.1); CHLORIDE 109 mmol/L (98-107); CO2 30 mmol/L (21-32); CREATININE 0.6 mg/dL (0.55-1.3); GLUCOSE,RANDOM 102 mg/dL (74-106); POTASSIUM 3.7 mmol/L (3.5-5.1); SGOT/AST 35 U/L (15-37); SGPT/ALT 23 U/L (13-61); SODIUM 147 mmol/L (136-145); TOT PROT 7.3 g/dl (6.4-8.2)
[2020-06-02 12:33] VITALS: BP 139/74; PULSE 84
--- NOTE | 2020-06-03 13:16 | EKG ---
Test Reason : Blood Pressure : / mmHG Vent. Rate : 086 BPM Atrial Rate : 086 BPM P-R Int : 176 ms QRS Dur : 090 ms QT Int : 374 ms P-R-T Axes : 055 068 066 degrees QTc Int : 447 ms POOR DATA QUALITY, INTERPRETATION MAY BE ADVERSELY AFFECTED NORMAL SINUS RHYTHM NORMAL ECG WHEN COMPARED WITH ECG OF 11-MAY-2020 04:43, NO SIGNIFICANT CHANGE WAS FOUND Confirmed by MD PEDRO PABLO, DEO ([id number]) on 06/03/2020 1:16:25 PM Referred By: Confirmed By:DEO CHAMORRO MD
== END 2020-06-02 12:21 | disposition home or self-care (01) ==
LOC: JER 08:11
DX: F10.10 Alcohol abuse, uncomplicated (principal)
CPT/HCPCS: 36415; 80053; 82550; 84484; 85025; 93005; 93010; 99284-25

== ENCOUNTER 2020-07-17 20:09 | Inpatient (IN) | payer BC, OTHER ==
--- NOTE | 2020-07-17 20:29 | PDOC ---
History of Present Illness - General Stated Complaint: VOMITING BLEED Time Seen by Provider: 07/17/20 20:28 History Source: Patient Exam Limitations: No Limitations - History of Present Illness Initial Comments: 07/17/20 20:28 Maria G Bell is a 60F with PMH asthma, anemia, CHF, COPD, HTN, HLD, EtOH use disorder, presenting intoxicated with report of bloody stools. Per EMS, patient picked up from home, saw some bloody stools, BIBA to [facility] ED for evaluation. Patient is intoxicated, history limited. Reports drinking at least 1 pint of vodka, denies other alcohol, medications, drugs. Has no recollection of the last thing she did today or how she arrived at ED. Denies chest pain, SOB, MEYER, blurry vision, dizziness, abd pain, N/V, diarrhea, urinary symptoms. Denies vomiting or having bloody diarrhea. Denies pain or trauma. Denies LOC or fall. Denies any numbness/tingling/weakness to body. Denies SI/HI. Reported PSH hysterectomy and gastric weight loss surgery. Does not recall medications. Past History - Medical History Allergies/Adverse Reactions: Allergies Allergy/AdvReac Type Severity Reaction Status Date / Time No Known Allergies Allergy Verified 07/17/20 20:17 Anemia: Yes Asthma: Yes Cancer: No Cardiac Disorders: Yes CVA: No COPD: Yes CHF: Yes (On Toprol) Dementia: No Diabetes: Yes GI Disorders: Yes (gerd) Disorders: No HTN: Yes Hypercholesterolemia: Yes Kidney Stones: No Liver Disease: No Psychiatric Problems: Yes (drinks etoh everyday.) Seizures: No Thyroid Disease: No - Surgical History Abdominal Surgery: Yes (GASTRIC BYPASS in 2004,HYSTERECTOMY in 2010) Appendectomy: No Cardiac Surgery: No Cholecystectomy: No Lung Surgery: No Neurologic Surgery: No Orthopedic Surgery: No - Reproductive History PID: No - Immunization History Td Vaccination: Yes TDAP Vaccination: Yes Immunization Up to Date: Yes - Psycho-Social/Smoking History Smoking History: Smoker current status UNK Have you smoked in the past 12 months: No 'Breaking Loose' booklet given: 06/03/18 Review of Systems - Review of Systems Able to Perform ROS?: No (intoxicated) *Physical Exam - Physical Exam General Appearance: Yes: Nourished, Appropriately Dressed, Other (restingi n bed in NAD, NCAT, sleepy but arousable). No: Apparent Distress HEENT: positive: EOMI, RAFY, Normal Voice, Symmetrical, Pharynx Normal. negative: Scleral Icterus (R), Scleral Icterus (L), Pharyngeal Erythema, Tonsillar Exudate, Tonsillar Erythema Neck: positive: Trachea midline, Normal Thyroid, Supple. negative: Tender, Rigid, Decreased range of motion, Lymphadenopathy (R), Lymphadenopathy (L), Tender lateral, Tender midline Respiratory/Chest: positive: Lungs Clear, Normal Breath Sounds. negative: Chest Tender, Respiratory Distress, Accessory Muscle Use, Crackles, Rales, Rhonchi, Stridor, Wheezing Cardiovascular: positive: Regular Rhythm, Regular Rate. negative: Murmur, Tachycardia Gastrointestinal/Abdominal: positive: Normal Bowel Sounds, Flat, Soft. negative: Tender, Organomegaly, Pulsatile Mass, Guarding, Rebound Rectal Exam: positive: normal rectal tone, other (rectal exam normal tone and pink light stool, some dried blood noted around rectum, no hemorrhoids). negative: hemorrhoids Musculoskeletal: positive: Normal Inspection. negative: CVA Tenderness, Decr eased Range of Motion, Vertebral Tenderness Extremity: positive: Normal Capillary Refill, Normal Inspection, Normal Range of Motion, Pelvis Stable, Pedal Edema (BLE feet to knees), Swelling. negative: Tender, Calf Tenderness Integumentary: positive: Normal Color, Dry, Warm Neurologic: positive: steam distribution supervisor II-XII NML intact, Alert, Normal Mood/Affect, Normal Response, Motor Strength 5/5. negative: Fully Oriented (self, birthday, year, location, not to president or day/time), Facial Droop ED Treatment Course - LABORATORY CBC & Chemistry Diagram: 07/17/20 21:00 07/17/20 21:00 Medical Decision Making - Medical Decision Making 07/17/20 20:28 Patient is intoxicated, BIBA for rectal bleeding seen and reported by EMS. Hypotensive without tachycardia, exam notable for some blood around rectum on LOVE, no active bleeding, abdomen soft and non-tender. Evaluating for GIB as well as anemia/metabolic disruption. CBC/CMP/CP/FOBT/ECG/CXR/Coags/T&S/ETOH 07/17/20 22:43 Labs notable for: - Hgb 11.3, no anemia - K 3.4 - ETOH 189.6 - remaining labs reviewed and WNL - FOBT negative, despite reddish tinge of sample Given Protonix 40mg IV for presumed GIB. 07/17/20 22:45 CXR appears unremarkable for new pathology, poor quality at skew angle, ?cardiomegaly ECG SR with 1st degree AV block, HR 76, QTc 452, no MARGAUX/D or TWI. Will admit for intoxication and eval lower GIB. 07/18/20 00:03 Discussed case with admitting team, accepted for admission to [facility] for suspected GIB. Stable at this time, no emergent bleeding needing immediate GI consult, can be evaluated in the morning. Discharge - Discharge Information Problems reviewed: Yes Clinical Impression/Diagnosis: Rectal bleeding Alcohol intoxication Qualifiers: Complication of substance-induced condition: uncomplicated Qualified Code(s): F10.920 - Alcohol use, unspecified with intoxication, uncomplicated Condition: Stable - Admission Yes - Follow up/Referral - Patient Discharge Instructions - Post Discharge Activity
--- NOTE | 2020-07-17 20:34 | PDOC ---
Attending Attestation - Resident Resident Name: Geronimo Yu - ED Attending Attestation I have performed the following: I have examined & evaluated the patient, The case was reviewed & discussed with the resident, I agree w/resident's findings & plan - HPI HPI: 07/17/20 22:08 Pt is an alcoholic who drinks vodka, was drinking today and she is currently intoxicated. Pt had rectal bleeding. SHe was brought in by EMS. She lives with her son. Pt has good color. She has no abd pain and no complaints. She is sleeping comfortably and she has normal vitals. - Physicial Exam PE: 07/17/20 22:09 Agree with resident exam+blood in rectum no abd pain and no flank pain and no fever [id number] lungs CTAB - Medical Decision Making 07/17/20 22:10 Pt will have labs and she will be admitted for GI eval.. EKG NSR ; 1st degree AV block 07/17/20 22:11 CXR single view recumbent position; lung rodriguez look equal and clear bilaterally. 07/17/20 23:22 Pt's HB is WNL at 11.3; however this is a level that is lower than pt's usual 07/17/20 23:23 BUN is normal 07/17/20 23:35 Pt is guaiac negative; however she had visible blood on the rectal exam Discharge - Discharge Information Problems reviewed: Yes Clinical Impression/Diagnosis: Rectal bleeding Alcohol intoxication Qualifiers: Complication of substance-induced condition: uncomplicated Qualified Code(s): F10.920 - Alcohol use, unspecified with intoxication, uncomplicated Condition: Stable - Follow up/Referral - Patient Discharge Instructions - Post Discharge Activity
[2020-07-17] MEDS ORDERED: PANTOPRAZOLE SODIUM 40 MG VIAL IVPUSH ONE (21:24)
[2020-07-17] MEDS ORDERED: PANTOPRAZOLE SODIUM 40 MG VIAL ONE (21:37)
[2020-07-17 22:01] LABS: BASO % 0.6 % (0-2.0); HEMOGLOBIN 11.3 GM/dL (10.7-15.3); LYMPH % 39.3 % (8-40); MCH 32.6 pg (25.7-33.7); MCHC 33.3 g/dl (32.0-36.0); MEAN CELL VOLUME 98.1 fl (80-96); MEAN PLT VOLUME 8.6 fl (7.5-11.1); MONO % 9.7 % (3.8-10.2); NEUT % 49.4 % (42.8-82.8); PLATELET COUNT 202 K/MM3 (134-434); RBC 3.47 M/mm3 (3.60-5.2); RDW 14.4 % (11.6-15.6); WHITE BLOOD COUNT 7.1 K/mm3 (4.0-10.0)
[2020-07-17 22:07] LABS: INR 1.04 (0.83-1.09); PROTHROMBIN TIME (PATIENT) 12.3 SEC (9.7-13.0)
[2020-07-17 22:10] LABS: ACTIVATED PTT 30.9 SECONDS (25.2-36.5)
[2020-07-17 22:32] LABS: ALBUMIN 3.4 g/dl (3.4-5.0); ALK PHOS 65 U/L (45-117); ANION GAP 6 MMOL/L (8-16); BILIRUBIN,TOTAL 0.1 mg/dL (0.2-1); BLOOD UREA NITROGEN 11.8 mg/dL (7-18); CALCIUM 8.4 mg/dL (8.5-10.1); CHLORIDE 111 mmol/L (98-107); CO2 29 mmol/L (21-32); CREATININE 0.5 mg/dL (0.55-1.3); GLUCOSE,RANDOM 100 mg/dL (74-106); POTASSIUM 3.4 mmol/L (3.5-5.1); SGOT/AST 20 U/L (15-37); SGPT/ALT 19 U/L (13-61); SODIUM 146 mmol/L (136-145); TOT PROT 6.4 g/dl (6.4-8.2)
[2020-07-17] MEDS ORDERED: FOLIC ACID INJECTION - 1 MG, THIAMINE HCL 100 MG, MULTIVIT INJECTION ADULT 10 ML in SOD... IVPB ONE (23:21)
--- NOTE | 2020-07-17 23:24 | PN ---
Teaching Attending Note Name of Resident: Osito Mckoy ATTENDING PHYSICIAN STATEMENT I saw and evaluated the patient. I reviewed the resident's note and discussed the case with the resident. I agree with the resident's findings and plan as documented. SUBJECTIVE: Patient is a 60 year old woman with a PMH of Asthma, Anemia, Hysterectomy, Layo vic weight loss surgery, ?HFpEF (LVEF 60-65%; 10/10/2019), COPD, HTN, HLD, Seizures, NIDDM and Alcohol abuse presenting intoxicated with report of bloody stools.Per EMS, patient picked up from home, saw some bloody stools, BIBA to [facility] ED for evaluation. Unable to provide further information due to intoxication. Reports drinking at least 1 pint of vodka. Has no recollection of the last thing she did today or how she arrived at ED. Patient denies chest pain, shortness of breath, abdominal pain, headache, palpitations, dizziness, fever, chills, nausea, vomiting, diarrhea, constipation, dysuria, frequency, urgency, melena or hematuria. Denies tobacco or illicit drug use. No sick contacts or recent travels. Family history is unremarkable. OBJECTIVE: Alert Vital Signs Period Temp Pulse Resp BP Sys/Grossman Pulse Ox Last 24 Hr 97.7 F 85 18 95/67 95 HEENT: No Jaundice, eye redness or discharge, PERRLA, EOMI. Normocephalic, atraumatic. External ears are normal and hearing is grossly intact. No nasal discharge. Neck: Supple, nontender. No palpable adenopathy or thyromegaly. No JVD Chest: Good effort. Clear to auscultation and percussion. Heart: Regular. No S3, rub or murmur Abdomen: Not distended, soft, nontender and no HSM. No rebound or guarding. Normal bowel sounds. Ext: Peripheral pulses intact. No leg edema. LOVE showed blood around rectum. Skin: Warm and dry. No petechiae, rash or ecchymosis. Neuro: Alert. Oriented x3. CN 2-12 grossly intact. Sensation grossly intact in all four extremities and DTR are symmetric. Psych: Appropriate mood and affect. Good insight. Abnormal Lab Results 07/17/20 07/17/20 21:00 21:00 RBC 3.47 L MCV 98.1 H Sodium 146 H Potassium 3.4 L Chloride 111 H Anion Gap 6 L Creatinine 0.5 L Calcium 8.4 L Total Bilirubin 0.1 L Alcohol, Quantitative 189.6 H Current Medications Generic Name Dose Route Start Last Admin Trade Name Collin PRN Reason Stop Dose Admin Folic Acid 1 mg/ Thiamine HCl 1,000 mls @ 125 mls/hr 07/17/20 23:21 100 mg/ Multivitamins/Minerals IVPB 07/18/20 07:20 10 ml/ Sodium Chloride ONCE ONE ASSESSMENT AND PLAN: 1. Alcohol intoxication/Rectal bleeding - CXR shows cardiomegaly with no evidence of acute lung disease. Will admit to telemetry, keep him NPO, give Protonix 40 mg IV bid, check HCT q 6 hours and consult GI. Hypokalemia likely partly due to alcohol associated urinary wasting. Will check serum magnesium, give IV and PO KCL. Viral testing for COVID-19 ordered and patient placed on airborne, droplet and contact isolation. EKG shows NSR at 76/minute, 1o AV block and QTc 452 with no significant acute ischemic ST-T wave changes. Initial troponin is negative. [facility] and do neurochecks. Implement seizure, fall and aspiration precautions. Treat with IV Banana bag, thiamine and folic acid. Monitor and replete electrolytes (Ca,Mg,K,P). Counseled patient about abstaining from alcohol. Will consult accounts payable specialist and refer to alcohol detox upon discharge. Will continue comprehensive care for all of patie nts comorbid conditions. 2. Hypoalbuminemia - Possibly due to combined effects of malnutrition and inflammation associated with comorbid conditions. Will ensure adequate dietary protein intake and also consult warm in worker. Urinalysis pending. 3. DM For now, we will hold the home diabetes drugs and implement sliding scale insulin regimen. Provide comprehensive diabetes care with patient teaching and counseling about the importance of adherence to prescribed diabetes regimen, euglycemia, eye care and foot care. 4. Hypertension Will restart suitable outpatient antihypertensive drugs when clinically appropriate. Subsequently, will revise regimen to ensure [id number] excellent BP control. Patient counseled on the injurious effects of uncontrolled hypertension. Nonpharmacologic measures to control hypertension like weight loss, salt restriction and exercise stressed. Importance of adherence to treatment regimen and attainment of normotension emphasized. 5. DVT prophylaxis - Lovenox 40 mg SQ q 24 hours. 6. Advance directives - Full code
[2020-07-18] MEDS ORDERED: POTASSIUM CHLORIDE TABS 10 MEQ TABLET.ER (FP) PO ONE (01:43)
[2020-07-18] MEDS ORDERED: KCL 10 MEQ IVPB 10 MEQ/100 ML INFUS.BAG IVPB SCH (01:45)
[2020-07-18 02:11] LABS: MAGNESIUM 1.9 mg/dL (1.8-2.4); N-TERMINAL BNP 117.7 pg/ml (5-125); PHOSPHOROUS 3.6 mg/dL (2.5-4.9)
--- NOTE | 2020-07-18 02:17 | HP ---
CHIEF COMPLAINT: Intoxication PCP: none [facility] HISTORY OF PRESENT ILLNESS: 60 Y F with a PMH of EtoH use disorder, asthma, HFpEF (60-65% in 2019), COPD, HTN, HLD, s/p hysterectomy, s/p gastric weight loss procedure, HTN, HLD BIBA to ER for alcohol intoxication and bright red blood per rectum. Patient was found at her home, with bright red bloody stool. Patient is intoxicated in ER, does not remember what happened or where she is and only answers questions with yes or no. Patient is non cooperative with the examination, not able to get more information ER course was notable for: (1) Na 146, K+ 3.4 (2) alcohol 189.6 (3) FOBT negative Recent Travel: PAST MEDICAL HISTORY: PAST SURGICAL HISTORY: Social History: non cooperative Smoking: Alcohol: Drugs: Allergies No Known Allergies Allergy (Verified 07/17/20 20:17) HOME MEDICATIONS: REVIEW OF SYSTEMS: Limited- intoxicated shakes her head, sometimes answers yes or/no CONSTITUTIONAL: Absent: fever, chills, diaphoresis HEENT: Absent: rhinorrhea, nasal congestion, throat pain, throat swelling CARDIOVASCULAR: Absent: chest pain, syncope, palpitations, RESPIRATORY: Absent: cough, shortness of breath, dyspnea with exertion, GASTROINTESTINAL: Absent: abdominal pain, abdominal distension, nausea, vomiting, diarrhea, constipation, melena, hematochezia GENITOURINARY: Absent: dysuria, frequency, urgency, hesitancy, hematuria, flank pain MUSCULOSKELETAL: Absent: myalgia, arthralgia, joint swelling, back pain, neck pain SKIN: PHYSICAL EXAMINATION Vital Signs - 24 hr 07/17/20 20:44 Temperature 97.7 F Pulse Rate 85 Respiratory 18 Rate Blood Pressure 95/67 O2 Sat by Pulse 95 Oximetry (%) GENERAL: Intoxicated, sleeping, responds to stimuli, arousable HEAD: Normal with no signs of trauma. EYES: Pupils equal, round and reactive to light, extraocular movements intact, sclera anicteric, conjunctiva clear. EARS, NOSE, THROAT: Ears normal, nares patent, oropharynx clear without exudates. Moist mucous membranes. NECK: Normal range of motion, supple without lymphadenopathy, JVD, or masses. LUNGS: Breath sounds equal, clear to auscultation bilaterally. No wheezes, and no crackles. No accessory muscle use. HEART: Regular rate and rhythm, normal S1 and S2 without murmur, rub or gallop. ABDOMEN: Soft, nontender, not distended, normoactive bowel sounds, no guarding, no rebound, no masses. Rectal: LOVE: dry blood surrounding the rectum, no visible hemorrhoids, no palpable mass, not actively bleeding UPPER EXTREMITIES: 2+ pulses, warm, well-perfused. No cyanosis. No clubbing. No peripheral edema. LOWER EXTREMITIES: 2+ pulses, warm, well-perfused. No calf tenderness. No peripheral edema. SKIN: Warm, dry, normal turgor, no rashes or lesions noted, normal capillary refill. Laboratory Results - last 24 hr 07/17/20 07/17/20 07/17/20 21:00 21:00 21:00 WBC 7.1 RBC 3.47 L Hgb 11.3 Hct 34.0 D MCV 98.1 H MCH 32.6 MCHC 33.3 RDW 14.4 Plt Count 202 MPV 8.6 D Absolute Neuts (auto) 3.5 Neutrophils % 49.4 Lymphocytes % 39.3 Monocytes % 9.7 D Eosinophils % 1.0 Basophils % 0.6 Nucleated RBC % 0 PT with INR 12.30 INR 1.04 PTT (Actin FS) 30.9 Sodium 146 H Potassium 3.4 L Chloride 111 H Carbon Dioxide 29 Anion Gap 6 L BUN 11.8 Creatinine 0.5 L Est GFR (CKD-EPI)AfAm 121.07 Est GFR (CKD-EPI)NonAf 104.46 Random Glucose 100 Calcium 8.4 L Total Bilirubin 0.1 L AST 20 ALT 19 Alkaline Phosphatase 65 Creatine Kinase 111 Troponin I < 0.02 Total Protein 6.4 Albumin 3.4 Stool Occult Blood Alcohol, Quantitative 189.6 H Blood Type Antibody Screen 07/17/20 07/17/20 21:00 21:00 WBC RBC Hgb Hct MCV MCH MCHC RDW Plt Count MPV Absolute Neuts (auto) Neutrophils % Lymphocytes % Monocytes % Eosinophils % Basophils % Nucleated RBC % PT with INR INR PTT (Actin FS) Sodium Potassium Chloride Carbon Dioxide Anion Gap BUN Creatinine Est GFR (CKD-EPI)AfAm Est GFR (CKD-EPI)NonAf Random Glucose Calcium Total Bilirubin AST ALT Alkaline Phosphatase Creatine Kinase Troponin I Total Protein Albumin Stool Occult Blood Negative Alcohol, Quantitative Blood Type O POSITIVE Antibody Screen Negative ASSESSMENT/PLAN: 60 Y F with a PMH of EtoH use disorder, asthma, HFpEF (60-65% in 2019), COPD, HTN, HLD, s/p hysterectomy, s/p gastric weight loss procedure, HTN, HLD BIBA to ER for alcohol intoxication and bright red blood per rectum, admitted for Lower GI bleed. #Lower GI bleed - BRBPR on EMS examination, dry blood surrounding the rectum in ER, not actively bleeding - H/h stable, will continue to monitor - GI consulted, Dr. Powell - NPO - Started Protonix 40mg BID #Alcohol intoxication - Patient is intoxicated, not actively withdrawing - will place CIWA Librium protocol when clinically appropriate - Continue with Thiamine, folic acid and banana bag #Hx of HTN - BP is low at this time, will continue to monitor - will hold Home BP meds #Hx of DM - BGM + ISS DVT ppx - SCDs FEN - No Standing fluids, will continue to monitor BP - will continue to monitor electrolytes, K+ 3.4, repleted, - NPO Dispo - Will continue to monitor in tele Family Medical History Family History: As Documented Visit type - Emergency Visit Emergency Visit: Yes ED Registration Date: 07/17/20 Care time: The patient presented to the Emergency Department on the above date and was hospitalized for further evaluation of their emergent condition. - New Patient This patient is new to me today: No - Critical Care Critical Care patient: No ATTENDING PHYSICIAN STATEMENT I saw and evaluated the patient. I reviewed the resident's note and discussed the case with the resident. I agree with the resident's findings and plan as documented. SUBJECTIVE: OBJECTIVE: ASSESSMENT AND PLAN:
[2020-07-18] MEDS ORDERED: DEXTROSE 50%-WATER - 25 GM/50 ML VIAL IVPUSH ONE (07:03)
[2020-07-18] MEDS: INSULIN SLIDING SCALE (NOVOLOG) 1 VIAL SQ SCH ×4 (07:35→21:23)
[2020-07-18] MEDS ORDERED: DEXTROSE 50%-WATER 25 GM/50 ML DISP.SYRIN ONE (07:43)
[2020-07-18 08:04] VITALS: BMI 26.2
[2020-07-18] MEDS ORDERED: DEXTROSE 5%-0.45% SALINE 1,000 ML IV SCH (08:15)
[2020-07-18 09:05] LABS: BASO % 0.9 % (0-2.0); EOS % 1.3 % (0-4.5); HEMATOCRIT 34.3 % (32.4-45.2); HEMOGLOBIN 11.6 GM/dL (10.7-15.3); LYMPH % 32.1 % (8-40); MCH 33.4 pg (25.7-33.7); MCHC 33.8 g/dl (32.0-36.0); MEAN CELL VOLUME 98.6 fl (80-96); MEAN PLT VOLUME 8.1 fl (7.5-11.1); MONO % 8.5 % (3.8-10.2); NEUT % 57.2 % (42.8-82.8); PLATELET COUNT 190 K/MM3 (134-434); RBC 3.48 M/mm3 (3.60-5.2); RDW 14.2 % (11.6-15.6); WHITE BLOOD COUNT 4.9 K/mm3 (4.0-10.0)
[2020-07-18 09:37] LABS: ALBUMIN 3.1 g/dl (3.4-5.0); BILIRUBIN,TOTAL 0.2 mg/dL (0.2-1); BLOOD UREA NITROGEN 7.5 mg/dL (7-18); CALCIUM 8.2 mg/dL (8.5-10.1); CREATININE 0.4 mg/dL (0.55-1.3); MAGNESIUM 1.7 mg/dL (1.8-2.4); PHOSPHOROUS 3.2 mg/dL (2.5-4.9); TOT PROT 6.1 g/dl (6.4-8.2)
--- NOTE | 2020-07-18 09:53 | CON.GI ---
Consult Consult Specialty:: GI Referred by:: Kristy Mcdermott Reason for Consultation:: rectal bleeding - History of Present Illness History of Present Illness: 60F admitted for evaluation of rectal bleeding. Seen once as inpatient 10/10 when she was admitted for chest pain. At that time she explained that she has a history of CHF but does not follow with a blender / cook. She was uncertain regarding the extent of her heart disease. At that time she described drinking alcohol since age 8 and drinks 2 pints of vodka per week. She also stated that whenever she drank alcohol, she vomited and after a few episodes of vomiting there can be blood streaks. I advised endoscopy at that time as well as outpatient screening colonoscopy, however she was discharged the next day. She has had no outpatient follow-up with me. She has attempted alcohol rehab 3 times unsuccessfuly. She believes that she had an EGD/Colonoscopy about 6 [place] but does not remember much about this. Currently. patient does not recall why she was admitted. Bright red blood per rectum was described in the H&P. Patient states that she continues to drink alco hol, did vomit and has blood streaked vomitus as well. Noted guaiac negative on specimen sent to the lab. No overt bleeding since admission. Vitals have remained stable. BUN is normal. hgb has remained stable. Normal platelet count and INR. She denies abdominal pain. There is no family history of liver disease, colorectal cancer or other GI malignancy. - History Source History Provided By: Patient, Medical Record Limitations to Obtaining History: No Limitations - Past Medical History Cardio/Vascular: Yes: CHF (does not know extent of heart issues. States was told of this by a blender / cook in [place]) Pulmonary: Yes: COPD ...LMP: 06/03/20 Psych: Yes: Addictions (Alcoholism) Endocrine: Yes: Diabetes Mellitus (DM II) - Past Surgical History Past Surgical History: Yes: Bypass (Gastric bypass), Hysterectomy (BRAIN/BSO) - Alcohol/Substance Use Hx Alcohol Use: Yes - Smoking History Smoking history: Smoker current status UNK Have you smoked in the past 12 months: No - Social History Usual Living Arrangement: Alone ADL: Independent History of Recent Travel: No Home Medications - Allergies Allergies/Adverse Reactions: Allergies Allergy/AdvReac Type Severity Reaction Status Date / Time No Known Allergies Allergy Verified 09/25/20 20:17 - Home Medications Home Medications: Ambulatory Orders NK [No Known Home Medication] 07/18/20 Family Medical History Other Family History: no family history of colorectal cance or other GI malignancy Review of Systems - Review of Systems Constitutional: denies: Chills Eyes: denies: Recent Change in Vision Cardiovascular: denies: Chest Pain Respiratory: denies: SOB Gastrointestinal: reports: Rectal Bleeding (resolved prior to admission). denies: Abdominal Pain, Melena Physical Exam-GI Vital Signs: Vital Signs Temperature 98.7 F 07/18/20 05:52 Pulse Rate 72 07/18/20 05:52 Respiratory Rate 18 07/18/20 05:52 Blood Pressure 134/81 07/18/20 05:52 O2 Sat by Pulse Oximetry (%) 100 07/18/20 05:52 Constitutional: Yes: Calm Eyes: No: Sclera Icterus Cardiovascular: Yes: Regular Rate and Rhythm. No: Murmur Respiratory: Yes: CTA Bilaterally Gastrointestinal Inspection: No: Distention ...Auscultate: Yes: Normoactive Bowel Sounds ...Palpate: Yes: Soft. No: Hepatomegaly, Splenomegaly, Tenderness ...Rectal Exam: Yes: Other (Sighter present: no external lesions, no masses, no blood/stool in rectal vault) Edema: No (No LE edema) Neurological: Yes: Alert Labs: CBC, BMP 07/18/20 08:40 07/18/20 08:40 INR, PTT INR 1.04 (0.83-1.09) 07/17/20 21:00 Hepatic Panel Total Bilirubin 0.2 mg/dL (0.2-1) 07/18/20 08:40 AST 21 U/L (15-37) 07/18/20 08:40 ALT 16 U/L (13-61) 07/18/20 08:40 Alkaline Phosphatase 50 U/L (45-117) 07/18/20 08:40 Albumin 3.1 g/dl (3.4-5.0) L 07/18/20 08:40 Problem List - Problems (1) Rectal bleeding Assessment/Plan: No overt bleeding, stable hemodynamics, normal BUN/Platelet count, normal INR. Advise: Clear diet Alcohol withdrawal precautions as she gives history of withdrawal. Last drink was yesterday prior to admission Monitor H/H and for overt bleeding Protonix 40mg once daily Discussed both upper endoscopy followed by colonoscopy with Ms. Bell to evaluate for sources of bleeding such as but not limited to PUD/marginal ulcer at gastroenteric anastamosis /Varices/Polyps/hemorrh oids/diverticulosis/polyps/cancers. Discussed potential risks of the procedure like but not limited to bleeding, perforation requiring surgery to repair, infection, sedation medication effects all of which could be potentially life threatening. She has agreed to the procedures. Evaluation into her CHF history prior to elective endoscopic evaluation, particularly given an admission last year for chest pain. Advised need for complete alcohol cessation Correction of lytes (magnesium) per primary team, particularly while on PPI Code(s): K62.5 - HEMORRHAGE OF ANUS AND RECTUM
[2020-07-18] MEDS ORDERED: PANTOPRAZOLE SODIUM 40 MG VIAL IVPUSH SCH (10:00)
[2020-07-18] MEDS ORDERED: ENOXAPARIN NA (PORCINE) 40 MG/0.4 ML DISP.SYRIN SQ SCH (10:00)
[2020-07-18] MEDS ORDERED: PANTOPRAZOLE 40 MG TABLET PO SCH (10:30)
--- NOTE | 2020-07-18 11:48 | PN ---
Physical Exam: SUBJECTIVE: Patient seen and examined at bedside. No acute events reported overnight. This morning patient denies any pain. OBJECTIVE: Vital Signs Period Temp Pulse Resp BP Sys/Grossman Pulse Ox Last 24 Hr 97.6 F-98.7 F 71-85 18-18 95-153/67-90 95-100 GENERAL: AAOx3, in no acute distress; laying in bed HEENT: NCAT, PERRLA, EOMI, sclera anicteric, conjunctiva clear, oropharynx clear w/o exudates. MMM. NECK: Normal ROM, supple, no lymphadenopathy, JVD, or masses LUNGS: CTABL no wheezes/ rhonchi/ rales. No distress, speaks in full sentences. No increased work of breathing. HEART: RRR, normal S1 S2, no M/R/G, peripheral pulses 2+ and equal b/l ABDOMEN: Soft, NTND, + BS. No guarding or rebound. No hepatomegaly or splenomegaly. MSK: ROM WNL EXTREMITIES: Normal inspection. No peripheral edema. No clubbing or cyanosis. NEUROLOGICAL: CN II-XII intact. Normal speech, normal gait, no focal sensorim otor deficits. SKIN: Warm, Dry, normal turgor, no rashes or lesions noted RECTAL: external: no lesions present; internal: no masses palpated, no blood observed on finger Laboratory Results - last 24 hr CBC, BMP 07/18/20 08:40 07/18/20 08:40 07/17/20 07/17/20 07/17/20 21:00 21:00 21:00 WBC 7.1 RBC 3.47 L Hgb 11.3 Hct 34.0 D MCV 98.1 H MCH 32.6 MCHC 33.3 RDW 14.4 Plt Count 202 MPV 8.6 D Absolute Neuts (auto) 3.5 Neutrophils % 49.4 Lymphocytes % 39.3 Monocytes % 9.7 D Eosinophils % 1.0 Basophils % 0.6 Nucleated RBC % 0 PT with INR 12.30 INR 1.04 PTT (Actin FS) 30.9 Sodium 146 H Potassium 3.4 L Chloride 111 H Carbon Dioxide 29 Anion Gap 6 L BUN 11.8 Creatinine 0.5 L Est GFR (CKD-EPI)AfAm 121.07 Est GFR (CKD-EPI)NonAf 104.46 POC Glucometer Random Glucose 100 Calcium 8.4 L Phosphorus 3.6 Magnesium 1.9 Total Bilirubin 0.1 L AST 20 ALT 19 Alkaline Phosphatase 65 Creatine Kinase 111 Troponin I < 0.02 B-Natriuretic Peptide 117.7 Total Protein 6.4 Albumin 3.4 Vitamin B12 Serum Folate Stool Occult Blood Alcohol, Quantitative 189.6 H Blood Type Antibody Screen 07/17/20 07/17/20 07/18/20 21:00 21:00 06:52 WBC RBC Hgb Hct MCV MCH MCHC RDW Plt Count MPV Absolute Neuts (auto) Neutrophils % Lymphocytes % Monocytes % Eosinophils % Basophils % Nucleated RBC % PT with INR INR PTT (Actin FS) Sodium Potassium Chloride Carbon Dioxide Anion Gap BUN Creatinine Est GFR (CKD-EPI)AfAm Est GFR (CKD-EPI)NonAf POC Glucometer 60 Random Glucose Calcium Phosphorus Magnesium Total Bilirubin AST ALT Alkaline Phosphatase Creatine Kinase Troponin I B-Natriuretic Peptide Total Protein Albumin Vitamin B12 Serum Folate Stool Occult Blood Negative Alcohol, Quantitative Blood Type O POSITIVE Antibody Screen Negative 07/18/20 07/18/20 07/18/20 08:40 08:40 10:52 WBC 4.9 RBC 3.48 L Hgb 11.6 Hct 34.3 MCV 98.6 H MCH 33.4 MCHC 33.8 RDW 14.2 Plt Count 190 MPV 8.1 Absolute Neuts (auto) 2.8 Neutrophils % 57.2 Lymphocytes % 32.1 Monocytes % 8.5 Eosinophils % 1.3 Basophils % 0.9 Nucleated RBC % 0 PT with INR INR PTT (Actin FS) Sodium 142 Potassium 4.0 Chloride 107 Carbon Dioxide 30 Anion Gap 5 L BUN 7.5 Creatinine 0.4 L Est GFR (CKD-EPI)AfAm 130.29 Est GFR (CKD-EPI)NonAf 112.42 POC Glucometer 78 Random Glucose 208 H Calcium 8.2 L Phosphorus 3.2 Magnesium 1.7 L Total Bilirubin 0.2 AST 21 ALT 16 Alkaline Phosphatase 50 Creatine Kinase Troponin I B-Natriuretic Peptide Total Protein 6.1 L Albumin 3.1 L Vitamin B12 735 Serum Folate 39 H Stool Occult Blood Alcohol, Quantitative Blood Type Antibody Screen Active Medications Generic Name Dose Route Start Last Admin Trade Name Freq PRN Reason Stop Dose Admin Dextrose/Sodium Chloride 1,000 mls @ 75 mls/hr 07/18/20 08:15 07/18/20 09:00 D5-1/2ns - IV 75 mls/hr ASDIR MARLA Administration Insulin Aspart 1 vial 07/18/20 07:00 07/18/20 11:15 Novolog Vial Sliding Scale - SQ Not Given ACHS [facility] Protocol Pantoprazole Sodium 40 mg 07/19/20 10:00 Protonix - PO DAILY MARLA Pneumococcal 13-Valent Conj Vacc 0.5 ml 07/19/20 08:00 Prevnar 13 Syringe - IM 07/19/20 08:01 .ONCE ONE ASSESSMENT/PLAN: 60 y/o lady with PMX of EtOH abuse, HFpEF (60-65% in 2019), COPD, HTN, HLD, DM, presenting with rectal bleeding and alcohol intoxication. Admitted for possible lower GI bleed and intoxication. #Rectal Bleeding -GI Consult: Dr. Carmona recommends EGD and colonoscopy on Monday -FOBT was negative -clear liquid diet as per GI -Protonix 40 mg BID for GI ppx - monitor H/H #Alcohol Intoxication -last drink was yesterday before admission as per patient -patient has history of withdrawals -CIWA- 0 this morning -COWS- 3 this -monitor for signs of withdrawal -start Librium protocol when appropriate -started on MVI, Thiamine, Folic Acid #HTN -monitor BP -resume BP meds when clinically appropriate #DM -ISS w/ BGM -A1c- 6.1 #Asthma -Albuterol PRN -Symbicort BID #Heart Failure w/ Preserved EF -stable -Echo 2019 wnl -no further workup needed #FEN -no standing fluids -monitor lytes; replete PRN -clear liquid diet #PPx DVT: scds GI: Protonix 40 mg BID dispo: continue to monitor in tele Visit type - Emergency Visit Emergency Visit: No - New Patient This patient is new to me today: Yes Date on this admission: 07/18/20 - Critical Care Critical Care patient: No - Discharge Referral Referred to [facility] Med P.C.: No ATTENDING PHYSICIAN STATEMENT I saw and evaluated the patient. I reviewed the resident's note and discussed the case with the resident. I agree with the resident's findings and plan as documented. SUBJECTIVE: OBJECTIVE: ASSESSMENT AND PLAN:
[2020-07-18] MEDS ORDERED: MAGNESIUM SULF 50% (8.12 MEQ/2 ML-1 GM VIAL) IVPB ONE (12:30)
[2020-07-18] MEDS ORDERED: MULTIVITAMINS (DAILY MVI) TABLET (FP) PO SCH ×2 (12:45→12:55)
[2020-07-18] MEDS ORDERED: MAGNESIUM SULFATE IN WATER 2 GM/50 ML IVPB IVPB ONE (12:45)
[2020-07-18] MEDS: MULTIVITAMINS (DAILY MVI) TABLET (FP) PO SCH (13:10)
--- NOTE | 2020-07-18 14:36 | PN ---
Teaching Attending Note Name of Resident: Parviz Allen ATTENDING PHYSICIAN STATEMENT I saw and evaluated the patient. I reviewed the resident's note and discussed the case with the resident. I agree with the resident's findings and plan as documented. SUBJECTIVE: Feeling well, no complaints, unsure why she is at the hospital. No further blood per rectum. No hematemesis. OBJECTIVE: Afebrile, Hemodynamically Stable Last Vital Signs Temp Pulse Resp BP Pulse Ox 98.5 F 71 18 149/89 97 07/18/20 09:00 07/18/20 09:00 07/18/20 13:00 07/18/20 09:00 07/18/20 13:00 HEENT - Atraumatic, Normocephalic. Heart - S1, S2, RRR Lungs - clear to auscultation Abdomen - Soft, mild epigastric tenderness. Bowel Sounds normal. Extremities - no edema, no calf tenderness. Neuro - AAO x 3. Tone/Power normal. Laboratory Results - last 24 hr 07/17/20 07/17/20 07/17/20 21:00 21:00 21:00 WBC 7.1 RBC 3.47 L Hgb 11.3 Hct 34.0 D MCV 98.1 H MCH 32.6 MCHC 33.3 RDW 14.4 Plt Count 202 MPV 8.6 D Absolute Neuts (auto) 3.5 Neutrophils % 49.4 Lymphocytes % 39.3 Monocytes % 9.7 D Eosinophils % 1.0 Basophils % 0.6 Nucleated RBC % 0 PT with INR 12.30 INR 1.04 PTT (Actin FS) 30.9 Sodium 146 H Potassium 3.4 L Chloride 111 H Carbon Dioxide 29 Anion Gap 6 L BUN 11.8 Creatinine 0.5 L Est GFR (CKD-EPI)AfAm 121.07 Est GFR (CKD-EPI)NonAf 104.46 POC Glucometer Random Glucose 100 Hemoglobin A1c % Calcium 8.4 L Phosphorus 3.6 Magnesium 1.9 Total Bilirubin 0.1 L AST 20 ALT 19 Alkaline Phosphatase 65 Creatine Kinase 111 Troponin I < 0.02 B-Natriuretic Peptide 117.7 Total Protein 6.4 Albumin 3.4 Vitamin B12 Serum Folate Stool Occult Blood Alcohol, Quantitative 189.6 H Blood Type Antibody Screen 07/17/20 07/17/20 07/18/20 21:00 21:00 06:52 WBC RBC Hgb Hct MCV MCH MCHC RDW Plt Count MPV Absolute Neuts (auto) Neutrophils % Lymphocytes % Monocytes % Eosinophils % Basophils % Nucleated RBC % PT with INR INR PTT (Actin FS) Sodium Potassium Chloride Carbon Dioxide Anion Gap BUN Creatinine Est GFR (CKD-EPI)AfAm Est GFR (CKD-EPI)NonAf POC Glucometer 60 Random Glucose Hemoglobin A1c % Calcium Phosphorus Magnesium Total Bilirubin AST ALT Alkaline Phosphatase Creatine Kinase Troponin I B-Natriuretic Peptide Total Protein Albumin Vitamin B12 Serum Folate Stool Occult Blood Negative Alcohol, Quantitative Blood Type O POSITIVE Antibody Screen Negative 07/18/20 07/18/20 07/18/20 08:40 08:40 08:40 WBC 4.9 RBC 3.48 L Hgb 11.6 Hct 34.3 MCV 98.6 H MCH 33.4 MCHC 33.8 RDW 14.2 Plt Count 190 MPV 8.1 Absolute Neuts (auto) 2.8 Neutrophils % 57.2 Lymphocytes % 32.1 Monocytes % 8.5 Eosinophils % 1.3 Basophils % 0.9 Nucleated RBC % 0 PT with INR INR PTT (Actin FS) Sodium 142 Potassium 4.0 Chloride 107 Carbon Dioxide 30 Anion Gap 5 L BUN 7.5 Creatinine 0.4 L Est GFR (CKD-EPI)AfAm 130.29 Est GFR (CKD-EPI)NonAf 112.42 POC Glucometer Random Glucose 208 H Hemoglobin A1c % 6.1 Calcium 8.2 L Phosphorus 3.2 Magnesium 1.7 L Total Bilirubin 0.2 AST 21 ALT 16 Alkaline Phosphatase 50 Creatine Kinase Troponin I B-Natriuretic Peptide Total Protein 6.1 L Albumin 3.1 L Vitamin B12 735 Serum Folate 39 H Stool Occult Blood Alcohol, Quantitative Blood Type Antibody Screen 07/18/20 10:52 WBC RBC Hgb Hct MCV MCH MCHC RDW Plt Count MPV Absolute Neuts (auto) Neutrophils % Lymphocytes % Monocytes % Eosinophils % Basophils % Nucleated RBC % PT with INR INR PTT (Actin FS) Sodium Potassium Chloride Carbon Dioxide Anion Gap BUN Creatinine Est GFR (CKD-EPI)AfAm Est GFR (CKD-EPI)NonAf POC Glucometer 78 Random Glucose Hemoglobin A1c % Calcium Phosphorus Magnesium Total Bilirubin AST ALT Alkaline Phosphatase Creatine Kinase Troponin I B-Natriuretic Peptide Total Protein Albumin Vitamin B12 Serum Folate Stool Occult Blood Alcohol, Quantitative Blood Type Antibody Screen Current Medications Generic Name Dose Route Start Last Admin Trade Name Freq PRN Reason Stop Dose Admin Insulin Aspart 1 vial 07/18/20 07:00 07/18/20 11:15 Novolog Vial Sliding Scale - SQ Not Given ACHS [facility] Protocol Multivitamins/Minerals/Vitamin C 1 tab 07/18/20 13:00 07/18/20 13:10 Tab-A-Vit - PO 1 tab DAILY MARLA Administration Pantoprazole Sodium 40 mg 07/19/20 10:00 Protonix - PO DAILY MARLA Pneumococcal 13-Valent Conj Vacc 0.5 ml 07/19/20 08:00 Prevnar 13 Syringe - IM 07/19/20 08:01 .ONCE ONE Home Medications Medication Instructions Recorded NK [No Known Home Medication] 07/18/20 ASSESSMENT AND PLAN: 60 year old female with history of Alcohol excess, Asthma, HFpEF (60-65% in 2019), COPD, HTN, HLD, s/p hysterectomy, s/p gastric bypass procedure, brought in by EMS for alcohol intoxication and bright red blood per rectum. 1. Acute Blood Loss Anemia secondary to bright red blood per rectum H/H 11.6/34.3, Stable. FOBT negative. Protonix Diet advanced to clears as per GI GI evaluated - for EGD/[place] 06/19 2. Acute Alcohol Intoxication - resolving, AAO x 3 now but unable to provide reliable history No signs of alcohol withdrawal at this time - will monitor. Banana bag MVI, Thiamine, Folic Acid. 3. HTN- Needs home med rec and resmtion of BP meds as hemodynamics allow. 4. DM 2 - A1C 6.1. Maintain on Novolog sliding scale. 5. Asthma - appears stable. Albuterol PRN 6. Hypomagnesemia/Hypokalemia - repleted. 7. Reported Diastolic CHF - stable, no evidence of acute exacerbation. Echo 2019 - Normal. No need for further work-up at this time. DVT Px - SCDs.
[2020-07-18] MEDS ORDERED: ALBUTEROL SO4 2 MG TABLET PO PRN (15:03)
[2020-07-18] MEDS: THIAMINE HCL 100 MG TABLET (FP) PO SCH (15:52)
[2020-07-18] MEDS ORDERED: PT OWN MED DRAWER 7, Y5N ONE (15:55)
--- NOTE | 2020-07-18 16:11 | EKG ---
Test Reason : Blood Pressure : / mmHG Vent. Rate : 076 BPM Atrial Rate : 076 BPM P-R Int : 216 ms QRS Dur : 088 ms QT Int : 402 ms P-R-T Axes : 055 054 042 degrees QTc Int : 452 ms SINUS RHYTHM WITH 1ST DEGREE A-V BLOCK OTHERWISE NORMAL ECG WHEN COMPARED WITH ECG OF 02-JUN-2020 09:44, NC INTERVAL HAS INCREASED Confirmed by MD Bert, Erick ([id number]) on 07/18/2020 4:10:43 PM Referred By: Confirmed By:Erick Noel MD
[2020-07-18] MEDS: BUDESONIDE/FORMETEROL FUMARATE 80/4.5 mcg INHALER IH SCH (21:19)
[2020-07-19] MEDS: INSULIN SLIDING SCALE (NOVOLOG) 1 VIAL SQ SCH ×4 (06:39→21:59)
[2020-07-19 07:12] LABS: BASO % 1.3 % (0-2.0); EOS % 1.9 % (0-4.5); HEMATOCRIT 36.2 % (32.4-45.2); HEMOGLOBIN 12.1 GM/dL (10.7-15.3); LYMPH % 38.9 % (8-40); MCH 32.5 pg (25.7-33.7); MCHC 33.5 g/dl (32.0-36.0); MEAN CELL VOLUME 97.2 fl (80-96); MEAN PLT VOLUME 8.2 fl (7.5-11.1); MONO % 9.7 % (3.8-10.2); NEUT % 48.2 % (42.8-82.8); PLATELET COUNT 227 K/MM3 (134-434); RBC 3.73 M/mm3 (3.60-5.2); RDW 14.4 % (11.6-15.6); WHITE BLOOD COUNT 5.1 K/mm3 (4.0-10.0)
[2020-07-19] MEDS ORDERED: PNEUMOC 13-VAL CONJ-DIP CRM/PF 0.5 ML DISP.SYRIN IM ONE (08:00)
[2020-07-19 09:05] LABS: ALBUMIN 3.1 g/dl (3.4-5.0); BILIRUBIN,TOTAL 0.5 mg/dL (0.2-1); BLOOD UREA NITROGEN 3.7 mg/dL (7-18); CALCIUM 8.7 mg/dL (8.5-10.1); CREATININE 0.5 mg/dL (0.55-1.3); MAGNESIUM 1.8 mg/dL (1.8-2.4); PHOSPHOROUS 3.7 mg/dL (2.5-4.9); POTASSIUM 3.4 mmol/L (3.5-5.1); TOT PROT 6.1 g/dl (6.4-8.2)
[2020-07-19] MEDS: MULTIVITAMINS (DAILY MVI) TABLET (FP) PO SCH (09:18)
[2020-07-19] MEDS: FOLIC ACID 1 MG TABLET (FP) PO SCH (09:18)
[2020-07-19] MEDS: THIAMINE HCL 100 MG TABLET (FP) PO SCH (09:19)
[2020-07-19] MEDS: PANTOPRAZOLE 40 MG TABLET PO SCH (09:19)
[2020-07-19] MEDS: BUDESONIDE/FORMETEROL FUMARATE 80/4.5 mcg INHALER IH SCH ×2 (09:20→21:59)
--- NOTE | 2020-07-19 13:38 | PN ---
Progress Note (short form) - Note Progress Note: SUBJECTIVE: Feeling well, no complaints, no abdominal pain - no further melena/hematochezia. No nausea/vomiting/hematemesis.No hematemesis. OBJECTIVE: Afebrile, Hemodynamically Stable Last Vital Signs Temp Pulse Resp BP Pulse Ox 98.1 F 71 18 130/76 98 07/19/20 09:20 07/19/20 09:20 07/19/20 09:20 07/19/20 09:20 07/19/20 09:20 Heart - S1, S2, RRR Lungs - clear to auscultation Abdomen - Soft, mild epigastric tenderness. Bowel Sounds normal. Extremities - no edema, no calf tenderness. Neuro - AAO x 3. Tone/Power normal. Laboratory Results - last 24 hr 07/17/20 07/18/20 07/18/20 23:30 08:40 16:25 WBC RBC Hgb Hct MCV MCH MCHC RDW Plt Count MPV Absolute Neuts (auto) Neutrophils % Lymphocytes % Monocytes % Eosinophils % Basophils % Nucleated RBC % Sodium Potassium Chloride Carbon Dioxide Anion Gap BUN Creatinine Est GFR (CKD-EPI)AfAm Est GFR (CKD-EPI)NonAf POC Glucometer 75 Random Glucose Hemoglobin A1c % 6.1 Calcium Phosphorus Magnesium Iron TIBC Iron Saturation Unsaturated IBC Ferritin Total Bilirubin AST ALT Alkaline Phosphatase Total Protein Albumin COVID-19 (ELBA) Not detected 07/18/20 07/19/20 07/19/20 21:21 05:43 05:43 WBC 5.1 RBC 3.73 Hgb 12.1 Hct 36.2 MCV 97.2 H MCH 32.5 MCHC 33.5 RDW 14.4 Plt Count 227 MPV 8.2 Absolute Neuts (auto) 2.5 Neutrophils % 48.2 Lymphocytes % 38.9 D Monocytes % 9.7 Eosinophils % 1.9 Basophils % 1.3 Nucleated RBC % 0 Sodium 141 Potassium 3.4 L Chloride 104 Carbon Dioxide 31 Anion Gap 6 L BUN 3.7 L Creatinine 0.5 L Est GFR (CKD-EPI)AfAm 121.07 Est GFR (CKD-EPI)NonAf 104.46 POC Glucometer 76 Random Glucose 89 Hemoglobin A1c % Calcium 8.7 Phosphorus 3.7 Magnesium 1.8 Iron 86 TIBC 292 Iron Saturation 29 Unsaturated IBC 206 Ferritin 48.1 Total Bilirubin 0.5 AST 19 ALT 18 Alkaline Phosphatase 51 Total Protein 6.1 L Albumin 3.1 L COVID-19 (ELBA) 07/19/20 06:26 WBC RBC Hgb Hct MCV MCH MCHC RDW Plt Count MPV Absolute Neuts (auto) Neutrophils % Lymphocytes % Monocytes % Eosinophils % Basophils % Nucleated RBC % Sodium Potassium Chloride Carbon Dioxide Anion Gap BUN Creatinine Est GFR (CKD-EPI)AfAm Est GFR (CKD-EPI)NonAf POC Glucometer 84 Random Glucose Hemoglobin A1c % Calcium Phosphorus Magnesium Iron TIBC Iron Saturation Unsaturated IBC Ferritin Total Bilirubin AST ALT Alkaline Phosphatase Total Protein Albumin COVID-19 (ELBA) Current Medications Generic Name Dose Route Start Last Admin Trade Name Freq PRN Reason Stop Dose Admin Albuterol Sulfate 2 mg 07/18/20 15:03 Ventolin - PO QID PRN WHEEZING Budesonide/Formoterol Fumarate 2 puff 07/18/20 22:00 07/19/20 09:20 Symbicort 80/4.5mcg - IH 2 puff BID MARLA Administration Folic Acid 1 mg 07/19/20 10:00 07/19/20 09:18 Folic Acid - PO 1 mg DAILY MARLA Administration Insulin Aspart 1 vial 07/18/20 07:00 07/19/20 11:46 Novolog Vial Sliding Scale - SQ Not Given ACHS [facility] Protocol Multivitamins/Minerals/Vitamin C 1 tab 07/18/20 13:00 07/19/20 09:18 Tab-A-Vit - PO 1 tab DAILY MARLA Administration Pantoprazole Sodium 40 mg 07/19/20 10:00 07/19/20 09:19 Protonix - PO 40 mg DAILY MARLA Administration Pneumococcal 13-Valent Conj Vacc 0.5 ml 07/19/20 08:00 Prevnar 13 Syringe - IM 07/19/20 08:01 .ONCE ONE Thiamine HCl 100 mg 07/18/20 15:00 07/19/20 09:19 Vitamin B1 - PO 100 mg DAILY MARLA Administration Home Medications Medication Instructions Recorded NK [No Known Home Medication] 07/18/20 ASSESSMENT AND PLAN: 60 year old female with history of Alcohol excess, Asthma, HFpEF (60-65% in 2019), COPD, HTN, HLD, s/p hysterectomy, s/p gastric bypass procedure, brought in by EMS for alcohol intoxication and bright red blood per rectum. 1. Acute Blood Loss Anemia secondary to bright red blood per rectum H/H Stable. FOBT negative. Protonix Diet advanced to clears as per GI GI evaluated - for EGD/[place] 06/19, NPO from [place] 2. Acute Alcohol Intoxication - resolved, AAO x 3 No signs of alcohol withdrawal at this time - will monitor. s/p Banana bag MVI, Thiamine, Folic Acid. 3. HTN - does not appear to be on home anti-hypertensives, will need formal med rec 4. DM 2 - A1C 6.1. Maintain on Novolog sliding scale. 5. Asthma - appears stable. Albuterol PRN 6. Hypomagnesemia/Hypokalemia - repleted. 7. Reported Diastolic CHF - stable, no evidence of acute exacerbation. Echo 2019 - Normal. No need for further work-up at this time. DVT Px - SCDs. Visit type - Emergency Visit Emergency Visit: Yes ED Registration Date: 07/17/20 Care time: The patient presented to the Emergency Department on the above date and was hospitalized for further evaluation of their emergent condition. - New Patient This patient is new to me today: No - Critical Care Critical Care patient: No - Discharge Referral Referred to [facility] Med P.C.: No
[2020-07-19] MEDS ORDERED: MAGNESIUM SULF 50% (8.12 MEQ/2 ML-1 GM VIAL) IVPB ONE (14:45)
[2020-07-19] MEDS ORDERED: POTASSIUM CHLORIDE TABS 20 MEQ TABLET.ER (FP) PO ONE (14:45)
[2020-07-19] MEDS ORDERED: PNEUMOCOCCAL 23 VACCINE 0.5 ML VIAL IM ONE (15:00)
[2020-07-19] MEDS ORDERED: PT OWN MED DRAWER 7, Y5N ONE (15:07)
[2020-07-20] MEDS: INSULIN SLIDING SCALE (NOVOLOG) 1 VIAL SQ SCH ×4 (06:19→22:04)
[2020-07-20] MEDS: FOLIC ACID 1 MG TABLET (FP) PO SCH (09:30)
[2020-07-20] MEDS: PANTOPRAZOLE 40 MG TABLET PO SCH (09:30)
[2020-07-20] MEDS: MULTIVITAMINS (DAILY MVI) TABLET (FP) PO SCH (09:31)
[2020-07-20] MEDS: THIAMINE HCL 100 MG TABLET (FP) PO SCH (09:31)
[2020-07-20] MEDS: BUDESONIDE/FORMETEROL FUMARATE 80/4.5 mcg INHALER IH SCH ×2 (09:31→22:00)
[2020-07-20] MEDS ORDERED: MIDAZOLAM HCL 2 MG/2 ML SINGLE DOSE VIAL ONE ×2 (12:10)
--- NOTE | 2020-07-20 12:29 | PN ---
Physical Exam: SUBJECTIVE: Patient seen and examined at bedside. No acute events reported overnight. OBJECTIVE: Vital Signs Period Temp Pulse Resp BP Sys/Grossman Pulse Ox Last 24 Hr 96.6 F-99.1 F 60-89 18-18 118-145/71-85 97-99 GENERAL: AAOx3, in no acute distress; laying in bed calmly HEENT: NCAT, PERRLA, EOMI, sclera anicteric, conjunctiva clear, oropharynx clear w/o exudates. MMM. NECK: Normal ROM, supple, no lymphadenopathy, JVD, or masses LUNGS: CTABL no wheezes/ rhonchi/ rales. No distress, speaks in full sentences. No increased work of breathing. HEART: RRR, normal S1 S2, no M/R/G, peripheral pulses 2+ and equal b/l ABDOMEN: Soft, NTND, + BS. No guarding or rebound. No hepatomegaly or splenomegaly. MSK: ROM WNL EXTREMITIES: Normal inspection. No peripheral edema. No clubbing or cyanosis. NEUROLOGICAL: CN II-XII intact. Normal speech, normal gait, no focal sensorimotor deficits. SKIN: Warm, Dry, normal turgor, no rashes or lesions noted RECTAL: external: no lesions present; internal: no masses palpated, no blood observed on finger Laboratory Results - last 24 hr 07/17/20 07/19/20 23:30 16:34 POC Glucometer 83 COVID-19 (ELBA) Not detected Active Medications Generic Name Dose Route Start Last Admin Trade Name Freq PRN Reason Stop Dose Admin Albuterol Sulfate 2 mg 07/18/20 15:03 Ventolin - PO QID PRN WHEEZING Budesonide/Formoterol Fumarate 2 puff 07/18/20 22:00 07/20/20 09:31 Symbicort 80/4.5mcg - IH 2 puff BID MARLA Administration Folic Acid 1 mg 07/19/20 10:00 07/20/20 09:30 Folic Acid - PO 1 mg DAILY MARLA Administration Insulin Aspart 1 vial 07/18/20 07:00 07/20/20 11:13 Novolog Vial Sliding Scale - SQ Not Given ACHS [facility] Protocol Multivitamins/Minerals/Vitamin C 1 tab 07/18/20 13:00 07/20/20 09:31 Tab-A-Vit - PO 1 tab DAILY MARLA Administration Pantoprazole Sodium 40 mg 07/19/20 10:00 07/20/20 09:30 Protonix - PO 40 mg DAILY MARLA Administration Thiamine HCl 100 mg 07/18/20 15:00 07/20/20 09:31 Vitamin B1 - PO 100 mg DAILY MARLA Administration ASSESSMENT/PLAN: 60 y/o lady with PMX of EtOH abuse, HFpEF (60-65% in 2019), COPD, HTN, HLD, DM, presenting with rectal bleeding and alcohol intoxication. Admitted for possible lower GI bleed and intoxication. #Rectal Bleeding -GI Consult: EGD today and Colonoscopy tm w/ Dr. Carmona -EGD today: 2 cm sliding hernia, normal esophagus otherwise; healhy appearing gastric bypass anatomy -avoid NSAIDs as per GI -Protonix 40 mg BID for GI ppx - monitor H/H- currently stable #Alcohol Intoxication -patient has history of withdrawals -CIWA- 0 this morning -monitor for signs of withdrawal -start Librium protocol if s/s of withdrawal are present -c/w MVI, Thiamine, Folic Acid #HTN -monitor BP -resume BP meds when clinically appropriate #DM -ISS w/ BGM -A1c- 6.1 #Asthma -Albuterol PRN -Symbicort BID #Heart Failure w/ Preserved EF -stable -Echo 2019 wnl -no further workup needed for now #FEN -no standing fluids -monitor lytes; replete PRN -NPO today for EGD; prep for colonoscopy tomorrow #PPx DVT: SCDs GI: Protonix 40 mg BID dispo: continue to monitor in tele Visit type - Emergency Visit Emergency Visit: No - New Patient This patient is new to me today: No - Critical Care Critical Care patient: No - Discharge Referral Referred to [facility] Med P.C.: No ATTENDING PHYSICIAN STATEMENT I saw and evaluated the patient. I reviewed the resident's note and discussed the case with the resident. I agree with the resident's findings and plan as documented. SUBJECTIVE: OBJECTIVE: ASSESSMENT AND PLAN:
--- NOTE | 2020-07-20 12:38 | PN ---
Progress Note (short form) - Note Progress Note: EGD complete. Report placed in the procedural section of the physical chart and will be scanned into [facility] Problem List - Problems (1) Rectal bleeding Code(s): K62.5 - HEMORRHAGE OF ANUS AND RECTUM
--- NOTE | 2020-07-20 14:07 | PN ---
Teaching Attending Note Name of Resident: Parviz Allen ATTENDING PHYSICIAN STATEMENT I saw and evaluated the patient. I reviewed the resident's note and discussed the case with the resident. I agree with the resident's findings and plan as documented. SUBJECTIVE: Feeling well, no complaints, no abdominal pain - no further melena/hematochezia. No nausea/vomiting/hematemesis. OBJECTIVE: Afebrile, Hemodynamically Stable Last Vital Signs Temp Pulse Resp BP Pulse Ox 98.2 F 60 19 154/84 100 07/20/20 13:16 07/20/20 13:16 07/20/20 13:16 07/20/20 13:16 07/20/20 13:16 Heart - S1, S2, RRR Lungs - clear to auscultation Abdomen - Soft, mild epigastric tenderness. Bowel Sounds normal. Extremities - no edema, no calf tenderness. Neuro - AAO x 3. Tone/Power normal. Laboratory Results - last 24 hr 07/19/20 16:34 POC Glucometer 83 Current Medications Generic Name Dose Route Start Last Admin Trade Name Nirmalq PRN Reason Stop Dose Admin Albuterol Sulfate 2 mg 07/18/20 15:03 Ventolin - PO QID PRN WHEEZING Bisacodyl 20 mg 07/20/20 16:00 Dulcolax - PO 07/20/20 16:01 ONCE ONE Budesonide/Formoterol Fumarate 2 puff 07/18/20 22:00 07/20/20 09:31 Symbicort 80/4.5mcg - IH 2 puff BID MARLA Administration Folic Acid 1 mg 07/19/20 10:00 07/20/20 09:30 Folic Acid - PO 1 mg DAILY MARLA Administration Insulin Aspart 1 vial 07/18/20 07:00 07/20/20 11:13 Novolog Vial Sliding Scale - SQ Not Given ACHS [facility] Protocol Multivitamins/Minerals/Vitamin C 1 tab 07/18/20 13:00 07/20/20 09:31 Tab-A-Vit - PO 1 tab DAILY MARLA Administration Polyethylene Glycol 255 gm 07/20/20 17:00 Miralax (For Bowel Prep) - PO 07/20/20 17:01 ONCE ONE Thiamine HCl 100 mg 07/18/20 15:00 07/20/20 09:31 Vitamin B1 - PO 100 mg DAILY MARLA Administration Home Medications Medication Instructions Recorded NK [No Known Home Medication] 07/18/20 ASSESSMENT AND PLAN: 60 year old female with history of Alcohol excess, Asthma, HFpEF (60-65% in 2019), COPD, HTN, HLD, s/p hysterectomy, s/p gastric bypass procedure, brought in by EMS for alcohol intoxication and bright red blood per rectum. 1. Acute Blood Loss Anemia secondary to bright red blood per rectum H/H Stable. FOBT negative. Protonix GI evaluated - for EGD 06/19 and Colonoscopy 06/20. 2. Acute Alcohol Intoxication - resolved, AAO x 3 No signs of alcohol withdrawal at this time - will monitor. s/p Banana bag MVI, Thiamine, Folic Acid. 3. HTN - previously prescribed Losartan and Propranolol but does no longer takes meds (self-stopped) 4. History of DM 2 - A1C 6.1. Maintain on Novolog sliding scale. Not on home medications. 5. Asthma - appears stable. Albuterol PRN 6. Hypomagnesemia/Hypokalemia - repleted. 7. Reported Diastolic CHF - stable, no evidence of acute exacerbation. Echo 2018 - Normal. No need for further work-up at this time. 8. Macrocytosis - sec to alcohol excess. B12/Folate levels non-deficient. 9. HLD - previously on Smvastatin 5mg, but no longer takes it (self-stopped). 10. COPD - Stable, no evidence of acute decompensation. Continue Symbicort which she previously used. DVT Px - SCDs.
[2020-07-20] MEDS ORDERED: BISACODYL 5 MG TABLET.DR (FP) PO ONE (16:00)
[2020-07-20] MEDS ORDERED: POLYETHYLENE GLYCOL 3350 255 GM BTL PO ONE (17:00)
[2020-07-20 18:20] LABS: BASO % 0.7 % (0-2.0); EOS % 0.9 % (0-4.5); HEMATOCRIT 42.6 % (32.4-45.2); LYMPH % 23.6 % (8-40); MCH 32.3 pg (25.7-33.7); MONO % 10.7 % (3.8-10.2); NEUT % 64.1 % (42.8-82.8); PLATELET COUNT 277 K/MM3 (134-434); RBC 4.35 M/mm3 (3.60-5.2); RDW 14.1 % (11.6-15.6); WHITE BLOOD COUNT 7.8 K/mm3 (4.0-10.0)
[2020-07-20 18:28] LABS: INR 1.23 (0.83-1.09); PROTHROMBIN TIME (PATIENT) 14.6 SEC (9.7-13.0)
[2020-07-20 18:39] LABS: BLOOD UREA NITROGEN 3.3 mg/dL (7-18); CALCIUM 9.6 mg/dL (8.5-10.1); CREATININE 0.8 mg/dL (0.55-1.3); POTASSIUM 3.5 mmol/L (3.5-5.1)
[2020-07-21] MEDS: INSULIN SLIDING SCALE (NOVOLOG) 1 VIAL SQ SCH ×3 (06:02→17:14)
[2020-07-21 07:10] LABS: BASO % 0.8 % (0-2.0); EOS % 2.1 % (0-4.5); HEMATOCRIT 38.6 % (32.4-45.2); LYMPH % 34.8 % (8-40); MCH 32.7 pg (25.7-33.7); MCHC 33.7 g/dl (32.0-36.0); MEAN CELL VOLUME 97.1 fl (80-96); MEAN PLT VOLUME 7.9 fl (7.5-11.1); MONO % 11.5 % (3.8-10.2); NEUT % 50.8 % (42.8-82.8); PLATELET COUNT 255 K/MM3 (134-434); RBC 3.98 M/mm3 (3.60-5.2); RDW 14.2 % (11.6-15.6); WHITE BLOOD COUNT 6.2 K/mm3 (4.0-10.0)
[2020-07-21 07:37] LABS: CALCIUM 9.5 mg/dL (8.5-10.1); CREATININE 0.5 mg/dL (0.55-1.3); POTASSIUM 3.7 mmol/L (3.5-5.1)
[2020-07-21 07:49] LABS: BLOOD UREA NITROGEN 2.5 mg/dL (7-18)
[2020-07-21] MEDS: THIAMINE HCL 100 MG TABLET (FP) PO SCH (09:04)
[2020-07-21] MEDS: BUDESONIDE/FORMETEROL FUMARATE 80/4.5 mcg INHALER IH SCH (09:05)
[2020-07-21] MEDS: FOLIC ACID 1 MG TABLET (FP) PO SCH (09:05)
[2020-07-21] MEDS: MULTIVITAMINS (DAILY MVI) TABLET (FP) PO SCH (09:05)
--- NOTE | 2020-07-21 11:07 | PN ---
Physical Exam: SUBJECTIVE: Patient seen and examined at bedside. No acute events reported overnight. OBJECTIVE: Vital Signs Period Temp Pulse Resp BP Sys/Grossman Pulse Ox Last 24 Hr 98.1 F-98.4 F 58-83 15-20 118-154/66-86 98-100 GENERAL: AAOx3, in no acute distress; laying in bed calmly HEENT: NCAT, PERRLA, EOMI, sclera anicteric, conjunctiva clear, oropharynx clear w/o exudates. MMM. NECK: Normal ROM, supple, no lymphadenopathy, JVD, or masses LUNGS: CTABL no wheezes/ rhonchi/ rales. No distress, speaks in full sentences. No increased work of breathing. HEART: RRR, normal S1 S2, no M/R/G, peripheral pulses 2+ and equal b/l ABDOMEN: Soft, NTND, + BS. No guarding or rebound. No hepatomegaly or splenomegaly. MSK: ROM WNL EXTREMITIES: Normal inspection. No peripheral edema. No clubbing or cyanosis. NEUROLOGICAL: CN II-XII intact. Normal speech, normal gait, no focal sensorimotor deficits. SKIN: Warm, Dry, normal turgor, no rashes or lesions noted RECTAL: external: no lesions present; internal: no masses palpated, no blood observed on finger Laboratory Results - last 24 hr CBC, BMP 07/21/20 05:37 07/21/20 05:37 07/20/20 07/20/20 07/20/20 07:56 17:14 17:50 WBC 7.8 RBC 4.35 Hgb 14.0 Hct 42.6 D MCV 98.0 H MCH 32.3 MCHC 33.0 RDW 14.1 Plt Count 277 D MPV 8.0 Absolute Neuts (auto) 5.0 Neutrophils % 64.1 D Lymphocytes % 23.6 D Monocytes % 10.7 H Eosinophils % 0.9 Basophils % 0.7 Nucleated RBC % 0 PT with INR INR Sodium 138 Potassium 3.5 Chloride 102 Carbon Dioxide 28 Anion Gap 9 BUN 3.3 L Creatinine 0.8 Est GFR (CKD-EPI)AfAm 92.22 Est GFR (CKD-EPI)NonAf 79.57 POC Glucometer 55 Random Glucose 183 H Calcium 9.6 07/20/20 07/20/20 07/20/20 17:50 18:48 22:02 WBC RBC Hgb Hct MCV MCH MCHC RDW Plt Count MPV Absolute Neuts (auto) Neutrophils % Lymphocytes % Monocytes % Eosinophils % Basophils % Nucleated RBC % PT with INR 14.60 H INR 1.23 H Sodium Potassium Chloride Carbon Dioxide Anion Gap BUN Creatinine Est GFR (CKD-EPI)AfAm Est GFR (CKD-EPI)NonAf POC Glucometer 98 91 Random Glucose Calcium 07/21/20 07/21/20 05:37 05:37 WBC 6.2 RBC 3.98 Hgb 13.0 Hct 38.6 MCV 97.1 H MCH 32.7 MCHC 33.7 RDW 14.2 Plt Count 255 MPV 7.9 Absolute Neuts (auto) 3.1 Neutrophils % 50.8 D Lymphocytes % 34.8 D Monocytes % 11.5 H Eosinophils % 2.1 D Basophils % 0.8 Nucleated RBC % 0 PT with INR INR Sodium 140 Potassium 3.7 Chloride 103 Carbon Dioxide 31 Anion Gap 6 L BUN 2.5 L* Creatinine 0.5 L Est GFR (CKD-EPI)AfAm 121.07 Est GFR (CKD-EPI)NonAf 104.46 POC Glucometer Random Glucose 99 Calcium 9.5 Active Medications Generic Name Dose Route Start Last Admin Trade Name Freq PRN Reason Stop Dose Admin Albuterol Sulfate 2 mg 07/18/20 15:03 Ventolin - PO QID PRN WHEEZING Budesonide/Formoterol Fumarate 2 puff 07/18/20 22:00 07/21/20 09:05 Symbicort 80/4.5mcg - IH 2 puff BID MARLA Administration Folic Acid 1 mg 07/19/20 10:00 07/21/20 09:05 Folic Acid - PO 1 mg DAILY MARLA Administration Insulin Aspart 1 vial 07/18/20 07:00 07/21/20 06:02 Novolog Vial Sliding Scale - SQ Not Given ACHS [facility] Protocol Multivitamins/Minerals/Vitamin C 1 tab 07/18/20 13:00 07/21/20 09:05 Tab-A-Vit - PO 1 tab DAILY MARLA Administration Thiamine HCl 100 mg 07/18/20 15:00 07/21/20 09:04 Vitamin B1 - PO 100 mg DAILY MARLA Administration ASSESSMENT/PLAN: 60 y/o lady with PMX of EtOH abuse, HFpEF (60-65% in 2019), COPD, HTN, HLD, DM, presenting with rectal bleeding and alcohol intoxication. Admitted for possible lower GI bleed and intoxication. #Rectal Bleeding -GI Consult: s/p EGD; Colonoscopy today w/ Dr. Carmona -EGD: 2 cm sliding hernia, normal esophagus otherwise; healhy appearing gastric bypass anatomy -Colonoscopy: question of proctitis vs bowel prep related changes in distal rectum, diverticulum in sigmoid colon, large internal hemorrhoids -Canasa suppositories 1 MD daily for 4 weeks -avoid NSAIDs as per GI -Protonix 40 mg BID for GI ppx - monitor H/H- currently stable #Alcohol Intoxication -patient has history of withdrawals -CIWA- 0 this morning -monitor for signs of withdrawal -start Librium protocol if s/s of withdrawal are present -c/w MVI, Thiamine, Folic Acid #HTN -monitor BP -resume BP meds when clinically appropriate #DM -ISS w/ BGM -A1c- 6.1 #Asthma -Albuterol PRN -Symbicort BID #Heart Failure w/ Preserved EF -stable -Echo 2019 wnl -no further workup needed for now #FEN -no standing fluids -monitor lytes; replete PRN -NPO today for colonoscopy today #PPx DVT: SCDs GI: Protonix 40 mg BID dispo: continue to monitor in tele Visit type - Emergency Visit Emergency Visit: No - New Patient This patient is new to me today: No - Critical Care Critical Care patient: No - Discharge Referral Referred to [facility] Med P.C.: No ATTENDING PHYSICIAN STATEMENT I saw and evaluated the patient. I reviewed the resident's note and discussed the case with the resident. I agree with the resident's findings and plan as documented. SUBJECTIVE: OBJECTIVE: ASSESSMENT AND PLAN:
--- NOTE | 2020-07-21 12:09 | PN ---
Progress Note (short form) - Note Progress Note: Colonoscopy complete. Report left in the procedural section of the physical chart and will be scanned into [employer] Problem List - Problems (1) Rectal bleeding Code(s): K62.5 - HEMORRHAGE OF ANUS AND RECTUM
[2020-07-21] MEDS ORDERED: MESALAMINE 1000 MG/SUPP.RECT SUPP RC SCH (12:30)
--- NOTE | 2020-07-21 12:55 | PN ---
Teaching Attending Note Name of Resident: Parviz Allen ATTENDING PHYSICIAN STATEMENT I saw and evaluated the patient. I reviewed the resident's note and discussed the case with the resident. I agree with the resident's findings and plan as documented. SUBJECTIVE: pt seen and examined OBJECTIVE: Last Vital Signs Temp Pulse Resp BP Pulse Ox 98.5 F 74 18 116/74 99 07/21/20 17:13 07/21/20 17:13 07/21/20 17:13 07/21/20 17:13 07/21/20 17:13 Heart - S1, S2, RRR Lungs - clear to auscultation Abdomen - Soft, mild epigastric tenderness. Bowel Sounds normal. Extremities - no edema, no calf tenderness. Neuro - AAO x 3. Tone/Power normal. CBCD WBC 6.2 K/mm3 (4.0-10.0) 07/21/20 05:37 RBC 3.98 M/mm3 (3.60-5.2) 07/21/20 05:37 Hgb 13.0 GM/dL (10.7-15.3) 07/21/20 05:37 Hct 38.6 % (32.4-45.2) 07/21/20 05:37 MCV 97.1 fl (80-96) H 07/21/20 05:37 MCHC 33.7 g/dl (32.0-36.0) 07/21/20 05:37 RDW 14.2 % (11.6-15.6) 07/21/20 05:37 Plt Count 255 K/MM3 (134-434) 07/21/20 05:37 MPV 7.9 fl (7.5-11.1) 07/21/20 05:37 CMP Sodium 140 mmol/L (136-145) 07/21/20 05:37 Potassium 3.7 mmol/L (3.5-5.1) 07/21/20 05:37 Chloride 103 mmol/L (98-107) 07/21/20 05:37 Carbon Dioxide 31 mmol/L (21-32) 07/21/20 05:37 Anion Gap 6 MMOL/L (8-16) L 07/21/20 05:37 BUN 2.5 mg/dL (7-18) L* 07/21/20 05:37 Creatinine 0.5 mg/dL (0.55-1.3) L 07/21/20 05:37 Calcium 9.5 mg/dL (8.5-10.1) 07/21/20 05:37 Total Bilirubin 0.5 mg/dL (0.2-1) 07/19/20 05:43 AST 19 U/L (15-37) 07/19/20 05:43 ALT 18 U/L (13-61) 07/19/20 05:43 Alkaline Phosphatase 51 U/L (45-117) 07/19/20 05:43 Total Protein 6.1 g/dl (6.4-8.2) L 07/19/20 05:43 Albumin 3.1 g/dl (3.4-5.0) L 07/19/20 05:43 Active Medications Albuterol Sulfate (Ventolin -) 2 mg PO QID PRN PRN Reason: WHEEZING Budesonide/Formoterol Fumarate (Symbicort 80/4.5mcg -) 2 puff IH BID [facility] Last Admin: 07/21/20 09:05 Dose: 2 puff Documented by: Folic Acid (Folic Acid -) 1 mg PO DAILY [facility] Last Admin: 07/21/20 09:05 Dose: 1 mg Documented by: Insulin Aspart (Novolog Vial Sliding Scale -) 1 vial SQ ACHS [facility]; Protocol Last Admin: 07/21/20 17:14 Dose: Not Given Documented by: Mesalamine (Canasa Suppository -) 1,000 mg RC DAILY [facility] Last Admin: 07/21/20 16:11 Dose: 1,000 mg Documented by: Multivitamins/Minerals/Vitamin C (Tab-A-Vit -) 1 tab PO DAILY [facility] Last Admin: 07/21/20 09:05 Dose: 1 tab Documented by: Thiamine HCl (Vitamin B1 -) 100 mg PO DAILY [facility] Last Admin: 07/21/20 09:04 Dose: 100 mg Documented by: ASSESSMENT AND PLAN: 60 year old lady with history of Alcohol excess, Asthma, HFpEF (60-65% in 2019), COPD, HTN, HLD, s/p hysterectomy, s/p gastric bypass procedure, brought in by EMS for alcohol intoxication and bright red blood per rectum. # Lower GI bleed H/H Stable. EGD, colonoscopy done, large hemorrhoids found GI recommendation appreciated no active bleeding stool softners outpatient follow up # Acute Alcohol Intoxication - resolved, AAO x 3 No signs of alcohol withdrawal at this time s/p Banana bag MVI, Thiamine, Folic Acid. HTN (non compliant with meds) HLD ASthma HFpEF DVT Px - SCDs.
[2020-07-21] MEDS ORDERED: PT OWN MED DRAWER 7, Y5N ONE (15:31)
--- NOTE | 2020-07-21 16:05 | DS ---
Physical Exam: SUBJECTIVE: Patient seen and examined at bedside. No acute events reported overnight. OBJECTIVE: Vital Signs Period Temp Pulse Resp BP Sys/Grossman Pulse Ox Last 24 Hr 98.1 F-99.0 F 54-85 15-20 118-158/66-86 98-100 PHYSICAL EXAM GENERAL: AAOx3, in no acute distress; laying in bed calmly HEENT: NCAT, PERRLA, EOMI, sclera anicteric, conjunctiva clear, oropharynx clear w/o exudates. MMM. NECK: Normal ROM, supple, no lymphadenopathy, JVD, or masses LUNGS: CTABL no wheezes/ rhonchi/ rales. No distress, speaks in full sentences. No increased work of breathing. HEART: RRR, normal S1 S2, no M/R/G, peripheral pulses 2+ and equal b/l ABDOMEN: Soft, NTND, + BS. No guarding or rebound. No hepatomegaly or splenomegaly. MSK: ROM WNL EXTREMITIES: Normal inspection. No peripheral edema. No clubbing or cyanosis. NEUROLOGICAL: CN II-XII intact. Normal speech, normal gait, no focal sensorimotor deficits. SKIN: Warm, Dry, normal turgor, no rashes or lesions noted RECTAL: external: no lesions present; internal: no masses palpated, no blood observed on finger LABS Laboratory Results - last 24 hr CBC, BMP 07/21/20 05:37 07/21/20 05:37 07/20/20 07/20/20 07/20/20 07:56 17:14 17:50 WBC 7.8 RBC 4.35 Hgb 14.0 Hct 42.6 D MCV 98.0 H MCH 32.3 MCHC 33.0 RDW 14.1 Plt Count 277 D MPV 8.0 Absolute Neuts (auto) 5.0 Neutrophils % 64.1 D Lymphocytes % 23.6 D Monocytes % 10.7 H Eosinophils % 0.9 Basophils % 0.7 Nucleated RBC % 0 PT with INR INR Sodium 138 Potassium 3.5 Chloride 102 Carbon Dioxide 28 Anion Gap 9 BUN 3.3 L Creatinine 0.8 Est GFR (CKD-EPI)AfAm 92.22 Est GFR (CKD-EPI)NonAf 79.57 POC Glucometer 55 Random Glucose 183 H Calcium 9.6 07/20/20 07/20/20 07/20/20 17:50 18:48 22:02 WBC RBC Hgb Hct MCV MCH MCHC RDW Plt Count MPV Absolute Neuts (auto) Neutrophils % Lymphocytes % Monocytes % Eosinophils % Basophils % Nucleated RBC % PT with INR 14.60 H INR 1.23 H Sodium Potassium Chloride Carbon Dioxide Anion Gap BUN Creatinine Est GFR (CKD-EPI)AfAm Est GFR (CKD-EPI)NonAf POC Glucometer 98 91 Random Glucose Calcium 07/21/20 07/21/20 05:37 05:37 WBC 6.2 RBC 3.98 Hgb 13.0 Hct 38.6 MCV 97.1 H MCH 32.7 MCHC 33.7 RDW 14.2 Plt Count 255 MPV 7.9 Absolute Neuts (auto) 3.1 Neutrophils % 50.8 D Lymphocytes % 34.8 D Monocytes % 11.5 H Eosinophils % 2.1 D Basophils % 0.8 Nucleated RBC % 0 PT with INR INR Sodium 140 Potassium 3.7 Chloride 103 Carbon Dioxide 31 Anion Gap 6 L BUN 2.5 L* Creatinine 0.5 L Est GFR (CKD-EPI)AfAm 121.07 Est GFR (CKD-EPI)NonAf 104.46 POC Glucometer Random Glucose 99 Calcium 9.5 HOSPITAL COURSE: 60 y/o lady with PMX of EtOH abuse, HFpEF (60-65% in 2019), COPD, HTN, HLD, DM, presented with rectal bleeding and alcohol intoxication. Admitted for possible lower GI bleed and intoxication. Patient was seen by GI who recommended an EGD and Colonoscopy. EGD showed 2 cm sliding hernia, normal esophagus otherwise; healhy appearing gastric bypass anatomy and colonoscopy showed proctitis vs bowel prep related changes in distal rectum, diverticulum in sigmoid colon, large internal hemorrhoids. Patient was told to avoid NSAIDs, stop consuming alcohol, eat a high fiber diet, and to use canasa suppositories once a day for 4 weeks with outpatient follow up with Dr. Carmona. Patient was also monitored for signs and symptoms of alcohol withdrawals during her stay but did not show any. CIWA score remained at 0 and therefore was not started on a withdrawal protocol. Date of Admission:07/17/20 07/18/20-EKG-1st degree AV block 07/19/20-EGD- 2 cm sliding hernia, normal esophagus otherwise; healhy appearing gastric bypass anatomy 07/20/20-Colonoscopy- question of proctitis vs bowel prep related changes in distal rectum, diverticulum in sigmoid colon, large internal hemorrhoids Date of Discharge: 07/21/20 Minutes to complete discharge: 36 Discharge Summary Problems reviewed: Yes Reason For Visit: RECTAL HEMORRHAGE Current Active Problems Alcohol intoxication (Acute) Rectal bleeding (Acute) Condition: Stable - Instructions Diet, Activity, Other Instructions: Your visit: You were admitted to the hospital for bleeding from your rectum. We did an EGD and colonoscopy during your stay to find the cause of your bleeding. You were found to have some inflammation in your rectum and large internal hemorrhoids. Please eat foods high in fiber to help reduce your symptoms. Additional Imaging Findings: -During your stay we did an EKG which showed a slightly slower heart rhythm. Medications changes: -Please use the Canasa rectal suppositories that were prescribed to you once a day. -Continue to take all other home medications as prescribed. Follow up: - Please follow-up with your [employer], Dr. Carmona, in 1 week. - Visit with your Primary Care Provider, Dr. Guerra in 2 weeks. Additional Instructions: -Please stop drinking alcohol. This can make your symptoms worse and alcohol has a lot of harmful effects on your body. -Please avoid taking NSAIDs. This can make your symptoms worse. -You will need a repeat colonoscopy in 5 years. -You are being discharged to your home. -Please return to the Emergency Department if you experience worsening pain, fevers, chills, shortness of breath, or chest pain, or if you experience any worsening, new or concerning symptoms. Referrals: Chuck Carmona DO [Staff Physician] - 1 Week Tara Plummer [Primary Care Provider] - 1 Week Disposition: HOME - Home Medications Comprehensive Discharge Medication List: Ambulatory Orders Mesalamine Suppository [Canasa Suppository -] 1,000 mg RC DAILY #30 supp 07/21/20 This patient is new to me today: No Emergency Visit: No Critical Care patient: No - Discharge Referral Referred to [facility] Med P.C.: No ATTENDING PHYSICIAN STATEMENT I saw and evaluated the patient. I reviewed the resident's note and discussed the case with the resident. I agree with the resident's findings and plan as documented. SUBJECTIVE: OBJECTIVE: ASSESSMENT AND PLAN:
[2020-07-21 17:15] VITALS: BP 116/74; PULSE 74; TEMP 98.5
--- NOTE | 2020-07-22 18:52 | PATH ---
Surgical Pathology Report Patient Name: SHWETA FELIPE [facility]. Rec. #: [id number] /Age/Gender: 1960 (Age: 60) / F Account: [id number] Location: 4 SO PEDS/ADOL Taken: 07/21/2020 Received: 07/21/2020 Reported: 07/22/2020 Physicians: Gm Michaels MD Specimen(s) Received RECTUM Clinical History Rectal bleeding Postoperative diagnosis: Inverted diverticulum, proctitis Final Diagnosis RECTUM, BIOPSY: COLONIC MUCOSA WITH FOCAL ACTIVE COLITIS. SEE COMMENT. Comment: Findings are non-specific. Although acute self-limited proctitis is a consideration, among other conditions, the possibility of early inflammatory bowel disease cannot be completely excluded. Suggest clinical/endoscopic correlation. Electronically Signed Tania Stapleton M.D. Gross Description Received in formalin, labeled "rectum biopsy" are 4 mukherjee, irregular portions of soft tissue ranging from 0.1-0.2 cm. in greatest dimension. The specimens are submitted in toto in one cassette. /07/21/2020 saudi/07/21/2020
== END 2020-07-21 18:16 | disposition home or self-care (01) | DRG 394 ==
LOC: JER 20:09 → JERBED 21:42 → J4S 07-18 06:49
PROVIDERS: ADMIT Internal Medicine; ATTEND Student in an Organized Health Care Education/Training Program
PROC: 0DJ08ZZ Inspection of Upper Intestinal Tract, Via Natural or Artificial Opening Endoscopic (ICD-10-PCS; principal; 2020-07-20 12:00)
PROC: 0DBP8ZX Excision of Rectum, Via Natural or Artificial Opening Endoscopic, Diagnostic (ICD-10-PCS; 2020-07-21)
DX: K62.9 Disease of anus and rectum, unspecified (principal); E46 Unspecified protein-calorie malnutrition; I50.30 Unspecified diastolic (congestive) heart failure; D62 Acute posthemorrhagic anemia; F10.129 Alcohol abuse with intoxication, unspecified; I44.0 Atrioventricular block, first degree; J45.909 Unspecified asthma, uncomplicated; D64.9 Anemia, unspecified; J44.9 Chronic obstructive pulmonary disease, unspecified; E78.5 Hyperlipidemia, unspecified; R56.9 Unspecified convulsions; Z68.26 Body mass index [BMI] 26.0-26.9, adult; E11.9 Type 2 diabetes mellitus without complications; I11.0 Hypertensive heart disease with heart failure; Z98.84 Bariatric surgery status; E83.42 Hypomagnesemia; E87.6 Hypokalemia; D75.89 Other specified diseases of blood and blood-forming organs; K40.90 Unilateral inguinal hernia, without obstruction or gangrene, not specified as recurrent; K57.30 Diverticulosis of large intestine without perforation or abscess without bleeding; K64.8 Other hemorrhoids; Y90.6 Blood alcohol level of 120-199 mg/100 ml
CPT/HCPCS: 36415; 71045-TC-FY; 80048; 80053; 80307; 82272; 82550; 82607; 82728; 82746; 82962; 83036; 83540; 83550; 83735; 83880; 84100; 84484; 85025; 85610; 85730; 86850; 86900; 86901; 88305-TC; 90732; 93005; 93010; 97116-GP; 97161-GP; 99285-25; G0009; U0003

== ENCOUNTER 2020-08-01 12:03 | Emergency (ER) | payer BC, OTHER ==
--- NOTE | 2020-08-01 12:16 | PDOC ---
History of Present Illness - General Stated Complaint: INTOXIFICATION Time Seen by Provider: 08/01/20 12:16 History Source: Patient Exam Limitations: No Limitations - History of Present Illness Initial Comments: 08/01/20 12:25 60 y.o. F PMHx PMX of EtOH abuse, HFpEF (60-65% in 2019), COPD, HTN, HLD, DM presenting due to alcohol intoxication. Patient reports she had been drinking today (1 pint of vodka) and her called EMS to send her in. Patient reports no headache, fever, chills, N/V/D. 08/01/20 12:27 Is this a multiple visit Asthma Patient?: No Timing/Duration: 4-6 hours Severity: mild Past History - Medical History Allergies/Adverse Reactions: Allergies Allergy/AdvReac Type Severity Reaction Status Date / Time No Known Allergies Allergy Verified 08/01/20 12:43 Home Medications: Ambulatory Orders Mesalamine Suppository [Canasa Suppository -] 1,000 mg RC DAILY #30 supp 07/21/20 Anemia: Yes Asthma: Yes Cancer: No Cardiac Disorders: Yes CVA: No COPD: Yes CHF: Yes (On Toprol) Dementia: No Diabetes: Yes GI Disorders: Yes (gerd) Disorders: No HTN: Yes Hypercholesterolemia: Yes Kidney Stones: No Liver Disease: No Psychiatric Problems: Yes (drinks etoh everyday.) Seizures: No Thyroid Disease: No - Surgical History Abdominal Surgery: Yes (GASTRIC BYPASS in 2004,HYSTERECTOMY in 2010) Appendectomy: No Cardiac Surgery: No Cholecystectomy: No Lung Surgery: No Neurologic Surgery: No Orthopedic Surgery: No - Reproductive History PID: No - Immunization History Td Vaccination: Yes TDAP Vaccination: Yes Immunization Up to Date: Yes - Psycho-Social/Smoking History Smoking History: Smoker current status UNK Have you smoked in the past 12 months: No 'Breaking Loose' booklet given: 06/03/18 Review of Systems - Review of Systems Able to Perform ROS?: Yes Is the patient limited Finnish proficient: No Constitutional: No: Chills, Fever HEENTM: No: Blurred Vision, Double Vision Respiratory: No: Cough, Shortness of Breath Cardiac (ROS): No: Chest Pain, Lightheadedness ABD/GI: No: Abdominal Distended, Constipated, Diarrhea, Nausea, Vomiting : No: Burning, Dysuria Musculoskeletal: No: Back Pain, Muscle Weakness Integumentary: No: Pruritus, Rash Neurological: No: Headache, Numbness, Dizziness Hematologic/Lymphatic: No: Blood Clots, Bleeding Diathesis *Physical Exam - Physical Exam General Appearance: Yes: Nourished, Appropriately Dressed. No: Apparent Distress Respiratory/Chest: positive: Lungs Clear, Normal Breath Sounds. negative: Chest Tender, Respiratory Distress, Crackles, Rales, Stridor, Wheezing Cardiovascular: positive: Regular Rhythm, Regular Rate. negative: Edema, JVD, Murmur Gastrointestinal/Abdominal: positive: Normal Bowel Sounds. negative: Tender, Flat, Soft, Distended, Guarding, Rebound, Tenderness Musculoskeletal: positive: Normal Inspection. negative: CVA Tenderness Extremity: positive: Normal Inspection. negative: Tender, Swelling, Calf Tenderness Integumentary: positive: Normal Color, Dry, Warm. negative: Rash, Swelling Neurologic: positive: Fully Oriented, Alert, Normal Response ED Treatment Course - LABORATORY CBC & Chemistry Diagram: 08/01/20 12:53 08/01/20 12:32 Medical Decision Making - Medical Decision Making 08/01/20 12:35 60 y.o. F PMHx PMX of EtOH abuse, HFpEF (60-65% in 2019), COPD, HTN, HLD, DM presenting due to alcohol intoxication. DDx: Alcohol intoxication Labs: H& H WNL, Na 144, K 3.5 - Patient walking well, pelvis stable. Dispo: D/C home 08/01/20 15:12 Discharge - Discharge Information Problems reviewed: Yes Clinical Impression/Diagnosis: Alcohol intoxication Qualifiers: Complication of substance-induced condition: uncomplicated Qualified Code(s): F10.920 - Alcohol use, unspecified with intoxication, uncomplicated Condition: Improved Disposition: HOME - Admission No - Follow up/Referral Referrals: Tara Plummer [Primary Care Provider] - - Patient Discharge Instructions Additional Instructions: You were seen in the emergency department for alcohol intoxication. You received nausea medication. This can be caused by drinking alcohol. Please follow up with your primary care physician and or Specialist regarding your visit to the emergency department. If you experience profound nausea, vomiting, dizziness, shortness of breath, abdominal pain please return to the emergency department or call 911. - Post Discharge Activity
--- OUTSIDE RECORDS SUMMARY | 2020-08-01 12:29 | XMS ---
:1960 Author Organization [facility] Care Team Providers Name Role Phone ED STAFF PHYSICIAN Unavailable Unavailable Mike Unavailable [phone] ED STAFF PHYSICIAN Unavailable Unavailable ED STAFF PHYSICIAN Unavailable Unavailable YESENIA AKINO Unavailable Unavailable IAN RA Unavailable Unavailable ED STAFF PHYSICIAN Unavailable Unavailable Ian MD Unavailable Unavailable Ian Unavailable Unavailable ZUNASSIGNED Unavailable Unavailable MD Levar Unavailable MD Levar Unavailable MD Levar Unavailable MD Levar Unavailable MD Levar Unavailable MD Levar Unavailable MD Levar Unavailable ED STAFF PHYSICIAN Unavailable Unavailable Re-disclosure Warning The records that you are about to access may contain information from federally- assisted alcohol or drug abuse programs. If such information is present, then the following federally mandated warning applies: This information has been disclosed to you from records protected by federal confidentiality rules (42 CFR part 2). The federal rules prohibit you from making any further disclosure of this information unless further disclosure is expressly permitted by the written consent of the person to whom it pertains or as otherwise permitted by 42 CFR part 2. A general authorization for the release of medical or other information is NOT sufficient for this purpose. The Federal rules restrict any use of the information to criminally investigate or prosecute any alcohol or drug abuse patient.The records that you are about to access may contain highly sensitive health information, the redisclosure of which is protected by Article 27-F of the [facility] Public Health law. If you continue you may haveaccess to information: Regarding HIV / AIDS; Provided by facilities licensed or operated by the [facility] Office of Mental Health; or Provided by the [facility] Office for People With Developmental Disabilities. If such information is present, then the following [facility] mandated warning applies: This information has been disclosed to you from confidential records which are protected by state law. State law prohibits you from making any further disclosure of this information without the specific written consent of the person to whom it pertains, or as otherwise permitted by law. Any unauthorized further disclosure in violation of state law may result in a fine or fdc sentence or both. A general authorization for the release of medical or other information is NOT sufficient authorization for further disclosure. Encounters Encounter Providers Location Date Indications Data Source(s ) Emergency Attender: SILVIA ED H 07/31/2020 [facility] STAFF 11:47:00 AM [facility] Saima hernandez PHYSICIANAttender: EDT - STAFF ED STAFF 07/31/2020 PHYSICIANAdmitter: 03:47:00 PM [facility] ED STAFF EDT PHYSICIANReferrer: ZUNASSIGNED Patient discharged. Emergency Attender: AMY ED STAFF H 05/10/2020 04:41:00 PM [facility] PHYSICIANAttender: STAFF ED EDT - 05/10/2020 [facility] STAFF PHYSICIANAdmitter: AMY 06:39:00 PM EDT ED STAFF PHYSICIANReferrer: STAFF ED STAFF PHYSICIAN Patient discharged. Emergency Attender: ED STAFF H 10/25/2019 11:54:00 AM [facility] PHYSICIANAttender: SILVIA MORIN EST - 10/25/2019 [facility] STAFF PHYSICIANAttender: STAFF 05:53:00 PM EST ED STAFF PHYSICIANAdmitter: ED STAFF PHYSICIAN Patient discharged. Emergency Attender: ED STAFF H 10/22/2019 12:04:00 PM [facility] PHYSICIANAttender: STAFF ED EST - 10/22/2019 [facility] STAFF PHYSICIANAdmitter: ED 02:54:00 PM EST STAFF PHYSICIAN Patient discharged. Emergency Attender: SILVIA ED STAFF H 10/21/2019 08:10:00 AM [facility] PHYSICIANAttender: STAFF ED EST - 10/21/2019 [facility] STAFF PHYSICIANAdmitter: 08:58:00 AM EST [facility] ED STAFF PHYSICIAN Patient discharged. Emergency Attender: ED STAFF H 10/13/2019 09:19:00 AM [facility] PHYSICIANAttender: STAFF ED EST - 10/13/2019 [facility] STAFF PHYSICIANAdmitter: ED 01:30:00 PM EST STAFF PHYSICIAN Patient discharged. Inpatient Attender: FLAKO PATTERSON H-HAL5 08/05/2019 12:57:00 P M [facility] AKINOAdmitter: FLAKO EDT - 08/08/2019 [facility] YESENIA SAMUELOReferrer: 04:15:00 PM EDT FLAKO ARRIOLA Patient discharged. Emergency H 07/23/2019 07:41:00 PM EDT - [address] [place] [address] 12:53:00 AM EDT Patient discharged. Attender: Cody Mariano 07/05/2019 CAREN Valderrama 10:47:00 AM EDT - ([facility] 07/05/2019 [facility] 10:47:00 AM EDT [facility]) Attender: Cody Mariano 07/02/2019 CAREN Valderrama 07:49:00 PM EDT - ([facility] 07/02/2019 [facility] 07:49:00 PM EDT [facility]) Attender: Cody Positive 06/27/2019 CAREN Mckeon Directions 07:55:00 PM EDT - ([facility] 06/27/2019 [facility] 07:55:00 PM EDT [facility]) Attender: Cody Positive 06/27/2019 CAREN Valderrama 07:41:00 PM EDT - ([facility] 06/27/2019 [facility] 07:41:00 PM EDT [facility]) Attender: Cody Mariano 06/25/2019 CAREN Valderrama 07:20:00 PM EDT - ([facility] 06/25/2019 [facility] 07:20:00 PM EDT [facility]) Attender: Ra Positive 06/21/2019 CAREN Sosa MD Directions 01:04:00 PM EDT - ([facility] 06/21/2019 [facility] 01:04:00 PM EDT Medical Center) Attender: Cody Positive 06/20/2019 [facility] Yumiko Mckeon Directions 08:08:00 PM EDT - ([facility] 06/20/2019 [facility] 08:08:00 PM EDT Medical Center) Attender: Cody Positive 06/20/2019 [facility] Yumiko Mckeon Directions 08:05:00 PM EDT - ([facility] 06/20/2019 [facility] 08:05:00 PM EDT Medical Center) Attender: Cody Positive 06/18/2019 [facility] Yumiko Mckeon Directions 07:27:00 PM EDT - ([facility] 06/18/2019 [facility] 07:27:00 PM EDT Medical Center) GROUP PSYCHOTHERAPY Attender: Cody Positive 06/13/2019 [facility] Yumiko Mckeon Directions 07:56:00 PM EDT - ([facility] 06/13/2019 [facility] 07:56:00 PM EDT Medical Center) Individual Attender: Cody Positive 06/13/2019 [facility] Psychotherapy (45 Yumiko Mckeon Directions 06:03:00 PM EDT - ([facility] 06/13/2019 [facility] 06:03:00 PM EDT Medical Center) GROUP PSYCHOTHERAPY Attender: Cody Positive 06/11/2019 [facility] Yumiko Mckeon Directions 06:57:00 PM EDT - ([facility] 06/11/2019 [place] 06:57:00 PM EDT Medical Center) OutpatientOFFICE/OUT Attender: Ra Positive 06/10/2019 [facility] PATIENT VISIT, LYLY Sosa MD Directions 12:56:00 PM EDT - ([facility] 06/10/2019 [facility] 12:56:00 PM EDT Medical Center) 06/05/2019 [facility] 11:28:00 AM EDT Medical Center Individual Attender: Cody Positive 06/04/2019 [facility] Psychotherapy (30 Yumiko Mckeon Directions 07:51:00 PM EDT - ([facility] 06/04/2019 [facility] 07:51:00 PM EDT Medical Center) GROUP PSYCHOTHERAPY Attender: Cody Positive 06/04/2019 CAREN Mckeon Directions 07:06:00 PM EDT - ([facility] 06/04/2019 [facility] 07:06:00 PM EDT Medical [place]) Inpatient Attender: Sorin Ricco-HALPaty 05/28/2019 [facility] 04:27:00 PM EDT - Medical MDAdmitter: 05/31/2019 [place] Sorin Cristobal 11:45:00 AM EDT MDReferrer: Sorin Cristobal MD Patient discharged. Outpatient Attender: RA SOSA H 05/14/2019 [facility] RA Outpatient Attender: RA IAN H 02/12/2019 12:00:00 PM [facility] ARNABAdmitter: [facility] RA 09/22/2016 12:00:00 AM [facility] Immunizations Vaccine Date Status Description Data Source(s) New in 2011. IIV4 08/07/2019 completed [facility] Her[facility]li[facility] [place] [facility] 02:11:00 PM EDT [facility] 12[facility] PM EDT Cent er Medications Medication Brand Start Product Dose Route Administrative Pharmacy at Indications Reaction Description Data Name Date Form Instructions Instructions Source(s) Naltrexone naltre .00 ORAL active take 1 N EXTGEN hydrochlori xone 2018 {tbl} tablet by (S aint de 50 MG 50 mg 12:00: oral route Estephania jabariml Oral Tablet tablet 00 AM every day Medical naltrexone EDT Center) 50 mg tablet Insurance Providers Payer name Policy type Policy ID Covered Covered green party's Policy P candace / Coverage green party ID relationship to Green Inf ormation type green [facility] [id number] SP 3 SOLUTIONS VALUE [id number] SP [id number] [place] [id number] SP [id number] COMM PLAN PPO [id number] SP [id number] HEALTH [id number] SP 3 SOLUTIONS VALUE [id number] SP [id number] [place] [id number] SP [id number] [place] [id number] SP [id number] [place] [facility] MEDICAID [id number] SP [id number] COMM PLAN VALUE [id number] SP [id number] [place] BC PPO [id number] SP [id number] UNITED [id number] SP [id number] HEALTHCARE (MEDICARE) VALUE [id number] SP [id number] [place] PPO [id number] SP [id number] MEDICAID [id number] SP [id number] [facility] MEDICAID [id number] SP [id number] COMM PLAN BLUE CROSS O [id number] 01 [id number] O BLUE CROSS O [id number] 01 [id number] BLUE SHIELD O BC PPO [id number] SP [id number] VALUE [id number] SP [id number] [place] PPO [id number] SP [id number] [facility] MEDICAID [id number] SP [id number] COMM PLAN [facility] MEDICAID [id number] SP [id number] COMM PLAN VALUE [id number] SP [id number] [place] [id number] SP [id number] [facility] MEDICAID [id number] SP [id number] COMM PLAN VALUE [id number] SP [id number] [place] VALUE [id number] SP [id number] [place] BC PPO [id number] SP [id number] VALUE [id number] SP [id number] [place] VALUE [id number] SP [id number] [place] VALUE [id number] SP [id number] [place] BC PPO [id number] SP [id number] VALUE [id number] SP [id number] [place] VAL[place] [id number] SP [id number] [place] BLUE CROSS [id number] self [id number] BLUE CROSS O [id number] 01 [id number] BC PPO [id number] SP [id number] HIP HMO [id number] SP [id number] SELF PAY SP INSURANCE [place] O [id number] 01 [id number] HEALTHCARE ACUTE BLUE CROSS [id number] self [id number] BLUE SHIELD BLUE CROSS O [id number] 01 [id number] BLUE CROSS O [id number] BLUE CROSS O [id number] Problems, Conditions, and Diagnoses Code Display Name Description Problem Type Effective Data Dates Source(s) Z53.21 Procedure and PROC/TRTMT NOT CRD Diagnosis 05/10/2020 Cj alyson Ledez[facility] treatment not OUT D/T PT LV BEF 04:41:00 PM Med ical carried out due to SEEN BY [facility] EDT Center patient leaving PROV prior to being seen by health care provider F10.129 Alcohol abuse with ALCOHOL ABUSE WITH Diagnosis 0 [facility] intoxication, INTOXICATION, 04:41:00 PM Medical unspecified UNSPECIFIED EDT Center Z53.20 Procedure and PROC/TRTMT NOT CRD Diagnosis 10/25/2019 Cj alyson Ledezmas treatment not OUT BEC PT DECISION 11:54:00 AM M edical carried out because FOR UNSP REASONS EST Center of patient's decision for unspecified reasons I10 Essential (primary) ESSENTIAL (PRIMARY) Diagnosis 020 [facility] hypertension HYPERTENSION 11:54:00 AM Medical EST Center E11.9 Type 2 diabetes TYPE 2 DIABETES Diagnosis 10/25/2019 [facility] mellitus without MELLITUS WITHOUT 11:54:00 AM M edical complications COMPLICATIONS EST Center R07.9 Chest pain, CHEST PAIN, Diagnosis 10/25/2019 [facility] unspecified UNSPECIFIED 11:54:00 AM Medical EST Center F10.10 Alcohol abuse, ALCOHOL ABUSE, Diagnosis 10/22/2019 [facility] uncomplicated UNCOMPLICATED 12:04:00 PM Medical EST Center E83.42 Hypomagnesemia HYPOMAGNESEMIA Diagnosis 08/08/2019 [facility] 04:15:00 PM Medical EDT Center Y90.8 Blood alcohol level BLOOD ALCOHOL LEVEL Diagnosis 019 [facility] of 240 mg/100 ml or OF 240 MG/100 ML OR 04:15:0 0 PM Medical more MORE EDT Center K29.20 Alcoholic gastritis ALCOHOLIC GASTRITIS Diagnosis [facility] without bleeding WITHOUT BLEEDING 04:15:00 PM edical EDT Center J84.10 Pulmonary fibrosis, PULMONARY FIBROSIS, Diagnosis [facility] unspecified UNSPECIFIED 04:15:00 PM Medical EDT Center F10.20 Alcohol dependence, ALCOHOL DEPENDENCE, Diagnosis 019 [facility] uncomplicated UNCOMPLICATED 12:57:00 PM Medical EDT Center Surgeries/Procedures Procedure Description Date Indications Data Source(s) GROUP PSYCHOTHERAPY 06/13/2019 [facility] ([facility] 12:00:00 AM EDT [facility] 06/13/2019 [place]) 12:00:00 AM EDT Individual Psychotherapy 06/13/2019 NEX TGEN ([facility] (45 Min) 12:00:00 AM EDT [facility] 06/13/2019 [place]) 12:00:00 AM EDT GROUP PSYCHOTHERAPY 06/11/2019 [facility] ([facility] 12:00:00 AM EDT [facility] 06/11/2019 [place]) 12:00:00 AM EDT OFFICE/OUTPATIENT VISIT, 06/10/2019 NEX TGEN ([facility] NEW 12:00:00 AM EDT [facility] 06/10/2019 [place]) 12:00:00 AM EDT Individual Psychotherapy 06/04/2019 NEX TGEN ([facility] (30 Min) 12:00:00 AM EDT [facility] 06/04/2019 [place]) 12:00:00 AM EDT GROUP PSYCHOTHERAPY 06/04/2019 [facility] (Saint 12:00:00 AM EDT [facility] 06/04/2019 [place]) 12:00:00 AM EDT Results ID Date Data Source [id number] 07/17/2020 11:30:00 PM EDT [facility] Name Value Range Interpretation Description Data Sup porting Code Source(s) Document(s ) SARS [facility] coronavirus 2 RNA This lab was ordered by [facility] and reported by [facility]. ID Date Data Source [id number] 05/14/2020 12:00:00 AM EDT [facility] Name Value Range Interpretation Code Description Data Ricarda rce(s) Supporting Document(s ) 2019-nCoV [facility] RNA XXX ELBA+probe- Imp This lab was ordered by [facility] and reported by [facility]. ID Date Data Source [facility].[id number] 08/08/2019 05:25:00 AM EDT [facility] Name Value Range Interpretation Description Data Sup porting Code Source(s) Document(s ) Potassium 3.5-5.3 <content [facility] [Moles/volume] in styleCode="Bold"> Roberto phs Serum or Plasma Potassium Medical </content>3.6 Center MEQ/L<content styleCode="Italic s"> (3.5-5.3 MEQ/L)</content> Chloride 98-107 <content [facility] [Moles/volume] in styleCode="Bold"> Roberto phs Serum or Plasma Chloride Medical </content>100 Center MEQ/L<content styleCode="Italic s"> (98-107 MEQ/L)</content> Sodium 137-145 <content [facility] [Moles/volume] in styleCode="Bold"> Roberto phs Serum or Plasma Sodium Medical </content>137 Center MEQ/L<content styleCode="Italic s"> (137-145 MEQ/L)</content> UNK 7-17 <content [facility] styleCode="Bold"> [facility] BUN </content>8 Medical MG/DL<content Center styleCode="Italic s"> (7-17 MG/DL)</content> Carbon dioxide, 22-30 Above high <content [facility] total normal styleCode="Bold"> [facility] [Moles/volume] in Carbon Dioxide Medical Serum or Plasma </content>31 Center MEQ/L H<content styleCode="Italic s"> (22-30 MEQ/L)</content> Creatinine 0.5-1.3 <content [facility] [Mass/volume] in styleCode="Bold"> Tan hs Serum or Plasma Creatinine Medical </content>0.6 Center MG/DL<content styleCode="Italic s"> (0.5-1.3 MG/DL)</content> Glucose 74-106 Above high <content Saint [Mass/volume] in normal styleCode="Bold"> Tan hs Serum or Plasma Glucose Medical </content>110 Center MG/DL H<content styleCode="Italic s"> (74-106 MG/DL)</content> Calcium 8.4-10. <content [facility] [Mass/volume] in 2 styleCode="Bold"> Tan hs Serum or Plasma Calcium Medical </content>9.4 Center MG/DL<content styleCode="Italic s"> (8.4-10.2 MG/DL)</content> Alkaline 38-126 <content [facility] phosphatase styleCode="Bold"> [facility] [Enzymatic Alkaline Medical activity/volume] Phosphatase (ALP) Cente r in Serum or Plasma </content>69 IU/L<content styleCode="Italic s"> (38-126 IU/L)</content> Albumin 3.5-5.0 <content [facility] [Mass/volume] in styleCode="Bold"> Tan hs Serum or Plasma Albumin Medical </content>3.5 Center G/DL<content styleCode="Italic s"> (3.5-5.0 G/DL)</content> Bilirubin.total 0.2-1.3 <content [facility] [Mass/volume] in styleCode="Bold"> Tan hs Serum or Plasma Bilirubin Total Medical </content>0.8 Center MG/DL<content styleCode="Italic s"> (0.2-1.3 MG/DL)</content> UNK > 60 <content [facility] styleCode="Bold"> [place] EGFR Medical </content>108 Center GFR<content styleCode="Italic s"> (> 60 GFR)</content> Aspartate 14-36 Above high <content [facility] aminotransferase normal styleCode="Bold"> [facility] hs [Enzymatic Aspartate Medical activity/volume] Aminotransferase Center in Serum or Plasma (AST) </content>51 IU/L H<content styleCode="Italic s"> (14-36 IU/L)</content> Alanine 7-30 Above high <content [facility] aminotransferase normal styleCode="Bold"> [facility] hs [Enzymatic Alanine Medical activity/volume] Aminotransferase Center in Serum or Plasma (ALT) </content>45 IU/L H<content styleCode="Italic s"> (7-30 IU/L)</content> ID Date Data Source [facility].[id number] 08/08/2019 05:25:00 AM EDT [facility] -0400 Name Value Range Interpretation Description Data Sup porting Code Source(s) Document(s ) UNK 2.3-3.5 <content [facility] styleCode="Bold Medical ">Globulin Center </content>2.8 G/DL<content styleCode="Ital ics"> (2.3-3.5 G/DL)</content> UNK >= 1.0 <content [facility] styleCode="Bold Medical ">AG Ratio Center </content>1.2 <content styleCode="Ital ics"> (>= 1.0 )</content> Protein 6.3-8.2 <content [facility] [Mass/volum styleCode="Bold Medical e] in Serum ">Total Protein Center or Plasma </content>6.3 G/DL<content styleCode="Ital ics"> (6.3-8.2 G/DL)</content> ID Date Data Source GFR(Creatinine).[id number] 08/08/2019 05:25:00 AM EDT [facility] 0-0400 Name Value Range Interpretation Code Description Data Ricarda rce(s) Supporting Document(s ) UNK > 60 <content [facility] styleCode="Bold"> Medical Cent er EGFR </content>108 GFR<content styleCode="Italic s"> (> 60 GFR)</content> ID Date Data Source HematologyRou.[id number] 08/08/2019 05:25:00 AM EDT [facility] 0400 Name Value Range Interpretation Description Data Sup porting Code Source(s) Document(s ) Leukocytes 4.4-11.0 <content [facility] [#/volume] in styleCode="B[facility] Blood by ">White Blood Medical Automated count Cell Count Center </content>6.61 KCUMM<content styleCode="Ital ics"> (4.4-11.0 KCUMM)</content > Hemoglobin 12.3-16. <content [facility] [Mass/volume] in 0 styleCode="Bold [facility] Blood ">Hemoglobin Medical </content>12.9 Center G/DL<content styleCode="Ital ics"> (12.3-16.0 G/DL)</content> Hematocrit 36.0-46. <content [facility] [Volume 0 styleCode="[facility] Fraction] of ">Hematocrit Medical Blood by </content>37.7 Center Automated count %<content styleCode="Ital ics"> (36.0-46.0 %)</content> Erythrocytes 4.0-5.1 Below low normal <content [facility] [#/volume] in styleCode="B[facility] Blood by ">Red Blood Medical Automated count Cell Count Center </content>3.96 MCUMM L<content styleCode="Ital ics"> (4.0-5.1 MCUMM)</content > Erythrocyte mean 80.0-100 <content [facility] corpuscular .0 styleCode="Bold [facility] volume [Entitic ">Mean Medical volume] by Corpuscular Center Automated count Volume </content>95.2 FL<content styleCode="Ital ics"> (80.0-100.0 FL)</content> Erythrocyte mean 26.0-34. <content [facility] corpuscular 0 styleCode="[facility] hemoglobin ">Mean Medical [Entitic mass] Corposcular Center by Automated Hemoglobin count </content>32.6 PG<content styleCode="Ital ics"> (26.0-34.0 PG)</content> Erythrocyte 11.5-14. <content [facility] distribution 5 styleCode="[facility] width [Ratio] by ">Red Cell Medical Automated count Distribution Center Width </content>13.0 %<content styleCode="Ital ics"> (11.5-14.5 %)</content> Erythrocyte mean 32.0-37. <content [facility] corpuscular 0 styleCode="[facility] hemoglobin ">Mean Corpus. Medical concentration Hgb Center [Mass/volume] by Concentration Automated count (MCHC) </content>34.2 G/DL<content styleCode="Ital ics"> (32.0-37.0 G/DL)</content> Platelet mean 8.0-11.0 <content [facility] volume [Entitic styleCode="Bold [facility] volume] in Blood ">Mean Platelet Medical by Automated Volume Center count </content>9.9 FL<content styleCode="Ital ics"> (8.0-11.0 FL)</content> UNK 0 <content Saint styleCode="[facility] ">Nucleated Red Medical Blood Cell Center </content>0.0 /100<content styleCode="Ital ics"> (0 /100)</content> UNK 0.0 <content [facility] styleCode="Bold [facility] ">Nucleated Red Medical Blood Cell Center Count </content>0.00 KCUMM<content styleCode="Ital ics"> (0.0 KCUMM)</content > Platelets 130-400 <content [facility] [#/volume] in styleCode="Bold [facility] Blood by ">Platelet Medical Automated count Count Center </content>177 KCUMM<content styleCode="Ital ics"> (130-400 KCUMM)</content > ID Date Data Source Liver 08/08/2019 05:25:00 AM EDT [facility] Profile.[id number] Name Value Range Interpretation Description Data Sup porting Code Source(s) Document(s ) Alanine 7-30 Above high <content [facility] aminotransferase normal styleCode="Bold"> Tan hs [Enzymatic Alanine Medical activity/volume] Aminotransferase Center in Serum or Plasma (ALT) </content>45 IU/L H<content styleCode="Italic s"> (7-30 IU/L)</content> Aspartate 14-36 Above high <content [facility] aminotransferase normal styleCode="Bold"> Tan hs [Enzymatic Aspartate Medical activity/volume] Aminotransferase Center in Serum or Plasma (AST) </content>51 IU/L H<content styleCode="Italic s"> (14-36 IU/L)</content> Bilirubin.total 0.2-1.3 <content [facility] [Mass/volume] in styleCode="Bold"> Tan hs Serum or Plasma Bilirubin Total Medical </content>0.8 Center MG/DL<content styleCode="Italic s"> (0.2-1.3 MG/DL)</content> Alkaline 38-126 <content [facility] phosphatase styleCode="Bold"> [facility] [Enzymatic Alkaline Medical activity/volume] Phosphatase (ALP) Cente r in Serum or Plasma </content>69 IU/L<content styleCode="Italic s"> (38-126 IU/L)</content> Albumin 3.5-5.0 <content [facility] [Mass/volume] in styleCode="Bold"> Tan hs Serum or Plasma Albumin Medical </content>3.5 Center G/DL<content styleCode="Italic s"> (3.5-5.0 G/DL)</content> ID Date Data Source Stools.[id number] 08/07/2019 08:20:00 AM EDT [facility] Name Value Range Interpretation Description Data Sup porting Code Source(s) Document(s ) UNK NEGATIVE FOR <content [facility] TOXIN styleCode="Bold Medical ">Clostridium [place] Difficile Toxin </content>NEGAT KAYLA FOR TOXIN <content styleCode="Ital ics"> (NEGATIVE FOR TOXIN )</content> UNK NEGATIVE FOR <content [facility] ANTIGEN styleCode="Bold Medical ">Clostridium [place] Difficile Antigen </content>NEGAT KAYLA FOR ANTIGEN <content styleCode="Ital ics"> (NEGATIVE FOR ANTIGEN )</content> ID Date Data Source BMP.[id number] 08/07/2019 06:45:00 AM EDT Health system Name Value Range Interpretation Description Data Sup porting Code Source(s) Document(s ) Chloride 98-107 <content [facility] [Moles/volume] in styleCode="Bold"> Roberto phs Serum or Plasma Chloride Medical </content>98 Center MEQ/L<content styleCode="Italic s"> (98-107 MEQ/L)</content> Potassium 3.5-5.3 <content [facility] [Moles/volume] in styleCode="Bold"> Roberto phs Serum or Plasma Potassium Medical </content>3.5 Center MEQ/L<content styleCode="Italic s"> (3.5-5.3 MEQ/L)</content> Sodium 137-145 <content [facility] [Moles/volume] in styleCode="Bold"> Roberto phs Serum or Plasma Sodium Medical </content>138 Center MEQ/L<content styleCode="Italic s"> (137-145 MEQ/L)</content> Glucose 74-106 Above high <content Saint [Mass/volume] in normal styleCode="Bold"> Tan hs Serum or Plasma Glucose Medical </content>130 Center MG/DL H<content styleCode="Italic s"> (74-106 MG/DL)</content> Carbon dioxide, 22-30 Above high <content [facility] total normal styleCode="Bold"> Senthil [Moles/volume] in Carbon Dioxide Medical Serum or Plasma </content>32 Center MEQ/L H<content styleCode="Italic s"> (22-30 MEQ/L)</content> Calcium 8.4-10. <content [facility] [Mass/volume] in 2 styleCode="Bold"> Tan hs Serum or Plasma Calcium Medical </content>9.8 Center MG/DL<content styleCode="Italic s"> (8.4-10.2 MG/DL)</content> UNK 7-17 Below low <content [facility] normal styleCode="Bold"> Senthil BUN </content>6 Medical MG/DL L<content Center styleCode="Italic s"> (7-17 MG/DL)</content> Creatinine 0.5-1.3 <content [facility] [Mass/volume] in styleCode="Bold"> Tan hs Serum or Plasma Creatinine Medical </content>0.6 Center MG/DL<content styleCode="Italic s"> (0.5-1.3 MG/DL)</content> Bilirubin.total 0.2-1.3 <content [facility] [Mass/volume] in styleCode="Bold"> Tan hs Serum or Plasma Bilirubin Total Medical </content>1.2 Center MG/DL<content styleCode="Italic s"> (0.2-1.3 MG/DL)</content> UNK > 60 <content Saint styleCode="Bold"> Senthil EGFR Medical </content>108 Center GFR<content styleCode="Italic s"> (> 60 GFR)</content> Alanine 7-30 Above high <content [facility] aminotransferase normal styleCode="Bold"> Tan hs [Enzymatic Alanine Medical activity/volume] Aminotransferase Center in Serum or Plasma (ALT) </content>47 IU/L H<content styleCode="Italic s"> (7-30 IU/L)</content> Aspartate 14-36 Above high <content [facility] aminotransferase normal styleCode="Bold"> Tan hs [Enzymatic Aspartate Medical activity/volume] Aminotransferase Center in Serum or Plasma (AST) </content>52 IU/L H<content styleCode="Italic s"> (14-36 IU/L)</content> Alkaline 38-126 <content [facility] phosphatase styleCode="Bold"> Senthil [Enzymatic Alkaline Medical activity/volume] Phosphatase (ALP) Cente r in Serum or Plasma </content>76 IU/L<content styleCode="Italic s"> (38-126 IU/L)</content> Albumin 3.5-5.0 <content [facility] [Mass/volume] in styleCode="Bold"> Tan hs Serum or Plasma Albumin Medical </content>4.3 Center G/DL<content styleCode="Italic s"> (3.5-5.0 G/DL)</content> ID Date Data Source CHMROUTINECCDA.[id number] 08/07/2019 06:45:00 AM EDT [facility] -0400 Name Value Range Interpretation Description Data Sup porting Code Source(s) Document(s ) UNK >= 1.0 <content Saint styleCode="Analilia Senthil d">AG Ratio Medical </content>1.4 Center <content styleCode="Vicki lics"> (>= 1.0 )</content> UNK 2.3-3.5 <content Saint styleCode="Analilia Senthil d">Globulin Medical </content>3.0 Center G/DL<content styleCode="Vicki lics"> (2.3-3.5 G/DL)</content > Protein 6.3-8.2 <content [facility] [Mass/volume] styleCode="Analilia Senthil in Serum or d">Total Medical Plasma Protein Center </content>7.3 G/DL<content styleCode="Vicki lics"> (6.3-8.2 G/DL)</content > Magnesium 1.6-2.3 Below low normal <content [facility] [Mass/volume] styleCode="Analilia Senthil in Serum or d">Magnesium Medical Plasma </content>1.5 Center MG/DL L<content styleCode="Vicki lics"> (1.6-2.3 MG/DL)</conten t> ID Date Data Source GFR(Creatinine).[id number] 08/07/2019 06:45:00 AM EDT [facility] 0-0400 Name Value Range Interpretation Code Description Data Ricarda rce(s) Supporting Document(s ) UNK > 60 <content [facility] styleCode="Bold"> Medical Cent er EGFR </content>108 GFR<content styleCode="Italic s"> (> 60 GFR)</content> ID Date Data Source HematologyRou.[id number] 08/07/2019 06:45:00 AM EDT [facility] 0400 Name Value Range Interpretation Description Data Sup porting Code Source(s) Document(s ) Hemoglobin 12.3-16. <content [facility] [Mass/volume] in 0 styleCode="Bold Senthil Blood ">Hemoglobin Medical </content>14.0 Center G/DL<content styleCode="Ital ics"> (12.3-16.0 G/DL)</content> Hematocrit 36.0-46. <content [facility] [Volume 0 styleCode="Bold Senthil Fraction] of ">Hematocrit Medical Blood by </content>40.8 Center Automated count %<content styleCode="Ital ics"> (36.0-46.0 %)</content> Leukocytes 4.4-11.0 <content Saint [#/volume] in styleCode="Bold Senthil Blood by ">White Blood Medical Automated count Cell Count Center </content>5.41 KCUMM<content styleCode="Ital ics"> (4.4-11.0 KCUMM)</content > Erythrocytes 4.0-5.1 <content Saint [#/volume] in styleCode="Bold Senthil Blood by ">Red Blood Medical Automated count Cell Count Center </content>4.30 MCUMM<content styleCode="Ital ics"> (4.0-5.1 MCUMM)</content > Erythrocyte mean 80.0-100 <content [facility] corpuscular .0 styleCode="Bold Senthil volume [Entitic ">Mean Medical volume] by Corpuscular Center Automated count Volume </content>94.9 FL<content styleCode="Ital ics"> (80.0-100.0 FL)</content> Erythrocyte mean 26.0-34. <content [facility] corpuscular 0 styleCode="Bold Senthil hemoglobin ">Mean Medical [Entitic mass] Corposcular Center by Automated Hemoglobin count </content>32.6 PG<content styleCode="Ital ics"> (26.0-34.0 PG)</content> Platelets 130-400 <content Saint [#/volume] in styleCode="Bold Senthil Blood by ">Platelet Medical Automated count Count Center </content>214 KCUMM<content styleCode="Ital ics"> (130-400 KCUMM)</content > Erythrocyte 11.5-14. <content [facility] distribution 5 styleCode="Bold Senthil width [Ratio] by ">Red Cell Medical Automated count Distribution Center Width </content>13.2 %<content styleCode="Ital ics"> (11.5-14.5 %)</content> Erythrocyte mean 32.0-37. <content [facility] corpuscular 0 styleCode="Bold Senthil hemoglobin ">Mean Corpus. Medical concentration Hgb Center [Mass/volume] by Concentration Automated count (MCHC) </content>34.3 G/DL<content styleCode="Ital ics"> (32.0-37.0 G/DL)</content> UNK 0 <content Saint styleCode="Bold Senthil ">Nucleated Red Medical Blood Cell Center </content>0.0 /100<content styleCode="Ital ics"> (0 /100)</content> Platelet mean 8.0-11.0 <content [facility] volume [Entitic styleCode="Bold Senthil volume] in Blood ">Mean Platelet Medical by Automated Volume Center count </content>9.4 FL<content styleCode="Ital ics"> (8.0-11.0 FL)</content> UNK 0.0 <content Saint styleCode="Bold Senthil ">Nucleated Red Medical Blood Cell Center Count </content>0.00 KCUMM<content styleCode="Ital ics"> (0.0 KCUMM)</content > ID Date Data Source Liver 08/07/2019 06:45:00 AM EDT [facility] Profile.[id number] Name Value Range Interpretation Description Data Sup porting Code Source(s) Document(s ) Aspartate 14-36 Above high <content [facility] aminotransferase normal styleCode="Bold"> Tan hs [Enzymatic Aspartate Medical activity/volume] Aminotransferase Center in Serum or Plasma (AST) </content>52 IU/L H<content styleCode="Italic s"> (14-36 IU/L)</content> Alkaline 38-126 <content [facility] phosphatase styleCode="Bold"> Senthil [Enzymatic Alkaline Medical activity/volume] Phosphatase (ALP) Cente r in Serum or Plasma </content>76 IU/L<content styleCode="Italic s"> (38-126 IU/L)</content> Bilirubin.total 0.2-1.3 <content [facility] [Mass/volume] in styleCode="Bold"> Tan hs Serum or Plasma Bilirubin Total Medical </content>1.2 Center MG/DL<content styleCode="Italic s"> (0.2-1.3 MG/DL)</content> Alanine 7-30 Above high <content [facility] aminotransferase normal styleCode="Bold"> Tan hs [Enzymatic Alanine Medical activity/volume] Aminotransferase Center in Serum or Plasma (ALT) </content>47 IU/L H<content styleCode="Italic s"> (7-30 IU/L)</content> Albumin 3.5-5.0 <content [facility] [Mass/volume] in styleCode="Bold"> Tan hs Serum or Plasma Albumin Medical </content>4.3 Center G/DL<content styleCode="Italic s"> (3.5-5.0 G/DL)</content> ID Date Data Source [facility].[id number] 08/06/2019 05:33:00 AM EDT [facility] Name Value Range Interpretation Description Data Sup porting Code Source(s) Document(s ) Sodium 137-145 <content [facility] [Moles/volume] in styleCode="Bold"> Roberto phs Serum or Plasma Sodium Medical </content>139 Center MEQ/L<content styleCode="Italic s"> (137-145 MEQ/L)</content> Chloride 98-107 <content [facility] [Moles/volume] in styleCode="Bold"> Roberto phs Serum or Plasma Chloride Medical </content>100 Center MEQ/L<content styleCode="Italic s"> (98-107 MEQ/L)</content> Potassium 3.5-5.3 <content [facility] [Moles/volume] in styleCode="Bold"> Roberto phs Serum or Plasma Potassium Medical </content>3.6 Center MEQ/L<content styleCode="Italic s"> (3.5-5.3 MEQ/L)</content> Carbon dioxide, 22-30 Above high <content [facility] total normal styleCode="Bold"> Senthil [Moles/volume] in Carbon Dioxide Medical Serum or Plasma </content>33 Center MEQ/L H<content styleCode="Italic s"> (22-30 MEQ/L)</content> UNK 7-17 <content [facility] styleCode="Bold"> Senthil BUN </content>10 Medical MG/DL<content Center styleCode="Italic s"> (7-17 MG/DL)</content> Creatinine 0.5-1.3 <content [facility] [Mass/volume] in styleCode="Bold"> Tan hs Serum or Plasma Creatinine Medical </content>0.5 Center MG/DL<content styleCode="Italic s"> (0.5-1.3 MG/DL)</content> UNK > 60 <content [facility] styleCode="Bold"> Senthil EGFR Medical </content>134 Center GFR<content styleCode="Italic s"> (> 60 GFR)</content> Glucose 74-106 <content [facility] [Mass/volume] in styleCode="Bold"> Tan hs Serum or Plasma Glucose Medical </content>98 Center MG/DL<content styleCode="Italic s"> (74-106 MG/DL)</content> Aspartate 14-36 Above high <content [facility] aminotransferase normal styleCode="Bold"> Tan hs [Enzymatic Aspartate Medical activity/volume] Aminotransferase Center in Serum or Plasma (AST) </content>60 IU/L H<content styleCode="Italic s"> (14-36 IU/L)</content> Calcium 8.4-10. <content [facility] [Mass/volume] in 2 styleCode="Bold"> Tan hs Serum or Plasma Calcium Medical </content>8.8 Center MG/DL<content styleCode="Italic s"> (8.4-10.2 MG/DL)</content> Alanine 7-30 Above high <content [facility] aminotransferase normal styleCode="Bold"> Tan hs [Enzymatic Alanine Medical activity/volume] Aminotransferase Center in Serum or Plasma (ALT) </content>51 IU/L H<content styleCode="Italic s"> (7-30 IU/L)</content> Albumin 3.5-5.0 <content [facility] [Mass/volume] in styleCode="Bold"> Tan hs Serum or Plasma Albumin Medical </content>3.7 Center G/DL<content styleCode="Italic s"> (3.5-5.0 G/DL)</content> Bilirubin.total 0.2-1.3 <content [facility] [Mass/volume] in styleCode="Bold"> Tan hs Serum or Plasma Bilirubin Total Medical </content>0.9 Center MG/DL<content styleCode="Italic s"> (0.2-1.3 MG/DL)</content> Alkaline 38-126 <content [facility] phosphatase styleCode="Bold"> Senthil [Enzymatic Alkaline Medical activity/volume] Phosphatase (ALP) Cente r in Serum or Plasma </content>86 IU/L<content styleCode="Italic s"> (38-126 IU/L)</content> ID Date Data Source [facility].[id number] 08/06/2019 05:33:00 AM EDT [facility] -0400 Name Value Range Interpretation Description Data Sup porting Code Source(s) Document(s ) UNK 2.3-3.5 <content Saint styleCode="Analilia Senthil d">Globulin Medical </content>2.6 Center G/DL<content styleCode="Vicki lics"> (2.3-3.5 G/DL)</content > UNK >= 1.0 <content Saint styleCode="Analilia Senthil d">AG Ratio Medical </content>1.4 Center <content styleCode="Vicki lics"> (>= 1.0 )</content> Magnesium 1.6-2.3 Below low normal <content [facility] [Mass/volume] styleCode="Analilia Senthil in Serum or d">Magnesium Medical Plasma </content>1.4 Center MG/DL L<content styleCode="Vicki lics"> (1.6-2.3 MG/DL)</conten t> Protein 6.3-8.2 <content [facility] [Mass/volume] styleCode="Analilia Senthil in Serum or d">Total Medical Plasma Protein Center </content>6.3 G/DL<content styleCode="Vicki lics"> (6.3-8.2 G/DL)</content > Phosphate 2.5-4.5 <content [facility] [Mass/volume] styleCode="Analilia Senthil in Serum or d">Phosphorus Medical Plasma </content>4.1 Center MG/DL<content styleCode="Vicki lics"> (2.5-4.5 MG/DL)</conten t> ID Date Data Source GFR(Creatinine).[id number] 08/06/2019 05:33:00 AM EDT [facility] 0-0400 Name Value Range Interpretation Code Description Data Ricarda rce(s) Supporting Document(s ) UNK > 60 <content [facility] styleCode="Bold"> Medical Cent er EGFR </content>134 GFR<content styleCode="Italic s"> (> 60 GFR)</content> ID Date Data Source HematologyRou.[id number] 08/06/2019 05:33:00 AM EDT [facility] 0400 Name Value Range Interpretation Description Data Sup porting Code Source(s) Document(s ) Leukocytes 4.4-11.0 <content [facility] [#/volume] in styleCode="Bold Senthil Blood by ">White Blood Medical Automated count Cell Count Center </content>6.09 KCUMM<content styleCode="Ital ics"> (4.4-11.0 KCUMM)</content > Hemoglobin 12.3-16. <content [facility] [Mass/volume] in 0 styleCode="Bold Senthil Blood ">Hemoglobin Medical </content>12.5 Center G/DL<content styleCode="Ital ics"> (12.3-16.0 G/DL)</content> Erythrocyte mean 80.0-100 <content [facility] corpuscular .0 styleCode="Bold Senthil volume [Entitic ">Mean Medical volume] by Corpuscular Center Automated count Volume </content>94.0 FL<content styleCode="Ital ics"> (80.0-100.0 FL)</content> Erythrocytes 4.0-5.1 Below low normal <content [facility] [#/volume] in styleCode="Bold Senthil Blood by ">Red Blood Medical Automated count Cell Count Center </content>3.84 MCUMM L<content styleCode="Ital ics"> (4.0-5.1 MCUMM)</content > Hematocrit 36.0-46. <content [facility] [Volume 0 styleCode="Bold Senthil Fraction] of ">Hematocrit Medical Blood by </content>36.1 Center Automated count %<content styleCode="Ital ics"> (36.0-46.0 %)</content> Platelets 130-400 <content Saint [#/volume] in styleCode="Bold Senthil Blood by ">Platelet Medical Automated count Count Center </content>228 KCUMM<content styleCode="Ital ics"> (130-400 KCUMM)</content > Erythrocyte 11.5-14. <content [facility] distribution 5 styleCode="Bold Senthil width [Ratio] by ">Red Cell Medical Automated count Distribution Center Width </content>13.3 %<content styleCode="Ital ics"> (11.5-14.5 %)</content> Erythrocyte mean 32.0-37. <content [facility] corpuscular 0 styleCode="Bold Senthil hemoglobin ">Mean Corpus. Medical concentration Hgb Center [Mass/volume] by Concentration Automated count (MCHC) </content>34.6 G/DL<content styleCode="Ital ics"> (32.0-37.0 G/DL)</content> Erythrocyte mean 26.0-34. <content [facility] corpuscular 0 styleCode="Bold Senthil hemoglobin ">Mean Medical [Entitic mass] Corposcular Center by Automated Hemoglobin count </content>32.6 PG<content styleCode="Ital ics"> (26.0-34.0 PG)</content> UNK 0 <content Saint styleCode="Bold Senthil ">Nucleated Red Medical Blood Cell Center </content>0.0 /100<content styleCode="Ital ics"> (0 /100)</content> UNK 0.0 <content Saint styleCode="Bold Senthil ">Nucleated Red Medical Blood Cell Center Count </content>0.00 KCUMM<content styleCode="Ital ics"> (0.0 KCUMM)</content > Platelet mean 8.0-11.0 <content [facility] volume [Entitic styleCode="Bold Senthil volume] in Blood ">Mean Platelet Medical by Automated Volume Center count </content>9.7 FL<content styleCode="Ital ics"> (8.0-11.0 FL)</content> ID Date Data Source Liver 08/06/2019 05:33:00 AM EDT [facility] Profile.[id number] Name Value Range Interpretation Description Data Sup porting Code Source(s) Document(s ) Aspartate 14-36 Above high <content [facility] aminotransferase normal styleCode="Bold"> Tan hs [Enzymatic Aspartate Medical activity/volume] Aminotransferase Center in Serum or Plasma (AST) </content>60 IU/L H<content styleCode="Italic s"> (14-36 IU/L)</content> Alkaline 38-126 <content [facility] phosphatase styleCode="Bold"> Senthil [Enzymatic Alkaline Medical activity/volume] Phosphatase (ALP) Cente r in Serum or Plasma </content>86 IU/L<content styleCode="Italic s"> (38-126 IU/L)</content> Alanine 7-30 Above high <content [facility] aminotransferase normal styleCode="Bold"> Tan hs [Enzymatic Alanine Medical activity/volume] Aminotransferase Center in Serum or Plasma (ALT) </content>51 IU/L H<content styleCode="Italic s"> (7-30 IU/L)</content> Albumin 3.5-5.0 <content [facility] [Mass/volume] in styleCode="Bold"> Tan hs Serum or Plasma Albumin Medical </content>3.7 Center G/DL<content styleCode="Italic s"> (3.5-5.0 G/DL)</content> Bilirubin.total 0.2-1.3 <content [facility] [Mass/volume] in styleCode="Bold"> Tan hs Serum or Plasma Bilirubin Total Medical </content>0.9 Center MG/DL<content styleCode="Italic s"> (0.2-1.3 MG/DL)</content> ID Date Data Source CHMROUTINECCDA.[id number] 08/05/2019 04:08:00 PM EDT [facility] -0400 Name Value Range Interpretation Description Data Sup porting Code Source(s) Document(s ) Cannabinoids <content Saint [Presence] in styleCode="Analilia [facility] Urine by Screen d">Cannabinoid Medical method >50 ng/mL s Center </content>NEGA TIVE NG/ML (Reference Range: not available)<br/ > ID Date Data Source Urinalysis.[id number] 08/05/2019 04:08:00 PM EDT [facility] 0 Name Value Range Interpretation Description Data Sup porting Code Source(s) Document(s ) UNK CLEAR <content Saint styleCode="Analilia [facility] d">Urine Medical Clarity Center </content>DURGA R <content styleCode="Vicki lics"> (CLEAR )</content> Color of Urine YELLOW <content Saint styleCode="Analilia Senthil d">Color, Medical Urine Center </content>YELL OW <content styleCode="Vicki lics"> (YELLOW )</content> Glucose NEGATIVE <content [facility] [Mass/volume] styleCode="Analilia Senthil in Urine by d">Urine Medical Test strip Glucose Center </content>500 MG/DL<content styleCode="Vicki lics"> (NEGATIVE MG/DL)</conten t> UNK NEGATIVE <content Saint styleCode="Analilia Senthil d">Urine Medical Bilirubin Center </content>NEGA TIVE <content styleCode="Vicki lics"> (NEGATIVE )</content> Ketones NEGATIVE <content Saint [Mass/volume] styleCode="Analilia Senthil in Urine by d">Urine Medical Test strip Ketone Center </content>15 MG/DL<content styleCode="Vicki lics"> (NEGATIVE MG/DL)</conten t> Specific 1.015-1.02 <content [facility] gravity of 5 styleCode="Analilia Senthil Urine by Test d">Urine Medical strip Specific Center [place] </content>1.02 5 <content styleCode="Vicki lics"> (1.015-1.025 )</content> pH of Urine by 4.5-8.0 <content [facility] Test strip styleCode="Analilia Senthil d">Urine pH Medical </content>6.0 Center <content styleCode="Vicki lics"> (4.5-8.0 )</content> Protein NEGATIVE <content Saint [Mass/volume] styleCode="Analilia Senthil in Urine by d">Urine Medical Test strip Protein Center </content>TRAC E MG/DL<content styleCode="Vicki lics"> (NEGATIVE MG/DL)</conten t> Hemoglobin NEGATIVE <content [facility] [Presence] in styleCode="Analilia Senthil Urine by Test d">Urine Blood Medical strip </content>TRAC Center E <content styleCode="Vicki lics"> (NEGATIVE )</content> Urobilinogen 0.2-1.0 <content Saint [Units/volume] styleCode="Analilia Ndiaye in Urine by d">Urine Medical Test strip Urobilinogen Center </content>0.2 MG/DL<content styleCode="Vicki lics"> (0.2-1.0 MG/DL)</conten t> Nitrite NEGATIVE <content [facility] [Presence] in styleCode="Analilia Ndiaye Urine by Test d">Urine Medical strip Nitrite Center </content>NEGA TIVE <content styleCode="Vicki lics"> (NEGATIVE )</content> UNK 0-3 <content Saint styleCode="Analilia Senthil d">Urine Red Medical Blood Cell Center </content>0-3 HPF<content styleCode="Vicki lics"> (0-3 HPF)</content> Leukocyte NEGATIVE <content Saint esterase styleCode="Analilia Ndiaye [Presence] in d">Urine Medical Urine by Test Leukocyte Center strip </content>NEGA TIVE <content styleCode="Vicki lics"> (NEGATIVE )</content> UNK NONE SEEN <content Saint styleCode="Analilia Senthil d">Epithelial Medical Cell Center </content>10 - 20 HPF<content styleCode="Vicki lics"> (NONE SEEN HPF)</content> UNK NEGATIVE <content Saint styleCode="Analilia Senthil d">Urine Medical Bacteria Center </content>FEW HPF<content styleCode="Vicki lics"> (NEGATIVE HPF)</content> UNK 0-2 <content Saint styleCode="Analilia Senthil d">Hyaline Medical Cast Center </content>1-3 LPF<content styleCode="Vicki lics"> (0-2 LPF)</content> UNK 0-3 <content Saint styleCode="Analilia Senthil d">Urine White Medical Blood Cell Center </content>0-3 HPF<content styleCode="Vicki lics"> (0-3 HPF)</content> UNK NONE SEEN <content Saint styleCode="Analilia Senthil d">Urine Mucus Medical </content>MODE Center RATE HPF<content styleCode="Vicki lics"> (NONE SEEN HPF)</content> ID Date Data Source [facility].[id number] 08/05/2019 02:38:00 PM EDT [facility] Name Value Range Interpretation Description Data Sup porting Code Source(s) Document(s ) Potassium 3.5-5.3 <content [facility] [Moles/volume] in styleCode="Bold"> Roberto phs Serum or Plasma Potassium Medical </content>3.9 Center MEQ/L<content styleCode="Italic s"> (3.5-5.3 MEQ/L)</content> Sodium 137-145 <content Saint [Moles/volume] in styleCode="Bold"> Roberto [facility] Serum or Plasma Sodium Medical </content>141 Center MEQ/L<content styleCode="Italic s"> (137-145 MEQ/L)</content> Carbon dioxide, 22-30 <content [facility] total styleCode="Bold"> Senthil [Moles/volume] in Carbon Dioxide Medical Serum or Plasma </content>23 Center MEQ/L<content styleCode="Italic s"> (22-30 MEQ/L)</content> UNK 7-17 <content Saint styleCode="Bold"> Senthil BUN </content>15 Medical MG/DL<content Center styleCode="Italic s"> (7-17 MG/DL)</content> Chloride 98-107 <content Saint [Moles/volume] in styleCode="Bold"> Roberto [facility] Serum or Plasma Chloride Medical </content>101 Center MEQ/L<content styleCode="Italic s"> (98-107 MEQ/L)</content> Calcium 8.4-10. <content [facility] [Mass/volume] in 2 styleCode="Bold"> Tan hs Serum or Plasma Calcium Medical </content>8.9 Center MG/DL<content styleCode="Italic s"> (8.4-10.2 MG/DL)</content> Creatinine 0.5-1.3 <content [facility] [Mass/volume] in styleCode="Bold"> Tan hs Serum or Plasma Creatinine Medical </content>0.6 Center MG/DL<content styleCode="Italic s"> (0.5-1.3 MG/DL)</content> Aspartate 14-36 Above high <content [facility] aminotransferase normal styleCode="Bold"> Tan hs [Enzymatic Aspartate Medical activity/volume] Aminotransferase Center in Serum or Plasma (AST) </content>72 IU/L H<content styleCode="Italic s"> (14-36 IU/L)</content> UNK > 60 <content Saint styleCode="Bold"> Senthil EGFR Medical </content>108 Center GFR<content styleCode="Italic s"> (> 60 GFR)</content> Glucose 74-106 Above high <content Saint [Mass/volume] in normal styleCode="Bold"> Tan hs Serum or Plasma Glucose Medical </content>175 Center MG/DL H<content styleCode="Italic s"> (74-106 MG/DL)</content> Alanine 7-30 Above high <content [facility] aminotransferase normal styleCode="Bold"> Tan hs [Enzymatic Alanine Medical activity/volume] Aminotransferase Center in Serum or Plasma (ALT) </content>54 IU/L H<content styleCode="Italic s"> (7-30 IU/L)</content> Bilirubin.total 0.2-1.3 Below low <content [facility] [Mass/volume] in normal styleCode="Bold"> Tan hs Serum or Plasma Bilirubin Total Medical </content>< 0.2 Center MG/DL L<content styleCode="Italic s"> (0.2-1.3 MG/DL)</content> Albumin 3.5-5.0 <content [facility] [Mass/volume] in styleCode="Bold"> Tan hs Serum or Plasma Albumin Medical </content>4.3 Center G/DL<content styleCode="Italic s"> (3.5-5.0 G/DL)</content> Alkaline 38-126 <content [facility] phosphatase styleCode="Bold"> Senthil [Enzymatic Alkaline Medical activity/volume] Phosphatase (ALP) Cente r in Serum or Plasma </content>104 IU/L<content styleCode="Italic s"> (38-126 IU/L)</content> ID Date Data Source [employer].[id number] 08/05/2019 02:38:00 PM EDT [facility] -0400 Name Value Range Interpretation Description Data Sup porting Code Source(s) Document(s ) Troponin < 0.034 <content Saint I.cardiac styleCode="Bold Senthil [Mass/volume ">Troponin I Medical ] in Serum </content>< Center or Plasma 0.012 NG/ML<content styleCode="Ital ics"> (< 0.034 NG/ML)</content > ID Date Data [id number] 08/05/2019 02:38:00 PM EDT [facility] -0400 Name Value Range Interpretation Description Data Sup porting Code Source(s) Document(s ) UNK 4.2-5.8 Above high normal <content Sigel s styleCode="Bold Medical ">Hemoglobin Center A1C </content>6.4 % H<content styleCode="Ital ics"> (4.2-5.8 %)</content> Lipase 23-300 <content [facility] [Enzymatic styleCode="Bold Medical activity/v ">Lipase Center olume] in </content>267 Serum or IU/L<content Plasma styleCode="Ital ics"> (23-300 IU/L)</content> UNK 30-110 Above high normal <content Sigel s styleCode="Bold Medical ">Amylase Center </content>169 IU/L H<content styleCode="Ital ics"> (30-110 IU/L)</content> ID Date Data Source Coagulation 08/05/2019 02:38:00 PM [facility] Rout.[id number] EDT Name Value Range Interpretation Description Data Sup porting Code Source(s) Document(s ) UNK 9.0-13.0 <content Saint styleCode="Bold" Senthil >Protime Medical </content>11.6 Center SEC<content styleCode="Itali cs"> (9.0-13.0 SEC)</content> aPTT in 25.1-36. <content [facility] Platelet poor 5 styleCode="Bold" Senthil plasma by >Partial Medical Coagulation Thromboplastin Center assay Time </content>27.0 SEC<content styleCode="Itali cs"> (25.1-36.5 SEC)</content> INR in 0.80-1.2 <content [facility] Platelet poor 0 styleCode="Bold" Senthil plasma by >INR Medical Coagulation </content>1.05 Center assay #<content styleCode="Itali cs"> (0.80-1.20 #)</content> ID Date Data Source GFR(Creatinine).[id number] 08/05/2019 02:38:00 PM EDT [facility] 0-0400 Name Value Range Interpretation Code Description Data Ricarda rce(s) Supporting Document(s ) UNK > 60 <content Senthil styleCode="Bold"> Medical Cent er EGFR </content>108 GFR<content styleCode="Italic s"> (> 60 GFR)</content> ID Date Data Source HematologyRou.[id number] 08/05/2019 02:38:00 PM EDT [facility] 0400 Name Value Range Interpretation Description Data Sup porting Code Source(s) Document(s ) Leukocytes 4.4-11.0 <content Saint [#/volume] in styleCode="Bold Senthil Blood by ">White Blood Medical Automated count Cell Count Center </content>10.33 KCUMM<content styleCode="Ital ics"> (4.4-11.0 KCUMM)</content > Erythrocyte mean 80.0-100 <content [facility] corpuscular .0 styleCode="Bold Senthil volume [Entitic ">Mean Medical volume] by Corpuscular Center Automated count Volume </content>93.9 FL<content styleCode="Ital ics"> (80.0-100.0 FL)</content> Hemoglobin 12.3-16. <content [facility] [Mass/volume] in 0 styleCode="Bold Senthil Blood ">Hemoglobin Medical </content>14.4 Center G/DL<content styleCode="Ital ics"> (12.3-16.0 G/DL)</content> Erythrocytes 4.0-5.1 <content [facility] [#/volume] in styleCode="Bold Senthil Blood by ">Red Blood Medical Automated count Cell Count Center </content>4.41 MCUMM<content styleCode="Ital ics"> (4.0-5.1 MCUMM)</content > Hematocrit 36.0-46. <content [facility] [Volume 0 styleCode="Bold Senthil Fraction] of ">Hematocrit Medical Blood by </content>41.4 Center Automated count %<content styleCode="Ital ics"> (36.0-46.0 %)</content> Erythrocyte 11.5-14. <content [facility] distribution 5 styleCode="Bold Senthil width [Ratio] by ">Red Cell Medical Automated count Distribution Center Width </content>13.7 %<content styleCode="Ital ics"> (11.5-14.5 %)</content> Erythrocyte mean 26.0-34. <content [facility] corpuscular 0 styleCode="Bold Senthil hemoglobin ">Mean Medical [Entitic mass] Corposcular Center by Automated Hemoglobin count </content>32.7 PG<content styleCode="Ital ics"> (26.0-34.0 PG)</content> Erythrocyte mean 32.0-37. <content [facility] corpuscular 0 styleCode="Bold Senthil hemoglobin ">Mean Corpus. Medical concentration Hgb Center [Mass/volume] by Concentration Automated count (MCHC) </content>34.8 G/DL<content styleCode="Ital ics"> (32.0-37.0 G/DL)</content> Platelets 130-400 <content [facility] [#/volume] in styleCode="Bold Senthil Blood by ">Platelet Medical Automated count Count Center </content>262 KCUMM<content styleCode="Ital ics"> (130-400 KCUMM)</content > Platelet mean 8.0-11.0 <content [facility] volume [Entitic styleCode="Bold Senthil volume] in Blood ">Mean Platelet Medical by Automated Volume Center count </content>9.1 FL<content styleCode="Ital ics"> (8.0-11.0 FL)</content> UNK 0 <content Saint styleCode="Bold Senthil ">Nucleated Red Medical Blood Cell Center </content>0.0 /100<content styleCode="Ital ics"> (0 /100)</content> UNK 0.0 <content Saint styleCode="Bold Senthil ">Nucleated Red Medical Blood Cell Center Count </content>0.00 KCUMM<content styleCode="Ital ics"> (0.0 KCUMM)</content > ID Date Data Source LIPID.[id number] 08/05/2019 02:38:00 PM EDT [facility] Name Value Range Interpretation Description Data Sup porting Code Source(s) Document(s ) Cholesterol -<200 Above high normal <content [facility] [Mass/volume] in styleCode="Analilia [facility] Serum or Plasma d">Cholesterol Medical </content>231 Center MG/DL H<content styleCode="Vicki lics"> (-<200 MG/DL)</conten t> Triglyceride < 150 <content [facility] [Mass/volume] in styleCode="Analilia Senthil Serum or Plasma d">Triglycerid Medical es Center </content>125 MG/DL<content styleCode="Vicki lics"> (< 150 MG/DL)</conten t> UNK > 60 <content Saint styleCode="Analilia Senthil d">HDL- Medical Cholesterol Center </content>119 MG/DL<content styleCode="Vicki lics"> (> 60 MG/DL)</conten t> UNK < 100 <content Saint styleCode="Analilia Senthil d">LDL-Cholest Medical gisel Center </content>87 MG/DL<content styleCode="Vicki lics"> (< 100 MG/DL)</conten t> ID Date Data Source Liver 08/05/2019 02:38:00 PM EDT [facility] Profile.[id number] Name Value Range Interpretation Description Data Sup porting Code Source(s) Document(s ) Aspartate 14-36 Above high <content [facility] aminotransferase normal styleCode="Bold"> Tan hs [Enzymatic Aspartate Medical activity/volume] Aminotransferase Center in Serum or Plasma (AST) </content>72 IU/L H<content styleCode="Italic s"> (14-36 IU/L)</content> Alanine 7-30 Above high <content [facility] aminotransferase normal styleCode="Bold"> Tan hs [Enzymatic Alanine Medical activity/volume] Aminotransferase Center in Serum or Plasma (ALT) </content>54 IU/L H<content styleCode="Italic s"> (7-30 IU/L)</content> UNK 0.0-0.3 <content Saint styleCode="Bold"> Senthil Bilirubin, Direct Medical </content>< 0.2 Center MG/DL<content styleCode="Italic s"> (0.0-0.3 MG/DL)</content> Bilirubin.total 0.2-1.3 Below low <content [facility] [Mass/volume] in normal styleCode="Bold"> Tan hs Serum or Plasma Bilirubin Total Medical </content>< 0.2 Center MG/DL L<content styleCode="Italic s"> (0.2-1.3 MG/DL)</content> Alkaline 38-126 <content [facility] phosphatase styleCode="Bold"> Senthil [Enzymatic Alkaline Medical activity/volume] Phosphatase (ALP) Cente r in Serum or Plasma </content>104 IU/L<content styleCode="Italic s"> (38-126 IU/L)</content> Albumin 3.5-5.0 <content [facility] [Mass/volume] in styleCode="Bold"> Tan hs Serum or Plasma Albumin Medical </content>4.3 Center G/DL<content styleCode="Italic s"> (3.5-5.0 G/DL)</content> Procedure Social History Code Duration Value Status Description Data Source(s ) Smoking 07/31/2020 Denies Ever completed Denies Ever Sigel s 12:02:00 PM EDT Smoked Smoked Medical C enter Smoking 07/31/2020 Denies Ever completed Denies Ever Sigel s 11:49:00 AM EDT Smoked Smoked Medical C enter Smoking 07/31/2020 Denies Ever completed Denies Ever Sigel s 11:49:00 AM EDT Smoked Smoked Medical C enter Smoking 05/10/2020 Denies Ever completed Denies Ever Sigel s 04:54:00 PM EDT Smoked Smoked Medical C enter Smoking 10/25/2019 Denies Ever completed Denies Ever [facility] Darien bull 12:09:00 PM EST Smoked Smoked Medical C enter Smoking 10/25/2019 Denies Ever completed Denies Ever [facility] Darien bull 11:59:00 AM EST Smoked Smoked Medical C enter Smoking 10/22/2019 Denies Ever completed Denies Ever [facility] Darien bull 01:16:00 PM EST Smoked Smoked Medical C enter Smoking 10/22/2019 Denies Ever completed Denies Ever [facility] Darien bull 12:28:00 PM EST Smoked Smoked Medical C enter Smoking 10/22/2019 Denies Ever completed Denies Ever [facility] Darien bull 12:19:00 PM EST Smoked Smoked Medical C enter Smoking 10/21/2019 Denies Ever completed Denies Ever [facility] Darien bull 08:17:00 AM EST Smoked Smoked Medical C enter Smoking 10/21/2019 Denies Ever completed Denies Ever [facility] Darien bull 08:10:00 AM EST Smoked Smoked Medical C enter Smoking 10/13/2019 Denies Ever completed Denies Ever [facility] Darien bull 09:40:00 AM EST Smoked Smoked Medical C enter Smoking 10/13/2019 Denies Ever completed Denies Ever [facility] Darien bull 09:34:00 AM EST Smoked Smoked Medical C enter Smoking 10/13/2019 Denies Ever completed Denies Ever [facility] Darien bull 09:24:00 AM EST Smoked Smoked Medical C enter Smoking 08/05/2019 Former Smoker completed Former Smoker [facility] Estephania ford 07:49:00 PM EDT Medical C enter Smoking 08/05/2019 Denies Ever completed Denies Ever [facility] Darien bull 02:53:00 PM EDT Smoked Smoked Medical C enter Smoking 08/05/2019 Denies Ever completed Denies Ever [facility] Ledezma s 01:29:00 PM EDT Smoked Smoked Medical C enter Smoking 08/05/2019 Denies Ever completed Denies Ever [facility] Ledezma s 01:22:00 PM EDT Smoked Smoked Medical C enter Smoking 07/23/2019 Denies Ever completed Denies Ever [facility] Ledezma s 09:07:00 PM EDT Smoked Smoked Medical C enter Smoking 07/23/2019 Denies Ever completed Denies Ever [facility] Ledezma s 08:58:00 PM EDT Smoked Smoked Medical C enter Smoking 07/23/2019 Denies Ever completed Denies Ever [facility] Ledezma s 08:05:00 PM EDT Smoked Smoked Medical C enter Caffeine Use 06/26/2019 completed NEXTGEN (Cj nt Details 12:00:00 AM EDT [facility]) Smoking 06/25/2019 Unknown if completed Unknown if ever NEXTGEN ( [facility] 12:00:00 AM EDT ever smoked smoked [facility]) Vital Signs ID Date Data Source UNK Name Value Range Interpretation Code Description Data Source(s) Body temperature 36.221357 36.117908 [facility] Respiratory rate 18 /min 18 /min [facility] Oxygen saturation 98 % 98 % [facility] in Arterial blood [facility] by Pulse oximetry Heart rate 88 /min 88 /min [facility] Diastolic blood 65 mm[Hg] 65 mm[Hg] [facility] Systolic blood 107 mm[Hg] 107 mm[Hg] [facility] Body temperature 36.844135 36.177418 [facility] Respiratory rate 19 /min 19 /min [facility] Oxygen saturation 100 % 100 % [facility] in Arterial blood [facility] by Pulse oximetry Heart rate 94 /min 94 /min [facility] Diastolic blood 94 mm[Hg] 94 mm[Hg] [facility] Systolic blood 147 mm[Hg] 147 mm[Hg] [facility] Body temperature 36.200286 36.736215 [facility] Respiratory rate 18 /min 18 /min [facility] Oxygen saturation 98 % 98 % [facility] in [facility] blood [facility] by Pulse oximetry Heart rate 86 /min 86 /min [facility] Diastolic blood 72 mm[Hg] 72 mm[Hg] [facility] Systolic blood 145 mm[Hg] 145 mm[Hg] [facility] Body temperature 37.677458 37.675557 [facility] Respiratory rate 18 /min 18 /min [facility] Oxygen saturation 97 % 97 % [facility] in [facility] blood [facility] by Pulse oximetry Heart rate 81 /min 81 /min [facility] Diastolic blood 80 mm[Hg] 80 mm[Hg] [facility] Systolic blood 124 mm[Hg] 124 mm[Hg] [facility] Heart rate 94 /min 94 /min [facility] Diastolic blood 65 mm[Hg] 65 mm[Hg] [facility] Systolic blood 104 mm[Hg] 104 mm[Hg] [facility] Body temperature 37.890139 37.841372 [facility] Respiratory rate 18 /min 18 /min [facility] Oxygen saturation 96 % 96 % [facility] J osephs in Arterial blood Medical Center by Pulse oximetry Body weight 70.111601 kg 70.272464 kg [facility] Measured [facility] Body temperature 36.156591 36.055142 Bela [facility] Respiratory rate 18 /min 18 /min [facility] Oxygen saturation 97 % 97 % [facility] J osephs in Arterial blood [facility] Center by Pulse oximetry Heart rate 95 /min 95 /min [facility] Body height 165.270767 165.835157 cm [facility] Diastolic blood 71 mm[Hg] 71 mm[Hg] [facility] Medical Center Systolic blood 105 mm[Hg] 105 mm[Hg] [facility] Body mass index 25.6 kg/m2 25.6 kg/m2 [facility] (BMI) [Ratio] Medical [facility] Body mass index 24.58 kg/m2 24.58 kg/m2 [facility] osephs (BMI) [Ratio] Medical [facility] Body height 165.672891 165.842081 cm [facility] Body weight 67.172691 kg 67.686234 kg [facility]asured [facility] Center Systolic blood 120 mm[Hg] 120 mm[Hg] [facility] Diastolic blood 77 mm[Hg] 77 mm[Hg] [facility] Medical Center Heart rate 88 /min 88 /min [facility] Respiratory rate 18 /min 18 /min [facility] Body temperature 36.356080 36.814821 Bela [facility] Systolic blood 136 mm[Hg] 136 mm[Hg] [facility] Diastolic blood 84 mm[Hg] 84 mm[Hg] [facility] Medical Center Heart rate 79 /min 79 /min [facility] Respiratory rate 20 /min 20 /min [facility] Body temperature 36.567705 36.283673 Bela [facility] Systolic blood 130 mm[Hg] 130 mm[Hg] [facility] Diastolic blood 90 mm[Hg] 90 mm[Hg] [facility] pressure Medical Center Heart rate 80 /min 80 /min [facility] Respiratory rate 18 /min 18 /min [facility] Body temperature 36.085524 36.023711 Bela [facility] Body mass index 24.58 kg/m2 24.58 kg/m2 [facility] osep (BMI) [Ratio] Medical [facility] Body height 165.062829 165.254745 cm [facility] Body weight 67.864006 kg 67.944020 kg [facility]asured [facility] Center Systolic blood 149 mm[Hg] 149 mm[Hg] [facility] pressure Medical Center Diastolic blood 94 mm[Hg] 94 mm[Hg] [facility] pressure Medical Center Heart rate 100 /min 100 /min [facility] Respiratory rate 16 /min 16 /min [facility] Body temperature 36.529290 36.608596 [facility] Systolic blood 137 mm[Hg] 137 mm[Hg] [facility] Diastolic blood 85 mm[Hg] 85 mm[Hg] [facility] Medical Center Heart rate 78 /min 78 /min [facility] Oxygen saturation 99 % 99 % [facility] Kindra torres in Arterial blood [facility] Center by Pulse oximetry Respiratory rate 18 /min 18 /min [facility] Body temperature 37.153484 37.375742 Bela [facility] Body mass index 24.58 kg/m2 24.58 kg/m2 [facility] osep (BMI) [Ratio] Medical [facility] Body height 165.770037 165.356499 cm [facility] Body weight 67.855957 kg 67.276042 kg [facility]asured [facility] Center Systolic blood 153 mm[Hg] 153 mm[Hg] [facility] Diastolic blood 85 mm[Hg] 85 mm[Hg] [facility] pressure Medical Center Heart rate 110 /min 110 /min [facility] Respiratory rate 16 /min 16 /min [facility] Body temperature 36.130964 36.576940 [facility] Systolic blood 132 mm[Hg] 132 mm[Hg] [facility] Diastolic blood 79 mm[Hg] 79 mm[Hg] [facility] Medical Center Heart rate 88 /min 88 /min [facility] Respiratory rate 18 /min 18 /min [facility] Body temperature 36.390246 36.082943 Bela [facility] Oxygen saturation 95 % 95 % [facility]ph[facility] in Arterial blood [facility] Center by Pulse oximetry Body mass index 24.63 kg/m2 24.63 kg/m2 [facility]ph[facility] (BMI) [Ratio] Medical [facility] Body height 165.757500 165.538689 cm [facility] Body weight 67.180808 kg 67.455615 kg [facility] Center Systolic blood 120 mm[Hg] 120 mm[Hg] [facility] Diastolic blood 79 mm[Hg] 79 mm[Hg] [facility] Medical Center Heart rate 97 /min 97 /min [facility] Respiratory rate 18 /min 18 /min [facility] Body temperature 36.755178 36.018141 Bela [facility] Body mass index 25.74 kg/m2 25.74 kg/m2 [facility] J [facility]ph[facility] (BMI) [Ratio] Medical [facility] ter Body height 165.772709 165.213418 cm [facility] Body weight 70.644630 kg 70.984545 kg [facility]asured [facility] Center Systolic blood 119 mm[Hg] 119 mm[Hg] [facility] Center Diastolic blood 62 mm[Hg] 62 mm[Hg] [facility] Medical Center Heart rate 106 /min 106 /min [facility] Respiratory rate 20 /min 20 /min [facility] Body temperature 36.037187 36.858115 Bela [facility] Oxygen saturation 98 % 98 % [facility] in Arterial blood [facility] Center by Pulse oximetry Body mass index 26.4 kg/m2 26.4 kg/m2 [facility] (BMI) [Ratio] Medical [facility] Systolic blood 150 mm[Hg] 150 mm[Hg] [facility] Center Diastolic blood 100 mm[Hg] 100 mm[Hg] [facility] Medical Center Body height 162.246438 162.868418 cm [facility] Heart rate 138 /min 138 /min [facility] Respiratory rate 19 /min 19 /min [facility] Body temperature 36.724647 36.144087 Bela [facility] Body weight 70.355482 kg 70.475629 kg [facility] Oxygen saturation 97 % 97 % [facility] osephs in Arterial blood [facility] by Pulse oximetry Body temperature 36.682362 36.994929 Bela [facility] Respiratory rate 17 /min 17 /min [facility] Oxygen saturation 99 % 99 % [facility] osephs in Arterial [facility] by Pulse oximetry Heart rate 113 /min 113 /min [facility] Diastolic blood 101 mm[Hg] 101 mm[Hg] [facility] pressure [facility] Center Systolic blood 165 mm[Hg] 165 mm[Hg] [facility] pressure [facility] Center Patient Treatment Plan of Care Planned Activity Planned Date Details Description Data Source (s) Naltrexone hydrochloride 06/10/2019 12:00:00 NEXTGEN ([facility] 50 MG Oral Tablet AM [facility])
[2020-08-01 12:42] VITALS: BP 160/80; PULSE 70; TEMP 98; BMI 26.6
[2020-08-01 13:14] LABS: BASO % 0.7 % (0-2.0); EOS % 0.9 % (0-4.5); HEMATOCRIT 39.5 % (32.4-45.2); HEMOGLOBIN 13.1 GM/dL (10.7-15.3); LYMPH % 38.5 % (8-40); MCH 32.4 pg (25.7-33.7); MCHC 33.1 g/dl (32.0-36.0); MEAN CELL VOLUME 97.9 fl (80-96); MEAN PLT VOLUME 7.5 fl (7.5-11.1); MONO % 4.8 % (3.8-10.2); NEUT % 55.1 % (42.8-82.8); PLATELET COUNT 225 K/MM3 (134-434); RBC 4.03 M/mm3 (3.60-5.2); RDW 14.3 % (11.6-15.6)
--- NOTE | 2020-08-01 13:16 | PDOC ---
Documentation entered by Amada Reddy SCRIBE, acting as scribe for Angelia Caldwell MD. Angelia Caldwell MD: This documentation has been prepared by the scribe, Amada Hill SCRIBE, under my direction and personally reviewed by me in its entirety. I confirm that the documentation accurately reflects all work, treatment, procedures, and medical decision making performed by me. Attending Attestation - Resident Resident Name: Darien Donaldson - ED Attending Attestation I have performed the following: I have examined & evaluated the patient, The case was reviewed & discussed with the resident, I agree w/resident's findings & plan, Exceptions are as noted - HPI HPI: 08/01/20 14:30 The patient is a 60 year old female with a significant PMH of alcohol abuse, COPD, HTN, HLD, DM and HfpEF who presents to the emergency department for evaluation of alcohol intoxication. Patient reports she drank 1 pint of vodka today and her called 911. The patient denies chest pain, shortness of breath, headache and dizziness. Denies fever, chills, nausea, vomiting, diarrhea and constipation. Allergies: NKA Social history: etoh use PCP: Elian Guerra - Physicial Exam PE: GENERAL: Awake, alert, and fully oriented, in no acute distress HEAD: No signs of trauma EYES: PERRLA, EOMI, sclera anicteric, conjunctiva clear ENT: Auricles normal inspection, hearing grossly normal, nares patent, oropharynx clear without exudates. Moist mucosa NECK: Normal ROM, supple, no lymphadenopathy, JVD, or masses LUNGS: Breath sounds equal, clear to auscultation bilaterally. No wheezes, and no crackles HEART: Regular rate and rhythm, normal S1 and S2, no murmurs, rubs or gallops ABDOMEN: Soft, nontender, normoactive bowel sounds. No guarding, no rebound. No masses EXTREMITIES: Normal range of motion, no edema. No clubbing or cyanosis. No cords, erythema, or tenderness NEUROLOGICAL: Cranial nerves II through XII grossly intact. Slightly slurred speech. Motor and sensation intact. Gait not tested due to intoxication SKIN: Warm, dry, normal turgor, no rashes or lesions noted. - Medical Decision Making Pt presents with alcohol intoxication. No signs of trauma. Will monitor to clinical sobriety. Discharge - Discharge Information Problems reviewed: Yes Clinical Impression/Diagnosis: Alcohol intoxication Qualifiers: Complication of substance-induced condition: uncomplicated Qualified Code(s): F10.920 - Alcohol use, unspecified with intoxication, uncomplicated - Follow up/Referral Referrals: Tara Plummer [Primary Care Provider] - - Patient Discharge Instructions - Post Discharge Activity
[2020-08-01] MEDS ORDERED: ONDANSETRON *ODT* 4 MG TABLET SL ONE (13:26)
[2020-08-01 13:40] LABS: ALBUMIN 3.4 g/dl (3.4-5.0); BILIRUBIN,TOTAL 0.1 mg/dL (0.2-1); BLOOD UREA NITROGEN 11.4 mg/dL (7-18); CALCIUM 8.4 mg/dL (8.5-10.1); CREATININE 0.6 mg/dL (0.55-1.3); POTASSIUM 3.5 mmol/L (3.5-5.1)
== END 2020-08-01 15:29 | disposition home or self-care (01) ==
LOC: JER 12:03
DX: F10.920 Alcohol use, unspecified with intoxication, uncomplicated (principal)
CPT/HCPCS: 36415; 80053; 85025; 99283-25; Q0162

== ENCOUNTER 2020-08-02 14:48 | Emergency (ER) | payer BC, OTHER ==
[2020-08-02 15:02] VITALS: BMI 26.4
--- OUTSIDE RECORDS SUMMARY | 2020-08-02 15:15 | XMS ---
:1960 Author Organization [facility] Care Team Providers Name Role Phone ED STAFF PHYSICIAN Unavailable Unavailable Mike Unavailable [phone] ED STAFF PHYSICIAN Unavailable Unavailable ED STAFF [...] is protected by Article 27-F of the [facility] Public Health law. If you continue you may haveaccess to information: Regarding HIV / AIDS; Provided by facilities licensed or operated by the [facility] Office of Mental Health; or Provided by the [facility] Office for People With Developmental Disabilities. If such information is present, then the following [facility] mandated warning applies: This information [...] law may result in a fine or custodial sentence or both. A general authorization for the release of medical or other information is NOT sufficient authorization for further disclosure. Encounters Encounter Providers Location Date Indications Data Source(s ) Emergency Attender: SILVIA ED H 07/31/2020 Chris Ndiaye STAFF 11:47:00 AM [facility] Saima hernandez PHYSICIANAttender: EDT - STAFF ED STAFF 07/31/2020 PHYSICIANAdmitter: 03:47:00 PM [place] ED STAFF EDT PHYSICIANReferrer: ZUNASSIGNED Patient discharged. Emergency Attender: AMY ED STAFF H 05/10/2020 04:41:00 PM [facility] PHYSICIANAttender: STAFF ED EDT - 05/10/2020 [facility] STAFF PHYSICIANAdmitter: AMY 06:39:00 PM EDT ED STAFF PHYSICIANReferrer: STAFF ED STAFF PHYSICIAN Patient discharged. Emergency Attender: ED STAFF H 10/25/2019 11:54:00 AM [facility] PHYSICIANAttender: SILVIA MORIN EST - 10/25/2019 [facility] STAFF PHYSICIANAttender: STAFF 05:53:00 PM EST ED STAFF PHYSICIANAdmitter: ED STAFF PHYSICIAN Patient discharged. Emergency Attender: ED STAFF H 10/22/2019 12:04:00 PM [facility] PHYSICIANAttender: STAFF ED EST - 10/22/2019 [facility] STAFF PHYSICIANAdmitter: ED 02:54:00 PM EST STAFF PHYSICIAN Patient discharged. Emergency Attender: SILVIA ED STAFF H 10/21/2019 08:10:00 AM [facility] PHYSICIANAttender: STAFF ED EST - 10/21/2019 [facility] STAFF PHYSICIANAdmitter: 08:58:00 AM EST [place] ED STAFF PHYSICIAN Patient discharged. Emergency Attender: ED STAFF H 10/13/2019 09:19:00 AM [facility] PHYSICIANAttender: STAFF ED EST - 10/13/2019 [facility] STAFF PHYSICIANAdmitter: ED 01:30:00 PM EST STAFF PHYSICIAN Patient discharged. Inpatient Attender: FLAKO PATTERSON H-HAL5 08/05/2019 12:57:00 P M [facility] AKINOAdmitter: FLAKO EDT - 08/08/2019 [facility] YESENIA SAMUELOReferrer: 04:15:00 PM EDT FLAKO ARRIOLA Patient discharged. Emergency H 07/23/2019 07:41:00 PM EDT - [address] [place] [address] 12:53:00 AM EDT Patient discharged. Attender: Cody Mariano 07/05/2019 CAREN Valderrama 10:47:00 AM EDT - ([facility] 07/05/2019 [facility] 10:47:00 AM EDT [facility]) Attender: Cody Mariano 07/02/2019 CAREN Valderrama 07:49:00 PM EDT - ([facility] 07/02/2019 [facility] 07:49:00 PM EDT [facility]) Attender: Cody Positive 06/27/2019 CAREN Mckeon Directions 07:55:00 PM EDT - ([facility] 06/27/2019 [facility] 07:55:00 PM EDT [facility]) Attender: Cody Positive 06/27/2019 CAREN Valderrama 07:41:00 PM EDT - ([facility] 06/27/2019 [facility] 07:41:00 PM EDT [facility]) Attender: Cody Mariano 06/25/2019 CAREN Valderrama 07:20:00 PM EDT - ([facility] 06/25/2019 [place] 07:20:00 PM EDT [facility] Center) Attender: Ra Positive 06/21/2019 CAREN Sosa MD Directions 01:04:00 PM EDT - ([facility] 06/21/2019 [place] 01:04:00 PM EDT Medical Center) Attender: Cody Positive 06/20/2019 [facility]EXT[facility] Yumiko Mckeon Directions 08:08:00 PM EDT - ([facility] 06/20/2019 [place] 08:08:00 PM EDT Medical Center) Attender: Cody Positive 06/20/2019 [facility]EXTGEN Yumiko Mckeon Directions 08:05:00 PM EDT - ([facility] 06/20/2019 [place] 08:05:00 PM EDT Medical Center) Attender: Cody Positive 06/18/2019 NEXTGEN Yumiko Mckeon Directions 07:27:00 PM EDT - ([facility] 06/18/2019 [place] 07:27:00 PM EDT Medical Center) GROUP PSYCHOTHERAPY Attender: Cody Positive 06/13/2019 NEXTGEN Yumiko Mckeon Directions 07:56:00 PM EDT - ([facility] 06/13/2019 [place] 07:56:00 PM EDT Medical Center) Individual Attender: Cody Positive 06/13/2019 [facility] Psychotherapy (45 Yumiko Mkceon Directions 06:03:00 PM EDT - ([facility] 06/13/2019 [place] 06:03:00 PM EDT Medical Center) GROUP PSYCHOTHERAPY Attender: Cody Positive 06/11/2019 [facility]EXTGEN Yumiko Mckeon Directions 06:57:00 PM EDT - ([facility] 06/11/2019 [place] 06:57:00 PM EDT Medical Center) OutpatientOFFICE/OUT Attender: Ra Positive 06/10/2019 [facility] PATIENT VISIT, LYLY Sosa MD Directions 12:56:00 PM EDT - ([facility] 06/10/2019 [place] 12:56:00 PM EDT Medical Center) 06/05/2019 [facility] 11:28:00 AM EDT Medical Center Individual Attender: Cody Positive 06/04/2019 [facility] Psychotherapy (30 Yumiko Mckeon Directions 07:51:00 PM EDT - ([facility]) 06/04/2019 [place] 07:51:00 PM EDT Medical Center) GROUP PSYCHOTHERAPY Attender: Cody Positive 06/04/2019 CAREN Mckeon Directions 07:06:00 PM EDT - ([facility] 06/04/2019 [facility] 07:06:00 PM EDT Medical [place]) Inpatient Attender: Sorin Ricco-HALPaty 05/28/2019 [facility]boal 04:27:00 PM EDT - Medical MDAdmitter: 05/31/2019 [place] Sorin Cristobal 11:45:00 AM EDT MDReferrer: Sorin Cristobal MD Patient discharged. Outpatient Attender: RA SOSA H 05/14/2019 12:00:00 [facility] RA Outpatient Attender: RA IAN H 02/12/2019 12:00:00 PM [facility] ARNABAdmitter: [facility] RA 09/22/2016 12:00:00 AM [facility] Immunizations Vaccine Date Status Description Data Source(s) New in 2011. IIV4 08/07/2019 completed [facility] 02:11:00 PM EDT [facility] 12[facility]31:00 PM EDT Cent [...] name Policy type Policy ID Covered Covered democrat's Policy P candace / Coverage democrat ID relationship to Green Inf ormation type green [place] [id number] HEALTHCARE (MEDICARE) VALUE [id number] SP [id number] [place] P[place] [id number] SP [id number] HEALTH [id number] SP [id number] SOLUTIONS VALUE [id number] SP [id number] [place] UN[place] MEDICAID [id number] SP [id number] COMM PLAN PPO [id number] SP [id number] HEALTH [id number] SP [id number] SOLUTIONS VALUE [id number] SP [id number] [place] VAL[place] [id number] SP [id number] [place] VAL[place] [id number] SP [id number] [place] E[place]AN [facility] MEDICAID [id number] SP [id number] COMM PLAN VALUE [id number] SP [id number] [place] BC PPO [id number] SP [id number] MEDICAID [id number] SP [id number] [facility] MEDICAID [id number] SP [id number] COMM PLAN BLUE CROSS O [id number] 01 [id number] O BLUE CROSS O [id number] 01 [id number] BLUE SHIELD O BC PPO [id number] SP [id number] VALUE [id number] SP [id number] [place] BC PPO [id number] SP [id number] [facility] MEDICAID [id number] SP [id number] COMM PLAN [facility] MEDICAID [id number] SP [id number] COMM PLAN VALUE [id number] SP [id number] [place] MED[place] [id number] SP [id number] [facility] MEDICAID [id number] SP [id number] COMM PLAN VALUE [id number] SP [id number] [place] VALUE [id number] SP [id number] [place] BC PPO [id number] SP [id number] VALUE [id number] SP [id number] [place] VALUE [id number] SP [id number] [place] VALUE [id number] SP [id number] [place] BC PPO [id number] SP [id number] VALUE [id number] SP [id number] [place] VAL[place] [id number] SP [id number] [place] BLUE CROSS [id number] self [id number] BLUE CROSS O [id number] 01 [id number] BC PPO [id number] SP [id number] HIP HMO [id number] SP [id number] SELF PAY SP INSURANCE [place] [id number] 01 [id number] HEALTHCARE ACUTE BLUE CROSS [id number] self [id number] BLUE SHIELD BLUE CROSS O [id number] 01 [id number] BLUE CROSS O [id number] BLUE CROSS O [id number] Problems, Conditions, and Diagnoses Code Display Name Description Problem Type Effective Data Dates Source(s) Z53.21 Procedure and PROC/TRTMT NOT CRD Diagnosis 05/10/2020 Cj alyson Ledezmas treatment not OUT D/T PT [facility] 04:41:00 PM Med ical carried out due to SEEN BY [facility] EDT Center patient leaving PROV [...] PSYCHOTHERAPY 06/13/2019 [facility] ([facility] 12:00:00 AM EDT [facility] 06/13/2019 [place]) 12:00:00 AM EDT Individual Psychotherapy 06/13/2019 NEX TG[facility] ([facility] (45 Min) 12:00:00 AM EDT [facility] 06/13/2019 [place]) 12:00:00 AM EDT GROUP PSYCHOTHERAPY 06/11/2019 [facility] (Saint 12:00:00 AM EDT [facility] 06/11/2019 [place]) 12:00:00 AM EDT OFFICE/OUTPATIENT VISIT, 06/10/2019 NEX TGEN (Saint NEW 12:00:00 AM EDT [facility] 06/10/2019 [place]) 12:00:00 AM EDT Individual Psychotherapy 06/04/2019 NEX TGEN ([facility] (30 Min) 12:00:00 AM EDT [facility] 06/04/2019 [place]) 12:00:00 AM EDT GROUP PSYCHOTHERAPY 06/04/2019 [facility] (Saint 12:00:00 AM EDT [facility] 06/04/2019 [place]) 12:00:00 AM EDT Results ID Date Data Source [id number] 07/17/2020 11:30:00 PM EDT [facility] Name Value Range Interpretation Description Data Sup porting Code Source(s) Document(s ) SARS [facility] coronavirus 2 RNA This lab was ordered by [facility] and reported by [facility]. ID Date Data Source [id number] 05/14/2020 12:00:00 AM EDT [facility] Name Value Range Interpretation Code Description Data Ricarda rce(s) Supporting Document(s ) 2019-nCoV [facility] RNA XXX ELBA+probe- Imp This lab was ordered by [facility] and reported by [employer]. ID Date Data Source [facility].[id number] 08/08/2019 05:25:00 AM EDT [facility] Name Value Range Interpretation Description [...] IU/L)</content> ID Date Data Source [facility].[id number] 08/08/2019 05:25:00 AM EDT [facility] -0400 Name Value Range Interpretation Description Data Sup porting Code Source(s) Document(s ) UNK 2.3-3.5 <content [facility] styleCode="[facility] Medical ">Globulin Center </content>2.8 G/DL<content styleCode="Ital ics"> (2.3-3.5 G/DL)</content> UNK >= 1.0 <content [facility] styleCode="Bold Medical ">AG Ratio Center </content>1.2 <content styleCode="Ital ics"> (>= 1.0 )</content> Protein 6.3-8.2 <content [facility] [place] [Mass/volum styleCode="Bold Medical e] in Serum ">Total Protein Center or Plasma </content>6.3 G/DL<content styleCode="Ital ics"> (6.3-8.2 G/DL)</content> ID Date Data Source GFR(Creatinine).[id number] 08/08/2019 05:25:00 AM EDT [facility] 0-0400 Name Value Range Interpretation Code Description Data Ricarda rce(s) Supporting Document(s ) UNK > 60 <content [facility] styleCode="Bold"> Medical Cent er EGFR </content>108 GFR<content styleCode="Italic s"> (> 60 GFR)</content> ID Date Data Source HematologyRou.[id number] 08/08/2019 05:25:00 AM EDT [facility] 0400 Name Value Range Interpretation Description [...] mean 32.0-37. <content Saint corpuscular 0 styleCode="Bold [place] hemoglobin ">Mean Corpus. Medical concentration Hgb Center [...] Data Source Liver 08/08/2019 05:25:00 AM EDT [facility] Profile.[id number] Name Value Range Interpretation Description Data Sup [...] s"> (3.5-5.0 G/DL)</content> ID Date Data Source Stools.[id number] 08/07/2019 08:20:00 AM EDT [facility] Name Value Range Interpretation Description Data Sup porting Code Source(s) Document(s ) UNK NEGATIVE FOR <content [facility] TOXIN styleCode="Bold Medical ">Clostridium [place] Difficile Toxin </content>NEGAT KAYLA FOR TOXIN <content styleCode="Ital ics"> (NEGATIVE FOR TOXIN )</content> UNK NEGATIVE FOR <content [facility] ANTIGEN styleCode="Bold Medical ">Clostridium [place] Difficile Antigen </content>NEGAT KAYLA FOR ANTIGEN <content styleCode="Ital ics"> (NEGATIVE FOR ANTIGEN )</content> ID Date Data Source BMP.[id number] 08/07/2019 06:45:[address] [facility] Name Value Range Interpretation Description Data Sup [...] s"> (3.5-5.0 G/DL)</content> ID Date Data Source CHMROUTINECCDA.[id number] 08/07/2019 06:45:00 AM EDT [facility] -0400 Name Value Range Interpretation [...] (1.6-2.3 MG/DL)</conten t> ID Date Data Source GFR(Creatinine).[id number] 08/07/2019 06:45:00 AM EDT [facility] 0-0400 Name Value Range Interpretation Code Description Data Ricarda rce(s) Supporting Document(s ) UNK > 60 <content [facility] styleCode="Bold"> Medical Cent er EGFR </content>108 GFR<content styleCode="Italic s"> (> 60 GFR)</content> ID Date Data Source HematologyRou.[id number] 08/07/2019 06:45:00 AM EDT [facility] 0400 Name Value Range Interpretation Description [...] Data Source Liver 08/07/2019 06:45:00 AM EDT [facility] Profile.[id number] Name Value Range Interpretation Description Data Sup [...] s"> (3.5-5.0 G/DL)</content> ID Date Data Source [facility].[id number] 08/06/2019 05:33:00 AM EDT [facility] Name Value Range Interpretation Description [...] IU/L)</content> ID Date Data Source [facility].[id number] 08/06/2019 05:33:00 AM EDT [facility] -0400 Name Value Range Interpretation Description [...] (2.5-4.5 MG/DL)</conten t> ID Date Data Source GFR(Creatinine).[id number] 08/06/2019 05:33:00 AM EDT [facility] 0-0400 Name Value Range Interpretation Code Description Data Ricarda rce(s) Supporting Document(s ) UNK > 60 <content [facility] styleCode="Bold"> Medical Cent er EGFR </content>134 GFR<content styleCode="Italic s"> (> 60 GFR)</content> ID Date Data Source HematologyRou.[id number] 08/06/2019 05:33:00 AM EDT [facility] 0400 Name Value Range Interpretation [...] Data Source Liver 08/06/2019 05:33:00 AM EDT [facility] Profile.[id number] Name Value Range Interpretation Description Data Sup [...] s"> (0.2-1.3 MG/DL)</content> ID Date Data Source CHMROUTINECCDA.[id number] 08/05/2019 04:08:00 PM EDT [facility] -0400 Name Value Range Interpretation Description Data Sup porting Code Source(s) Document(s ) Cannabinoids <content Saint [Presence] in styleCode="Analilia [facility] Urine by Screen d">Cannabinoid Medical method >50 ng/mL s Center </content>NEGA TIVE NG/ML (Reference Range: not available)<br/ > ID Date Data Source Urinalysis.[id number] 08/05/2019 04:08:00 PM EDT [facility] 0 Name Value Range Interpretation Description Data Sup porting Code Source(s) Document(s ) UNK CLEAR <content [facility] styleCode="Analilia [facility] d">Urine Medical Clarity Center </content>DURGA [...] by Test d">Urine Medical strip Specific Center [place] </content>1.02 5 <content styleCode="Vicki lics"> (1.015-1.025 )</content> [...] lics"> (NEGATIVE HPF)</content> UNK 0-2 <content [facility] styleCode="Analilai [place] d">Hyaline Medical Cast Center </content>1-3 LPF<content styleCode="Vicki lics"> (0-2 LPF)</content> UNK 0-3 <content Saint styleCode="Analilia [place] d">Urine White Medical Blood Cell Center </content>0-3 HPF<content styleCode="Vicki lics"> (0-3 HPF)</content> UNK NONE SEEN <content Saint styleCode="Analilia [place] d">Urine Mucus Medical </content>MODE Center RATE HPF<content styleCode="Vicki lics"> (NONE SEEN HPF)</content> ID Date Data Source [facility].[id number] 08/05/2019 02:38:00 PM EDT [facility] Name Value Range Interpretation Description Data Sup porting Code Source(s) Document(s ) Potassium 3.5-5.3 <content [facility] [Moles/volume] in styleCode="Bold"> Roberto phs Serum or Plasma Potassium Medical </content>3.9 Center MEQ/L<content styleCode="Italic s"> (3.5-5.3 MEQ/L)</content> Sodium 137-145 <content [facility] [Moles/volume] in styleCode="Bold"> [facility] Serum or Plasma Sodium Medical </content>141 Center MEQ/L<content styleCode="Italic s"> (137-145 MEQ/L)</content> Carbon dioxide, 22-30 <content [facility] total styleCode="Bold"> [place] [Moles/volume] in Carbon Dioxide Medical Serum or Plasma </content>23 Center MEQ/L<content styleCode="Italic s"> (22-30 MEQ/L)</content> UNK 7-17 <content Saint styleCode="Bold"> [place] BUN </content>15 Medical MG/DL<content Center styleCode="Italic s"> (7-17 MG/DL)</content> Chloride 98-107 <content [facility] [Moles/volume] in styleCode="Bold"> Roberto [facility] Serum or Plasma Chloride Medical </content>101 Center [...] s"> (38-126 IU/L)</content> ID Date Data Source [employer].[id number] 08/05/2019 02:38:00 PM EDT [facility] -0400 Name Value Range Interpretation Description Data Sup porting Code Source(s) Document(s ) Troponin < 0.034 <content Saint I.cardiac styleCode="Bold [place] [Mass/volume ">Troponin I Medical ] in Serum </content>< Center or Plasma 0.012 NG/ML<content styleCode="Ital ics"> (< 0.034 NG/ML)</content > ID Date Data Source [id number] 08/05/2019 02:38:00 PM EDT [facility] -0400 Name Value Range Interpretation Description Data Sup porting Code Source(s) Document(s ) UNK 4.2-5.8 Above high normal <content [place] s styleCode="Bold Medical ">Hemoglobin Center A1C </content>6.4 % H<content styleCode="Ital ics"> (4.2-5.8 %)</content> Lipase 23-300 <content [facility] [Enzymatic styleCode="Bold Medical activity/v ">Lipase Center olume] in </content>267 Serum or IU/L<content Plasma styleCode="Ital ics"> (23-300 IU/L)</content> UNK 30-110 Above high normal <content [place] [facility] styleCode="Bold Medical ">Amylase Center </content>169 IU/L H<content styleCode="Ital ics"> (30-110 IU/L)</content> ID Date Data Source Coagulation 08/05/2019 02:38:00 PM [facility] ical Center Rout.[id number] EDT Name Value Range Interpretation Description Data [...] cs"> (0.80-1.20 #)</content> ID Date Data Source GFR(Creatinine).[id number] 08/05/2019 02:38:00 PM EDT [facility] 0-0400 Name Value Range Interpretation Code Description Data Ricarda rce(s) Supporting Document(s ) UNK > 60 <content [facility] styleCode="Bold"> Medical Cent er EGFR </content>108 GFR<content styleCode="Italic s"> (> 60 GFR)</content> ID Date Data Source HematologyRou.[id number] 08/05/2019 02:38:00 PM EDT [facility] 0400 Name Value Range Interpretation Description [...] (0.0 KCUMM)</content > ID Date Data Source LIPID.[id number] 08/05/2019 02:38:00 PM EDT [facility] Name Value Range Interpretation Description Data Sup porting Code Source(s) Document(s ) Cholesterol -<200 Above high normal <content [facility] [Mass/volume] in styleCode="Analilia [facility] Serum or Plasma d">Cholesterol Medical [...] MG/DL)</conten t> UNK < 100 <content Saint styleCode="Anaillia [facility] d">LDL-Cholest Medical gisel Center </content>87 MG/DL<content styleCode="Vicki lics"> (< 100 MG/DL)</conten t> ID Date Data Source Liver 08/05/2019 02:38:00 PM EDT [facility] Profile.[id number] Name Value Range Interpretation Description Data Sup [...] Smoking 07/31/2020 Denies Ever completed Denies Ever [place] [facility] 12:02:00 PM EDT Smoked Smoked Medical C enter Smoking 07/31/2020 Denies Ever completed Denies Ever [place] [facility] 11:49:00 AM EDT Smoked Smoked Medical C enter Smoking 07/31/2020 Denies Ever completed Denies Ever [place] [facility] 11:49:00 AM EDT Smoked Smoked Medical C enter Smoking 05/10/2020 Denies Ever completed Denies Ever [place] [facility] 04:54:00 PM EDT Smoked Smoked Medical [...] NEXTGEN (Cj nt Details 12:00:00 AM EDT [facility]) Smoking 06/25/2019 Unknown if completed Unknown if ever NEXTGEN ( [facility] 12:00:00 AM EDT ever smoked smoked [facility]) Vital Signs ID Date Data Source UNK Name Value Range Interpretation Code Description Data Source(s) Body temperature 36.980752 36.244217 [facility] Respiratory rate 18 /min 18 /min [facility] Oxygen saturation 98 % 98 % [facility] in Arterial blood [facility] by Pulse oximetry Heart rate 88 /min 88 /min [facility] Diastolic blood 65 mm[Hg] 65 mm[Hg] [facility] Systolic blood 107 mm[Hg] 107 mm[Hg] [facility] Body temperature 36.708655 36.606497 [facility] Respiratory rate 19 /min 19 /min [facility] Oxygen saturation 100 % 100 % [facility] in Arterial blood [facility] by Pulse oximetry Heart rate 94 /min 94 /min [facility] Diastolic blood 94 mm[Hg] 94 mm[Hg] [facility] Systolic blood 147 mm[Hg] 147 mm[Hg] [facility] Body temperature 36.720364 36.093075 [facility] Respiratory rate 18 /min 18 /min [facility] Oxygen saturation 98 % 98 % [facility] in [facility] blood [facility] by Pulse oximetry Heart rate 86 /min 86 /min [facility] Diastolic blood 72 mm[Hg] 72 mm[Hg] [facility] Systolic blood 145 mm[Hg] 145 mm[Hg] [facility] Body temperature 37.335099 37.645791 [facility] Respiratory rate 18 /min 18 /min [facility] Oxygen saturation 97 % 97 % [facility] in [facility] blood [facility] by Pulse oximetry Heart rate 81 /min 81 /min [facility] Diastolic blood 80 mm[Hg] 80 mm[Hg] [facility] Systolic blood 124 mm[Hg] 124 mm[Hg] [facility] Heart rate 94 /min 94 /min [facility] Diastolic blood 65 mm[Hg] 65 mm[Hg] [place] [facility] Medical Center Systolic blood 104 mm[Hg] 104 mm[Hg] [facility] Body temperature 37.114140 37.790227 [facility] Respiratory rate 18 /min 18 /min [facility] Oxygen saturation 96 % 96 % [facility] J osephs in Arterial blood Medical Center by Pulse oximetry Body weight 70.420644 kg 70.762257 kg [facility] Measured Medical Center Body temperature 36.974343 36.151243 [facility] Respiratory rate 18 /min 18 /min [facility] Oxygen saturation 97 % 97 % [facility] J osephs in Arterial blood [facility] Center by Pulse oximetry Heart rate 95 /min 95 /min [facility] Body height 165.912161 165.984436 cm [facility] Medical [place] Diastolic blood 71 mm[Hg] 71 mm[Hg] [facility] Systolic blood 105 mm[Hg] 105 mm[Hg] [facility] Body mass index 25.6 kg/m2 25.6 kg/m2 [facility] (BMI) [Ratio] Medical [facility] Body mass index 24.58 kg/m2 24.58 kg/m2 [facility] (BMI) [Ratio] Medical [facility] Body height 165.948860 165.267218 cm [facility] Body weight 67.192672 kg 67.801064 kg [facility] Systolic blood 120 mm[Hg] 120 mm[Hg] [facility] Diastolic blood 77 mm[Hg] 77 mm[Hg] [facility] Heart rate 88 /min 88 /min [facility] Respiratory rate 18 /min 18 /min [facility] Body temperature 36.603434 36.943460 [facility] Systolic blood 136 mm[Hg] 136 mm[Hg] [facility] Diastolic blood 84 mm[Hg] 84 mm[Hg] [facility] Heart rate 79 /min 79 /min [facility] Respiratory rate 20 /min 20 /min [facility] Body temperature 36.122374 36.918224 [facility] Systolic blood 130 mm[Hg] 130 mm[Hg] [facility] Diastolic blood 90 mm[Hg] 90 mm[Hg] [facility] pressure [facility] Center Heart rate 80 /min 80 /min [facility] Respiratory rate 18 /min 18 /min [facility] Body temperature 36.775045 36.753860 [facility] Body mass index 24.58 kg/m2 24.58 kg/m2 [facility] (BMI) [Ratio] Medical [facility] Body height 165.730398 165.094260 cm [facility] [place] Body weight 67.102982 kg 67.657893 kg [facility] Systolic blood 149 mm[Hg] 149 mm[Hg] [facility] Diastolic blood 94 mm[Hg] 94 mm[Hg] [facility] Center Heart rate 100 /min 100 /min [facility] Respiratory rate 16 /min 16 /min [facility] Body temperature 36.659209 36.970471 [facility] Systolic blood 137 mm[Hg] 137 mm[Hg] [facility] Diastolic blood 85 mm[Hg] 85 mm[Hg] [facility] Heart rate 78 /min 78 /min [facility] Oxygen saturation 99 % 99 % [facility] torres in Arterial blood [facility] by Pulse oximetry Respiratory rate 18 /min 18 /min [facility] Body temperature 37.861554 37.342663 [facility] Body mass index 24.58 kg/m2 24.58 kg/m2 [facility] (BMI) [Ratio] Medical [facility] Body height 165.110789 165.422347 cm [facility] Body weight 67.962397 kg 67.506946 kg [facility] Systolic blood 153 mm[Hg] 153 mm[Hg] [facility] Diastolic blood 85 mm[Hg] 85 mm[Hg] [facility] pressure [facility] Center Heart rate 110 /min 110 /min [facility] Respiratory rate 16 /min 16 /min [facility] Body temperature 36.092878 36.909821 [facility] Systolic blood 132 mm[Hg] 132 mm[Hg] [facility] Diastolic blood 79 mm[Hg] 79 mm[Hg] [facility] Heart rate 88 /min 88 /min [facility] Respiratory rate 18 /min 18 /min [facility] Body temperature 36.519258 36.067379 [facility] Oxygen saturation 95 % 95 % [facility] Arterial blood [facility] by Pulse oximetry Body mass index 24.63 kg/m2 24.63 kg/m2 [facility] (BMI) [Ratio] Medical [facility] Body height 165.083736 165.734631 cm [facility] Body weight 67.432232 kg 67.706017 kg [facility] Systolic blood 120 mm[Hg] 120 mm[Hg] [facility] Diastolic blood 79 mm[Hg] 79 mm[Hg] [facility] Heart rate 97 /min 97 /min [facility] Respiratory rate 18 /min 18 /min [facility] Body temperature 36.639382 36.624029 [facility] Body mass index 25.74 kg/m2 25.74 kg/m2 [facility] (BMI) [Ratio] Medical [facility] ter Body height 165.014393 165.747506 cm [facility] Body weight 70.584301 kg 70.777769 kg [facility] Systolic blood 119 mm[Hg] 119 mm[Hg] [facility] Diastolic blood 62 mm[Hg] 62 mm[Hg] [facility] Heart rate 106 /min 106 /min [facility] Respiratory rate 20 /min 20 /min [facility] Body temperature 36.077465 36.028332 [facility] Oxygen saturation 98 % 98 % [facility] Arterial blood [facility] by Pulse oximetry Body mass index 26.4 kg/m2 26.4 kg/m2 [facility] (BMI) [Ratio] Medical [facility] Systolic blood 150 mm[Hg] 150 mm[Hg] [facility] Diastolic blood 100 mm[Hg] 100 mm[Hg] [facility] Body height 162.184858 162.763176 cm [facility] Heart rate 138 /min 138 /min [facility] Respiratory rate 19 /min 19 /min [facility] Body temperature 36.211085 36.057649 [facility] Body weight 70.180665 kg 70.981200 kg [facility] Oxygen saturation 97 % 97 % [facility] in Arterial blood [facility] by Pulse oximetry Body temperature 36.830911 36.295753 [facility] Respiratory rate 17 /min 17 /min [facility] Oxygen saturation 99 % 99 % [facility] in Arterial [facility] by Pulse oximetry Heart rate 113 /min 113 /min [facility] Diastolic blood 101 mm[Hg] 101 mm[Hg] [facility] pressure [facility] Systolic blood 165 mm[Hg] 165 mm[Hg] [facility] pressure [facility] Patient Treatment Plan of Care Planned Activity Planned Date Details Description Data Source (s) Naltrexone hydrochloride 06/10/2019 12:00:00 NEXTGEN (Saint 50 MG Oral Tablet AM [facility])
--- NOTE | 2020-08-02 15:49 | PDOC ---
History of Present Illness - General Chief Complaint: Palpitations Stated Complaint: PALPATATIONS Time Seen by Provider: 08/02/20 15:38 - History of Present Illness Initial Comments: HPI: 08/02/20 15:49 60 yo F PMH alcohol abuse, COPD, HTN, HLD, DM and HfpEF, presenting from home with alcohol intoxication. States that she drank 1 pint of vodka today, which she does about 3 days a week. Also complains of palpitations, but notes that she has had palpitations for years. When asked why she came in with palpitations today, says "I don't know". Denies CP, SOB, N/V, fevers/chills, constipation/diarrhea, urinary changes. ROS: GENERAL/CONSTITUTIONAL: denies fever, chills, diaphoresis, generalized weakness HEAD, EYES, EARS, NOSE AND THROAT: denies rhinorrhea, nasal congestion NEUROLOGIC: denies headache, focal weakness, dizziness, mental status changes CARDIOVASCULAR: endorses palpitations. Denies chest pain, syncope, irregular heart rate, lightheadedness, peripheral edema RESPIRATORY: denies cough, shortness of breath, dyspnea with exertion GASTROINTESTINAL: denies abdominal pain, abdominal distension, nausea, vomiting, diarrhea, constipation GENITOURINARY: denies dysuria, frequency, urgency MUSCULOSKELETAL: denies myalgia, arthralgia, joint swelling, back pain, neck pain SKIN: denies rash, itching PE: Gen: well-developed, well-nourished, clinically intoxicated Neuro: AAOX4, CN II-XII intact HEENT: atraumatic, normocephalic Neck: trachea midline, supple CV: regular rate, regular rhythm, no murmurs, rubs, or gallops Pulm: CTA b/l, no wheezing Abd: soft, non-distended, non-tender MSK: full ROM, intact pulses Extr: no edema, no deformities Skin: warm, dry MDM: Concern primarily for alcohol intoxication. Had labs here yesterday. - MTF 08/02/20 16:02 EKG normal sinus at 88 bpm, ND 184, QRS 86, QTc 450. 08/02/20 17:59 Reassessed, feeling better after eating and drinking. Able to ambulate without issue. Alert, oriented, and neurologically intact. Clinically sober. Will dc for further outpatient management. Past History - Medical History Allergies/Adverse Reactions: Allergies Allergy/AdvReac Type Severity Reaction Status Date / Time No Known Allergies Allergy Verified 08/02/20 15:02 Home Medications: Ambulatory Orders Mesalamine Suppository [Canasa Suppository -] 1,000 mg RC DAILY #30 supp 07/21/20 Anemia: Yes Asthma: Yes Cancer: No Cardiac Disorders: Yes CVA: No COPD: Yes CHF: Yes (On Toprol) Dementia: No Diabetes: Yes GI Disorders: Yes (gerd) Disorders: No HTN: Yes Hypercholesterolemia: Yes Kidney Stones: No Liver Disease: No Psychiatric Problems: Yes (drinks etoh everyday.) Seizures: No Thyroid Disease: No - Surgical History Abdominal Surgery: Yes (GASTRIC BYPASS in 2004,HYSTERECTOMY in 2010) Appendectomy: No Cardiac Surgery: No Cholecystectomy: No Lung Surgery: No Neurologic Surgery: No Orthopedic Surgery: No - Reproductive History PID: No - Immunization History Td Vaccination: Yes TDAP Vaccination: Yes Immunization Up to Date: Yes - Psycho-Social/Smoking History Smoking History: Never smoked Have you smoked in the past 12 months: No 'Breaking Loose' booklet given: 06/03/18 - Substance Abuse Hx (Audit-C & DAST Scrn) How often the patient has a drink containing alcohol: 4 0r more times/wk Score: In Men: 4 or > Positive; In Women: 3 or > Positive: 4 Screen Result (Pos requires Nsg. Audit-10AR): Positive *Physical Exam - Vital Signs Last Vital Signs Temp Pulse Resp BP Pulse Ox 97 F L 105 H 18 101/65 98 08/02/20 14:59 08/02/20 14:59 08/02/20 14:59 08/02/20 14:59 08/02/20 14:59 Discharge - Discharge Information Problems reviewed: Yes Clinical Impression/Diagnosis: Alcohol intoxication Qualifiers: Complication of substance-induced condition: uncomplicated Qualified Code(s): F10.920 - Alcohol use, unspecified with intoxication, uncomplicated Condition: Improved Disposition: HOME - Admission No - Follow up/Referral Referrals: Tara Plummer [Primary Care Provider] - - Patient Discharge Instructions Patient Printed Discharge Instructions: DI for Alcohol Use Disorder Additional Instructions: You were seen with alcohol intoxication. You improved with time, food, and fluids. If you are interested in detox or rehab, please go to [facility]. Follow up with your primary care doctor within one week. Return to the ER if you develop new or worsening symptoms. - Post Discharge Activity
--- NOTE | 2020-08-02 17:15 | PDOC ---
Documentation entered by Leisa Ag SCRIBE, acting as scribe for Charlie King MD. Charlie King MD: This documentation has been prepared by the glenneAncelmo Sydney, SCRIBE, under my direction and personally reviewed by me in its entirety. I confirm that the documentation accurately reflects all work, treatment, procedures, and medical decision making performed by me. Attending Attestation - Resident Resident Name: WilliamJarvis - ED Attending Attestation I have performed the following: I have examined & evaluated the patient, The case was reviewed & discussed with the resident, I agree w/resident's findings & plan, Exceptions are as noted - HPI HPI: 08/02/20 16:57 60y F hx of etoh abuse, copd, htn, hl, dm, presents with intoxication. Pt endorses drinking earlier today, complaining of occsaional palpitations. denies any cp, sob, n/v, headache, dizziness, dysuria, hematuria, melena, bpr. pt was recently in hospital and had lab work. exam: general: no acute distress, intoxicated head: atraumatic card: rrr, nomrg pulm: cta b/l neuro: moving all 4 extermities spontaneously 08/02/20 17:18 pt feeilng better asymptomatic ambulatory with a normal gait, atremulous will dc with outpatient fu return precautions were discsused - Physicial Exam PE: 08/06/20 07:18 see above - Medical Decision Making 08/06/20 07:18 see above Discharge - Discharge Information Clinical Impression/Diagnosis: Alcohol intoxication Qualifiers: Complication of substance-induced condition: uncomplicated Qualified Code(s): F10.920 - Alcohol use, unspecified with intoxication, uncomplicated Condition: Improved Disposition: HOME - Follow up/Referral Referrals: Tara Plummer [Primary Care Provider] - - Patient Discharge Instructions Patient Printed Discharge Instructions: DI for Alcohol Use Disorder Additional Instructions: You were seen with alcohol intoxication. You improved with time, food, and fluids. If you are interested in detox or rehab, please go to [facility]. Follow up with your primary care doctor within one week. Return to the ER if you develop new or worsening symptoms. - Post Discharge Activity
[2020-08-02 17:54] VITALS: BP 148/89; PULSE 83; TEMP 98.6
--- NOTE | 2020-08-03 11:52 | EKG ---
Test Reason : Blood Pressure : / mmHG Vent. Rate : 088 BPM Atrial Rate : 088 BPM P-R Int : 184 ms QRS Dur : 086 ms QT Int : 372 ms P-R-T Axes : 063 074 051 degrees QTc Int : 450 ms NORMAL SINUS RHYTHM NORMAL ECG WHEN COMPARED WITH ECG OF 17-JUL-2020 20:45, NO SIGNIFICANT CHANGE WAS FOUND Confirmed by KATIE TORRES MD ([id number]) on 08/03/2020 11:51:41 AM Referred By: Confirmed By:KATIE TORRES MD
== END 2020-08-02 18:16 | disposition home or self-care (01) ==
LOC: JER 14:48
DX: F10.920 Alcohol use, unspecified with intoxication, uncomplicated (principal)
CPT/HCPCS: 93005; 93010; 99284-25

== ENCOUNTER 2020-09-21 15:26 | Inpatient (IN) | payer OTHER ==
[2020-09-21 16:48] VITALS: BMI 26.6
[2020-09-21] MEDS ORDERED: chlordiazePOXIDE HCL 25 MG CAPSULE PO PRN (17:51)
[2020-09-21] MEDS ORDERED: ONDANSETRON *ODT* 4 MG TABLET SL PRN (17:52)
[2020-09-21] MEDS ORDERED: ACETAMINOPHEN 325 MG TABLET (FP) PO PRN ×2 (17:52)
[2020-09-21] MEDS ORDERED: BISMUTH SUBSALICYLATE 524 MG/30 ML UD PO PRN (17:52)
[2020-09-21] MEDS ORDERED: MAGNESIUM CITRATE 300 ML BOTTLE PO PRN (17:52)
[2020-09-21] MEDS ORDERED: MAGNESIUM HYDROX 2400MG/30ML ORAL SUSPENSION 30 ML CUP PO PRN (17:52)
[2020-09-21] MEDS ORDERED: MAG HYDROX/AL HYDROX/SIMETH 30 ML UNIT-DOSE CUP PO PRN (17:52)
[2020-09-21] MEDS ORDERED: NICOTINE POLACRILEX 2 MG GUM BUC PRN (17:52)
[2020-09-21] MEDS ORDERED: MENTHOL/PHENOL 1 EACH UD MM PRN (17:52)
[2020-09-21] MEDS ORDERED: METHOCARBAMOL 500 MG TABLET PO PRN (17:52)
[2020-09-21] MEDS: P-EPHED 60MG/TRIPROLIDI 2.5MG TABLET PO SCH (18:59)
[2020-09-21] MEDS: chlordiazePOXIDE HCL 25 MG CAPSULE PO SCH (22:39)
[2020-09-21] MEDS: THIAMINE HCL 100 MG TABLET (FP) PO SCH (22:39)
[2020-09-21] MEDS: MELATONIN 5 MG TABLETS PO SCH (22:39)
[2020-09-22] MEDS: P-EPHED 60MG/TRIPROLIDI 2.5MG TABLET PO SCH ×3 (02:27→17:51)
[2020-09-22] MEDS: chlordiazePOXIDE HCL 25 MG CAPSULE PO SCH ×4 (06:08→22:16)
[2020-09-22] MEDS: PRENATAL VITAMINS W/ FOLIC ACID TABLET (FP) PO SCH (10:15)
[2020-09-22 11:12] LABS: HEMATOCRIT 40.7 % (32.4-45.2); HEMOGLOBIN 13.4 GM/dL (10.7-15.3); MCH 31.8 pg (25.7-33.7); MCHC 32.9 g/dl (32.0-36.0); MEAN CELL VOLUME 96.5 fl (80-96); MEAN PLT VOLUME 7.8 fl (7.5-11.1); PLATELET COUNT 301 K/MM3 (134-434); RBC 4.22 M/mm3 (3.60-5.2); WHITE BLOOD COUNT 6.6 K/mm3 (4.0-10.0)
[2020-09-22 11:13] LABS: POTASSIUM 3.8 mmol/L (3.5-5.1)
[2020-09-22 11:42] LABS: CREATININE 0.5 mg/dL (0.55-1.3)
[2020-09-22 11:43] LABS: ALBUMIN 3.5 g/dl (3.4-5.0); BLOOD UREA NITROGEN 13.1 mg/dL (7-18)
[2020-09-22 11:44] LABS: BILIRUBIN,TOTAL 0.7 mg/dL (0.2-1); CALCIUM 8.8 mg/dL (8.5-10.1); TOT PROT 7.5 g/dl (6.4-8.2)
[2020-09-22] MEDS ORDERED: cloNIDine HCL 0.1 MG TABLET PO ONE (15:03)
[2020-09-22] MEDS: THIAMINE HCL 100 MG TABLET (FP) PO SCH (22:16)
[2020-09-22] MEDS: MELATONIN 5 MG TABLETS PO SCH (22:17)
[2020-09-23] MEDS: chlordiazePOXIDE HCL 25 MG CAPSULE PO SCH ×4 (05:40→22:05)
[2020-09-23] MEDS: P-EPHED 60MG/TRIPROLIDI 2.5MG TABLET PO SCH ×3 (05:40→17:19)
[2020-09-23] MEDS: PRENATAL VITAMINS W/ FOLIC ACID TABLET (FP) PO SCH (10:03)
[2020-09-23] MEDS: IBUPROFEN 400 MG TABLET (FP) PO PRN (17:18)
[2020-09-23] MEDS: THIAMINE HCL 100 MG TABLET (FP) PO SCH (22:04)
[2020-09-23] MEDS: MELATONIN 5 MG TABLETS PO SCH (22:05)
[2020-09-24] MEDS ORDERED: chlordiazePOXIDE HCL 10 MG CAPSULE PO PRN
[2020-09-24] MEDS: P-EPHED 60MG/TRIPROLIDI 2.5MG TABLET PO SCH (01:25)
[2020-09-24] MEDS: chlordiazePOXIDE HCL 10 MG CAPSULE PO SCH ×4 (06:20→22:10)
[2020-09-24] MEDS ORDERED: P-EPHED 60MG/TRIPROLIDI 2.5MG TABLET PO PRN (09:09)
[2020-09-24] MEDS: PRENATAL VITAMINS W/ FOLIC ACID TABLET (FP) PO SCH (10:23)
[2020-09-24] MEDS: MELATONIN 5 MG TABLETS PO SCH (22:10)
[2020-09-24] MEDS: THIAMINE HCL 100 MG TABLET (FP) PO SCH (22:10)
[2020-09-25] MEDS: chlordiazePOXIDE HCL 10 MG CAPSULE PO SCH ×2 (06:13→17:48)
[2020-09-25] MEDS: IBUPROFEN 400 MG TABLET (FP) PO PRN ×2 (06:13→23:21)
[2020-09-25] MEDS: PRENATAL VITAMINS W/ FOLIC ACID TABLET (FP) PO SCH (10:19)
[2020-09-25] MEDS ORDERED: LIDOCAINE VISCOUS 2% ORAL/TOP 20 ML UNIT-DOSE CUP MM PRN (13:40)
[2020-09-25] MEDS: MELATONIN 5 MG TABLETS PO SCH (22:08)
[2020-09-25] MEDS: THIAMINE HCL 100 MG TABLET (FP) PO SCH (22:08)
[2020-09-26] MEDS ORDERED: chlordiazePOXIDE HCL 10 MG CAPSULE PO ONE (05:00)
[2020-09-26 09:18] VITALS: BP 138/95; PULSE 86; TEMP 96.8
[2020-09-26] MEDS: IBUPROFEN 400 MG TABLET (FP) PO PRN (09:37)
[2020-09-26] MEDS: PRENATAL VITAMINS W/ FOLIC ACID TABLET (FP) PO SCH (09:38)
== END 2020-09-26 13:38 | disposition other institution (70) | DRG 897 ==
LOC: YASAS 15:26 → Y6N 18:10
PROVIDERS: ADMIT Allergy & Immunology; ATTEND Allergy & Immunology
PROC: HZ2ZZZZ Detoxification Services for Substance Abuse Treatment (ICD-10-PCS; principal; 2020-09-21)
DX: F10.230 Alcohol dependence with withdrawal, uncomplicated (principal); F10.220 Alcohol dependence with intoxication, uncomplicated; I50.9 Heart failure, unspecified; I11.0 Hypertensive heart disease with heart failure; E11.9 Type 2 diabetes mellitus without complications; J43.0 Unilateral pulmonary emphysema [MacLeod's syndrome]; K21.9 Gastro-esophageal reflux disease without esophagitis; H55.00 Unspecified nystagmus; R09.81 Nasal congestion; Z87.891 Personal history of nicotine dependence; Z98.84 Bariatric surgery status; Z90.710 Acquired absence of both cervix and uterus
CPT/HCPCS: 36415; 80053; 82962; 85027; 86780; C9803; J0735; U0003

== ENCOUNTER 2020-09-26 13:53 | Inpatient (IN) | payer OTHER ==
[2020-09-26] MEDS ORDERED: LOPERAMIDE HCL 2 MG CAPSULE PO PRN (15:51)
[2020-09-26] MEDS ORDERED: MAGNESIUM CITRATE 300 ML BOTTLE PO PRN (15:51)
[2020-09-26] MEDS ORDERED: guaiFENesin 200 MG/10 ML 10 ML UNIT-DOSE CUPS PO PRN (15:51)
[2020-09-26] MEDS ORDERED: MAGNESIUM HYDROX 2400MG/30ML ORAL SUSPENSION 30 ML CUP PO PRN (15:51)
[2020-09-26] MEDS ORDERED: NICOTINE POLACRILEX 2 MG GUM BUC PRN (15:51)
[2020-09-26] MEDS ORDERED: MENTHOL/PHENOL 1 EACH UD MM PRN (15:51)
[2020-09-26] MEDS ORDERED: MAG HYDROX/AL HYDROX/SIMETH 30 ML UNIT-DOSE CUP PO PRN (15:51)
[2020-09-26] MEDS ORDERED: P-EPHED 60MG/TRIPROLIDI 2.5MG TABLET PO PRN (15:51)
[2020-09-26] MEDS ORDERED: ACETAMINOPHEN 325 MG TABLET (FP) PO PRN (15:51)
[2020-09-26] MEDS: MELATONIN 5 MG TABLETS PO SCH (22:09)
[2020-09-26] MEDS: THIAMINE HCL 100 MG TABLET (FP) PO SCH (22:09)
[2020-09-26] MEDS: IBUPROFEN 400 MG TABLET (FP) PO PRN (22:10)
[2020-09-27] MEDS: PRENATAL VITAMINS W/ FOLIC ACID TABLET (FP) PO SCH (10:29)
[2020-09-27] MEDS: IBUPROFEN 400 MG TABLET (FP) PO PRN ×2 (10:30→21:14)
[2020-09-27] MEDS: NICOTINE 7 MG/24 HOURS TOPICAL PATCH TD SCH (10:31)
[2020-09-27] MEDS ORDERED: FLU VACCINE (FLULAVAL) PF 60 MCG/0.5 ML SYRINGE 2020-2021 IM ONE (12:00)
[2020-09-27] MEDS: THIAMINE HCL 100 MG TABLET (FP) PO SCH (21:13)
[2020-09-27] MEDS: MELATONIN 5 MG TABLETS PO SCH (21:14)
[2020-09-28] MEDS: PRENATAL VITAMINS W/ FOLIC ACID TABLET (FP) PO SCH (09:34)
[2020-09-28] MEDS: IBUPROFEN 400 MG TABLET (FP) PO PRN ×2 (09:36→21:45)
[2020-09-28] MEDS: NICOTINE 7 MG/24 HOURS TOPICAL PATCH TD SCH (10:45)
[2020-09-28] MEDS: THIAMINE HCL 100 MG TABLET (FP) PO SCH (21:44)
[2020-09-28] MEDS: MELATONIN 5 MG TABLETS PO SCH (21:44)
[2020-09-29] MEDS: hydrOXYzine PAMOATE 25 MG CAPSULE (FP) PO PRN (10:18)
[2020-09-29] MEDS: PRENATAL VITAMINS W/ FOLIC ACID TABLET (FP) PO SCH (10:18)
[2020-09-29] MEDS: NALTREXONE HCL 50 MG TABLET PO SCH (10:18)
[2020-09-29] MEDS: NICOTINE 7 MG/24 HOURS TOPICAL PATCH TD SCH (10:19)
[2020-09-29] MEDS: IBUPROFEN 400 MG TABLET (FP) PO PRN (21:04)
[2020-09-29] MEDS: MELATONIN 5 MG TABLETS PO SCH (21:04)
[2020-09-29] MEDS: THIAMINE HCL 100 MG TABLET (FP) PO SCH (21:04)
[2020-09-30] MEDS: PRENATAL VITAMINS W/ FOLIC ACID TABLET (FP) PO SCH (10:42)
[2020-09-30] MEDS: NALTREXONE HCL 50 MG TABLET PO SCH (10:43)
[2020-09-30] MEDS: IBUPROFEN 400 MG TABLET (FP) PO PRN (10:43)
[2020-09-30] MEDS: NICOTINE 7 MG/24 HOURS TOPICAL PATCH TD SCH (10:45)
[2020-09-30] MEDS: MELATONIN 5 MG TABLETS PO SCH (22:16)
[2020-09-30] MEDS: THIAMINE HCL 100 MG TABLET (FP) PO SCH (22:16)
[2020-10-01] MEDS: PRENATAL VITAMINS W/ FOLIC ACID TABLET (FP) PO SCH (10:30)
[2020-10-01] MEDS: NALTREXONE HCL 50 MG TABLET PO SCH (10:30)
[2020-10-01] MEDS: IBUPROFEN 400 MG TABLET (FP) PO PRN ×2 (10:31→21:10)
[2020-10-01] MEDS: NICOTINE 7 MG/24 HOURS TOPICAL PATCH TD SCH (10:32)
[2020-10-01] MEDS: THIAMINE HCL 100 MG TABLET (FP) PO SCH (21:09)
[2020-10-01] MEDS: MELATONIN 5 MG TABLETS PO SCH (21:09)
[2020-10-02] MEDS: NALTREXONE HCL 50 MG TABLET PO SCH (10:55)
[2020-10-02] MEDS: IBUPROFEN 400 MG TABLET (FP) PO PRN ×2 (10:56→21:26)
[2020-10-02] MEDS: NICOTINE 7 MG/24 HOURS TOPICAL PATCH TD SCH (10:56)
[2020-10-02] MEDS: PRENATAL VITAMINS W/ FOLIC ACID TABLET (FP) PO SCH (10:56)
[2020-10-02] MEDS: THIAMINE HCL 100 MG TABLET (FP) PO SCH (21:25)
[2020-10-02] MEDS: MELATONIN 5 MG TABLETS PO SCH (21:25)
[2020-10-03] MEDS: PRENATAL VITAMINS W/ FOLIC ACID TABLET (FP) PO SCH (09:54)
[2020-10-03] MEDS: NALTREXONE HCL 50 MG TABLET PO SCH (09:54)
[2020-10-03] MEDS: NICOTINE 7 MG/24 HOURS TOPICAL PATCH TD SCH (09:54)
[2020-10-03] MEDS: IBUPROFEN 400 MG TABLET (FP) PO PRN ×2 (09:55→21:15)
[2020-10-03] MEDS: MELATONIN 5 MG TABLETS PO SCH (21:15)
[2020-10-03] MEDS: THIAMINE HCL 100 MG TABLET (FP) PO SCH (21:15)
[2020-10-04] MEDS: NICOTINE 7 MG/24 HOURS TOPICAL PATCH TD SCH (09:37)
[2020-10-04] MEDS: PRENATAL VITAMINS W/ FOLIC ACID TABLET (FP) PO SCH (09:37)
[2020-10-04] MEDS: NALTREXONE HCL 50 MG TABLET PO SCH (09:37)
[2020-10-04] MEDS: IBUPROFEN 400 MG TABLET (FP) PO PRN ×2 (09:38→21:09)
[2020-10-04] MEDS: THIAMINE HCL 100 MG TABLET (FP) PO SCH (21:07)
[2020-10-04] MEDS: MELATONIN 5 MG TABLETS PO SCH (21:07)
[2020-10-05] MEDS: NALTREXONE HCL 50 MG TABLET PO SCH (09:50)
[2020-10-05] MEDS: PRENATAL VITAMINS W/ FOLIC ACID TABLET (FP) PO SCH (09:50)
[2020-10-05] MEDS: NICOTINE 7 MG/24 HOURS TOPICAL PATCH TD SCH (09:50)
[2020-10-05] MEDS: IBUPROFEN 400 MG TABLET (FP) PO PRN ×2 (09:52→21:13)
[2020-10-05] MEDS ORDERED: COLLOIDAL OATMEAL 1 BAR EACH TP PRN (11:05)
[2020-10-05] MEDS: LIDOCAINE 5% TOPICAL PATCH TP SCH (12:43)
[2020-10-05] MEDS: THIAMINE HCL 100 MG TABLET (FP) PO SCH (21:11)
[2020-10-05] MEDS: MELATONIN 5 MG TABLETS PO SCH (21:11)
[2020-10-05] MEDS: LIDOCAINE PATCH REMOVAL MC SCH (21:12)
[2020-10-06] MEDS ORDERED: PT OWN MED DRAWER 7, Y5N ONE (08:26)
[2020-10-06] MEDS: NALTREXONE HCL 50 MG TABLET PO SCH (09:48)
[2020-10-06] MEDS: PRENATAL VITAMINS W/ FOLIC ACID TABLET (FP) PO SCH (09:49)
[2020-10-06] MEDS: NICOTINE 7 MG/24 HOURS TOPICAL PATCH TD SCH (09:49)
[2020-10-06] MEDS: LIDOCAINE 5% TOPICAL PATCH TP SCH (09:49)
[2020-10-06] MEDS: IBUPROFEN 400 MG TABLET (FP) PO PRN ×2 (09:50→21:15)
[2020-10-06] MEDS: MELATONIN 5 MG TABLETS PO SCH (21:14)
[2020-10-06] MEDS: THIAMINE HCL 100 MG TABLET (FP) PO SCH (21:14)
[2020-10-06] MEDS: hydrOXYzine PAMOATE 25 MG CAPSULE (FP) PO PRN (21:15)
[2020-10-06] MEDS: LIDOCAINE PATCH REMOVAL MC SCH (21:16)
[2020-10-07] MEDS: NICOTINE 7 MG/24 HOURS TOPICAL PATCH TD SCH (09:54)
[2020-10-07] MEDS: NALTREXONE HCL 50 MG TABLET PO SCH (09:54)
[2020-10-07] MEDS: PRENATAL VITAMINS W/ FOLIC ACID TABLET (FP) PO SCH (09:54)
[2020-10-07] MEDS: LIDOCAINE 5% TOPICAL PATCH TP SCH (09:54)
[2020-10-07] MEDS: IBUPROFEN 400 MG TABLET (FP) PO PRN ×2 (09:55→21:14)
[2020-10-07] MEDS: THIAMINE HCL 100 MG TABLET (FP) PO SCH (21:15)
[2020-10-07] MEDS: LIDOCAINE PATCH REMOVAL MC SCH (21:15)
[2020-10-07] MEDS: MELATONIN 5 MG TABLETS PO SCH (21:15)
[2020-10-08] MEDS ORDERED: PT OWN MED DRAWER 7, Y5N ONE (08:28)
[2020-10-08] MEDS: LIDOCAINE 5% TOPICAL PATCH TP SCH (09:43)
[2020-10-08] MEDS: NALTREXONE HCL 50 MG TABLET PO SCH (09:44)
[2020-10-08] MEDS: NICOTINE 7 MG/24 HOURS TOPICAL PATCH TD SCH (09:44)
[2020-10-08] MEDS: PRENATAL VITAMINS W/ FOLIC ACID TABLET (FP) PO SCH (09:44)
[2020-10-08] MEDS: LIDOCAINE PATCH REMOVAL MC SCH (21:13)
[2020-10-08] MEDS: THIAMINE HCL 100 MG TABLET (FP) PO SCH (21:14)
[2020-10-08] MEDS: IBUPROFEN 400 MG TABLET (FP) PO PRN (21:14)
[2020-10-08] MEDS: MELATONIN 5 MG TABLETS PO SCH (21:14)
[2020-10-09] MEDS ORDERED: PT OWN MED DRAWER 7, Y5N ONE (08:14)
[2020-10-09] MEDS: NALTREXONE HCL 50 MG TABLET PO SCH (09:44)
[2020-10-09] MEDS: LIDOCAINE 5% TOPICAL PATCH TP SCH (09:44)
[2020-10-09] MEDS: NICOTINE 7 MG/24 HOURS TOPICAL PATCH TD SCH (09:44)
[2020-10-09] MEDS: PRENATAL VITAMINS W/ FOLIC ACID TABLET (FP) PO SCH (09:44)
[2020-10-09] MEDS: MELATONIN 5 MG TABLETS PO SCH (20:59)
[2020-10-09] MEDS: THIAMINE HCL 100 MG TABLET (FP) PO SCH (20:59)
[2020-10-09] MEDS: LIDOCAINE PATCH REMOVAL MC SCH (20:59)
[2020-10-10] MEDS: NICOTINE 7 MG/24 HOURS TOPICAL PATCH TD SCH (09:43)
[2020-10-10] MEDS: LIDOCAINE 5% TOPICAL PATCH TP SCH (09:43)
[2020-10-10] MEDS: PRENATAL VITAMINS W/ FOLIC ACID TABLET (FP) PO SCH (09:43)
[2020-10-10] MEDS: NALTREXONE HCL 50 MG TABLET PO SCH (09:43)
[2020-10-10] MEDS: hydrOXYzine PAMOATE 25 MG CAPSULE (FP) PO PRN (21:10)
[2020-10-10] MEDS: MELATONIN 5 MG TABLETS PO SCH (21:10)
[2020-10-10] MEDS: THIAMINE HCL 100 MG TABLET (FP) PO SCH (21:10)
[2020-10-10] MEDS: LIDOCAINE PATCH REMOVAL MC SCH (21:11)
[2020-10-11] MEDS: NICOTINE 7 MG/24 HOURS TOPICAL PATCH TD SCH (09:47)
[2020-10-11] MEDS: PRENATAL VITAMINS W/ FOLIC ACID TABLET (FP) PO SCH (09:48)
[2020-10-11] MEDS: NALTREXONE HCL 50 MG TABLET PO SCH (09:48)
[2020-10-11] MEDS: LIDOCAINE 5% TOPICAL PATCH TP SCH (09:48)
[2020-10-11] MEDS: THIAMINE HCL 100 MG TABLET (FP) PO SCH (21:13)
[2020-10-11] MEDS: MELATONIN 5 MG TABLETS PO SCH (21:13)
[2020-10-11] MEDS: hydrOXYzine PAMOATE 25 MG CAPSULE (FP) PO PRN (21:13)
[2020-10-11] MEDS: LIDOCAINE PATCH REMOVAL MC SCH (21:14)
[2020-10-12 07:11] VITALS: BP 111/74; PULSE 74; TEMP 97.5
[2020-10-12] MEDS ORDERED: PT OWN MED DRAWER 7, Y5N ONE (08:17)
[2020-10-12] MEDS: NALTREXONE HCL 50 MG TABLET PO SCH (09:09)
[2020-10-12] MEDS: PRENATAL VITAMINS W/ FOLIC ACID TABLET (FP) PO SCH (09:09)
[2020-10-12] MEDS: NICOTINE 7 MG/24 HOURS TOPICAL PATCH TD SCH (09:10)
[2020-10-12] MEDS: LIDOCAINE 5% TOPICAL PATCH TP SCH (09:10)
== END 2020-10-12 09:10 | disposition home or self-care (01) | DRG 895 ==
LOC: YASAS 13:53 → Y3W 13:54 → Y3E 10-02 11:46
PROVIDERS: ADMIT Allergy & Immunology; ATTEND Allergy & Immunology
PROC: HZ42ZZZ Group Counseling for Substance Abuse Treatment, Cognitive-Behavioral (ICD-10-PCS; principal; 2020-09-26)
DX: F10.20 Alcohol dependence, uncomplicated (principal); F32.9 Major depressive disorder, single episode, unspecified; I11.0 Hypertensive heart disease with heart failure; I50.9 Heart failure, unspecified; E11.9 Type 2 diabetes mellitus without complications; M54.5 Low back pain; L98.8 Other specified disorders of the skin and subcutaneous tissue; J44.9 Chronic obstructive pulmonary disease, unspecified; Z98.84 Bariatric surgery status; Z87.891 Personal history of nicotine dependence
CPT/HCPCS: 82962; G0008; Q2036

== ENCOUNTER 2021-01-10 08:14 | Emergency (ER) | payer BC, OTHER ==
[2021-01-10 08:25] VITALS: TEMP 99; BMI 28.1
[2021-01-10 09:56] LABS: BASO % 1.2 % (0-2.0); EOS % 1.9 % (0-4.5); HEMATOCRIT 39.9 % (32.4-45.2); HEMOGLOBIN 13.5 GM/dL (10.7-15.3); MCH 31.9 pg (25.7-33.7); MCHC 33.9 g/dl (32.0-36.0); MEAN CELL VOLUME 94.2 fl (80-96); MEAN PLT VOLUME 7.5 fl (7.5-11.1); MONO % 5.9 % (3.8-10.2); PLATELET COUNT 226 K/MM3 (134-434); RBC 4.24 M/mm3 (3.60-5.2); RDW 15.5 % (11.6-15.6); WHITE BLOOD COUNT 5.7 K/mm3 (4.0-10.0)
[2021-01-10 09:57] LABS: INR 1.06 (0.83-1.09)
[2021-01-10 10:00] LABS: ACTIVATED PTT 28.7 SECONDS (25.2-36.5)
[2021-01-10 10:02] LABS: CHLORIDE 103 mmol/L (98-107); POTASSIUM 3.9 mmol/L (3.5-5.1); SODIUM 141 mmol/L (136-145)
[2021-01-10 10:05] LABS: ALBUMIN 3.7 g/dl (3.4-5.0); ANION GAP 6 MMOL/L (8-16); BLOOD UREA NITROGEN 9.2 mg/dL (7-18); CALCIUM 8.7 mg/dL (8.5-10.1); CO2 31 mmol/L (21-32); GLUCOSE,RANDOM 106 mg/dL (74-106); MAGNESIUM 2.1 mg/dL (1.8-2.4)
[2021-01-10 10:06] LABS: SGOT/AST 30 U/L (15-37); SGPT/ALT 22 U/L (13-61)
[2021-01-10 10:08] LABS: CREATININE 0.6 mg/dL (0.55-1.3)
[2021-01-10 10:09] LABS: BILIRUBIN,TOTAL 0.3 mg/dL (0.2-1); TOT PROT 7.4 g/dl (6.4-8.2)
[2021-01-10 10:10] LABS: ALK PHOS 82 U/L (45-117)
[2021-01-10 10:14] LABS: N-TERMINAL BNP 35.7 pg/ml (5-125)
[2021-01-10] MEDS ORDERED: SODIUM CHLORIDE 1,000 ML IV STA (11:03)
[2021-01-10 11:54] VITALS: BP 120/82; PULSE 89
== END 2021-01-10 12:50 | disposition home or self-care (01) ==
LOC: JER 08:14
DX: R00.2 Palpitations (principal)
CPT/HCPCS: 36415; 71045-TC-FY; 80053; 83735; 83880; 84443; 84484; 85025; 85610; 85730; 93005; 93010; 99285-25; C9803; U0003

== ENCOUNTER 2021-01-10 14:54 | Emergency (ER) | payer BC ==
[2021-01-10 15:05] VITALS: BP 128/77; PULSE 93; TEMP 98.6; BMI 29.0
== END 2021-01-10 16:46 | disposition home or self-care (01) ==
LOC: SUPCPDRO 14:54 → JER 14:54
DX: F10.10 Alcohol abuse, uncomplicated (principal)
CPT/HCPCS: 99283-25

== ENCOUNTER 2021-01-27 09:36 | Emergency (ER) | payer BC ==
[2021-01-27 10:28] VITALS: BP 137/87; TEMP 98.8; BMI 27.4
[2021-01-27 11:53] VITALS: PULSE 79
[2021-01-28 10:09] LABS: SARS-CoV-2 NAA Not Detected (Not Detected)
== END 2021-01-27 11:40 | disposition home or self-care (01) ==
LOC: JER 09:36
DX: F10.10 Alcohol abuse, uncomplicated (principal); Z11.52 Encounter for screening for COVID-19
CPT/HCPCS: 99283-25; C9803; U0003; U0005

== ENCOUNTER 2021-01-27 13:57 | Inpatient (IN) | payer OTHER ==
[2021-01-27 14:47] VITALS: BMI 26.6
[2021-01-27] MEDS ORDERED: BISMUTH SUBSALICYLATE 524 MG/30 ML UD PO PRN (17:26)
[2021-01-27] MEDS ORDERED: METHOCARBAMOL 500 MG TABLET PO PRN (17:26)
[2021-01-27] MEDS ORDERED: MAGNESIUM CITRATE 300 ML BOTTLE PO PRN (17:26)
[2021-01-27] MEDS ORDERED: chlordiazePOXIDE HCL 25 MG CAPSULE PO PRN (17:26)
[2021-01-27] MEDS ORDERED: MENTHOL/PHENOL 1 EACH UD MM PRN (17:26)
[2021-01-27] MEDS ORDERED: ONDANSETRON *ODT* 4 MG TABLET SL PRN (17:26)
[2021-01-27] MEDS ORDERED: ACETAMINOPHEN 325 MG TABLET (FP) PO PRN ×2 (17:26)
[2021-01-27] MEDS ORDERED: MAG HYDROX/AL HYDROX/SIMETH 30 ML UNIT-DOSE CUP PO PRN (17:26)
[2021-01-27] MEDS ORDERED: MAGNESIUM HYDROX 2400MG/30ML ORAL SUSPENSION 30 ML CUP PO PRN (17:26)
[2021-01-27] MEDS: THIAMINE HCL 100 MG TABLET (FP) PO SCH (22:03)
[2021-01-27] MEDS: chlordiazePOXIDE HCL 25 MG CAPSULE PO SCH (22:03)
[2021-01-27] MEDS: MELATONIN 5 MG TABLETS PO SCH (22:03)
[2021-01-28] MEDS: chlordiazePOXIDE HCL 25 MG CAPSULE PO SCH ×4 (05:59→22:11)
[2021-01-28] MEDS: PRENATAL VITAMINS W/ FOLIC ACID TABLET (FP) PO SCH (10:13)
[2021-01-28 10:40] LABS: ALBUMIN 4.1 g/dl (3.4-5.0); BLOOD UREA NITROGEN 5.5 mg/dL (7-18); CALCIUM 9.3 mg/dL (8.5-10.1); HEMATOCRIT 39.8 % (32.4-45.2); HEMOGLOBIN 13.8 GM/dL (10.7-15.3); MCH 33.1 pg (25.7-33.7); MCHC 34.8 g/dl (32.0-36.0); MEAN CELL VOLUME 95.2 fl (80-96); PLATELET COUNT 251 K/MM3 (134-434); RBC 4.18 M/mm3 (3.60-5.2); RDW 15.2 % (11.6-15.6); WHITE BLOOD COUNT 5.9 K/mm3 (4.0-10.0)
[2021-01-28 10:43] LABS: CREATININE 0.7 mg/dL (0.55-1.3)
[2021-01-28 10:44] LABS: BILIRUBIN,TOTAL 1.4 mg/dL (0.2-1)
[2021-01-28 10:45] LABS: TOT PROT 7.9 g/dl (6.4-8.2)
[2021-01-28] MEDS ORDERED: cloNIDine HCL 0.1 MG TABLET PO ONE (15:06)
[2021-01-28] MEDS: THIAMINE HCL 100 MG TABLET (FP) PO SCH (22:10)
[2021-01-28] MEDS: MELATONIN 5 MG TABLETS PO SCH (22:11)
[2021-01-29] MEDS: chlordiazePOXIDE HCL 25 MG CAPSULE PO SCH ×4 (05:35→22:09)
[2021-01-29] MEDS: PRENATAL VITAMINS W/ FOLIC ACID TABLET (FP) PO SCH (10:14)
[2021-01-29] MEDS: MELATONIN 5 MG TABLETS PO SCH (22:08)
[2021-01-29] MEDS: THIAMINE HCL 100 MG TABLET (FP) PO SCH (22:10)
[2021-01-30] MEDS ORDERED: chlordiazePOXIDE HCL 10 MG CAPSULE PO PRN
[2021-01-30] MEDS: chlordiazePOXIDE HCL 10 MG CAPSULE PO SCH ×4 (06:25→22:05)
[2021-01-30] MEDS: PRENATAL VITAMINS W/ FOLIC ACID TABLET (FP) PO SCH (10:04)
[2021-01-30 10:11] LABS: SARS-CoV-2 NAA Not Detected (Not Detected)
[2021-01-30] MEDS: MELATONIN 5 MG TABLETS PO SCH (22:05)
[2021-01-30] MEDS: THIAMINE HCL 100 MG TABLET (FP) PO SCH (22:05)
[2021-01-31] MEDS: chlordiazePOXIDE HCL 10 MG CAPSULE PO SCH ×2 (06:46→17:57)
[2021-01-31] MEDS: PRENATAL VITAMINS W/ FOLIC ACID TABLET (FP) PO SCH (09:45)
[2021-01-31] MEDS: IBUPROFEN 400 MG TABLET (FP) PO PRN ×2 (13:39→22:25)
[2021-01-31] MEDS: THIAMINE HCL 100 MG TABLET (FP) PO SCH (22:25)
[2021-01-31] MEDS: MELATONIN 5 MG TABLETS PO SCH (22:25)
[2021-02-01] MEDS ORDERED: chlordiazePOXIDE HCL 10 MG CAPSULE PO ONE (05:00)
[2021-02-01] MEDS: PRENATAL VITAMINS W/ FOLIC ACID TABLET (FP) PO SCH (09:08)
[2021-02-01] MEDS: IBUPROFEN 400 MG TABLET (FP) PO PRN (09:08)
[2021-02-01 12:57] VITALS: BP 126/79; PULSE 87; TEMP 97.1
== END 2021-02-01 15:17 | disposition other institution (70) | DRG 897 ==
LOC: YASAS 13:57 → Y3N 16:22
PROVIDERS: ADMIT Allergy & Immunology; ATTEND Allergy & Immunology
PROC: HZ2ZZZZ Detoxification Services for Substance Abuse Treatment (ICD-10-PCS; principal; 2021-01-27)
DX: F10.230 Alcohol dependence with withdrawal, uncomplicated (principal); G40.509 Epileptic seizures related to external causes, not intractable, without status epilepticus; D50.9 Iron deficiency anemia, unspecified; I11.0 Hypertensive heart disease with heart failure; I50.9 Heart failure, unspecified; J45.20 Mild intermittent asthma, uncomplicated; J43.0 Unilateral pulmonary emphysema [MacLeod's syndrome]; K21.9 Gastro-esophageal reflux disease without esophagitis; E78.5 Hyperlipidemia, unspecified; H40.9 Unspecified glaucoma; E11.65 Type 2 diabetes mellitus with hyperglycemia; E80.6 Other disorders of bilirubin metabolism; R76.11 Nonspecific reaction to tuberculin skin test without active tuberculosis; Z87.891 Personal history of nicotine dependence; Z98.890 Other specified postprocedural states; Z98.84 Bariatric surgery status
CPT/HCPCS: 36415; 80053; 82962; 85027; 86780; C9803; J0735; U0003; U0005

== ENCOUNTER 2021-02-01 15:25 | Inpatient (IN) | payer OTHER ==
[2021-02-01] MEDS ORDERED: MAG HYDROX/AL HYDROX/SIMETH 30 ML UNIT-DOSE CUP PO PRN (15:39)
[2021-02-01] MEDS ORDERED: MAGNESIUM CITRATE 300 ML BOTTLE PO PRN (15:39)
[2021-02-01] MEDS ORDERED: MAGNESIUM HYDROX 2400MG/30ML ORAL SUSPENSION 30 ML CUP PO PRN (15:39)
[2021-02-01] MEDS ORDERED: P-EPHED 60MG/TRIPROLIDI 2.5MG TABLET PO PRN (15:39)
[2021-02-01] MEDS ORDERED: LOPERAMIDE HCL 2 MG CAPSULE PO PRN (15:39)
[2021-02-01] MEDS ORDERED: hydrOXYzine PAMOATE 25 MG CAPSULE (FP) PO PRN (15:39)
[2021-02-01] MEDS ORDERED: guaiFENesin 200 MG/10 ML 10 ML UNIT-DOSE CUPS PO PRN (15:39)
[2021-02-01] MEDS ORDERED: MENTHOL/PHENOL 1 EACH UD MM PRN (15:39)
[2021-02-01] MEDS ORDERED: ACETAMINOPHEN 325 MG TABLET (FP) PO PRN (15:39)
[2021-02-01] MEDS ORDERED: NICOTINE POLACRILEX 2 MG GUM BUC PRN (15:39)
[2021-02-01] MEDS ORDERED: MASKS NR ONE (19:21)
[2021-02-01] MEDS: THIAMINE HCL 100 MG TABLET (FP) PO SCH (21:57)
[2021-02-01] MEDS: MELATONIN 5 MG TABLETS PO SCH (21:57)
[2021-02-02] MEDS: PRENATAL VITAMINS W/ FOLIC ACID TABLET (FP) PO SCH (10:29)
[2021-02-02] MEDS: NICOTINE 7 MG/24 HOURS TOPICAL PATCH TD SCH (10:29)
[2021-02-02] MEDS: IBUPROFEN 400 MG TABLET (FP) PO PRN (16:36)
[2021-02-02] MEDS: THIAMINE HCL 100 MG TABLET (FP) PO SCH (21:32)
[2021-02-02] MEDS: MELATONIN 5 MG TABLETS PO SCH (21:32)
[2021-02-03] MEDS: NICOTINE 7 MG/24 HOURS TOPICAL PATCH TD SCH (10:20)
[2021-02-03] MEDS: PRENATAL VITAMINS W/ FOLIC ACID TABLET (FP) PO SCH (10:20)
[2021-02-03] MEDS: IBUPROFEN 400 MG TABLET (FP) PO PRN (18:36)
[2021-02-03] MEDS: THIAMINE HCL 100 MG TABLET (FP) PO SCH (21:57)
[2021-02-03] MEDS: MELATONIN 5 MG TABLETS PO SCH (21:57)
[2021-02-04 10:07] LABS: SARS-CoV-2 NAA Not Detected (Not Detected)
[2021-02-04] MEDS: NICOTINE 7 MG/24 HOURS TOPICAL PATCH TD SCH (10:13)
[2021-02-04] MEDS: PRENATAL VITAMINS W/ FOLIC ACID TABLET (FP) PO SCH (10:13)
[2021-02-04] MEDS: THIAMINE HCL 100 MG TABLET (FP) PO SCH (21:49)
[2021-02-04] MEDS: MELATONIN 5 MG TABLETS PO SCH (21:49)
[2021-02-05] MEDS: PRENATAL VITAMINS W/ FOLIC ACID TABLET (FP) PO SCH (09:55)
[2021-02-05] MEDS: NICOTINE 7 MG/24 HOURS TOPICAL PATCH TD SCH (09:55)
[2021-02-05] MEDS: THIAMINE HCL 100 MG TABLET (FP) PO SCH (21:12)
[2021-02-05] MEDS: MELATONIN 5 MG TABLETS PO SCH (21:12)
[2021-02-06] MEDS: PRENATAL VITAMINS W/ FOLIC ACID TABLET (FP) PO SCH (10:09)
[2021-02-06] MEDS: NICOTINE 7 MG/24 HOURS TOPICAL PATCH TD SCH (10:09)
[2021-02-06] MEDS: THIAMINE HCL 100 MG TABLET (FP) PO SCH (21:41)
[2021-02-06] MEDS: MELATONIN 5 MG TABLETS PO SCH (21:42)
[2021-02-07] MEDS: NICOTINE 7 MG/24 HOURS TOPICAL PATCH TD SCH (10:03)
[2021-02-07] MEDS: PRENATAL VITAMINS W/ FOLIC ACID TABLET (FP) PO SCH (10:03)
[2021-02-07] MEDS: MELATONIN 5 MG TABLETS PO SCH (21:16)
[2021-02-07] MEDS: THIAMINE HCL 100 MG TABLET (FP) PO SCH (21:16)
[2021-02-08] MEDS: PRENATAL VITAMINS W/ FOLIC ACID TABLET (FP) PO SCH (10:25)
[2021-02-08] MEDS: NICOTINE 7 MG/24 HOURS TOPICAL PATCH TD SCH (10:26)
[2021-02-08] MEDS: MELATONIN 5 MG TABLETS PO SCH (21:26)
[2021-02-08] MEDS: THIAMINE HCL 100 MG TABLET (FP) PO SCH (21:26)
[2021-02-09] MEDS: PRENATAL VITAMINS W/ FOLIC ACID TABLET (FP) PO SCH (10:12)
[2021-02-09] MEDS: NICOTINE 7 MG/24 HOURS TOPICAL PATCH TD SCH (10:12)
[2021-02-09] MEDS: IBUPROFEN 400 MG TABLET (FP) PO PRN (13:04)
[2021-02-09] MEDS: MELATONIN 5 MG TABLETS PO SCH (22:02)
[2021-02-09] MEDS: THIAMINE HCL 100 MG TABLET (FP) PO SCH (22:02)
[2021-02-10] MEDS: PRENATAL VITAMINS W/ FOLIC ACID TABLET (FP) PO SCH (10:30)
[2021-02-10] MEDS: NICOTINE 7 MG/24 HOURS TOPICAL PATCH TD SCH (10:31)
[2021-02-10] MEDS: THIAMINE HCL 100 MG TABLET (FP) PO SCH (21:21)
[2021-02-10] MEDS: MELATONIN 5 MG TABLETS PO SCH (21:21)
[2021-02-11] MEDS: NICOTINE 7 MG/24 HOURS TOPICAL PATCH TD SCH (10:18)
[2021-02-11] MEDS: PRENATAL VITAMINS W/ FOLIC ACID TABLET (FP) PO SCH (10:18)
[2021-02-11] MEDS: MELATONIN 5 MG TABLETS PO SCH (21:39)
[2021-02-11] MEDS: THIAMINE HCL 100 MG TABLET (FP) PO SCH (21:39)
[2021-02-12] MEDS: PRENATAL VITAMINS W/ FOLIC ACID TABLET (FP) PO SCH (10:07)
[2021-02-12] MEDS: NICOTINE 7 MG/24 HOURS TOPICAL PATCH TD SCH (10:08)
[2021-02-12] MEDS: MELATONIN 5 MG TABLETS PO SCH (21:35)
[2021-02-12] MEDS: THIAMINE HCL 100 MG TABLET (FP) PO SCH (21:35)
[2021-02-13] MEDS: PRENATAL VITAMINS W/ FOLIC ACID TABLET (FP) PO SCH (09:49)
[2021-02-13] MEDS: NICOTINE 7 MG/24 HOURS TOPICAL PATCH TD SCH (09:49)
[2021-02-13] MEDS: MELATONIN 5 MG TABLETS PO SCH (21:32)
[2021-02-13] MEDS: THIAMINE HCL 100 MG TABLET (FP) PO SCH (21:32)
[2021-02-14] MEDS: PRENATAL VITAMINS W/ FOLIC ACID TABLET (FP) PO SCH (09:49)
[2021-02-14] MEDS: NICOTINE 7 MG/24 HOURS TOPICAL PATCH TD SCH (09:49)
[2021-02-14] MEDS: THIAMINE HCL 100 MG TABLET (FP) PO SCH (21:22)
[2021-02-14] MEDS: MELATONIN 5 MG TABLETS PO SCH (21:22)
[2021-02-15 07:12] VITALS: BP 114/67; PULSE 86; TEMP 98.1
[2021-02-15] MEDS: PRENATAL VITAMINS W/ FOLIC ACID TABLET (FP) PO SCH (10:00)
[2021-02-15] MEDS: NICOTINE 7 MG/24 HOURS TOPICAL PATCH TD SCH (10:01)
== END 2021-02-15 11:00 | disposition home or self-care (01) | DRG 895 ==
LOC: YASAS 15:25 → Y5N 15:26
PROVIDERS: ADMIT Allergy & Immunology; ATTEND Allergy & Immunology
PROC: HZ42ZZZ Group Counseling for Substance Abuse Treatment, Cognitive-Behavioral (ICD-10-PCS; principal; 2021-02-01)
DX: F10.20 Alcohol dependence, uncomplicated (principal); G40.89 Other seizures; E11.9 Type 2 diabetes mellitus without complications; D50.9 Iron deficiency anemia, unspecified; E78.5 Hyperlipidemia, unspecified; I10 Essential (primary) hypertension; J43.0 Unilateral pulmonary emphysema [MacLeod's syndrome]; J45.20 Mild intermittent asthma, uncomplicated; K21.9 Gastro-esophageal reflux disease without esophagitis; R60.0 Localized edema; R76.11 Nonspecific reaction to tuberculin skin test without active tuberculosis; Z98.84 Bariatric surgery status; Z90.710 Acquired absence of both cervix and uterus; Z91.19 Patient's noncompliance with other medical treatment and regimen
CPT/HCPCS: 82962; C9803; U0003; U0005

== ENCOUNTER 2021-02-22 13:42 | Emergency (ER) | payer BC, OTHER ==
[2021-02-22 14:30] VITALS: BP 118/82; PULSE 100; TEMP 98.9; BMI 27.8
== END 2021-02-22 17:37 | disposition left against medical advice (07) ==
LOC: JER 13:42
DX: F10.129 Alcohol abuse with intoxication, unspecified (principal)
CPT/HCPCS: 71045-TC-FY; 99285-25

== ENCOUNTER 2021-05-02 06:36 | Emergency (ER) | payer BC, OTHER ==
[2021-05-02 06:59] VITALS: BP 107/75; PULSE 82; TEMP 97.6; BMI 28.3
== END 2021-05-02 10:23 | disposition home or self-care (01) ==
LOC: JER 06:36
DX: F10.220 Alcohol dependence with intoxication, uncomplicated (principal)
CPT/HCPCS: 99281-25

== ENCOUNTER 2021-05-02 11:23 | Inpatient (IN) | payer BC, OTHER ==
[2021-05-02 12:34] VITALS: BMI 26.6
[2021-05-02] MEDS ORDERED: LORazepam 1 MG TABLET PO PRN (16:03)
[2021-05-02] MEDS ORDERED: MENTHOL/PHENOL 1 EACH UD MM PRN (16:03)
[2021-05-02] MEDS ORDERED: MAG HYDROX/AL HYDROX/SIMETH 30 ML UNIT-DOSE CUP PO PRN (16:03)
[2021-05-02] MEDS ORDERED: METHOCARBAMOL 500 MG TABLET PO PRN (16:03)
[2021-05-02] MEDS ORDERED: ACETAMINOPHEN 325 MG TABLET (FP) PO PRN ×2 (16:03)
[2021-05-02] MEDS ORDERED: IBUPROFEN 400 MG TABLET (FP) PO PRN (16:03)
[2021-05-02] MEDS ORDERED: ONDANSETRON *ODT* 4 MG TABLET SL PRN (16:03)
[2021-05-02] MEDS ORDERED: BISMUTH SUBSALICYLATE 524 MG/30 ML PO PRN (16:03)
[2021-05-02] MEDS ORDERED: MAGNESIUM CITRATE 300 ML BOTTLE PO PRN (16:03)
[2021-05-02] MEDS ORDERED: MAGNESIUM HYDROX 2400MG/30ML ORAL SUSPENSION 30 ML CUP PO PRN (16:03)
[2021-05-02] MEDS: LORazepam 2 MG TABLET PO SCH ×2 (19:21→22:25)
[2021-05-02] MEDS: hydrOXYzine PAMOATE 25 MG CAPSULE (FP) PO SCH ×2 (19:22→22:25)
[2021-05-02] MEDS: THIAMINE HCL 100 MG TABLET (FP) PO SCH (22:24)
[2021-05-02] MEDS: MELATONIN 5 MG TABLETS PO SCH (22:25)
[2021-05-03] MEDS: hydrOXYzine PAMOATE 25 MG CAPSULE (FP) PO SCH ×5 (05:55→22:55)
[2021-05-03] MEDS: LORazepam 2 MG TABLET PO SCH ×4 (05:55→22:55)
[2021-05-03 10:16] LABS: HEMOGLOBIN 13.5 GM/dL (10.7-15.3); MCH 31.9 pg (25.7-33.7); MEAN CELL VOLUME 96.5 fl (80-96); MEAN PLT VOLUME 8.5 fl (7.5-11.1); PLATELET COUNT 182 10^3/uL (134-434); RBC 4.25 M/mm3 (3.60-5.2); RDW 13.7 % (11.6-15.6); WHITE BLOOD COUNT 6.8 K/mm3 (4.0-10.0)
[2021-05-03 10:27] LABS: ALBUMIN 3.8 g/dl (3.4-5.0); BLOOD UREA NITROGEN 12.1 mg/dL (7-18)
[2021-05-03 10:30] LABS: CREATININE 0.6 mg/dL (0.55-1.3)
[2021-05-03 10:31] LABS: BILIRUBIN,TOTAL 2.1 mg/dL (0.2-1); TOT PROT 7.4 g/dl (6.4-8.2)
[2021-05-03] MEDS: PRENATAL VITAMINS W/ FOLIC ACID TABLET (FP) PO SCH (10:35)
[2021-05-03] MEDS ORDERED: NALTREXONE HCL 50 MG TABLET PO ONE (11:45)
[2021-05-03] MEDS: metFORMIN HCL 500 MG TABLET (FP) PO SCH (18:05)
[2021-05-03] MEDS: INSULIN SLIDING SCALE (NOVOLOG) 1 VIAL SQ SCH (18:22)
[2021-05-03] MEDS: THIAMINE HCL 100 MG TABLET (FP) PO SCH (22:55)
[2021-05-03] MEDS: MELATONIN 5 MG TABLETS PO SCH (22:55)
[2021-05-04] MEDS ORDERED: LORazepam 1 MG TABLET PO SCH (05:00)
[2021-05-04] MEDS: metFORMIN HCL 500 MG TABLET (FP) PO SCH ×2 (06:13→16:39)
[2021-05-04] MEDS: hydrOXYzine PAMOATE 25 MG CAPSULE (FP) PO SCH (06:14)
[2021-05-04] MEDS: INSULIN SLIDING SCALE (NOVOLOG) 1 VIAL SQ SCH ×2 (07:44→16:37)
[2021-05-04] MEDS ORDERED: hydrOXYzine PAMOATE 25 MG CAPSULE (FP) PO PRN (07:52)
[2021-05-04] MEDS ORDERED: LORazepam 0.5 MG TABLET PO PRN (09:19)
[2021-05-04] MEDS ORDERED: NALTREXONE HCL 50 MG TABLET PO ONE (10:00)
[2021-05-04] MEDS: PRENATAL VITAMINS W/ FOLIC ACID TABLET (FP) PO SCH (10:36)
[2021-05-04] MEDS: amLODIPine BESYLATE 5 MG TABLET (FP) PO SCH (10:37)
[2021-05-04 12:59] LABS: ALBUMIN 3.8 g/dl (3.4-5.0)
[2021-05-04 13:02] LABS: BILIRUBIN,DIRECT 0.3 mg/dL (0.0-0.2)
[2021-05-04 13:04] LABS: BILIRUBIN,TOTAL 0.9 mg/dL (0.2-1); TOT PROT 7.5 g/dl (6.4-8.2)
[2021-05-04] MEDS ORDERED: LOPERAMIDE HCL 2 MG CAPSULE PO ONE (14:00)
[2021-05-04] MEDS: LORazepam 0.5 MG TABLET PO SCH ×2 (14:32→22:38)
[2021-05-04] MEDS: THIAMINE HCL 100 MG TABLET (FP) PO SCH (22:38)
[2021-05-04] MEDS: MELATONIN 5 MG TABLETS PO SCH (22:39)
[2021-05-05] MEDS ORDERED: LORazepam 0.5 MG TABLET PO PRN ×2
[2021-05-05] MEDS ORDERED: LORazepam 0.5 MG TABLET PO SCH (05:00)
[2021-05-05] MEDS: LORazepam 0.5 MG TABLET PO SCH ×2 (05:30→18:15)
[2021-05-05] MEDS: metFORMIN HCL 500 MG TABLET (FP) PO SCH ×2 (06:08→17:21)
[2021-05-05] MEDS: INSULIN SLIDING SCALE (NOVOLOG) 1 VIAL SQ SCH ×2 (06:08→17:23)
[2021-05-05] MEDS ORDERED: NALTREXONE HCL 50 MG TABLET PO ONE (10:00)
[2021-05-05] MEDS: PRENATAL VITAMINS W/ FOLIC ACID TABLET (FP) PO SCH (10:12)
[2021-05-05] MEDS: amLODIPine BESYLATE 5 MG TABLET (FP) PO SCH (10:12)
[2021-05-05] MEDS: THIAMINE HCL 100 MG TABLET (FP) PO SCH (22:24)
[2021-05-05] MEDS: MELATONIN 5 MG TABLETS PO SCH (22:25)
[2021-05-06] MEDS ORDERED: LORazepam 0.5 MG TABLET PO ONE (05:00)
[2021-05-06] MEDS: metFORMIN HCL 500 MG TABLET (FP) PO SCH (06:20)
[2021-05-06] MEDS: INSULIN SLIDING SCALE (NOVOLOG) 1 VIAL SQ SCH (06:21)
[2021-05-06 08:55] VITALS: BP 118/74; PULSE 103; TEMP 98.6
[2021-05-06] MEDS ORDERED: NALTREXONE HCL 50 MG TABLET PO ONE (10:00)
[2021-05-06] MEDS: PRENATAL VITAMINS W/ FOLIC ACID TABLET (FP) PO SCH (10:01)
[2021-05-06] MEDS: amLODIPine BESYLATE 5 MG TABLET (FP) PO SCH (10:01)
[2021-05-07] MEDS ORDERED: NALTREXONE MICROSPHERES (VIVITROL) 380 MG DISP.SYRIN IM ONE (10:00)
== END 2021-05-06 11:20 | disposition home or self-care (01) | DRG 897 ==
LOC: YASAS 11:23 → Y6N 17:30
PROVIDERS: ADMIT Allergy & Immunology; ATTEND Allergy & Immunology
PROC: HZ2ZZZZ Detoxification Services for Substance Abuse Treatment (ICD-10-PCS; principal; 2021-05-02)
DX: F10.230 Alcohol dependence with withdrawal, uncomplicated (principal); E11.9 Type 2 diabetes mellitus without complications; Z79.84 Long term (current) use of oral hypoglycemic drugs; I10 Essential (primary) hypertension; J43.0 Unilateral pulmonary emphysema [MacLeod's syndrome]; K21.9 Gastro-esophageal reflux disease without esophagitis; R76.11 Nonspecific reaction to tuberculin skin test without active tuberculosis; Z90.710 Acquired absence of both cervix and uterus; Z91.011 Allergy to milk products
CPT/HCPCS: 36415; 80053; 80076; 82962; 85027; 86780; C9803; U0003; U0005

== ENCOUNTER 2021-05-10 10:02 | Inpatient (IN) | payer OTHER ==
[2021-05-10 10:31] VITALS: BMI 25.0
[2021-05-10] MEDS ORDERED: MAGNESIUM HYDROX 2400MG/30ML ORAL SUSPENSION 30 ML CUP PO PRN (12:56)
[2021-05-10] MEDS ORDERED: MAG HYDROX/AL HYDROX/SIMETH 30 ML UNIT-DOSE CUP PO PRN (12:56)
[2021-05-10] MEDS ORDERED: P-EPHED 60MG/TRIPROLIDI 2.5MG TABLET PO PRN (12:56)
[2021-05-10] MEDS ORDERED: LOPERAMIDE HCL 2 MG CAPSULE PO PRN (12:56)
[2021-05-10] MEDS ORDERED: MAGNESIUM CITRATE 300 ML BOTTLE PO PRN (12:56)
[2021-05-10] MEDS ORDERED: ACETAMINOPHEN 325 MG TABLET (FP) PO PRN (12:56)
[2021-05-10] MEDS ORDERED: guaiFENesin 200 MG/10 ML 10 ML UNIT-DOSE CUPS PO PRN (12:56)
[2021-05-10] MEDS: PRENATAL VITAMINS W/ FOLIC ACID TABLET (FP) PO SCH (15:48)
[2021-05-10] MEDS: hydrOXYzine PAMOATE 25 MG CAPSULE (FP) PO SCH ×3 (15:48→21:26)
[2021-05-10] MEDS: THIAMINE HCL 100 MG TABLET (FP) PO SCH (21:26)
[2021-05-10] MEDS: MELATONIN 5 MG TABLETS PO SCH (21:26)
[2021-05-11] MEDS: hydrOXYzine PAMOATE 25 MG CAPSULE (FP) PO SCH (06:45)
[2021-05-11] MEDS ORDERED: hydrOXYzine PAMOATE 25 MG CAPSULE (FP) PO PRN (08:19)
[2021-05-11] MEDS: PRENATAL VITAMINS W/ FOLIC ACID TABLET (FP) PO SCH (09:49)
[2021-05-11] MEDS: NALTREXONE HCL 50 MG TABLET PO SCH (09:50)
[2021-05-11 13:34] LABS: EPI CELLS 25 /uL (0-25.1); HYALINE CASTS 2 /uL (0-3.1); PH,URINE 5.5 (5.0-8.0); URINE APPEARANCE CLEAR; URINE BACTERIA 397 /uL (0-1359); URINE BILIRUBIN NEGATIVE (NEGATIVE); URINE COLOR YELLOW; URINE GLUCOSE (UA) NEGATIVE (NEGATIVE); URINE KETONE NEGATIVE (NEGATIVE); URINE LEUK ESTERASE 1+ (NEGATIVE); URINE NITRITE NEGATIVE (NEGATIVE); URINE PROTEIN NEGATIVE (NEGATIVE); URINE RBC 12 /uL (0-23.9); URINE WBC 29 /uL (0-25.8)
[2021-05-11 18:44] LABS: HIV INTERPRETATION NEGATIVE (NEGATIVE)
[2021-05-11] MEDS: MELATONIN 5 MG TABLETS PO SCH (21:30)
[2021-05-11] MEDS: THIAMINE HCL 100 MG TABLET (FP) PO SCH (21:30)
[2021-05-12] MEDS: PRENATAL VITAMINS W/ FOLIC ACID TABLET (FP) PO SCH (09:59)
[2021-05-12] MEDS: NALTREXONE HCL 50 MG TABLET PO SCH (09:59)
[2021-05-12] MEDS: MELATONIN 5 MG TABLETS PO SCH (21:16)
[2021-05-12] MEDS: THIAMINE HCL 100 MG TABLET (FP) PO SCH (21:17)
[2021-05-13] MEDS: NALTREXONE HCL 50 MG TABLET PO SCH (10:24)
[2021-05-13] MEDS: PRENATAL VITAMINS W/ FOLIC ACID TABLET (FP) PO SCH (10:24)
[2021-05-13] MEDS: THIAMINE HCL 100 MG TABLET (FP) PO SCH (21:40)
[2021-05-13] MEDS: MELATONIN 5 MG TABLETS PO SCH (21:40)
[2021-05-14] MEDS: NALTREXONE HCL 50 MG TABLET PO SCH (10:01)
[2021-05-14] MEDS: PRENATAL VITAMINS W/ FOLIC ACID TABLET (FP) PO SCH (10:01)
[2021-05-14] MEDS: MELATONIN 5 MG TABLETS PO SCH (21:14)
[2021-05-14] MEDS: THIAMINE HCL 100 MG TABLET (FP) PO SCH (21:14)
[2021-05-15] MEDS: PRENATAL VITAMINS W/ FOLIC ACID TABLET (FP) PO SCH (09:44)
[2021-05-15] MEDS: NALTREXONE HCL 50 MG TABLET PO SCH (09:44)
[2021-05-15] MEDS: MELATONIN 5 MG TABLETS PO SCH (21:34)
[2021-05-15] MEDS: THIAMINE HCL 100 MG TABLET (FP) PO SCH (21:34)
[2021-05-16] MEDS: NALTREXONE HCL 50 MG TABLET PO SCH (09:35)
[2021-05-16] MEDS: PRENATAL VITAMINS W/ FOLIC ACID TABLET (FP) PO SCH (09:35)
[2021-05-16 15:01] LABS: CALCIUM 9.4 mg/dL (8.5-10.1)
[2021-05-16 15:02] LABS: ALBUMIN 3.6 g/dl (3.4-5.0); BLOOD UREA NITROGEN 14.1 mg/dL (7-18)
[2021-05-16 15:04] LABS: CREATININE 0.6 mg/dL (0.55-1.3)
[2021-05-16 15:06] LABS: BILIRUBIN,TOTAL 0.2 mg/dL (0.2-1); TOT PROT 7.1 g/dl (6.4-8.2)
[2021-05-16] MEDS: THIAMINE HCL 100 MG TABLET (FP) PO SCH (21:19)
[2021-05-16] MEDS: MELATONIN 5 MG TABLETS PO SCH (21:20)
[2021-05-17] MEDS ORDERED: NALTREXONE MICROSPHERES (VIVITROL) 380 MG DISP.SYRIN IM ONE ×2 (09:21→11:42)
[2021-05-17] MEDS: PRENATAL VITAMINS W/ FOLIC ACID TABLET (FP) PO SCH (10:17)
[2021-05-17] MEDS: MELATONIN 5 MG TABLETS PO SCH (21:28)
[2021-05-17] MEDS: THIAMINE HCL 100 MG TABLET (FP) PO SCH (21:28)
[2021-05-18] MEDS: PRENATAL VITAMINS W/ FOLIC ACID TABLET (FP) PO SCH (10:00)
[2021-05-18] MEDS: IBUPROFEN 400 MG TABLET (FP) PO PRN (18:26)
[2021-05-18] MEDS: THIAMINE HCL 100 MG TABLET (FP) PO SCH (21:14)
[2021-05-18] MEDS: MELATONIN 5 MG TABLETS PO SCH (21:14)
[2021-05-19] MEDS: PRENATAL VITAMINS W/ FOLIC ACID TABLET (FP) PO SCH (09:50)
[2021-05-19] MEDS: THIAMINE HCL 100 MG TABLET (FP) PO SCH (21:31)
[2021-05-19] MEDS: MELATONIN 5 MG TABLETS PO SCH (21:31)
[2021-05-20] MEDS: PRENATAL VITAMINS W/ FOLIC ACID TABLET (FP) PO SCH (10:00)
[2021-05-20] MEDS: MELATONIN 5 MG TABLETS PO SCH (21:04)
[2021-05-20] MEDS: THIAMINE HCL 100 MG TABLET (FP) PO SCH (21:04)
[2021-05-21] MEDS: PRENATAL VITAMINS W/ FOLIC ACID TABLET (FP) PO SCH (09:54)
[2021-05-21] MEDS: MELATONIN 5 MG TABLETS PO SCH (21:28)
[2021-05-21] MEDS: THIAMINE HCL 100 MG TABLET (FP) PO SCH (21:28)
[2021-05-21] MEDS ORDERED: PT OWN MED DRAWER 7, Y5N ONE (21:29)
[2021-05-22] MEDS: PRENATAL VITAMINS W/ FOLIC ACID TABLET (FP) PO SCH (09:33)
[2021-05-22] MEDS: IBUPROFEN 400 MG TABLET (FP) PO PRN (17:51)
[2021-05-22] MEDS: MELATONIN 5 MG TABLETS PO SCH (21:15)
[2021-05-22] MEDS: THIAMINE HCL 100 MG TABLET (FP) PO SCH (21:15)
[2021-05-23] MEDS: PRENATAL VITAMINS W/ FOLIC ACID TABLET (FP) PO SCH (10:11)
[2021-05-23 20:26] VITALS: PULSE 73
[2021-05-23] MEDS: THIAMINE HCL 100 MG TABLET (FP) PO SCH (21:31)
[2021-05-23] MEDS: MELATONIN 5 MG TABLETS PO SCH (21:31)
[2021-05-24 06:45] VITALS: BP 135/81; TEMP 97
== END 2021-05-24 09:30 | disposition home or self-care (01) | DRG 895 ==
LOC: YASAS 10:02 → Y3W 15:01
PROVIDERS: ADMIT Allergy & Immunology; ATTEND Allergy & Immunology
PROC: HZ42ZZZ Group Counseling for Substance Abuse Treatment, Cognitive-Behavioral (ICD-10-PCS; principal; 2021-05-10)
DX: F10.20 Alcohol dependence, uncomplicated (principal); I11.0 Hypertensive heart disease with heart failure; I50.9 Heart failure, unspecified; E78.5 Hyperlipidemia, unspecified; D72.829 Elevated white blood cell count, unspecified; E11.9 Type 2 diabetes mellitus without complications; M54.5 Low back pain; G89.29 Other chronic pain; J44.9 Chronic obstructive pulmonary disease, unspecified; Z98.84 Bariatric surgery status; Z87.891 Personal history of nicotine dependence; Z91.011 Allergy to milk products; Z86.19 Personal history of other infectious and parasitic diseases
CPT/HCPCS: 36415; 80053; 81003; 82962; 87086; 87389; C9803; J2315; U0003; U0005

== ENCOUNTER 2021-08-16 16:57 | Emergency (ER) | payer BC, OTHER ==
[2021-08-16 18:09] VITALS: BMI 26.6
[2021-08-16] MEDS ORDERED: IBUPROFEN 600 MG TABLET (FP) PO ONE ×2 (20:16→20:48)
[2021-08-16] MEDS ORDERED: SODIUM CHLORIDE 1,000 ML IV STA (20:16)
[2021-08-16 20:51] LABS: BASO % 1.1 % (0-2.0); EOS % 0.9 % (0-4.5); HEMATOCRIT 39.4 % (32.4-45.2); HEMOGLOBIN 13.4 GM/dL (10.7-15.3); LYMPH % 22.6 % (8-40); MCH 32.8 pg (25.7-33.7); MCHC 34.1 g/dl (32.0-36.0); MEAN PLT VOLUME 7.4 fl (7.5-11.1); MONO % 6.1 % (3.8-10.2); NEUT % 69.3 % (42.8-82.8); PLATELET COUNT 225 10^3/uL (134-434); RDW 16.3 % (11.6-15.6); WHITE BLOOD COUNT 10.4 K/mm3 (4.0-10.0)
[2021-08-16] MEDS ORDERED: FOLIC ACID INJECTION - 1 MG, THIAMINE HCL 100 MG, MULTIVIT INJECTION ADULT 10 ML in SOD... IVPB ONE (21:04)
[2021-08-16 21:13] LABS: CALCIUM 9.7 mg/dL (8.5-10.1)
[2021-08-16 21:14] LABS: BLOOD UREA NITROGEN 12.3 mg/dL (7-18); MAGNESIUM 1.8 mg/dL (1.8-2.4)
[2021-08-16 21:17] LABS: CREATININE 0.8 mg/dL (0.55-1.3)
[2021-08-16 21:18] LABS: BILIRUBIN,TOTAL 0.8 mg/dL (0.2-1); TOT PROT 8.2 g/dl (6.4-8.2)
[2021-08-16 23:52] VITALS: BP 142/73; PULSE 81; TEMP 98.3
== END 2021-08-17 00:08 | disposition home or self-care (01) ==
LOC: JER 16:57
PROC: 3E033GC Introduction of Other Therapeutic Substance into Peripheral Vein, Percutaneous Approach (ICD-10-PCS; principal; 2021-08-16)
PROC: 3E0337Z Introduction of Electrolytic and Water Balance Substance into Peripheral Vein, Percutaneous Approach (ICD-10-PCS; 2021-08-16)
DX: F10.230 Alcohol dependence with withdrawal, uncomplicated (principal); M79.604 Pain in right leg
CPT/HCPCS: 36415; 80053; 83735; 85025; 93970-TC; 99284-25; C9803; U0003; U0005

== ENCOUNTER 2021-09-27 10:15 | Inpatient (IN) | payer OTHER ==
[2021-09-27] MEDS ORDERED: NICOTINE 10 MG CARTRIDGE (INHALER) IH PRN (10:33)
[2021-09-27] MEDS ORDERED: guaiFENesin 200 MG/10 ML 10 ML UNIT-DOSE CUPS PO PRN (10:33)
[2021-09-27] MEDS ORDERED: ACETAMINOPHEN 325 MG TABLET (FP) PO PRN (10:33)
[2021-09-27] MEDS ORDERED: IBUPROFEN 400 MG TABLET (FP) PO PRN (10:33)
[2021-09-27] MEDS ORDERED: MAGNESIUM HYDROX 2400MG/30ML ORAL SUSPENSION 30 ML CUP PO PRN (10:33)
[2021-09-27] MEDS ORDERED: P-EPHED 60MG/TRIPROLIDI 2.5MG TABLET PO PRN (10:33)
[2021-09-27] MEDS ORDERED: MAGNESIUM CITRATE 300 ML BOTTLE PO PRN (10:33)
[2021-09-27] MEDS ORDERED: MAG HYDROX/AL HYDROX/SIMETH 30 ML UNIT-DOSE CUP PO PRN (10:33)
[2021-09-27] MEDS ORDERED: LOPERAMIDE HCL 2 MG CAPSULE PO PRN (10:33)
[2021-09-27 10:44] VITALS: BMI 25.1
[2021-09-27] MEDS ORDERED: MENTHOL/PHENOL 1 EACH UD MM PRN (11:31)
[2021-09-27] MEDS ORDERED: METHOCARBAMOL 500 MG TABLET PO PRN (11:31)
[2021-09-27] MEDS ORDERED: ONDANSETRON *ODT* 4 MG TABLET SL PRN (11:31)
[2021-09-27] MEDS ORDERED: BISMUTH SUBSALICYLATE 262 MG/15 ML BTL PO PRN (11:31)
[2021-09-27 13:32] LABS: HEMATOCRIT 39.5 % (32.4-45.2); HEMOGLOBIN 13.4 GM/dL (10.7-15.3); MEAN CELL VOLUME 99.9 fl (80-96); MEAN PLT VOLUME 8.3 fl (7.5-11.1); PLATELET COUNT 251 10^3/uL (134-434); RBC 3.96 M/mm3 (3.60-5.2); RDW 14.6 % (11.6-15.6); WHITE BLOOD COUNT 9.4 K/mm3 (4.0-10.0)
[2021-09-27 13:49] LABS: ALBUMIN 3.8 g/dl (3.4-5.0); BLOOD UREA NITROGEN 17.8 mg/dL (7-18)
[2021-09-27 13:51] LABS: CALCIUM 9.6 mg/dL (8.5-10.1)
[2021-09-27] MEDS: hydrOXYzine PAMOATE 25 MG CAPSULE (FP) PO SCH ×3 (13:53→23:02)
[2021-09-27 13:56] LABS: CREATININE 0.8 mg/dL (0.55-1.3)
[2021-09-27 13:58] LABS: BILIRUBIN,TOTAL 0.6 mg/dL (0.2-1); TOT PROT 7.6 g/dl (6.4-8.2)
[2021-09-27 13:59] LABS: SYPHILIS W/ RPR CONF NON-REACTIVE (NONREACTIVE)
[2021-09-27] MEDS ORDERED: hydrOXYzine PAMOATE 25 MG CAPSULE (FP) PO SCH (14:00)
[2021-09-27] MEDS ORDERED: MELATONIN 5 MG TABLETS PO SCH (22:00)
[2021-09-27] MEDS ORDERED: THIAMINE HCL 100 MG TABLET (FP) PO SCH (22:00)
[2021-09-28] MEDS: hydrOXYzine PAMOATE 25 MG CAPSULE (FP) PO SCH ×4 (06:44→18:13)
[2021-09-28] MEDS ORDERED: PRENATAL VITAMINS W/ FOLIC ACID TABLET (FP) PO SCH (10:00)
[2021-09-28 17:39] VITALS: BP 110/73; PULSE 76; TEMP 98
== END 2021-09-28 18:45 | disposition other institution (70) | DRG 897 ==
LOC: YASAS 10:15 → Y6N 11:35
PROVIDERS: ADMIT Allergy & Immunology; ATTEND Allergy & Immunology
PROC: HZ2ZZZZ Detoxification Services for Substance Abuse Treatment (ICD-10-PCS; principal; 2021-09-27)
DX: F10.230 Alcohol dependence with withdrawal, uncomplicated (principal); J44.9 Chronic obstructive pulmonary disease, unspecified; I11.0 Hypertensive heart disease with heart failure; E11.9 Type 2 diabetes mellitus without complications; I50.9 Heart failure, unspecified; M19.90 Unspecified osteoarthritis, unspecified site; M54.59 Other low back pain; G89.29 Other chronic pain; Z87.891 Personal history of nicotine dependence; Z91.011 Allergy to milk products; Z86.11 Personal history of tuberculosis; Z98.84 Bariatric surgery status
CPT/HCPCS: 36415; 80053; 85027; 86780; 86803; C9803; U0003; U0005

== ENCOUNTER 2021-09-28 16:38 | Inpatient (IN) | payer OTHER ==
[2021-09-28] MEDS ORDERED: hydrOXYzine PAMOATE 25 MG CAPSULE (FP) PO PRN (16:40)
[2021-09-28] MEDS ORDERED: MAGNESIUM HYDROX 2400MG/30ML ORAL SUSPENSION 30 ML CUP PO PRN (16:40)
[2021-09-28] MEDS ORDERED: guaiFENesin 200 MG/10 ML 10 ML UNIT-DOSE CUPS PO PRN (16:40)
[2021-09-28] MEDS ORDERED: MAG HYDROX/AL HYDROX/SIMETH 30 ML UNIT-DOSE CUP PO PRN (16:40)
[2021-09-28] MEDS ORDERED: LOPERAMIDE HCL 2 MG CAPSULE PO PRN (16:40)
[2021-09-28] MEDS ORDERED: NICOTINE 10 MG CARTRIDGE (INHALER) IH PRN (16:40)
[2021-09-28] MEDS ORDERED: P-EPHED 60MG/TRIPROLIDI 2.5MG TABLET PO PRN (16:40)
[2021-09-28] MEDS ORDERED: MAGNESIUM CITRATE 300 ML BOTTLE PO PRN (16:40)
[2021-09-28] MEDS ORDERED: ACETAMINOPHEN 325 MG TABLET (FP) PO PRN (16:40)
[2021-09-28] MEDS: THIAMINE HCL 100 MG TABLET (FP) PO SCH (21:44)
[2021-09-28] MEDS: MELATONIN 5 MG TABLETS PO SCH (21:44)
[2021-09-29] MEDS: PRENATAL VITAMINS W/ FOLIC ACID TABLET (FP) PO SCH (10:15)
[2021-09-29] MEDS: NICOTINE 7 MG/24 HOURS TOPICAL PATCH TD SCH (10:16)
[2021-09-29] MEDS: LIDOCAINE 5% TOPICAL PATCH TP SCH (14:21)
[2021-09-29] MEDS: THIAMINE HCL 100 MG TABLET (FP) PO SCH (21:42)
[2021-09-29] MEDS: LIDOCAINE PATCH REMOVAL MC SCH (21:42)
[2021-09-29] MEDS: MELATONIN 5 MG TABLETS PO SCH (21:42)
[2021-09-30] MEDS: PRENATAL VITAMINS W/ FOLIC ACID TABLET (FP) PO SCH (10:15)
[2021-09-30] MEDS: NICOTINE 7 MG/24 HOURS TOPICAL PATCH TD SCH (10:15)
[2021-09-30] MEDS: LIDOCAINE 5% TOPICAL PATCH TP SCH (10:16)
[2021-09-30] MEDS: LIDOCAINE PATCH REMOVAL MC SCH (21:34)
[2021-09-30] MEDS: MELATONIN 5 MG TABLETS PO SCH (21:35)
[2021-09-30] MEDS: THIAMINE HCL 100 MG TABLET (FP) PO SCH (21:35)
[2021-10-01] MEDS: PRENATAL VITAMINS W/ FOLIC ACID TABLET (FP) PO SCH (10:27)
[2021-10-01] MEDS: NICOTINE 7 MG/24 HOURS TOPICAL PATCH TD SCH (10:27)
[2021-10-01] MEDS: LIDOCAINE 5% TOPICAL PATCH TP SCH (10:27)
[2021-10-01] MEDS: METHYL SALICYLATE/MENTHOL OINT 30 GM TUBE TP SCH ×2 (13:02→21:54)
[2021-10-01] MEDS: MELATONIN 5 MG TABLETS PO SCH (21:53)
[2021-10-01] MEDS: LIDOCAINE PATCH REMOVAL MC SCH (21:53)
[2021-10-01] MEDS: THIAMINE HCL 100 MG TABLET (FP) PO SCH (21:54)
[2021-10-02] MEDS: NICOTINE 7 MG/24 HOURS TOPICAL PATCH TD SCH (10:13)
[2021-10-02] MEDS: PRENATAL VITAMINS W/ FOLIC ACID TABLET (FP) PO SCH (10:13)
[2021-10-02] MEDS: LIDOCAINE 5% TOPICAL PATCH TP SCH (10:14)
[2021-10-02] MEDS: METHYL SALICYLATE/MENTHOL OINT 30 GM TUBE TP SCH ×2 (10:15→21:45)
[2021-10-02] MEDS: IBUPROFEN 400 MG TABLET (FP) PO PRN (16:24)
[2021-10-02] MEDS: THIAMINE HCL 100 MG TABLET (FP) PO SCH (21:45)
[2021-10-02] MEDS: LIDOCAINE PATCH REMOVAL MC SCH (21:46)
[2021-10-02] MEDS: MELATONIN 5 MG TABLETS PO SCH (21:46)
[2021-10-03] MEDS: LIDOCAINE 5% TOPICAL PATCH TP SCH (10:09)
[2021-10-03] MEDS: METHYL SALICYLATE/MENTHOL OINT 30 GM TUBE TP SCH ×2 (10:09→21:45)
[2021-10-03] MEDS: PRENATAL VITAMINS W/ FOLIC ACID TABLET (FP) PO SCH (10:10)
[2021-10-03] MEDS: NICOTINE 7 MG/24 HOURS TOPICAL PATCH TD SCH (10:10)
[2021-10-03] MEDS: LIDOCAINE PATCH REMOVAL MC SCH (21:44)
[2021-10-03] MEDS: THIAMINE HCL 100 MG TABLET (FP) PO SCH (21:44)
[2021-10-03] MEDS: MELATONIN 5 MG TABLETS PO SCH (21:45)
[2021-10-04] MEDS: PRENATAL VITAMINS W/ FOLIC ACID TABLET (FP) PO SCH (10:20)
[2021-10-04] MEDS: LIDOCAINE 5% TOPICAL PATCH TP SCH (10:21)
[2021-10-04] MEDS: METHYL SALICYLATE/MENTHOL OINT 30 GM TUBE TP SCH ×2 (10:21→21:38)
[2021-10-04] MEDS: NICOTINE 7 MG/24 HOURS TOPICAL PATCH TD SCH (10:21)
[2021-10-04] MEDS: MELATONIN 5 MG TABLETS PO SCH (21:37)
[2021-10-04] MEDS: THIAMINE HCL 100 MG TABLET (FP) PO SCH (21:38)
[2021-10-04] MEDS: LIDOCAINE PATCH REMOVAL MC SCH (21:39)
[2021-10-05] MEDS: METHYL SALICYLATE/MENTHOL OINT 30 GM TUBE TP SCH ×2 (10:06→21:49)
[2021-10-05] MEDS: LIDOCAINE 5% TOPICAL PATCH TP SCH (10:06)
[2021-10-05] MEDS: PRENATAL VITAMINS W/ FOLIC ACID TABLET (FP) PO SCH (10:06)
[2021-10-05] MEDS: NICOTINE 7 MG/24 HOURS TOPICAL PATCH TD SCH (10:07)
[2021-10-05] MEDS: THIAMINE HCL 100 MG TABLET (FP) PO SCH (21:48)
[2021-10-05] MEDS: MELATONIN 5 MG TABLETS PO SCH (21:48)
[2021-10-05] MEDS: LIDOCAINE PATCH REMOVAL MC SCH (21:48)
[2021-10-06] MEDS: PRENATAL VITAMINS W/ FOLIC ACID TABLET (FP) PO SCH (10:10)
[2021-10-06] MEDS: NICOTINE 7 MG/24 HOURS TOPICAL PATCH TD SCH (10:11)
[2021-10-06] MEDS: LIDOCAINE 5% TOPICAL PATCH TP SCH (10:11)
[2021-10-06] MEDS: METHYL SALICYLATE/MENTHOL OINT 30 GM TUBE TP SCH ×2 (10:11→21:36)
[2021-10-06] MEDS: IBUPROFEN 400 MG TABLET (FP) PO PRN (12:34)
[2021-10-06] MEDS ORDERED: NALTREXONE HCL 50 MG TABLET PO ONE (15:00)
[2021-10-06] MEDS: LIDOCAINE PATCH REMOVAL MC SCH (21:36)
[2021-10-06] MEDS: THIAMINE HCL 100 MG TABLET (FP) PO SCH (21:36)
[2021-10-06] MEDS: MELATONIN 5 MG TABLETS PO SCH (21:36)
[2021-10-07] MEDS ORDERED: NALTREXONE HCL 50 MG TABLET PO SCH (10:00)
[2021-10-07] MEDS: PRENATAL VITAMINS W/ FOLIC ACID TABLET (FP) PO SCH (10:13)
[2021-10-07] MEDS: LIDOCAINE 5% TOPICAL PATCH TP SCH (10:13)
[2021-10-07] MEDS: NICOTINE 7 MG/24 HOURS TOPICAL PATCH TD SCH (10:14)
[2021-10-07] MEDS: METHYL SALICYLATE/MENTHOL OINT 30 GM TUBE TP SCH ×2 (10:14→21:43)
[2021-10-07] MEDS: LIDOCAINE PATCH REMOVAL MC SCH (21:42)
[2021-10-07] MEDS: MELATONIN 5 MG TABLETS PO SCH (21:42)
[2021-10-07] MEDS: THIAMINE HCL 100 MG TABLET (FP) PO SCH (21:42)
[2021-10-08] MEDS: LIDOCAINE 5% TOPICAL PATCH TP SCH (10:22)
[2021-10-08] MEDS: METHYL SALICYLATE/MENTHOL OINT 30 GM TUBE TP SCH ×2 (10:23→21:29)
[2021-10-08] MEDS: PRENATAL VITAMINS W/ FOLIC ACID TABLET (FP) PO SCH (10:23)
[2021-10-08] MEDS ORDERED: NALTREXONE MICROSPHERES (VIVITROL) 380 MG DISP.SYRIN IM ONE (12:00)
[2021-10-08] MEDS: LIDOCAINE PATCH REMOVAL MC SCH (21:28)
[2021-10-08] MEDS: THIAMINE HCL 100 MG TABLET (FP) PO SCH (21:28)
[2021-10-08] MEDS: MELATONIN 5 MG TABLETS PO SCH (21:28)
[2021-10-09] MEDS: PRENATAL VITAMINS W/ FOLIC ACID TABLET (FP) PO SCH (10:20)
[2021-10-09] MEDS: METHYL SALICYLATE/MENTHOL OINT 30 GM TUBE TP SCH ×2 (10:20→21:28)
[2021-10-09] MEDS: LIDOCAINE 5% TOPICAL PATCH TP SCH (10:21)
[2021-10-09] MEDS: LIDOCAINE PATCH REMOVAL MC SCH (21:27)
[2021-10-09] MEDS: THIAMINE HCL 100 MG TABLET (FP) PO SCH (21:27)
[2021-10-09] MEDS: MELATONIN 5 MG TABLETS PO SCH (21:27)
[2021-10-10] MEDS: PRENATAL VITAMINS W/ FOLIC ACID TABLET (FP) PO SCH (10:26)
[2021-10-10] MEDS: METHYL SALICYLATE/MENTHOL OINT 30 GM TUBE TP SCH ×2 (10:26→21:02)
[2021-10-10] MEDS: LIDOCAINE 5% TOPICAL PATCH TP SCH (10:26)
[2021-10-10] MEDS: MELATONIN 5 MG TABLETS PO SCH (21:01)
[2021-10-10] MEDS: THIAMINE HCL 100 MG TABLET (FP) PO SCH (21:01)
[2021-10-10] MEDS: LIDOCAINE PATCH REMOVAL MC SCH (21:02)
[2021-10-10] MEDS: IBUPROFEN 400 MG TABLET (FP) PO PRN (21:03)
[2021-10-11] MEDS: PRENATAL VITAMINS W/ FOLIC ACID TABLET (FP) PO SCH (10:49)
[2021-10-11] MEDS: METHYL SALICYLATE/MENTHOL OINT 30 GM TUBE TP SCH ×2 (10:50→21:35)
[2021-10-11] MEDS: LIDOCAINE 5% TOPICAL PATCH TP SCH (10:50)
[2021-10-11] MEDS: THIAMINE HCL 100 MG TABLET (FP) PO SCH (21:34)
[2021-10-11] MEDS: MELATONIN 5 MG TABLETS PO SCH (21:34)
[2021-10-11] MEDS: LIDOCAINE PATCH REMOVAL MC SCH (21:35)
[2021-10-12 07:20] VITALS: TEMP 97.7
[2021-10-12] MEDS: PRENATAL VITAMINS W/ FOLIC ACID TABLET (FP) PO SCH (09:06)
[2021-10-12] MEDS: METHYL SALICYLATE/MENTHOL OINT 30 GM TUBE TP SCH (09:06)
[2021-10-12] MEDS: LIDOCAINE 5% TOPICAL PATCH TP SCH (09:07)
[2021-10-12] MEDS ORDERED: PT OWN MED DRAWER 7, Y5N ONE (09:07)
[2021-10-12 09:36] VITALS: BP 123/70; PULSE 86
== END 2021-10-12 10:35 | disposition home or self-care (01) | DRG 305 ==
LOC: YASAS 16:38 → Y5N 16:39
PROVIDERS: ADMIT Allergy & Immunology; ATTEND Allergy & Immunology
PROC: HZ42ZZZ Group Counseling for Substance Abuse Treatment, Cognitive-Behavioral (ICD-10-PCS; principal; 2021-09-28)
DX: I10 Essential (primary) hypertension (principal); E11.9 Type 2 diabetes mellitus without complications; E78.5 Hyperlipidemia, unspecified; J44.9 Chronic obstructive pulmonary disease, unspecified; M19.90 Unspecified osteoarthritis, unspecified site; M54.59 Other low back pain; G89.29 Other chronic pain; Z86.11 Personal history of tuberculosis; Z98.84 Bariatric surgery status; Z90.710 Acquired absence of both cervix and uterus; Z87.891 Personal history of nicotine dependence
CPT/HCPCS: J2315

== ENCOUNTER 2021-11-20 16:09 | Emergency (ER) | payer BC, OTHER ==
[2021-11-20 16:28] VITALS: PULSE 96; TEMP 98.4; BMI 25.1
[2021-11-20 16:41] VITALS: BP 134/98
== END 2021-11-20 18:49 | disposition home or self-care (01) ==
LOC: JER 16:09
DX: F10.10 Alcohol abuse, uncomplicated (principal)
CPT/HCPCS: 82962; 99283-25

== ENCOUNTER 2021-11-20 19:05 | Inpatient (IN) | payer BC, OTHER ==
[2021-11-20] MEDS ORDERED: MAGNESIUM HYDROX 2400MG/30ML ORAL SUSPENSION 30 ML CUP PO PRN (20:13)
[2021-11-20] MEDS ORDERED: BISMUTH SUBSALICYLATE 524 MG/30 ML PO PRN (20:13)
[2021-11-20] MEDS ORDERED: ONDANSETRON *ODT* 4 MG TABLET SL PRN (20:13)
[2021-11-20] MEDS ORDERED: MAGNESIUM CITRATE 300 ML BOTTLE PO PRN (20:13)
[2021-11-20] MEDS ORDERED: MAG HYDROX/AL HYDROX/SIMETH 30 ML UNIT-DOSE CUP PO PRN (20:13)
[2021-11-20] MEDS ORDERED: ACETAMINOPHEN 325 MG TABLET (FP) PO PRN ×2 (20:13)
[2021-11-20] MEDS ORDERED: MENTHOL/PHENOL 1 EACH UD MM PRN (20:13)
[2021-11-20] MEDS ORDERED: chlordiazePOXIDE HCL 25 MG CAPSULE PO PRN (20:13)
[2021-11-20 20:36] VITALS: BMI 25.1
[2021-11-21] MEDS: THIAMINE HCL 100 MG TABLET (FP) PO SCH ×2 (01:33→22:15)
[2021-11-21] MEDS: MELATONIN 5 MG TABLETS PO SCH ×2 (01:33→22:15)
[2021-11-21] MEDS: chlordiazePOXIDE HCL 25 MG CAPSULE PO SCH ×5 (01:34→22:17)
[2021-11-21] MEDS: PRENATAL VITAMINS W/ FOLIC ACID TABLET (FP) PO SCH (10:10)
[2021-11-21 12:06] LABS: HEMATOCRIT 39.7 % (32.4-45.2); HEMOGLOBIN 13.8 GM/dL (10.7-15.3); MCH 33.4 pg (25.7-33.7); MCHC 34.9 g/dl (32.0-36.0); MEAN CELL VOLUME 95.8 fl (80-96); MEAN PLT VOLUME 7.5 fl (7.5-11.1); PLATELET COUNT 232 10^3/uL (134-434); RBC 4.14 M/mm3 (3.60-5.2); WHITE BLOOD COUNT 9.1 K/mm3 (4.0-10.0)
[2021-11-21 12:10] LABS: BLOOD UREA NITROGEN 10.9 mg/dL (7-18); CALCIUM 8.7 mg/dL (8.5-10.1)
[2021-11-21 12:14] LABS: CREATININE 0.7 mg/dL (0.55-1.3)
[2021-11-21 12:15] LABS: BILIRUBIN,TOTAL 1.2 mg/dL (0.2-1); TOT PROT 8.2 g/dl (6.4-8.2)
[2021-11-21] MEDS: amLODIPine BESYLATE 5 MG TABLET (FP) PO SCH (15:31)
[2021-11-22] MEDS: chlordiazePOXIDE HCL 25 MG CAPSULE PO SCH ×4 (05:43→22:37)
[2021-11-22] MEDS: PRENATAL VITAMINS W/ FOLIC ACID TABLET (FP) PO SCH (10:30)
[2021-11-22] MEDS: amLODIPine BESYLATE 5 MG TABLET (FP) PO SCH (10:30)
[2021-11-22] MEDS: METHOCARBAMOL 500 MG TABLET PO PRN (18:31)
[2021-11-22] MEDS: MELATONIN 5 MG TABLETS PO SCH (22:36)
[2021-11-22] MEDS: THIAMINE HCL 100 MG TABLET (FP) PO SCH (22:37)
[2021-11-23] MEDS ORDERED: chlordiazePOXIDE HCL 10 MG CAPSULE PO PRN
[2021-11-23] MEDS: chlordiazePOXIDE HCL 10 MG CAPSULE PO SCH ×4 (05:26→22:37)
[2021-11-23] MEDS: PRENATAL VITAMINS W/ FOLIC ACID TABLET (FP) PO SCH (10:09)
[2021-11-23] MEDS: METHOCARBAMOL 500 MG TABLET PO PRN (10:09)
[2021-11-23] MEDS: amLODIPine BESYLATE 5 MG TABLET (FP) PO SCH (10:09)
[2021-11-23] MEDS: MELATONIN 5 MG TABLETS PO SCH (22:27)
[2021-11-23] MEDS: IBUPROFEN 400 MG TABLET (FP) PO PRN (22:36)
[2021-11-23] MEDS: THIAMINE HCL 100 MG TABLET (FP) PO SCH (22:37)
[2021-11-24] MEDS: chlordiazePOXIDE HCL 10 MG CAPSULE PO SCH ×2 (05:16→18:02)
[2021-11-24] MEDS: METHOCARBAMOL 500 MG TABLET PO PRN (10:30)
[2021-11-24] MEDS: amLODIPine BESYLATE 5 MG TABLET (FP) PO SCH (10:30)
[2021-11-24] MEDS: PRENATAL VITAMINS W/ FOLIC ACID TABLET (FP) PO SCH (10:30)
[2021-11-24] MEDS: IBUPROFEN 400 MG TABLET (FP) PO PRN (18:00)
[2021-11-24] MEDS: THIAMINE HCL 100 MG TABLET (FP) PO SCH (22:44)
[2021-11-24] MEDS: MELATONIN 5 MG TABLETS PO SCH (22:45)
[2021-11-25] MEDS ORDERED: chlordiazePOXIDE HCL 10 MG CAPSULE PO ONE (05:00)
[2021-11-25 08:49] VITALS: BP 98/60; PULSE 86; TEMP 97.9
== END 2021-11-25 09:35 | disposition home or self-care (01) | DRG 897 ==
LOC: YASAS 19:05 → Y6N 23:40
PROVIDERS: ADMIT Allergy & Immunology; ATTEND Allergy & Immunology
PROC: HZ2ZZZZ Detoxification Services for Substance Abuse Treatment (ICD-10-PCS; principal; 2021-11-21)
DX: F10.230 Alcohol dependence with withdrawal, uncomplicated (principal); E87.5 Hyperkalemia; E11.9 Type 2 diabetes mellitus without complications; I10 Essential (primary) hypertension; J44.9 Chronic obstructive pulmonary disease, unspecified; J45.20 Mild intermittent asthma, uncomplicated; Z86.11 Personal history of tuberculosis; Z86.2 Personal history of diseases of the blood and blood-forming organs and certain disorders involving the immune mechanism; Z86.19 Personal history of other infectious and parasitic diseases; Z98.84 Bariatric surgery status
CPT/HCPCS: 36415; 80053; 82962; 84132; 85027; 86780; C9803; U0003; U0005

== ENCOUNTER 2021-11-29 07:58 | Emergency (ER) | payer BC, OTHER ==
[2021-11-29 08:22] VITALS: TEMP 98.3
[2021-11-29 08:35] VITALS: BMI 24.9
[2021-11-29 09:44] LABS: HEMATOCRIT 35.7 % (32.4-45.2); HEMOGLOBIN 12.1 GM/dL (10.7-15.3); MCHC 33.9 g/dl (32.0-36.0); WHITE BLOOD COUNT 4.8 K/mm3 (4.0-10.0)
[2021-11-29 09:47] LABS: BASO % 0.6 % (0-2.0); EOS % 1.7 % (0-4.5); LYMPH % 54.2 % (8-40); MCH 33.2 pg (25.7-33.7); MEAN PLT VOLUME 7.4 fl (7.5-11.1); MONO % 9.7 % (3.8-10.2); NEUT % 33.8 % (42.8-82.8); PLATELET COUNT 234 10^3/uL (134-434); RBC 3.65 M/mm3 (3.60-5.2); RDW 14.6 % (11.6-15.6)
[2021-11-29 10:05] LABS: ALBUMIN 3.5 g/dl (3.4-5.0); CALCIUM 8.9 mg/dL (8.5-10.1)
[2021-11-29 10:06] LABS: BLOOD UREA NITROGEN 9.2 mg/dL (7-18)
[2021-11-29 10:09] LABS: CREATININE 0.6 mg/dL (0.55-1.3)
[2021-11-29 10:11] LABS: BILIRUBIN,TOTAL 0.2 mg/dL (0.2-1); TOT PROT 6.7 g/dl (6.4-8.2)
[2021-11-29 10:56] VITALS: PULSE 82
[2021-11-29] MEDS ORDERED: SODIUM CHLORIDE 0.9% 500 ML INFUS.BAG IV ONE (11:01)
[2021-11-29 14:32] VITALS: BP 123/65
== END 2021-11-29 14:45 | disposition home or self-care (01) ==
LOC: JER 07:58
DX: F10.929 Alcohol use, unspecified with intoxication, unspecified (principal)
CPT/HCPCS: 36415; 80053; 82962; 85025; 93005; 93010; 99284-25; C9803; U0003; U0005

== ENCOUNTER 2021-11-29 17:11 | Inpatient (IN) | payer BC, OTHER ==
[2021-11-29 19:31] VITALS: BMI 26.9
[2021-11-29] MEDS ORDERED: LOPERAMIDE HCL 2 MG CAPSULE PO PRN (23:13)
[2021-11-29] MEDS ORDERED: guaiFENesin 200 MG/10 ML 10 ML UNIT-DOSE CUPS PO PRN (23:13)
[2021-11-29] MEDS ORDERED: MAG HYDROX/AL HYDROX/SIMETH 30 ML UNIT-DOSE CUP PO PRN (23:13)
[2021-11-29] MEDS ORDERED: P-EPHED 60MG/TRIPROLIDI 2.5MG TABLET PO PRN (23:13)
[2021-11-29] MEDS ORDERED: ACETAMINOPHEN 325 MG TABLET (FP) PO PRN (23:13)
[2021-11-29] MEDS ORDERED: MAGNESIUM CITRATE 300 ML BOTTLE PO PRN (23:13)
[2021-11-29] MEDS ORDERED: MAGNESIUM HYDROX 2400MG/30ML ORAL SUSPENSION 30 ML CUP PO PRN (23:13)
[2021-11-30] MEDS: MELATONIN 5 MG TABLETS PO SCH ×2 (03:43→21:13)
[2021-11-30] MEDS: PRENATAL VITAMINS W/ FOLIC ACID TABLET (FP) PO SCH (11:01)
[2021-11-30 12:04] LABS: HEMATOCRIT 35.2 % (32.4-45.2); MCH 33.5 pg (25.7-33.7); MCHC 34.1 g/dl (32.0-36.0); MEAN CELL VOLUME 98.1 fl (80-96); MEAN PLT VOLUME 7.9 fl (7.5-11.1); PLATELET COUNT 268 10^3/uL (134-434); RBC 3.58 M/mm3 (3.60-5.2); RDW 14.4 % (11.6-15.6); WHITE BLOOD COUNT 6.7 K/mm3 (4.0-10.0)
[2021-11-30 12:29] LABS: SYPHILIS W/ RPR CONF NON-REACTIVE (NONREACTIVE)
[2021-11-30 12:30] LABS: CALCIUM 9.1 mg/dL (8.5-10.1)
[2021-11-30 12:33] LABS: ALBUMIN 3.7 g/dl (3.4-5.0); BLOOD UREA NITROGEN 11.4 mg/dL (7-18)
[2021-11-30 12:35] LABS: CREATININE 0.7 mg/dL (0.55-1.3)
[2021-11-30 12:36] LABS: TOT PROT 7.2 g/dl (6.4-8.2)
[2021-11-30 12:37] LABS: BILIRUBIN,TOTAL 0.2 mg/dL (0.2-1)
[2021-11-30 13:05] LABS: HIV INTERPRETATION NEGATIVE (NEGATIVE)
[2021-11-30] MEDS: THIAMINE HCL 100 MG TABLET (FP) PO SCH (21:13)
[2021-12-01] MEDS: PRENATAL VITAMINS W/ FOLIC ACID TABLET (FP) PO SCH (10:54)
[2021-12-01] MEDS: THIAMINE HCL 100 MG TABLET (FP) PO SCH (21:11)
[2021-12-01] MEDS: MELATONIN 5 MG TABLETS PO SCH (21:11)
[2021-12-01 21:59] LABS: EPI CELLS 12 /uL (0-25.1); HYALINE CASTS 0 /uL (0-3.1); URINE APPEARANCE CLEAR; URINE BACTERIA 301 /uL (0-1359); URINE BILIRUBIN NEGATIVE (NEGATIVE); URINE COLOR YELLOW; URINE GLUCOSE (UA) NEGATIVE (NEGATIVE); URINE KETONE TRACE (NEGATIVE); URINE LEUK ESTERASE 1+ (NEGATIVE); URINE NITRITE NEGATIVE (NEGATIVE); URINE PROTEIN NEGATIVE (NEGATIVE); URINE RBC 2 /uL (0-23.9); URINE UROBILINOGEN 0.2 mg/dL (0.2-1.0); URINE WBC 27 /uL (0-25.8)
[2021-12-02] MEDS: PRENATAL VITAMINS W/ FOLIC ACID TABLET (FP) PO SCH (11:26)
[2021-12-02] MEDS: THIAMINE HCL 100 MG TABLET (FP) PO SCH (22:19)
[2021-12-02] MEDS: MELATONIN 5 MG TABLETS PO SCH (22:19)
[2021-12-03] MEDS: PRENATAL VITAMINS W/ FOLIC ACID TABLET (FP) PO SCH (10:50)
[2021-12-03] MEDS: MELATONIN 5 MG TABLETS PO SCH (21:06)
[2021-12-03] MEDS: THIAMINE HCL 100 MG TABLET (FP) PO SCH (21:06)
[2021-12-04] MEDS: PRENATAL VITAMINS W/ FOLIC ACID TABLET (FP) PO SCH (11:18)
[2021-12-04] MEDS: MELATONIN 5 MG TABLETS PO SCH (21:05)
[2021-12-04] MEDS: THIAMINE HCL 100 MG TABLET (FP) PO SCH (21:05)
[2021-12-05] MEDS: PRENATAL VITAMINS W/ FOLIC ACID TABLET (FP) PO SCH (11:08)
[2021-12-05] MEDS: THIAMINE HCL 100 MG TABLET (FP) PO SCH (22:30)
[2021-12-05] MEDS: MELATONIN 5 MG TABLETS PO SCH (22:30)
[2021-12-06] MEDS: PRENATAL VITAMINS W/ FOLIC ACID TABLET (FP) PO SCH (11:01)
[2021-12-06] MEDS: THIAMINE HCL 100 MG TABLET (FP) PO SCH (21:13)
[2021-12-06] MEDS: MELATONIN 5 MG TABLETS PO SCH (21:13)
[2021-12-07] MEDS: PRENATAL VITAMINS W/ FOLIC ACID TABLET (FP) PO SCH (10:42)
[2021-12-07] MEDS: MELATONIN 5 MG TABLETS PO SCH (22:02)
[2021-12-07] MEDS: THIAMINE HCL 100 MG TABLET (FP) PO SCH (22:02)
[2021-12-08] MEDS: PRENATAL VITAMINS W/ FOLIC ACID TABLET (FP) PO SCH (10:41)
[2021-12-08] MEDS: IBUPROFEN 400 MG TABLET (FP) PO PRN (10:42)
[2021-12-08] MEDS ORDERED: FUROSEMIDE 20 MG TABLET (FP) PO ONE (11:51)
[2021-12-08] MEDS: THIAMINE HCL 100 MG TABLET (FP) PO SCH (21:13)
[2021-12-08] MEDS: MELATONIN 5 MG TABLETS PO SCH (21:13)
[2021-12-09] MEDS ORDERED: FUROSEMIDE 20 MG TABLET (FP) PO ONE (10:00)
[2021-12-09] MEDS: PRENATAL VITAMINS W/ FOLIC ACID TABLET (FP) PO SCH (10:53)
[2021-12-09] MEDS: THIAMINE HCL 100 MG TABLET (FP) PO SCH (21:10)
[2021-12-09] MEDS: MELATONIN 5 MG TABLETS PO SCH (21:10)
[2021-12-10] MEDS: PRENATAL VITAMINS W/ FOLIC ACID TABLET (FP) PO SCH (11:03)
[2021-12-10] MEDS: FUROSEMIDE 20 MG TABLET (FP) PO SCH (11:05)
[2021-12-10] MEDS: THIAMINE HCL 100 MG TABLET (FP) PO SCH (21:20)
[2021-12-10] MEDS: MELATONIN 5 MG TABLETS PO SCH (21:20)
[2021-12-11] MEDS: PRENATAL VITAMINS W/ FOLIC ACID TABLET (FP) PO SCH (10:29)
[2021-12-11] MEDS: FUROSEMIDE 20 MG TABLET (FP) PO SCH (10:29)
[2021-12-11] MEDS: MELATONIN 5 MG TABLETS PO SCH (22:06)
[2021-12-11] MEDS: THIAMINE HCL 100 MG TABLET (FP) PO SCH (22:06)
[2021-12-12] MEDS: IBUPROFEN 400 MG TABLET (FP) PO PRN ×3 (01:53→22:10)
[2021-12-12] MEDS: PRENATAL VITAMINS W/ FOLIC ACID TABLET (FP) PO SCH (10:46)
[2021-12-12] MEDS: FUROSEMIDE 20 MG TABLET (FP) PO SCH (12:17)
[2021-12-12] MEDS: MELATONIN 5 MG TABLETS PO SCH (22:09)
[2021-12-12] MEDS: THIAMINE HCL 100 MG TABLET (FP) PO SCH (22:10)
[2021-12-13] MEDS ORDERED: BENZOCAINE 20 % GEL TUBE MM PRN (10:33)
[2021-12-13] MEDS: PRENATAL VITAMINS W/ FOLIC ACID TABLET (FP) PO SCH (10:46)
[2021-12-13] MEDS: FUROSEMIDE 20 MG TABLET (FP) PO SCH (12:07)
[2021-12-13] MEDS: MELATONIN 5 MG TABLETS PO SCH (21:23)
[2021-12-13] MEDS: THIAMINE HCL 100 MG TABLET (FP) PO SCH (21:23)
[2021-12-14 07:30] VITALS: BP 133/76; PULSE 82; TEMP 97.4
[2021-12-14] MEDS: PRENATAL VITAMINS W/ FOLIC ACID TABLET (FP) PO SCH (10:26)
[2021-12-14] MEDS: FUROSEMIDE 20 MG TABLET (FP) PO SCH (10:26)
== END 2021-12-14 10:41 | disposition home or self-care (01) | DRG 895 ==
LOC: YASAS 17:11 → Y5N 11-30 02:37
PROVIDERS: ADMIT Allergy & Immunology; ATTEND Allergy & Immunology
PROC: HZ42ZZZ Group Counseling for Substance Abuse Treatment, Cognitive-Behavioral (ICD-10-PCS; principal; 2021-11-30)
DX: F10.20 Alcohol dependence, uncomplicated (principal); F11.20 Opioid dependence, uncomplicated; D50.9 Iron deficiency anemia, unspecified; I11.0 Hypertensive heart disease with heart failure; I50.9 Heart failure, unspecified; J44.9 Chronic obstructive pulmonary disease, unspecified; K21.9 Gastro-esophageal reflux disease without esophagitis; M54.50 Low back pain, unspecified; M19.041 Primary osteoarthritis, right hand; M19.042 Primary osteoarthritis, left hand; R60.0 Localized edema; Z86.11 Personal history of tuberculosis; Z91.19 Patient's noncompliance with other medical treatment and regimen
CPT/HCPCS: 36415; 80053; 81003; 85027; 86780; 86803; 87389; C9803; U0003; U0005

== ENCOUNTER 2022-07-08 19:03 | Emergency (ER) | payer OTHER ==
[2022-07-08 19:19] VITALS: BP 129/88; PULSE 98; RESP 18; BMI 26.4
== END 2022-07-08 22:12 | disposition left against medical advice (07) ==
LOC: JER 19:03
DX: F10.129 Alcohol abuse with intoxication, unspecified (principal)
CPT/HCPCS: 99281-25

== ENCOUNTER 2022-07-31 11:57 | Emergency (ER) | payer BC, OTHER ==
[2022-07-31 12:12] VITALS: BP 118/74; PULSE 87; RESP 18; TEMP 99; BMI 25.7
== END 2022-07-31 13:01 | disposition short-term general hospital (02) ==
LOC: JER 11:57
DX: F10.920 Alcohol use, unspecified with intoxication, uncomplicated (principal)
CPT/HCPCS: 99283-25

== ENCOUNTER 2022-07-31 14:12 | Inpatient (IN) | payer BC, OTHER ==
[2022-07-31 14:33] VITALS: BMI 24.6
[2022-07-31] MEDS ORDERED: MAGNESIUM HYDROX 2400MG/30ML ORAL SUSPENSION 30 ML CUP PO PRN (16:17)
[2022-07-31] MEDS ORDERED: chlordiazePOXIDE HCL 25 MG CAPSULE PO PRN (16:17)
[2022-07-31] MEDS ORDERED: ACETAMINOPHEN 325 MG TABLET (FP) PO PRN ×2 (16:17)
[2022-07-31] MEDS ORDERED: BENZOCAINE/MENTHOL (CHLORASEPTIC ) LOZENGE MM PRN (16:17)
[2022-07-31] MEDS ORDERED: MAGNESIUM CITRATE 300 ML BOTTLE PO PRN (16:17)
[2022-07-31] MEDS ORDERED: NALOXONE HCL (KLOXXADO) 8 MG SPRAY NS PRN (16:17)
[2022-07-31] MEDS ORDERED: LOPERAMIDE HCL 2 MG CAPSULE PO PRN (16:17)
[2022-07-31] MEDS ORDERED: MAG HYDROX/AL HYDROX/SIMETH 30 ML UNIT-DOSE CUP PO PRN (16:17)
[2022-07-31] MEDS ORDERED: DICYCLOMINE HCL 10 MG CAPSULE PO PRN (16:17)
[2022-07-31] MEDS ORDERED: ONDANSETRON *ODT* 4 MG TABLET SL PRN (16:17)
[2022-07-31] MEDS ORDERED: BISMUTH SUBSALICYLATE 524 MG/30 ML PO PRN (16:17)
[2022-07-31] MEDS: chlordiazePOXIDE HCL 25 MG CAPSULE PO SCH ×2 (17:57→22:29)
[2022-07-31] MEDS: hydrOXYzine PAMOATE 25 MG CAPSULE (FP) PO SCH ×2 (17:58→22:30)
[2022-07-31] MEDS: MELATONIN 5 MG TABLETS PO SCH (22:29)
[2022-07-31] MEDS: THIAMINE HCL 100 MG TABLET (FP) PO SCH (22:29)
[2022-08-01] MEDS: chlordiazePOXIDE HCL 25 MG CAPSULE PO SCH ×4 (05:49→22:23)
[2022-08-01] MEDS: hydrOXYzine PAMOATE 25 MG CAPSULE (FP) PO SCH ×5 (05:49→22:23)
[2022-08-01] MEDS: PRENATAL VITAMINS W/ FOLIC ACID TABLET (FP) PO SCH (10:15)
[2022-08-01 10:44] LABS: ALBUMIN 3.3 g/dl (3.4-5.0); BLOOD UREA NITROGEN 8.7 mg/dL (7-18)
[2022-08-01 10:47] LABS: CREATININE 0.6 mg/dL (0.55-1.3)
[2022-08-01 10:49] LABS: BILIRUBIN,TOTAL 0.4 mg/dL (0.2-1); TOT PROT 6.8 g/dl (6.4-8.2)
[2022-08-01 10:51] LABS: HEMATOCRIT 37.1 % (32.4-45.2); HEMOGLOBIN 12.2 GM/dL (10.7-15.3); MCH 31.8 pg (25.7-33.7); MEAN CELL VOLUME 96.5 fl (80-96); MEAN PLT VOLUME 7.6 fl (7.5-11.1); PLATELET COUNT 392 10^3/uL (134-434); RBC 3.84 M/mm3 (3.60-5.2); RDW 14.5 % (11.6-15.6); WHITE BLOOD COUNT 8.4 K/mm3 (4.0-10.0)
[2022-08-01] MEDS: THIAMINE HCL 100 MG TABLET (FP) PO SCH (22:23)
[2022-08-01] MEDS: MELATONIN 5 MG TABLETS PO SCH (22:23)
[2022-08-01] MEDS: IBUPROFEN 600 MG TABLET (FP) PO PRN (22:25)
[2022-08-02] MEDS: chlordiazePOXIDE HCL 25 MG CAPSULE PO SCH ×4 (05:29→22:09)
[2022-08-02] MEDS: hydrOXYzine PAMOATE 25 MG CAPSULE (FP) PO SCH ×5 (05:29→22:09)
[2022-08-02] MEDS: PRENATAL VITAMINS W/ FOLIC ACID TABLET (FP) PO SCH (10:20)
[2022-08-02] MEDS: MELATONIN 5 MG TABLETS PO SCH (22:09)
[2022-08-02] MEDS: THIAMINE HCL 100 MG TABLET (FP) PO SCH (22:09)
[2022-08-02] MEDS: IBUPROFEN 600 MG TABLET (FP) PO PRN (22:10)
[2022-08-03] MEDS ORDERED: chlordiazePOXIDE HCL 10 MG CAPSULE PO PRN
[2022-08-03] MEDS: chlordiazePOXIDE HCL 10 MG CAPSULE PO SCH ×4 (06:56→22:02)
[2022-08-03] MEDS: IBUPROFEN 600 MG TABLET (FP) PO PRN ×2 (06:57→17:11)
[2022-08-03] MEDS: hydrOXYzine PAMOATE 25 MG CAPSULE (FP) PO SCH ×5 (06:57→22:02)
[2022-08-03] MEDS: PRENATAL VITAMINS W/ FOLIC ACID TABLET (FP) PO SCH (10:08)
[2022-08-03] MEDS: IBUPROFEN 400 MG TABLET (FP) PO PRN (10:09)
[2022-08-03] MEDS: MELATONIN 5 MG TABLETS PO SCH (22:02)
[2022-08-03] MEDS: THIAMINE HCL 100 MG TABLET (FP) PO SCH (22:02)
[2022-08-03] MEDS: METHOCARBAMOL 500 MG TABLET PO PRN (22:02)
[2022-08-04] MEDS: hydrOXYzine PAMOATE 25 MG CAPSULE (FP) PO SCH ×5 (06:10→22:05)
[2022-08-04] MEDS: IBUPROFEN 400 MG TABLET (FP) PO PRN (06:11)
[2022-08-04] MEDS: chlordiazePOXIDE HCL 10 MG CAPSULE PO SCH ×2 (06:13→17:21)
[2022-08-04] MEDS: PRENATAL VITAMINS W/ FOLIC ACID TABLET (FP) PO SCH (10:16)
[2022-08-04] MEDS: IBUPROFEN 600 MG TABLET (FP) PO PRN (17:59)
[2022-08-04] MEDS: BENZOCAINE 10 % GEL TUBE MM PRN (22:02)
[2022-08-04] MEDS: THIAMINE HCL 100 MG TABLET (FP) PO SCH (22:04)
[2022-08-04] MEDS: METHOCARBAMOL 500 MG TABLET PO PRN (22:04)
[2022-08-04] MEDS: MELATONIN 5 MG TABLETS PO SCH (22:04)
[2022-08-05] MEDS ORDERED: chlordiazePOXIDE HCL 10 MG CAPSULE PO ONE (05:00)
[2022-08-05] MEDS: hydrOXYzine PAMOATE 25 MG CAPSULE (FP) PO SCH ×3 (05:10→14:06)
[2022-08-05] MEDS: IBUPROFEN 600 MG TABLET (FP) PO PRN (05:12)
[2022-08-05] MEDS: BENZOCAINE 10 % GEL TUBE MM PRN ×2 (05:13→12:55)
[2022-08-05] MEDS: PRENATAL VITAMINS W/ FOLIC ACID TABLET (FP) PO SCH (10:08)
[2022-08-05 13:23] VITALS: BP 138/77; PULSE 82; RESP 18; TEMP 97.1
== END 2022-08-05 14:28 | disposition other institution (70) | DRG 897 ==
LOC: YASAS 14:12 → Y3N 16:13
PROVIDERS: ADMIT Allergy & Immunology; ATTEND Surgery
PROC: HZ2ZZZZ Detoxification Services for Substance Abuse Treatment (ICD-10-PCS; principal; 2022-07-31)
DX: F10.230 Alcohol dependence with withdrawal, uncomplicated (principal); E78.5 Hyperlipidemia, unspecified; E11.9 Type 2 diabetes mellitus without complications; I11.0 Hypertensive heart disease with heart failure; I50.9 Heart failure, unspecified; J44.9 Chronic obstructive pulmonary disease, unspecified; K21.9 Gastro-esophageal reflux disease without esophagitis; M54.50 Low back pain, unspecified; M19.042 Primary osteoarthritis, left hand; M19.041 Primary osteoarthritis, right hand; G89.29 Other chronic pain; Z86.19 Personal history of other infectious and parasitic diseases
CPT/HCPCS: 36415; 80053; 82962; 85027; 86780; C9803-CS; U0003; U0005

== ENCOUNTER 2022-08-05 14:44 | Inpatient (IN) | payer OTHER ==
[2022-08-05] MEDS ORDERED: LOPERAMIDE HCL 2 MG CAPSULE PO PRN (15:14)
[2022-08-05] MEDS ORDERED: NICOTINE 10 MG CARTRIDGE (INHALER) IH PRN (15:14)
[2022-08-05] MEDS ORDERED: P-EPHED 60MG/TRIPROLIDI 2.5MG TABLET PO PRN (15:14)
[2022-08-05] MEDS ORDERED: ACETAMINOPHEN 325 MG TABLET (FP) PO PRN (15:14)
[2022-08-05] MEDS ORDERED: MAG HYDROX/AL HYDROX/SIMETH 30 ML UNIT-DOSE CUP PO PRN (15:14)
[2022-08-05] MEDS ORDERED: MAGNESIUM HYDROX 2400MG/30ML ORAL SUSPENSION 30 ML CUP PO PRN (15:14)
[2022-08-05] MEDS ORDERED: BENZOCAINE/MENTHOL (CHLORASEPTIC ) LOZENGE MM PRN (15:14)
[2022-08-05] MEDS ORDERED: MAGNESIUM CITRATE 300 ML BOTTLE PO PRN (15:14)
[2022-08-05] MEDS ORDERED: guaiFENesin 200 MG/10 ML 10 ML UNIT-DOSE CUPS PO PRN (15:14)
[2022-08-05] MEDS ORDERED: hydrOXYzine PAMOATE 25 MG CAPSULE (FP) PO PRN (15:14)
[2022-08-05] MEDS: IBUPROFEN 400 MG TABLET (FP) PO PRN (17:30)
[2022-08-05] MEDS: MELATONIN 5 MG TABLETS PO SCH (21:15)
[2022-08-05] MEDS: THIAMINE HCL 100 MG TABLET (FP) PO SCH (21:15)
[2022-08-06] MEDS ORDERED: NICOTINE 7 MG/24 HOURS TOPICAL PATCH TD SCH (10:00)
[2022-08-06] MEDS: PRENATAL VITAMINS W/ FOLIC ACID TABLET (FP) PO SCH (10:54)
[2022-08-06] MEDS: IBUPROFEN 400 MG TABLET (FP) PO PRN (10:56)
[2022-08-06] MEDS: BENZOCAINE 20 % GEL TUBE MM PRN ×2 (12:47→21:17)
[2022-08-06] MEDS: THIAMINE HCL 100 MG TABLET (FP) PO SCH (21:16)
[2022-08-06] MEDS: MELATONIN 5 MG TABLETS PO SCH (21:16)
[2022-08-07] MEDS: BENZOCAINE 20 % GEL TUBE MM PRN ×3 (07:01→22:18)
[2022-08-07] MEDS: IBUPROFEN 400 MG TABLET (FP) PO PRN (10:29)
[2022-08-07] MEDS: PRENATAL VITAMINS W/ FOLIC ACID TABLET (FP) PO SCH (10:29)
[2022-08-07] MEDS: MELATONIN 5 MG TABLETS PO SCH (22:17)
[2022-08-07] MEDS: THIAMINE HCL 100 MG TABLET (FP) PO SCH (22:17)
[2022-08-08] MEDS: PRENATAL VITAMINS W/ FOLIC ACID TABLET (FP) PO SCH (10:27)
[2022-08-08] MEDS: BENZOCAINE 20 % GEL TUBE MM PRN (10:28)
[2022-08-08] MEDS: MELATONIN 5 MG TABLETS PO SCH (21:18)
[2022-08-08] MEDS: THIAMINE HCL 100 MG TABLET (FP) PO SCH (21:18)
[2022-08-09 08:10] VITALS: RESP 18
[2022-08-09] MEDS: PRENATAL VITAMINS W/ FOLIC ACID TABLET (FP) PO SCH (10:58)
[2022-08-09] MEDS: BENZOCAINE 20 % GEL TUBE MM PRN (10:59)
[2022-08-09] MEDS: THIAMINE HCL 100 MG TABLET (FP) PO SCH (21:12)
[2022-08-09] MEDS: MELATONIN 5 MG TABLETS PO SCH (21:12)
[2022-08-10] MEDS: PRENATAL VITAMINS W/ FOLIC ACID TABLET (FP) PO SCH (10:35)
[2022-08-10] MEDS: IBUPROFEN 400 MG TABLET (FP) PO PRN (10:36)
[2022-08-10] MEDS: THIAMINE HCL 100 MG TABLET (FP) PO SCH (21:24)
[2022-08-10] MEDS: MELATONIN 5 MG TABLETS PO SCH (21:24)
[2022-08-11] MEDS: PRENATAL VITAMINS W/ FOLIC ACID TABLET (FP) PO SCH (10:33)
[2022-08-11] MEDS: IBUPROFEN 400 MG TABLET (FP) PO PRN (10:35)
[2022-08-11] MEDS: MELATONIN 5 MG TABLETS PO SCH (21:17)
[2022-08-11] MEDS: THIAMINE HCL 100 MG TABLET (FP) PO SCH (21:18)
[2022-08-12] MEDS: PRENATAL VITAMINS W/ FOLIC ACID TABLET (FP) PO SCH (10:45)
[2022-08-12] MEDS: FUROSEMIDE 20 MG TABLET (FP) PO SCH (14:07)
[2022-08-12] MEDS: MELATONIN 5 MG TABLETS PO SCH (21:08)
[2022-08-12] MEDS: THIAMINE HCL 100 MG TABLET (FP) PO SCH (21:08)
[2022-08-13] MEDS: FUROSEMIDE 20 MG TABLET (FP) PO SCH ×2 (05:56→13:21)
[2022-08-13] MEDS: PRENATAL VITAMINS W/ FOLIC ACID TABLET (FP) PO SCH (11:10)
[2022-08-13] MEDS: MELATONIN 5 MG TABLETS PO SCH (21:56)
[2022-08-13] MEDS: THIAMINE HCL 100 MG TABLET (FP) PO SCH (21:56)
[2022-08-14] MEDS: FUROSEMIDE 20 MG TABLET (FP) PO SCH ×2 (06:50→14:04)
[2022-08-14] MEDS: PRENATAL VITAMINS W/ FOLIC ACID TABLET (FP) PO SCH (10:28)
[2022-08-14] MEDS: THIAMINE HCL 100 MG TABLET (FP) PO SCH (22:18)
[2022-08-14] MEDS: MELATONIN 5 MG TABLETS PO SCH (22:18)
[2022-08-15] MEDS: PRENATAL VITAMINS W/ FOLIC ACID TABLET (FP) PO SCH (10:04)
[2022-08-15] MEDS: MELATONIN 5 MG TABLETS PO SCH (21:37)
[2022-08-15] MEDS: THIAMINE HCL 100 MG TABLET (FP) PO SCH (21:37)
[2022-08-16] MEDS: PRENATAL VITAMINS W/ FOLIC ACID TABLET (FP) PO SCH (10:42)
[2022-08-16] MEDS: IBUPROFEN 400 MG TABLET (FP) PO PRN (10:43)
[2022-08-16] MEDS: MELATONIN 5 MG TABLETS PO SCH (21:11)
[2022-08-16] MEDS: THIAMINE HCL 100 MG TABLET (FP) PO SCH (21:11)
[2022-08-17] MEDS: PRENATAL VITAMINS W/ FOLIC ACID TABLET (FP) PO SCH (10:56)
[2022-08-17] MEDS: IBUPROFEN 400 MG TABLET (FP) PO PRN (10:57)
[2022-08-17] MEDS: MELATONIN 5 MG TABLETS PO SCH (21:11)
[2022-08-17] MEDS: THIAMINE HCL 100 MG TABLET (FP) PO SCH (21:11)
[2022-08-18] MEDS: PRENATAL VITAMINS W/ FOLIC ACID TABLET (FP) PO SCH (09:49)
[2022-08-18] MEDS: MELATONIN 5 MG TABLETS PO SCH (21:09)
[2022-08-18] MEDS: THIAMINE HCL 100 MG TABLET (FP) PO SCH (21:09)
[2022-08-19] MEDS: IBUPROFEN 400 MG TABLET (FP) PO PRN ×2 (10:47→19:15)
[2022-08-19] MEDS: PRENATAL VITAMINS W/ FOLIC ACID TABLET (FP) PO SCH (10:47)
[2022-08-19] MEDS: THIAMINE HCL 100 MG TABLET (FP) PO SCH (21:06)
[2022-08-19] MEDS: MELATONIN 5 MG TABLETS PO SCH (21:06)
[2022-08-20] MEDS: PRENATAL VITAMINS W/ FOLIC ACID TABLET (FP) PO SCH (10:53)
[2022-08-20] MEDS: MELATONIN 5 MG TABLETS PO SCH (21:54)
[2022-08-20] MEDS: THIAMINE HCL 100 MG TABLET (FP) PO SCH (21:54)
[2022-08-21 07:36] VITALS: TEMP 96.6
[2022-08-21] MEDS: PRENATAL VITAMINS W/ FOLIC ACID TABLET (FP) PO SCH (10:49)
[2022-08-21] MEDS: IBUPROFEN 400 MG TABLET (FP) PO PRN (21:35)
[2022-08-21] MEDS: MELATONIN 5 MG TABLETS PO SCH (21:36)
[2022-08-21] MEDS: THIAMINE HCL 100 MG TABLET (FP) PO SCH (21:36)
[2022-08-22 08:03] VITALS: BP 127/66; PULSE 78
[2022-08-22] MEDS: PRENATAL VITAMINS W/ FOLIC ACID TABLET (FP) PO SCH (09:55)
== END 2022-08-22 11:00 | disposition home or self-care (01) | DRG 895 ==
LOC: YASAS 14:44 → Y5N 14:45
PROVIDERS: ADMIT Allergy & Immunology; ATTEND Psychiatry & Neurology Pain Medicine
PROC: HZ42ZZZ Group Counseling for Substance Abuse Treatment, Cognitive-Behavioral (ICD-10-PCS; principal; 2022-08-05)
DX: F10.20 Alcohol dependence, uncomplicated (principal); E11.9 Type 2 diabetes mellitus without complications; R60.0 Localized edema; Z91.011 Allergy to milk products
CPT/HCPCS: 82962; 83036

== ENCOUNTER 2022-10-30 16:14 | Emergency (ER) | payer OTHER ==
[2022-10-30 16:31] VITALS: BMI 25.8
[2022-10-30 18:44] LABS: BASO % 1.3 % (0-2.0); EOS % 1.6 % (0-4.5); HEMATOCRIT 40.2 % (32.4-45.2); HEMOGLOBIN 13.4 GM/dL (10.7-15.3); MCH 32.1 pg (25.7-33.7); MCHC 33.4 g/dl (32.0-36.0); MEAN PLT VOLUME 7.3 fl (7.5-11.1); MONO % 4.4 % (3.8-10.2); NEUT % 53.7 % (42.8-82.8); PLATELET COUNT 236 10^3/uL (134-434); RBC 4.19 M/mm3 (3.60-5.2); RDW 14.4 % (11.6-15.6); WHITE BLOOD COUNT 7.1 K/mm3 (4.0-10.0)
[2022-10-30 18:52] LABS: INR 1.06 (0.83-1.09); PROTHROMBIN TIME (PATIENT) 12.2 SEC (9.7-13.0)
[2022-10-30 19:40] LABS: CALCIUM 8.3 mg/dL (8.5-10.1)
[2022-10-30 19:41] LABS: ALBUMIN 3.7 g/dl (3.4-5.0)
[2022-10-30 19:44] LABS: CREATININE 0.6 mg/dL (0.55-1.3)
[2022-10-30 19:45] LABS: BILIRUBIN,TOTAL 0.6 mg/dL (0.2-1); TOT PROT 7.2 g/dl (6.4-8.2)
[2022-10-30 20:01] LABS: BLOOD UREA NITROGEN 9.3 mg/dL (7-18)
[2022-10-30 20:53] VITALS: BP 127/71; PULSE 85; RESP 19; TEMP 98.6
== END 2022-10-30 22:07 ==
LOC: JER 16:14
DX: R00.2 Palpitations (principal)
CPT/HCPCS: 36415; 80053; 84484; 85025; 85610; 85730; 93005; 93010; 99284-25

== ENCOUNTER 2022-10-30 22:40 | Inpatient (IN) | payer OTHER ==
[2022-10-30 23:18] VITALS: BMI 25.4
[2022-10-30] MEDS ORDERED: IBUPROFEN 400 MG TABLET (FP) PO PRN (23:18)
[2022-10-30] MEDS ORDERED: ACETAMINOPHEN 325 MG TABLET (FP) PO PRN ×2 (23:18)
[2022-10-30] MEDS ORDERED: POLYETHYLENE GLYCOL (HEALTHYLAX) 3350 17 GM PACKET PO PRN (23:18)
[2022-10-30] MEDS ORDERED: MAGNESIUM HYDROX 2400MG/30ML ORAL SUSPENSION 30 ML CUP PO PRN (23:18)
[2022-10-30] MEDS ORDERED: DICYCLOMINE HCL 10 MG CAPSULE PO PRN (23:18)
[2022-10-30] MEDS ORDERED: LOPERAMIDE HCL 2 MG CAPSULE PO PRN (23:18)
[2022-10-30] MEDS ORDERED: ONDANSETRON *ODT* 4 MG TABLET SL PRN (23:18)
[2022-10-30] MEDS ORDERED: BENZOCAINE/MENTHOL (CHLORASEPTIC ) LOZENGE MM PRN (23:18)
[2022-10-30] MEDS ORDERED: IBUPROFEN 600 MG TABLET (FP) PO PRN (23:18)
[2022-10-30] MEDS ORDERED: BISMUTH SUBSALICYLATE 524 MG/30 ML PO PRN (23:18)
[2022-10-30] MEDS ORDERED: MAG HYDROX/AL HYDROX/SIMETH 30 ML UNIT-DOSE CUP PO PRN (23:18)
[2022-10-30] MEDS ORDERED: NALOXONE HCL (KLOXXADO) 8 MG SPRAY NS PRN (23:18)
[2022-10-31] MEDS: chlordiazePOXIDE HCL 25 MG CAPSULE PO SCH ×3 (10:27→22:13)
[2022-10-31] MEDS: PRENATAL VITAMINS W/ FOLIC ACID TABLET (FP) PO SCH (10:27)
[2022-10-31] MEDS: METHOCARBAMOL 500 MG TABLET PO PRN (10:27)
[2022-10-31] MEDS: METOPROLOL TARTRATE 25 MG TABLET (FP) PO SCH ×2 (10:27→22:11)
[2022-10-31 11:50] LABS: HEMATOCRIT 39.8 % (32.4-45.2); HEMOGLOBIN 13.2 GM/dL (10.7-15.3); MCHC 33.2 g/dl (32.0-36.0); MEAN CELL VOLUME 96.4 fl (80-96); MEAN PLT VOLUME 7.7 fl (7.5-11.1); PLATELET COUNT 204 10^3/uL (134-434); RBC 4.13 M/mm3 (3.60-5.2); RDW 14.5 % (11.6-15.6); WHITE BLOOD COUNT 7.1 K/mm3 (4.0-10.0)
[2022-10-31 11:55] LABS: CALCIUM 8.7 mg/dL (8.5-10.1)
[2022-10-31 11:56] LABS: ALBUMIN 3.7 g/dl (3.4-5.0); BLOOD UREA NITROGEN 8.2 mg/dL (7-18)
[2022-10-31 11:59] LABS: CREATININE 0.5 mg/dL (0.55-1.3); TOT PROT 7.3 g/dl (6.4-8.2)
[2022-10-31] MEDS: hydrOXYzine PAMOATE 25 MG CAPSULE (FP) PO PRN (13:20)
[2022-10-31] MEDS: chlordiazePOXIDE HCL 25 MG CAPSULE PO PRN (13:20)
[2022-10-31] MEDS: THIAMINE HCL 100 MG TABLET (FP) PO SCH (22:12)
[2022-10-31] MEDS: MELATONIN 5 MG TABLETS PO SCH (22:12)
[2022-11-01] MEDS: chlordiazePOXIDE HCL 25 MG CAPSULE PO PRN (05:10)
[2022-11-01] MEDS: chlordiazePOXIDE HCL 25 MG CAPSULE PO SCH ×4 (05:54→22:17)
[2022-11-01] MEDS: PRENATAL VITAMINS W/ FOLIC ACID TABLET (FP) PO SCH (10:04)
[2022-11-01] MEDS: METOPROLOL TARTRATE 25 MG TABLET (FP) PO SCH ×2 (10:04→22:17)
[2022-11-01] MEDS: MELATONIN 5 MG TABLETS PO SCH (22:17)
[2022-11-01] MEDS: THIAMINE HCL 100 MG TABLET (FP) PO SCH (22:17)
[2022-11-02] MEDS ORDERED: chlordiazePOXIDE HCL 10 MG CAPSULE PO PRN
[2022-11-02] MEDS: chlordiazePOXIDE HCL 10 MG CAPSULE PO SCH ×4 (05:38→22:00)
[2022-11-02] MEDS: PRENATAL VITAMINS W/ FOLIC ACID TABLET (FP) PO SCH (10:12)
[2022-11-02] MEDS: METOPROLOL TARTRATE 25 MG TABLET (FP) PO SCH ×2 (10:14→22:00)
[2022-11-02] MEDS: METHOCARBAMOL 500 MG TABLET PO PRN (17:48)
[2022-11-02 21:23] VITALS: RESP 18
[2022-11-02] MEDS: MELATONIN 5 MG TABLETS PO SCH (22:00)
[2022-11-02] MEDS: THIAMINE HCL 100 MG TABLET (FP) PO SCH (22:00)
[2022-11-03] MEDS: chlordiazePOXIDE HCL 10 MG CAPSULE PO SCH ×2 (05:30→18:00)
[2022-11-03] MEDS: hydrOXYzine PAMOATE 25 MG CAPSULE (FP) PO PRN ×2 (10:01→18:01)
[2022-11-03] MEDS: PRENATAL VITAMINS W/ FOLIC ACID TABLET (FP) PO SCH (10:01)
[2022-11-03] MEDS: METOPROLOL TARTRATE 25 MG TABLET (FP) PO SCH ×2 (10:01→22:03)
[2022-11-03] MEDS: METHOCARBAMOL 500 MG TABLET PO PRN (17:59)
[2022-11-03] MEDS: THIAMINE HCL 100 MG TABLET (FP) PO SCH (22:03)
[2022-11-03] MEDS: MELATONIN 5 MG TABLETS PO SCH (22:03)
[2022-11-04] MEDS ORDERED: chlordiazePOXIDE HCL 10 MG CAPSULE PO ONE (05:00)
[2022-11-04 09:48] VITALS: BP 138/73; PULSE 81; TEMP 98.7
[2022-11-04] MEDS: METOPROLOL TARTRATE 25 MG TABLET (FP) PO SCH (10:05)
[2022-11-04] MEDS: PRENATAL VITAMINS W/ FOLIC ACID TABLET (FP) PO SCH (10:05)
== END 2022-11-04 10:43 | disposition other institution (70) | DRG 897 ==
LOC: YASAS 22:40 → Y6N 23:20
PROVIDERS: ADMIT Allergy & Immunology; ATTEND Surgery
PROC: HZ2ZZZZ Detoxification Services for Substance Abuse Treatment (ICD-10-PCS; principal; 2022-10-30)
DX: F10.230 Alcohol dependence with withdrawal, uncomplicated (principal); D50.9 Iron deficiency anemia, unspecified; I11.0 Hypertensive heart disease with heart failure; I50.9 Heart failure, unspecified; J44.9 Chronic obstructive pulmonary disease, unspecified; K21.9 Gastro-esophageal reflux disease without esophagitis; M19.90 Unspecified osteoarthritis, unspecified site; M54.50 Low back pain, unspecified; G89.29 Other chronic pain; E11.9 Type 2 diabetes mellitus without complications; R00.2 Palpitations; Z98.84 Bariatric surgery status; Z91.011 Allergy to milk products
CPT/HCPCS: 36415; 80053; 82962; 85027; 86780; 87811; C9803-CS; U0003; U0005

== ENCOUNTER 2023-04-14 14:15 | Emergency (ER) | payer BC, OTHER ==
[2023-04-14 14:34] VITALS: BP 114/80; PULSE 102; RESP 20; TEMP 98.4; BMI 26.6
[2023-04-14] MEDS ORDERED: LABETALOL HCL 200 MG TABLET (FP) PO ONE (15:20)
[2023-04-14] MEDS ORDERED: cloNIDine HCL 0.1 MG TABLET PO ONE (15:20)
[2023-04-14 15:27] LABS: BASO % 0.8 % (0-2.0); EOS % 2.6 % (0-4.5); HEMATOCRIT 42.8 % (32.4-45.2); HEMOGLOBIN 14.1 GM/dL (10.7-15.3); MCH 31.4 pg (25.7-33.7); MEAN CELL VOLUME 95.1 fl (80-96); MEAN PLT VOLUME 7.9 fl (7.5-11.1); MONO % 5.5 % (3.8-10.2); NEUT % 46.1 % (42.8-82.8); PLATELET COUNT 210 10^3/uL (134-434); RDW 12.9 % (11.6-15.6); WHITE BLOOD COUNT 6.5 K/mm3 (4.0-10.0)
[2023-04-14 15:45] LABS: POTASSIUM 3.7 mmol/L (3.5-5.1)
[2023-04-14 15:47] LABS: ALBUMIN 3.6 g/dl (3.4-5.0); CALCIUM 8.8 mg/dL (8.5-10.1)
[2023-04-14 15:50] LABS: BLOOD UREA NITROGEN 16.4 mg/dL (7-18); CREATININE 0.7 mg/dL (0.55-1.3)
[2023-04-14 15:52] LABS: BILIRUBIN,TOTAL 0.4 mg/dL (0.2-1); TOT PROT 7.4 g/dl (6.4-8.2)
[2023-04-14] MEDS ORDERED: LABETALOL HCL 5 MG/1 ML (100MG/20 ML VIAL) IVPUSH ONE (16:04)
== END 2023-04-14 18:25 | disposition home or self-care (01) ==
LOC: JER 14:15
DX: F10.120 Alcohol abuse with intoxication, uncomplicated (principal); Z20.822 Contact with and (suspected) exposure to COVID-19
CPT/HCPCS: 0241U-QW; 36415; 80053; 80307; 85025; 93005; 93010; 99284-25

== ENCOUNTER 2023-04-14 20:22 | Inpatient (IN) | payer OTHER ==
[2023-04-14 21:01] VITALS: BMI 27.4
[2023-04-14] MEDS ORDERED: NALOXONE HCL (KLOXXADO) 8 MG SPRAY NS PRN (23:08)
[2023-04-14] MEDS ORDERED: POLYETHYLENE GLYCOL (HEALTHYLAX) 3350 17 GM PACKET PO PRN (23:08)
[2023-04-14] MEDS ORDERED: NICOTINE 10 MG CARTRIDGE (INHALER) IH PRN (23:08)
[2023-04-14] MEDS ORDERED: ACETAMINOPHEN 325 MG TABLET (FP) PO PRN (23:08)
[2023-04-14] MEDS ORDERED: BENZOCAINE/MENTHOL (CHLORASEPTIC ) LOZENGE MM PRN (23:08)
[2023-04-14] MEDS ORDERED: DICYCLOMINE HCL 10 MG CAPSULE PO PRN (23:08)
[2023-04-14] MEDS ORDERED: ONDANSETRON *ODT* 4 MG TABLET SL PRN (23:08)
[2023-04-14] MEDS ORDERED: guaiFENesin 600 MG TABLET.ER (FP) PO PRN (23:08)
[2023-04-14] MEDS ORDERED: IBUPROFEN 400 MG TABLET (FP) PO PRN (23:08)
[2023-04-14] MEDS ORDERED: NALOXONE HCL 0.4 MG/ML VIAL IM PRN (23:08)
[2023-04-14] MEDS ORDERED: BISMUTH SUBSALICYLATE 524 MG/30 ML PO PRN (23:08)
[2023-04-14] MEDS ORDERED: IBUPROFEN 600 MG TABLET (FP) PO PRN (23:08)
[2023-04-14] MEDS ORDERED: MAG HYDROX/AL HYDROX/SIMETH 30 ML UNIT-DOSE CUP PO PRN (23:08)
[2023-04-14] MEDS ORDERED: BENZONATATE 200 MG CAPSULE PO PRN (23:08)
[2023-04-14] MEDS ORDERED: METHOCARBAMOL 500 MG TABLET PO PRN (23:08)
[2023-04-14] MEDS ORDERED: LOPERAMIDE HCL 2 MG CAPSULE PO PRN (23:08)
[2023-04-14] MEDS ORDERED: chlordiazePOXIDE HCL 25 MG CAPSULE PO PRN (23:08)
[2023-04-14] MEDS ORDERED: MAGNESIUM HYDROX 2400MG/30ML ORAL SUSPENSION 30 ML CUP PO PRN (23:08)
[2023-04-15] MEDS ORDERED: chlordiazePOXIDE HCL 25 MG CAPSULE ONE (01:32)
[2023-04-15] MEDS: chlordiazePOXIDE HCL 25 MG CAPSULE PO SCH ×5 (02:00→22:24)
[2023-04-15] MEDS: PRENATAL VITAMINS W/ FOLIC ACID TABLET (FP) PO SCH (10:12)
[2023-04-15 10:50] LABS: POTASSIUM 3.5 mmol/L (3.5-5.1)
[2023-04-15 11:00] LABS: HEMATOCRIT 40.6 % (32.4-45.2); HEMOGLOBIN 13.4 GM/dL (10.7-15.3); MCH 31.4 pg (25.7-33.7); MCHC 33.1 g/dl (32.0-36.0); MEAN PLT VOLUME 8.4 fl (7.5-11.1); PLATELET COUNT 194 10^3/uL (134-434); RBC 4.27 M/mm3 (3.60-5.2); RDW 12.9 % (11.6-15.6); WHITE BLOOD COUNT 8.1 K/mm3 (4.0-10.0)
[2023-04-15 11:01] LABS: CALCIUM 9.2 mg/dL (8.5-10.1)
[2023-04-15 11:02] LABS: ALBUMIN 3.8 g/dl (3.4-5.0); BLOOD UREA NITROGEN 13.3 mg/dL (7-18)
[2023-04-15 11:05] LABS: CREATININE 0.5 mg/dL (0.55-1.3)
[2023-04-15 11:06] LABS: BILIRUBIN,TOTAL 1.1 mg/dL (0.2-1)
[2023-04-15 11:07] LABS: TOT PROT 7.2 g/dl (6.4-8.2)
[2023-04-15] MEDS: hydrOXYzine PAMOATE 25 MG CAPSULE (FP) PO PRN (22:24)
[2023-04-15] MEDS: THIAMINE HCL 100 MG TABLET (FP) PO SCH (22:24)
[2023-04-15] MEDS: MELATONIN 5 MG TABLETS PO SCH (22:24)
[2023-04-16] MEDS: chlordiazePOXIDE HCL 25 MG CAPSULE PO SCH ×4 (05:50→22:57)
[2023-04-16] MEDS: PRENATAL VITAMINS W/ FOLIC ACID TABLET (FP) PO SCH (10:26)
[2023-04-16] MEDS: THIAMINE HCL 100 MG TABLET (FP) PO SCH (22:56)
[2023-04-16] MEDS: MELATONIN 5 MG TABLETS PO SCH (22:57)
[2023-04-17] MEDS ORDERED: chlordiazePOXIDE HCL 10 MG CAPSULE PO PRN
[2023-04-17] MEDS: chlordiazePOXIDE HCL 10 MG CAPSULE PO SCH ×4 (05:28→22:01)
[2023-04-17] MEDS: PRENATAL VITAMINS W/ FOLIC ACID TABLET (FP) PO SCH (10:25)
[2023-04-17] MEDS: MELATONIN 5 MG TABLETS PO SCH (22:01)
[2023-04-17] MEDS: THIAMINE HCL 100 MG TABLET (FP) PO SCH (22:01)
[2023-04-17] MEDS: hydrOXYzine PAMOATE 25 MG CAPSULE (FP) PO PRN (22:04)
[2023-04-18] MEDS: chlordiazePOXIDE HCL 10 MG CAPSULE PO SCH ×2 (05:38→17:20)
[2023-04-18] MEDS: PRENATAL VITAMINS W/ FOLIC ACID TABLET (FP) PO SCH (09:52)
[2023-04-18 13:31] VITALS: RESP 16
[2023-04-18] MEDS: THIAMINE HCL 100 MG TABLET (FP) PO SCH (22:05)
[2023-04-18] MEDS: MELATONIN 5 MG TABLETS PO SCH (22:05)
[2023-04-18] MEDS: hydrOXYzine PAMOATE 25 MG CAPSULE (FP) PO PRN (22:06)
[2023-04-19] MEDS ORDERED: chlordiazePOXIDE HCL 10 MG CAPSULE PO ONE (05:00)
[2023-04-19 09:53] VITALS: BP 134/83; PULSE 80; TEMP 97.7
[2023-04-19] MEDS: PRENATAL VITAMINS W/ FOLIC ACID TABLET (FP) PO SCH (10:15)
== END 2023-04-19 11:07 | disposition home or self-care (01) | DRG 897 ==
LOC: YASAS 20:22 → Y6N 04-15 01:09
PROVIDERS: ADMIT Allergy & Immunology; ATTEND Surgery
PROC: HZ2ZZZZ Detoxification Services for Substance Abuse Treatment (ICD-10-PCS; principal; 2023-04-15)
DX: F10.230 Alcohol dependence with withdrawal, uncomplicated (principal); E11.9 Type 2 diabetes mellitus without complications; I10 Essential (primary) hypertension; J44.9 Chronic obstructive pulmonary disease, unspecified; M54.50 Low back pain, unspecified; Z86.79 Personal history of other diseases of the circulatory system; G89.29 Other chronic pain; Z87.891 Personal history of nicotine dependence; Z98.84 Bariatric surgery status
CPT/HCPCS: 36415; 80053; 82962; 85027; 86780; 87635; Q0162

== ENCOUNTER 2024-01-02 08:12 | Emergency (ER) | payer BC, OTHER ==
[2024-01-02 08:36] VITALS: PULSE 114; TEMP 98.7; BMI 29.5
[2024-01-02] MEDS ORDERED: THIAMINE HCL 200 MG/2 ML VIAL ONE (09:29)
[2024-01-02] MEDS ORDERED: FAMOTIDINE 20 MG/50 ML IVPB 20 MG/50 ML MG IVPB ONE (09:30)
[2024-01-02] MEDS: FAMOTIDINE 20 MG/50 ML IVPB 20 MG/50 ML MG IVPB ONE (09:53)
[2024-01-02] MEDS: THIAMINE HCL 200 MG/2 ML VIAL IVPB ONE (09:53)
[2024-01-02] MEDS: LACTATED RINGERS SOLUTION 1000 ML INFUS.BAG IV ONE ×2 (09:53→11:01)
[2024-01-02 09:59] LABS: VENOUS BASE EXCESS -5.9 mmol/L (-2-2); VENOUS O2 SATURATION 85.7 % (70-80); VENOUS PCO2 41.5 mmHg (38-52); VENOUS PH 7.303 (7.310-7.410)
[2024-01-02 10:01] LABS: EOS % 0.2 % (0-4.5); HEMATOCRIT 40.8 % (32.4-45.2); HEMOGLOBIN 13.8 GM/dL (10.7-15.3); LYMPH % 21.9 % (8-40); MCHC 33.9 g/dl (32.0-36.0); MEAN CELL VOLUME 97.1 fl (80-96); MONO % 3.6 % (3.8-10.2); NEUT % 73.3 % (42.8-82.8); PLATELET COUNT 270 10^3/uL (134-434); RDW 15.3 % (11.6-15.6); WHITE BLOOD COUNT 6.8 K/mm3 (4.0-10.0)
[2024-01-02 10:07] LABS: INR 1.09 (0.83-1.09); PROTHROMBIN TIME (PATIENT) 12.6 SEC (9.7-13.0)
[2024-01-02 10:10] LABS: ACTIVATED PTT 26.7 SECONDS (25.2-36.5); EPI CELLS >36 /uL (0-25.1); HYALINE CASTS 0 /uL (0-3.1); PH,URINE 5.5 (5.0-8.0); URINE APPEARANCE CLEAR; URINE BACTERIA 1067 /uL (0-1359); URINE BILIRUBIN NEGATIVE (NEGATIVE); URINE COLOR YELLOW; URINE GLUCOSE (UA) NEGATIVE (NEGATIVE); URINE KETONE 3+ (NEGATIVE); URINE LEUK ESTERASE NEGATIVE (NEGATIVE); URINE NITRITE NEGATIVE (NEGATIVE); URINE PROTEIN 2+ (NEGATIVE); URINE RBC 21 /uL (0-23.9); URINE UROBILINOGEN 0.2 mg/dL (0.2-1.0); URINE WBC 16 /uL (0-25.8)
[2024-01-02 10:17] LABS: POTASSIUM 3.9 mmol/L (3.5-5.1)
[2024-01-02 10:20] LABS: CALCIUM 8.7 mg/dL (8.5-10.1)
[2024-01-02 10:21] LABS: ALBUMIN 3.7 g/dl (3.4-5.0); BLOOD UREA NITROGEN 13.7 mg/dL (7-18); MAGNESIUM 1.9 mg/dL (1.8-2.4)
[2024-01-02 10:23] LABS: CREATININE 0.5 mg/dL (0.55-1.3); PHOSPHOROUS 4.6 mg/dL (2.5-4.9)
[2024-01-02 10:24] LABS: BILIRUBIN,TOTAL 0.8 mg/dL (0.2-1); TOT PROT 7.2 g/dl (6.4-8.2)
[2024-01-02] MEDS ORDERED: FOLIC ACID 1 MG TABLET (FP) ONE (10:56)
[2024-01-02] MEDS: FOLIC ACID 1 MG TABLET (FP) PO ONE (11:01)
[2024-01-02 12:52] LABS: POTASSIUM 3.9 mmol/L (3.5-5.1)
[2024-01-02 12:53] LABS: CALCIUM 8.6 mg/dL (8.5-10.1)
[2024-01-02 12:54] LABS: BLOOD UREA NITROGEN 11.5 mg/dL (7-18)
[2024-01-02 12:56] LABS: CREATININE 0.5 mg/dL (0.55-1.3)
[2024-01-02 13:34] VITALS: BP 125/72; RESP 20
== END 2024-01-02 13:47 | disposition home or self-care (01) ==
LOC: JER 08:12
PROC: 3E033GC Introduction of Other Therapeutic Substance into Peripheral Vein, Percutaneous Approach (ICD-10-PCS; principal; 2024-01-02)
PROC: 3E0 Administration, Physiological Systems and Anatomical Regions, Introduction (ICD-10-PCS; 2024-01-02)
DX: F10.129 Alcohol abuse with intoxication, unspecified (principal); R00.2 Palpitations; R07.2 Precordial pain; R42 Dizziness and giddiness; Z20.822 Contact with and (suspected) exposure to COVID-19
CPT/HCPCS: 0241U-QW; 36415; 71045-TC-FY; 80048; 80053; 80307; 81003; 82010; 82140; 82803; 83735; 84100; 84484; 85025; 85610; 85730; 86850; 86900; 86901; 87086; 87186; 93005; 93010; 99285-25

== ENCOUNTER 2024-01-02 14:49 | Inpatient (IN) | payer OTHER, BC ==
[2024-01-02 15:26] VITALS: BMI 27.4
[2024-01-02] MEDS ORDERED: chlordiazePOXIDE HCL 25 MG CAPSULE PO PRN (16:36)
[2024-01-02] MEDS ORDERED: ONDANSETRON *ODT* 4 MG TABLET SL PRN (17:21)
[2024-01-02] MEDS ORDERED: MAG HYDROX/AL HYDROX/SIMETH 30 ML UNIT-DOSE CUP PO PRN (17:21)
[2024-01-02] MEDS ORDERED: MAGNESIUM HYDROX 2400MG/30ML ORAL SUSPENSION 30 ML CUP PO PRN (17:21)
[2024-01-02] MEDS ORDERED: guaiFENesin 600 MG TABLET.ER (FP) PO PRN (17:21)
[2024-01-02] MEDS ORDERED: POLYETHYLENE GLYCOL (HEALTHYLAX) 3350 17 GM PACKET PO PRN (17:21)
[2024-01-02] MEDS ORDERED: BENZOCAINE/MENTHOL (CHLORASEPTIC ) LOZENGE MM PRN (17:21)
[2024-01-02] MEDS ORDERED: IBUPROFEN 600 MG TABLET (FP) PO PRN (17:21)
[2024-01-02] MEDS ORDERED: IBUPROFEN 400 MG TABLET (FP) PO PRN (17:21)
[2024-01-02] MEDS ORDERED: ACETAMINOPHEN 325 MG TABLET (FP) PO PRN (17:21)
[2024-01-02] MEDS ORDERED: BENZONATATE 200 MG CAPSULE PO PRN (17:21)
[2024-01-02] MEDS ORDERED: BISMUTH SUBSALICYLATE 524 MG/30 ML PO PRN (17:21)
[2024-01-02] MEDS: chlordiazePOXIDE HCL 25 MG CAPSULE PO SCH (19:07)
[2024-01-02] MEDS ORDERED: chlordiazePOXIDE HCL 25 MG CAPSULE ONE (19:16)
[2024-01-02] MEDS: propRANOLol HCL 10 MG TABLET PO ONE ×2 (20:00→20:01)
[2024-01-02] MEDS: THIAMINE HCL 100 MG TABLET (FP) PO SCH (22:17)
[2024-01-02] MEDS: MELATONIN 5 MG TABLETS PO SCH (22:17)
[2024-01-03] MEDS: PRENATAL VITAMINS W/ FOLIC ACID TABLET (FP) PO SCH (10:18)
[2024-01-03] MEDS: metoPROLOL SUCCINATE 25 MG TAB.SR.24H (FP) PO SCH (12:20)
[2024-01-03] MEDS: FLU VACCINE (FLULAVAL) PF 60 MCG/0.5 ML SYRINGE 2023-2024 IM ONE (12:20)
[2024-01-04] MEDS: chlordiazePOXIDE HCL 25 MG CAPSULE PO SCH (05:37)
[2024-01-04] MEDS ORDERED: LOSARTAN POTASSIUM 50 MG TABLET PO SCH (10:00)
[2024-01-04] MEDS: LOSARTAN POTASSIUM 50 MG TABLET PO SCH (10:11)
[2024-01-04] MEDS: LOPERAMIDE HCL 2 MG CAPSULE PO PRN (12:54)
[2024-01-05] MEDS ORDERED: chlordiazePOXIDE HCL 10 MG CAPSULE PO PRN
[2024-01-05] MEDS: chlordiazePOXIDE HCL 10 MG CAPSULE PO SCH (05:32)
[2024-01-05 09:37] VITALS: RESP 17
[2024-01-05 12:45] VITALS: BP 136/82; PULSE 89; TEMP 97.1
[2024-01-06] MEDS ORDERED: chlordiazePOXIDE HCL 10 MG CAPSULE PO SCH (05:00)
[2024-01-07] MEDS ORDERED: chlordiazePOXIDE HCL 10 MG CAPSULE PO ONE (05:00)
== END 2024-01-05 12:47 | disposition home or self-care (01) | DRG 897 ==
LOC: YASAS 14:49 → Y6N 18:42
PROVIDERS: ADMIT Allergy & Immunology; ATTEND Surgery
PROC: HZ2ZZZZ Detoxification Services for Substance Abuse Treatment (ICD-10-PCS; principal; 2024-01-01)
DX: F10.230 Alcohol dependence with withdrawal, uncomplicated (principal); E78.5 Hyperlipidemia, unspecified; I11.0 Hypertensive heart disease with heart failure; I50.9 Heart failure, unspecified; J44.9 Chronic obstructive pulmonary disease, unspecified; E11.9 Type 2 diabetes mellitus without complications; M54.50 Low back pain, unspecified; G89.29 Other chronic pain; Z86.11 Personal history of tuberculosis; Z98.84 Bariatric surgery status
CPT/HCPCS: 80305; 82962; 87635; 90686; 93005; 93010; G0008

== ENCOUNTER 2024-05-26 17:28 | Inpatient (IN) | payer OTHER, BC ==
[2024-05-26 18:47] VITALS: BMI 28.8
[2024-05-26] MEDS ORDERED: LOPERAMIDE HCL 2 MG CAPSULE PO PRN (19:05)
[2024-05-26] MEDS ORDERED: BISMUTH SUBSALICYLATE 524 MG/30 ML PO PRN (19:05)
[2024-05-26] MEDS ORDERED: ACETAMINOPHEN 325 MG TABLET (FP) PO PRN (19:05)
[2024-05-26] MEDS ORDERED: MAG HYDROX/AL HYDROX/SIMETH 30 ML UNIT-DOSE CUP PO PRN (19:05)
[2024-05-26] MEDS ORDERED: IBUPROFEN 600 MG TABLET (FP) PO PRN (19:05)
[2024-05-26] MEDS ORDERED: MAGNESIUM HYDROX 2400MG/30ML ORAL SUSPENSION 30 ML CUP PO PRN (19:05)
[2024-05-26] MEDS ORDERED: POLYETHYLENE GLYCOL (HEALTHYLAX) 3350 17 GM PACKET PO PRN (19:05)
[2024-05-26] MEDS ORDERED: IBUPROFEN 400 MG TABLET (FP) PO PRN (19:05)
[2024-05-26] MEDS ORDERED: ONDANSETRON *ODT* 4 MG TABLET SL PRN (19:05)
[2024-05-26] MEDS ORDERED: BENZONATATE 200 MG CAPSULE PO PRN (19:05)
[2024-05-26] MEDS ORDERED: guaiFENesin 600 MG TABLET.ER (FP) PO PRN (19:05)
[2024-05-26] MEDS ORDERED: BENZOCAINE/MENTHOL (CHLORASEPTIC ) LOZENGE MM PRN (19:05)
[2024-05-26] MEDS: MELATONIN 5 MG TABLETS PO SCH (22:31)
[2024-05-26] MEDS: THIAMINE 100 MG TABLET PO SCH (22:31)
[2024-05-27] MEDS: PRENATAL VITAMINS W/ FOLIC ACID TABLET (FP) PO SCH (09:06)
[2024-05-27] MEDS: ASPIRIN 81 MG CHEWABLE TABLETS PO SCH (09:07)
[2024-05-27] MEDS ORDERED: LORazepam 1 MG TABLET PO PRN (09:49)
[2024-05-27] MEDS: LORazepam 2 MG TABLET PO SCH (10:09)
[2024-05-27] MEDS ORDERED: LORazepam 2 MG TABLET PO SCH (11:00)
[2024-05-28] MEDS: LORazepam 1 MG TABLET PO SCH (05:51)
[2024-05-29] MEDS: LORazepam 0.5 MG TABLET PO SCH (05:53)
[2024-05-29] MEDS: amLODIPine BESYLATE 2.5 MG TABLET (FP) PO ONE (11:50)
[2024-05-29] MEDS: ACAMPROSATE CALCIUM 333 MG TABLET.DR PO SCH (14:23)
[2024-05-29 15:53] LABS: HEMATOCRIT 39.6 % (32.4-45.2); HEMOGLOBIN 13.4 GM/dL (10.7-15.3); MCH 32.5 pg (25.7-33.7); MCHC 33.9 g/dl (32.0-36.0); MEAN CELL VOLUME 96.1 fl (80-96); MEAN PLT VOLUME 8.8 fl (7.5-11.1); PLATELET COUNT 156 10^3/uL (134-434); RBC 4.12 M/mm3 (3.60-5.2); RDW 14.9 % (11.6-15.6); WHITE BLOOD COUNT 6.1 K/mm3 (4.0-10.0)
[2024-05-29 15:55] LABS: POTASSIUM 3.3 mmol/L (3.5-5.1)
[2024-05-29 16:07] LABS: BILIRUBIN,TOTAL 0.8 mg/dL (0.2-1); BLOOD UREA NITROGEN 9.2 mg/dL (7-18); CALCIUM 9.9 mg/dL (8.5-10.1)
[2024-05-29 16:08] LABS: TOT PROT 7.4 g/dl (6.4-8.2)
[2024-05-29 16:09] LABS: CREATININE 0.8 mg/dL (0.55-1.3)
[2024-05-30] MEDS: LORazepam 0.5 MG TABLET PO ONE (05:21)
[2024-05-30] MEDS: POTASSIUM CHLORIDE ORAL LIQUID 20 MEQ/15 ML PO ONE (09:23)
[2024-05-30 09:43] VITALS: BP 136/71; PULSE 96; RESP 18; TEMP 97.7
== END 2024-05-30 09:55 | disposition home or self-care (01) | DRG 897 ==
LOC: YASAS 17:28 → Y6N 19:11
PROVIDERS: ADMIT Allergy & Immunology; ATTEND Surgery
PROC: HZ2ZZZZ Detoxification Services for Substance Abuse Treatment (ICD-10-PCS; principal; 2024-05-26)
DX: F10.230 Alcohol dependence with withdrawal, uncomplicated (principal); F10.220 Alcohol dependence with intoxication, uncomplicated; J44.9 Chronic obstructive pulmonary disease, unspecified; E78.5 Hyperlipidemia, unspecified; I50.9 Heart failure, unspecified; Z98.84 Bariatric surgery status; Z86.11 Personal history of tuberculosis
CPT/HCPCS: 36415; 80053; 80305; 85027; 86780; 99283-25

== ENCOUNTER 2024-05-30 18:30 | Emergency (ER) | payer OTHER ==
[2024-05-30 18:37] VITALS: BP 104/70; PULSE 82; RESP 16; TEMP 98.4; BMI 27.3
== END 2024-05-30 21:12 | disposition home or self-care (01) ==
LOC: JER 18:30
DX: F10.129 Alcohol abuse with intoxication, unspecified (principal); Y90.9 Presence of alcohol in blood, level not specified
CPT/HCPCS: 99283-25

== ENCOUNTER 2025-02-28 13:08 | Inpatient (IN) | payer OTHER ==
[2025-02-28 13:38] VITALS: BMI 26.9
[2025-02-28] MEDS ORDERED: NALOXONE (NARCAN) HCL 4 MG/0.1 ML SPRAY NS PRN (13:50)
[2025-02-28] MEDS ORDERED: MAG HYDROX/AL HYDROX/SIMETH 30 ML UNIT-DOSE CUP PO PRN (13:50)
[2025-02-28] MEDS ORDERED: BENZONATATE 200 MG CAPSULE PO PRN (13:50)
[2025-02-28] MEDS ORDERED: BENZOCAINE/MENTHOL (CHLORASEPTIC ) LOZENGE MM PRN (13:50)
[2025-02-28] MEDS ORDERED: MAGNESIUM HYDROX 2400MG/30ML ORAL SUSPENSION 30 ML CUP PO PRN (13:50)
[2025-02-28] MEDS ORDERED: ACETAMINOPHEN 325 MG TABLET (FP) PO PRN (13:50)
[2025-02-28] MEDS ORDERED: ONDANSETRON *ODT* 4 MG TABLET SL PRN (13:50)
[2025-02-28] MEDS ORDERED: BISMUTH SUBSALICYLATE 262 MG/15 ML BTL PO PRN (13:50)
[2025-02-28] MEDS ORDERED: guaiFENesin 600 MG TABLET.ER (FP) PO PRN (13:50)
[2025-02-28] MEDS ORDERED: diazePAM 5 MG TABLET PO PRN (13:50)
[2025-02-28] MEDS ORDERED: POLYETHYLENE GLYCOL (HEALTHYLAX) 3350 17 GM PACKET PO PRN (13:50)
[2025-02-28] MEDS ORDERED: IBUPROFEN 400 MG TABLET (FP) PO PRN (13:50)
[2025-02-28] MEDS ORDERED: IBUPROFEN 600 MG TABLET (FP) PO PRN (13:50)
[2025-02-28] MEDS ORDERED: LOPERAMIDE HCL 2 MG CAPSULE PO PRN (13:50)
[2025-02-28] MEDS: diazePAM 5 MG TABLET PO SCH (17:14)
[2025-02-28] MEDS: ASPIRIN 81 MG CHEWABLE TABLETS PO SCH (18:49)
[2025-02-28] MEDS: amLODIPine BESYLATE 5 MG TABLET (FP) PO SCH (18:49)
[2025-02-28] MEDS: MELATONIN 5 MG TABLETS PO SCH (22:18)
[2025-02-28] MEDS: THIAMINE 100 MG TABLET PO SCH (22:18)
[2025-03-01 10:01] LABS: HEMATOCRIT 42.5 % (34.1-44.9); HEMOGLOBIN 14.3 g/dL (11.2-15.7); MCHC 33.6 g/dl (32.2-35.5); MEAN CELL VOLUME 94.9 fl (79.4-94.8); MEAN PLT VOLUME 9.9 fl (9.4-12.3); PLATELET COUNT 253 x10^3/uL (182-369); RDW 13.3 % (12.4-16.4)
[2025-03-01] MEDS: PRENATAL VITAMINS W/ FOLIC ACID TABLET (FP) PO SCH (10:07)
[2025-03-01 10:26] LABS: POTASSIUM 4.1 mmol/L (3.5-5.1)
[2025-03-01 10:29] LABS: ALBUMIN 4.2 g/dl (3.4-5.0)
[2025-03-01 10:30] LABS: CALCIUM 9.4 mg/dL (8.5-10.1)
[2025-03-01 10:32] LABS: CREATININE 0.6 mg/dL (0.55-1.3)
[2025-03-01 10:33] LABS: BILIRUBIN,TOTAL 2.1 mg/dL (0.2-1); TOT PROT 7.9 g/dl (6.4-8.2)
[2025-03-02] MEDS: diazePAM 5 MG TABLET PO SCH (06:06)
[2025-03-02 09:10] LABS: ABSOLUTE IMMATURE GRANULOCYTES 0.03 x10^3/uL (0.0-0.031); BASOPHILS # 0.04 x10^3/uL (0.01-0.08); EOSINOPHIL % 2.3 % (0.7-5.8); EOSINOPHILS # 0.16 x10^3/uL (0.04-0.36); HEMATOCRIT 43.2 % (34.1-44.9); HEMOGLOBIN 14.2 g/dL (11.2-15.7); MCHC 32.9 g/dl (32.2-35.5); MEAN CELL VOLUME 96.4 fl (79.4-94.8); MEAN PLT VOLUME 10.4 fl (9.4-12.3); MONOCYTE # 0.33 x10^3/uL (0.24-0.86); MONOCYTE % 4.7 % (4.7-12.5); PLATELET COUNT 215 x10^3/uL (182-369); RDW 13.2 % (12.4-16.4)
[2025-03-03] MEDS: diazePAM 5 MG TABLET PO SCH (05:53)
[2025-03-04] MEDS: diazePAM 5 MG TABLET PO ONE (06:35)
[2025-03-04 09:21] VITALS: BP 118/89; PULSE 105; RESP 20; TEMP 98
== END 2025-03-04 11:07 | disposition home or self-care (01) | DRG 897 ==
LOC: YASAS 13:08 → Y6N 14:35
PROVIDERS: ADMIT Allergy & Immunology; ATTEND Allergy & Immunology
PROC: HZ2ZZZZ Detoxification Services for Substance Abuse Treatment (ICD-10-PCS; principal; 2025-02-28)
DX: F10.230 Alcohol dependence with withdrawal, uncomplicated (principal); F10.220 Alcohol dependence with intoxication, uncomplicated; D64.9 Anemia, unspecified; E78.5 Hyperlipidemia, unspecified; E11.9 Type 2 diabetes mellitus without complications; I10 Essential (primary) hypertension; J44.9 Chronic obstructive pulmonary disease, unspecified; Z86.79 Personal history of other diseases of the circulatory system; Z87.891 Personal history of nicotine dependence
CPT/HCPCS: 36415; 80053; 80305; 80307; 82962; 85025; 85027; 86780; 93005; 93010; 99283-25